=== PATIENT | male | born 1950 | race Caucasian/White ===

== ENCOUNTER 2016-10-11 21:29 | Emergency (ER) | payer MEDICARE, MEDICAID ==
[2016-10-11 22:40] VITALS: BP 140/95
--- NOTE | 2016-10-11 23:52 | EDM.PDOC ---
ED HPI GENERAL MEDICAL PROBLEM - General Chief Complaint: Lower Extremity Injury/Pain Stated Complaint: FEET ARE SORE Time Seen by Provider: 10/11/16 23:38 Source of Information: Reports: Patient History Limitations: Reports: No Limitations - History of Present Illness INITIAL COMMENTS - FREE TEXT/NARRATIVE: History of present illness: [66-year-old male presenting complaining of pain in his feet right greater than left this been going off and on for weeks and perhaps months. He has doctors Dr. Villasenor this problem but has never come to any resolution as to how he could be helped by this. He got new shoes a few weeks ago and that has not helped. He thinks it might be related to some of his medications and so his psychiatrist took him off of a few of his meds but he doesn't know the names of the medications he was taken off of but that has not worked he did. He apparently has some sort of psychiatric history but I'm not seeing him in meds attack as far as what it is but I suspect it could be something like schizophrenia. in name and he is complaining of pain in his feet right greater than left is exacerbated by walking and then when he lays down the pain goes away] Review of systems: As per history of present illness and below otherwise all systems reviewed and negative. Past medical history: As per history of present illness and as reviewed below otherwise noncontributory. Surgical history: As per history of present illness and as reviewed below otherwise noncontributory. Social history: No reported history of drug or alcohol abuse. Family history: As per history of present illness and as reviewed below otherwise noncontributory. Physical exam: HEENT: Atraumatic, normocephalic, pupils reactive, negative for conjunctival pallor or scleral icterus, mucous membranes moist, throat clear, neck supple, nontender, trachea midline. Lungs: Clear to auscultation, breath sounds equal bilaterally, chest nontender. Heart: S1S2, regular, negative for clicks, rubs, or JVD. Abdomen: Soft, nondistended, nontender. Negative for masses or hepatosplenomegaly. Negative for costovertebral tenderness. Pelvis: Stable nontender. Genitourinary: Deferred. Rectal: Deferred. Extremities: Examination of his feet reveals no obvious abnormalities palpation of his midfoot exacerbates his pain is no erythema or warmth he does seem to have more pain in the right and left this does not seem to be a Wilkinson's neuroma is more proximal than that would be. Neuro: Awake, alert, oriented. Cranial nerves II through XII unremarkable. Cerebellum unremarkable. Motor and sensory unremarkable throughout. Exam nonfocal. Diagnostics: [] Therapeutics: [] Impression: [Bilateral feet pain] Plan: [He does have diclofenac cream that he uses on his back. I recommended he try using it on his feet and if it doesn't work to followup in the clinic.] Definitive disposition and diagnosis as appropriate pending reevaluation and review of above. Bilateral Feet Pain Score (Numeric/FACES): 5 - Related Data Allergies Allergy/AdvReac Type Severity Reaction Status Date / Time gabapentin Allergy Shaking Verified 10/11/16 22:29 Wxetave-Vzt-Hjy Reductase Allergy Cannot Verified 10/11/16 22:28 Inhibitor Remember atorvastatin AdvReac Muscle Verified 10/11/16 22:28 Weakness bupropion HCl AdvReac Seizure Verified 10/11/16 22:28 [From Wellbutrin] citalopram hydrobromide AdvReac Hallucinati Verified 10/11/16 22:28 [From Celexa] ons mirtazapine [From Remeron] AdvReac Hallucinati Verified 10/11/16 22:28 ons pravastatin AdvReac Leg Cramps Verified 10/11/16 22:28 Home Meds: Home Meds Aspirin [Darlin Chewable] 81 mg PO QAM 03/25/13 [History] ClonazePAM [KlonoPIN] 0.5 mg PO BID 03/25/13 [History] Multivitamin with Minerals [Multiple Vitamin] 1 tab PO QAM 03/25/13 [History] Omeprazole 20 mg PO QAM 03/25/13 [History] Propranolol [Inderal] 20 mg PO TID 06/30/13 [History] FLUoxetine [PROzac] 40 mg PO QAM 10/06/13 [History] Diclofenac Sodium [Voltaren] 75 mg PO QID PRN 09/14/15 [History] Simvastatin [Zocor] 10 mg PO BEDTIME 12/07/15 [History] Cyclobenzaprine [Flexeril] 10 mg PO TID PRN 10/11/16 [History] Past Medical History HEENT History: Reports: Hard of Hearing, Impaired Vision Cardiovascular History: Reports: Arrhythmia, CAD, Heart Murmur, High Cholesterol , SOB on Exertion Respiratory History: Reports: Sleep Apnea Gastrointestinal History: Reports: GERD, Hiatal Hernia Musculoskeletal History: Reports: Back Pain, Chronic, Fracture, Other (See Below ) Other Musculoskeletal History: possible neuropathy Neurological History: Reports: Migraines, Neuropathy, Peripheral, Other (See Below) Other Neuro History: tremors from meds. tenitis Psychiatric History: Reports: Anxiety, Depression Hematologic History: Reports: Blood Transfusion(s) - Infectious Disease History Infectious Disease History: Reports: Chicken Pox, Measles, Mumps - Past Surgical History GI Surgical History: Reports: Hernia Repair/Other, Other (See Below) Social & Family History - Tobacco Use Smoking Status *Q: Never Smoker Years of Tobacco use: 20 Packs/Tins Daily: 3.5 Used Tobacco, but Quit: Yes Month Tobacco Last Used: may Second Hand Smoke Exposure: No - Caffeine Use Caffeine Use: Reports: Coffee - Alcohol Use Days Per Week of Alcohol Use: 0 - Recreational Drug Use Recreational Drug Use: No Drug Use in Last 12 Months: No Review of Systems - Review of Systems Review Of Systems: See Below Trauma Exam - Physical Exam Exam: See Below Course - Vital Signs Last Recorded V/S: Last Vital Signs Temp 36.0 C 10/11/16 22:34 Pulse 72 10/11/16 22:34 Resp 18 10/11/16 22:34 BP 140/95 H 10/11/16 22:34 Pulse Ox 94 L 10/11/16 22:34 Departure - Departure Time of Disposition: 23:52 Disposition: Home, Self-Care 01 Condition: good Clinical Impression: Bilateral foot pain - Discharge Information Forms: ED Department Discharge Additional Instructions: As we discussed try using that pain medication cream on her feet and if it doesn 't work follow up in the clinic
== END 2016-10-12 00:09 | disposition home or self-care (01) ==
LOC: JP.ED 21:29
DX: M79.671 Pain in right foot (principal); M79.672 Pain in left foot; H54.7 Unspecified visual loss; I25.10 Atherosclerotic heart disease of native coronary artery without angina pectoris; E78.00 Pure hypercholesterolemia, unspecified; K21.9 Gastro-esophageal reflux disease without esophagitis; G43.909 Migraine, unspecified, not intractable, without status migrainosus; F41.9 Anxiety disorder, unspecified; F32.9 Major depressive disorder, single episode, unspecified; Z88.8 Allergy status to other drugs, medicaments and biological substances; Z79.82 Long term (current) use of aspirin; Z79.899 Other long term (current) drug therapy
CPT/HCPCS: 99282; 99283

== ENCOUNTER 2016-10-15 10:41 | Emergency (ER) | payer MEDICARE, MEDICAID ==
[2016-10-15 10:50] VITALS: BP 169/107
[2016-10-15] MEDS ORDERED: Doxycycline 100 MG Cap PO ONE (11:21)
--- NOTE | 2016-10-15 11:24 | EDM.PDOC ---
ED HPI GENERAL MEDICAL PROBLEM - General Chief Complaint: Bite:Animal, Insect Stated Complaint: TICK LT SIDE ABD Time Seen by Provider: 10/15/16 11:00 Source of Information: Reports: Patient History Limitations: Reports: No Limitations - History of Present Illness INITIAL COMMENTS - FREE TEXT/NARRATIVE: Nolan is a 66 year old male who presents to the ED today with c/o tick bite to left lower abdomen. Patient reports it was not there yesterday. Tick is embedded but not encouraged. Patient denies any fever/body aches/chills/ rash. Onset: Today Duration: Day(s): (1) Left Abdomen Pain Score (Numeric/FACES): 1 - Related Data Allergies Allergy/AdvReac Type Severity Reaction Status Date / Time gabapentin Allergy Shaking Verified 10/15/16 10:58 Ycpuevr-Icg-Xnt Reductase Allergy Cannot Verified 10/15/16 10:58 Inhibitor Remember atorvastatin AdvReac Muscle Verified 10/15/16 10:58 Weakness bupropion HCl AdvReac Seizure Verified 10/15/16 10:58 [From Wellbutrin] citalopram hydrobromide AdvReac Hallucinati Verified 10/15/16 10:58 [From Celexa] ons mirtazapine [From Remeron] AdvReac Hallucinati Verified 10/15/16 10:58 ons pravastatin AdvReac Leg Cramps Verified 10/15/16 10:58 Home Meds: Home Meds Aspirin [Darlin Chewable] 81 mg PO QAM 03/25/13 [History] ClonazePAM [KlonoPIN] 0.5 mg PO BID 03/25/13 [History] Multivitamin with Minerals [Multiple Vitamin] 1 tab PO QAM 03/25/13 [History] Omeprazole 20 mg PO QAM 03/25/13 [History] Propranolol [Inderal] 20 mg PO TID 06/30/13 [History] FLUoxetine [PROzac] 40 mg PO QAM 10/06/13 [History] Diclofenac Sodium [Voltaren] 75 mg PO QID PRN 09/14/15 [History] Simvastatin [Zocor] 10 mg PO BEDTIME 12/07/15 [History] Cyclobenzaprine [Flexeril] 10 mg PO TID PRN 10/11/16 [History] Past Medical History HEENT History: Reports: Hard of Hearing, Impaired Vision Cardiovascular History: Reports: Arrhythmia, CAD, Heart Murmur, High Cholesterol , SOB on Exertion Respiratory History: Reports: Sleep Apnea Gastrointestinal History: Reports: GERD, Hiatal Hernia Musculoskeletal History: Reports: Back Pain, Chronic, Fracture, Other (See Below ) Other Musculoskeletal History: possible neuropathy Neurological History: Reports: Migraines, Neuropathy, Peripheral, Other (See Below) Other Neuro History: tremors from meds. tenitis Psychiatric History: Reports: Anxiety, Depression Hematologic History: Reports: Blood Transfusion(s) - Infectious Disease History Infectious Disease History: Reports: None - Past Surgical History HEENT Surgical History: Reports: Other (See Below) Other HEENT Surgeries/Procedures: removed metal from eye Cardiovascular Surgical History: Reports: None Respiratory Surgical History: Reports: None GI Surgical History: Reports: Hernia Repair/Other, Other (See Below) Other GI Surgeries/Procedures: spleenectomy Neurological Surgical History: Reports: None Musculoskeletal Surgical History: Reports: None Social & Family History - Tobacco Use Smoking Status *Q: Former Smoker Years of Tobacco use: 20 Packs/Tins Daily: 3 Used Tobacco, but Quit: Yes Month Tobacco Last Used: november Second Hand Smoke Exposure: Yes - Caffeine Use Caffeine Use: Reports: Coffee, Soda, Tea - Alcohol Use Days Per Week of Alcohol Use: 0 - Recreational Drug Use Recreational Drug Use: No Drug Use in Last 12 Months: No ED ROS GENERAL - Review of Systems Review Of Systems: ROS reveals no pertinent complaints other than HPI. ED EXAM, ANIMAL BITE - Physical Exam Exam: See Below Exam Limited By: No Limitations General Appearance: Alert, WD/WN, No Apparent Distress Head: Atraumatic Neck: Full Range of Motion Respiratory/Chest: No Respiratory Distress Cardiovascular: Normal Peripheral Pulses GI/Abdominal: Other (Embedded tick to left lower abdomen) Back Exam: Normal Inspection Extremities: Normal Inspection Neurological: Alert, Oriented, CN II-XII Intact Psychiatric: Normal Affect, Normal Mood. No: Other Skin Exam: Normal Color, Warm/Dry, Other (small areas, approx 1 cm of erythema surrounding tick bite, no evidence of cellulitis) Lymphatic: No Adenopathy Course - Vital Signs Text/Narrative:: Nolan is a 66 year old male who presents to the ED today with embedded tick to left lower abdomen. Tick removed with tweezers, head removed. Mild area of erythema, consistent with local irritation. Patient's exam otherwise unremarkable. Prophylactic dose of Doxycycline given in the ED as tick appears to be a deer tick. Tick related illnesses/symptoms discussed. Patient to follow up with PCP in these occur. Patient agreeable and discharged in stable condition. Last Recorded V/S: Last Vital Signs Temp 36.2 C 10/15/16 10:55 Pulse 101 H 10/15/16 10:55 Resp 18 10/15/16 10:55 BP 169/107 H 10/15/16 10:55 Pulse Ox 98 10/15/16 10:55 - Orders/Labs/Meds Meds: Medications Discontinued Medications Generic Name Dose Route Start Last Admin Trade Name Freq PRN Reason Stop Dose Admin Doxycycline Hyclate 200 mg 10/15/16 11:21 Vibramycin PO 10/15/16 11:22 ONETIME ONE Departure - Departure Time of Disposition: 12:00 Disposition: Home, Self-Care 01 Condition: good Clinical Impression: Tick bite Qualifiers: Encounter type: initial encounter Qualified Code(s): W57.XXXA - Bitten or stung by nonvenomous insect and other nonvenomous arthropods, initial encounter - Discharge Information Instructions: Ehrlichiosis and Anaplasmosis Referrals: Cierra Oconnor NP [Primary Care Provider] - Forms: ED Department Discharge Additional Instructions: Nolan I have given you a prophylactic does of Doxycycline today. If you develop any body aches, fever or bullseye rash, please follow up with your PCP
== END 2016-10-15 11:45 | disposition home or self-care (01) ==
LOC: JP.ED 10:41
DX: S30.861A Insect bite (nonvenomous) of abdominal wall, initial encounter (principal); I25.10 Atherosclerotic heart disease of native coronary artery without angina pectoris; E78.00 Pure hypercholesterolemia, unspecified; K21.9 Gastro-esophageal reflux disease without esophagitis; F41.9 Anxiety disorder, unspecified; F32.9 Major depressive disorder, single episode, unspecified; Z90.81 Acquired absence of spleen; Z98.890 Other specified postprocedural states; Z87.891 Personal history of nicotine dependence; Z79.82 Long term (current) use of aspirin; Z79.899 Other long term (current) drug therapy; Z88.8 Allergy status to other drugs, medicaments and biological substances; W57.XXXA Bitten or stung by nonvenomous insect and other nonvenomous arthropods, initial encounter
CPT/HCPCS: 99283; A9270; 99282

== ENCOUNTER 2017-01-04 06:26 | Day surgery (SDC) | payer MEDICARE, MEDICAID ==
[2017-01-04] MEDS ORDERED: fentaNYL 100 MCG/2 ML SDV ONE (07:00)
[2017-01-04] MEDS ORDERED: Propofol 200 MG/20 ML SDV ONE (07:00)
[2017-01-04] MEDS ORDERED: Dextrose 5%-Lactated Ringers 1,000 ML IV SCH (07:00)
[2017-01-04] MEDS ORDERED: Midazolam 1 MG/ML 2 ML SDV ONE (07:00)
[2017-01-04] MEDS ORDERED: Glycopyrrolate 0.2 MG/ML 2 ML SDV IVPUSH ONE (07:30)
[2017-01-04 09:35] VITALS: BP 124/74
--- NOTE | 2017-01-07 12:15 | OR ---
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 POSTOPERATIVE DIAGNOSES: 1. Large hiatal hernia with ulcerated gastroesophageal reflux disease consistent with Llamas esophagus. 2. Mild antral gastritis. OPERATIVE PROCEDURE: Esophagogastroduodenoscopy with biopsies of, 1. Antrum for CLOtest. 2. Esophagogastric junction for histologic evaluation. ANESTHESIA: IV sedation. INDICATIONS FOR PROCEDURE: This is a 66-year-old male presenting for a followup of Llamas esophagus. He does note some intermittent gastroesophageal reflux disease on omeprazole 40 mg a day. Plan is to proceed with upper GI endoscopy with biopsies as indicated. Potential risks including bleeding and perforation were discussed, and the patient wishes to proceed. DETAILS OF PROCEDURE: The patient was taken to the operative room and after placement in the left lateral decubitus position, was given IV sedation. The upper GI endoscope was passed orally through the length of the esophagus and into the stomach with retroflexion view of the fundus, thereafter through the pyloric channel and into the proximal duodenum. Findings included a normal hypopharynx, larynx, upper esophageal sphincter, and esophageal body. The patient did have a quite large hiatal hernia measuring around 5-6 cm, and with this had two linear ulcers present. There was upward extension of the gastroesophageal junction mucosal line consistent with his history of Llamas esophagus. There was no stricturing or gross evidence of neoplasia. Within the stomach, there was some mild antral gastritis. Pyloric channel and the duodenal exams were unremarkable. At this point, biopsies were obtained from the antrum and sent for CLOtest for H. pylori. Multiple biopsies were then obtained from the esophagogastric junction and sent for histologic evaluation. Minimal bleeding from the biopsy sites was seen and the procedure was then concluded. The patient was taken to the recovery room in satisfactory condition. Plan will be to continue present medications. We will have the patient followup on 01/16/2017. We discussed treatment options given the active reflux disease and an anti- reflux procedure may be indicated. Ace aGrdner MD /[id number]
== END 2017-01-04 09:57 | disposition home health service (06) ==
LOC: JP.SDS 06:26
PROVIDERS: ATTEND Surgery
DX: K29.50 Unspecified chronic gastritis without bleeding (principal); K44.9 Diaphragmatic hernia without obstruction or gangrene; K21.9 Gastro-esophageal reflux disease without esophagitis; Z88.8 Allergy status to other drugs, medicaments and biological substances
CPT/HCPCS: 43239; 87081; J2250; J2704; J3010; J7042; 88305; J3490

== ENCOUNTER 2017-01-24 06:56 | Inpatient (IN) | payer MEDICARE, MEDICAID ==
[2017-01-24] MEDS ORDERED: Acetaminophen 500 MG Tab PO ONE (07:00)
[2017-01-24] MEDS ORDERED: Dextrose 5%-Lactated Ringers 1,000 ML IV SCH (07:30)
[2017-01-24] MEDS ORDERED: Propranolol 10 MG Tab PO ONE (07:33)
[2017-01-24] MEDS ORDERED: ceFAZolin 2 GM in Premix Bag 1 BAG IV ONE (08:00)
[2017-01-24] MEDS ORDERED: HYDROmorphone/Normal Saline 15 MG/30 ML PCA IV PRN (08:20)
[2017-01-24] MEDS ORDERED: Naloxone 0.4 MG/ML SDV IVPUSH PRN (08:20)
[2017-01-24] MEDS ORDERED: Neostigmine Methylsulfate 1 MG/ML 5 ML Syringe ONE (10:29)
[2017-01-24] MEDS ORDERED: Glycopyrrolate 0.2 MG/ML 5 ML MDV ONE (10:29)
[2017-01-24] MEDS ORDERED: Propofol 200 MG/20 ML SDV ONE (10:29)
[2017-01-24] MEDS ORDERED: Ondansetron 4 MG/2 ML SDV ONE (10:29)
[2017-01-24] MEDS ORDERED: Rocuronium 50 MG/5 ML Vial ONE (10:29)
[2017-01-24] MEDS ORDERED: Succinylcholine 200 MG/10 ML MDV ONE (10:29)
[2017-01-24] MEDS ORDERED: Dexamethasone 4 MG/ML SDV ONE (10:29)
[2017-01-24] MEDS ORDERED: Naloxone 0.4 MG/ML SDV IV PRN (13:28)
[2017-01-24] MEDS ORDERED: Cyclobenzaprine 10 MG Tab PO PRN (13:31)
[2017-01-24] MEDS ORDERED: Ondansetron 4 MG/2 ML SDV IVPUSH PRN (13:33)
[2017-01-24] MEDS: Dextrose 5%-Lactated Ringers 1,000 ML IV SCH ×2 (13:39→22:11)
[2017-01-24] MEDS: Propranolol 10 MG Tab PO SCH ×2 (14:35→21:05)
[2017-01-24] MEDS: Pantoprazole 40 MG Vial IV SCH (14:36)
[2017-01-24] MEDS: Metoclopramide 10 MG/2 ML SDV IVPUSH SCH ×2 (14:38→19:41)
[2017-01-24] MEDS ORDERED: Lactated Ringers 500 ML IV ONE (16:00)
[2017-01-24] MEDS: ceFAZolin 2 GM in Sodium Chloride 0.9% 50 ML IV SCH (16:12)
[2017-01-24] MEDS: Diclofenac Sodium 75 MG Tab.EC PO SCH (21:04)
[2017-01-24] MEDS: ClonazePAM 0.5 MG Tab PO SCH (21:04)
[2017-01-25] MEDS: ceFAZolin 2 GM in Sodium Chloride 0.9% 50 ML IV SCH ×2 (00:18→07:49)
[2017-01-25] MEDS: Metoclopramide 10 MG/2 ML SDV IVPUSH SCH ×2 (03:23→07:49)
[2017-01-25] MEDS: Dextrose 5%-Lactated Ringers 1,000 ML IV SCH ×3 (04:32→20:13)
[2017-01-25] MEDS ORDERED: Acetaminophen/HYDROcodone 325-5 MG Tab PO PRN (07:53)
[2017-01-25] MEDS ORDERED: Cyclobenzaprine 10 MG Tab PO PRN (07:54)
[2017-01-25] MEDS ORDERED: Metoclopramide 10 MG/2 ML SDV IVPUSH PRN (07:56)
[2017-01-25] MEDS ORDERED: ClonazePAM 0.5 MG Tab PO SCH (09:00)
[2017-01-25] MEDS ORDERED: PROPRANOLOL 20 MG PO SCH (09:00)
[2017-01-25] MEDS: Propranolol 10 MG Tab PO SCH ×3 (09:48→20:09)
[2017-01-25] MEDS: FLUoxetine 20 MG Cap PO SCH (09:49)
[2017-01-25] MEDS: Aspirin 81 MG Tab.Chew PO SCH (09:49)
[2017-01-25] MEDS: Diclofenac Sodium 75 MG Tab.EC PO SCH ×2 (09:50→20:11)
[2017-01-25] MEDS: ClonazePAM 0.5 MG Tab PO SCH ×2 (09:54→20:10)
--- NOTE | 2017-01-25 11:43 | PN ---
DATE OF SERVICE: 01/25/2017 SUBJECTIVE: Nolan is a pleasant 66-year-old male. He is postoperative day #1. He states his pain is controlled. He has been up and ambulating. Vital signs have been stable. He has no questions or concerns. OBJECTIVE: GENERAL: Nolan is a 66-year-old male. VITAL SIGNS: TPR is 97.1, 67, 17, blood pressure 109/64. HEENT: Negative. NECK: Supple. HEART: Regular rate and rhythm. LUNGS: Clear. ABDOMEN: Dressing is dry and intact. Abdominal binder is on. EXTREMITIES: Without peripheral edema and SCDs are on. ASSESSMENT: Laparoscopic Shanthi fundoplication. The surgery is 01/24/2017. PLAN: 1. Full liquid diet. 2. 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 3. Discontinue continuous pulse ox. 4. [place] 5/325 mg every 4 hours p.r.n. pain. 5. Tylenol 650 mg q.4 hours p.r.n. lesser pain. 6. Aspirin 81 mg q.a.m. 7. Clonazepam 0.5 mg p.o. b.i.d. 8. Flexeril 10 mg p.o. t.i.d. p.r.n. 9. Inderal 20 mg p.o. t.i.d. 10.Zocor 10 mg p.o. at bedtime. 11.Decrease IV to 100 mL/h. 12.Good pulmonary toilet. 13.We will evaluate p.r.n. or in a.m. Antonia Emanuel PA-C /[id number]
[2017-01-25] MEDS: Pantoprazole 40 MG Vial IV SCH (14:55)
[2017-01-25] MEDS ORDERED: Non-Formulary Medication 1 Each (Simvastatin [Zocor] 10 MG) PO SCH (21:00)
[2017-01-25] MEDS ORDERED: Simvastatin 20 MG Tab PO SCH (21:00)
[2017-01-26 07:25] VITALS: BP 131/86
[2017-01-26] MEDS: Propranolol 10 MG Tab PO SCH (08:44)
[2017-01-26] MEDS: Diclofenac Sodium 75 MG Tab.EC PO SCH (08:45)
[2017-01-26] MEDS: FLUoxetine 20 MG Cap PO SCH (08:46)
[2017-01-26] MEDS: Aspirin 81 MG Tab.Chew PO SCH (08:46)
[2017-01-26] MEDS: ClonazePAM 0.5 MG Tab PO SCH (09:02)
--- NOTE | 2017-01-28 08:07 | DISCH ---
FINAL DIAGNOSES: 1. Large paraesophageal hernia associated with gastroesophageal reflux disease refractory to medical management. 2. Deserosalized portion of stomach from takedown of extensive intraabdominal adhesions. 3. Mediastinal lipoma. 4. Anxiety disorder. 5. Glucose intolerance. OPERATIVE PROCEDURE: This was done on 01/24/2017: 1. Diagnostic laparoscopy with lysis of adhesions and: a. Shanthi fundoplication along with repair of paraesophageal diaphragmatic hernia with mesh. b. Partial gastrectomy. c. Excision of mediastinal lipoma. SUMMARY: This is a 66-year-old presenting with gastroesophageal reflux disease that has been refractory to medical management. After preoperative evaluation and discussion, he wished to proceed with a Shanthi fundoplication. 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 These were dissected eventually to the point where we were able to proceed with the Shanthi fundoplication and hiatal hernia repair. He did have a portion of the stomach which was deserosalized, as a result of the takedown of adhesions, and that was excised, this being a quite small area, and otherwise, the fundoplication was straightforward and otherwise reinforced with some absorbable mesh. Postoperatively, he has had no significant problems. He is requiring only Tylenol for pain at this point and tolerating full-liquid diet. He will be instructed to stay on full-liquid diet for the next 2 weeks and then follow up with Dr. Gardner at [facility] on 02/06/2017.
--- NOTE | 2017-01-28 10:28 | OR ---
DATE OF PROCEDURE: 01/24/2017 PREOPERATIVE DIAGNOSIS: Gastroesophageal reflux disease, refractory to medical management. POSTOPERATIVE DIAGNOSES: 1. Large paraesophageal diaphragmatic hernia with gastroesophageal reflux disease, refractory to medical management. 2. Extensive intraabdominal adhesions. 3. Deserosalized portion of the gastric body, status post takedown of adhesions. 4. Mediastinal lipoma. OPERATIVE PROCEDURE: 1. Diagnostic laparoscopy with lysis of adhesions: a. Shanthi fundoplication with concurrent repair of paraesophageal diaphragmatic hernia with mesh (30864). b. Partial gastrectomy (27876). c. Excision of mediastinal lipoma (42687). ANESTHESIA: General. UPHOLSTERER APPRENTICE: Antonia Emanuel PA-C. INDICATION FOR PROCEDURE: This is a 66-year-old presenting with gastroesophageal reflux disease, which has been refractory to medical management. Plan is to proceed with a Shanthi fundoplication. This most likely can be done laparoscopically, however, the patient does have a long left subcostal incision related to a previous splenectomy. He is aware that there was some chance of needing to proceed with open procedure due to adhesions in that area. Otherwise, potential risks per se including bleeding, infection, injury to the underlying viscera, problems with the fundoplication such as dysphagia, gas bloat syndrome, disorders in gastric emptying rate, as well as incomplete relief of reflux symptoms were all reviewed, and the patient wishes to proceed. DETAILS OF PROCEDURE: The patient was taken to the operating room and placed in a supine position. After general endotracheal anesthesia was induced, a Cortez catheter was inserted and he was converted to a lithotomy position. The abdomen was then prepped and draped. At 15 cm inferior and 5 cm left of the xiphoid process, a transverse incision was made and peritoneal cavity entered under direct vision with an Optiview trocar. The peritoneal cavity was infiltrated to 15 mmHg pressure with CO2. Laparoscope was reinserted. No underlying trocar insertion site injuries were seen. The patient was noted to have a broad area of adhesions between the left subcostal incision and a combination of omentum and transverse colon and small bowel. The small bowel adhesions were all fairly lateral, and these were felt to be able to be left in place. Initially, 3 trocars were placed in the upper and right side of the abdomen, and adhesiolysis was undertaken. This was developed to the point where the visualization of the area of the stomach and gastroesophageal junction was able to be satisfactorily viewed. During course of the dissection, some dense adhesions to a portion of the greater curvature of the midbody of the stomach resulted in deserosalization of that area, and this was felt best to be excised to avoid any problems with subsequent perforation and that was accomplished with 2 firings of the AIDA purple loads and that specimen delivered from the field. At this point, 2 trocars were placed on the left abdomen along the costal margin under direct vision, as those areas had been cleared of the adhesions, and the dissection of the greater curvature of stomach then began further upward, dividing this away from the adhesions up to the level of the gastroesophageal junction. The peritoneal attachments of the esophagogastric junction were then freed up, such that the left fawad was completely freed up. The peritoneum along the anterior aspect of the right fawad was then encircled and divided and this allowed dissection into the esophagogastric junction, which, at that point, had been reduced by traction on the stomach downward. A Berry drain was placed around the distal esophagus and then additional freeing up the area of the attachments to the esophagus was undertaken. During the course of the dissection, a mediastinal lipoma was encountered, and this was excised and sent as a separate specimen. Care was taken to avoid injury to the vagus nerves, both of which were visualized during the course of the dissection. At that point, there appeared to be adequate intraabdominal esophageal length, measuring around 5 cm. A posterior crural repair was then accomplished with a series of 0 Ethibond sutures reinforced with PTFE pledgets. The defect was fairly broad, and this was felt best reinforced with an absorbable mesh. Phasix mesh was then cut such that it would lie across the crural repair posteriorly and roughly intermediate along the esophagus on each side. This was fixed in position with some titanium tacking screws. The fundus at that point had been well freed up and was retrieved through the retroesophageal window. The flame channeler then passed a wire more orally and from there into the stomach. Over this, a 54-Guyanese Savary dilator was placed. A 3-stitch 2 cm fundoplication was then made with 0 Ethibond sutures reinforced with PTFE pledgets. Each of the fundoplication sutures included bites of the underlying esophagus to help fix it in position. Both sides of the fundoplication were then fixed to the overlying diaphragm as well with the same stitch-pledget combination to prevent slippage of the fundoplication over time. At that point, the dilator and wire were removed, and no additional problems were noted. At this point, the gastrectomy staple line was once again inspected and found to be intact, and at that point, the trocars removed and the peritoneal cavity deflated. There were two 12 mm trocars placed through the course of this dissection, these were closed at fascial level with 0 Vicryl stitch and the skin at each incision with a 4-0 Vicryl skin stitch. Dressing was applied. The patient was taken to the recovery room in satisfactory condition. Physician child care center assistant director, Antonia Emanuel played an essential role in assisting in this case, helping to position the patient, retract structures as needed, as well as suturing and cutting sutures when indicated. Her presence improved patient safety and decreased operative time. Ace Gardner MD /[id number]
== END 2017-01-26 11:20 | disposition home or self-care (01) | DRG 328 ==
LOC: JP.MS 06:56 → JP.SDS 06:56 → EDSTATUS 11:30 → JP.2SS 12:15 → UNDOADMIN 12:15 → JP.MS 12:15 → UNDODISIN 01-26 11:20
PROVIDERS: ADMIT Surgery; ATTEND Surgery
PROC: 0WBC4ZX Excision of Mediastinum, Percutaneous Endoscopic Approach, Diagnostic (ICD-10-PCS; principal; 2017-01-24)
PROC: 0DB64ZZ Excision of Stomach, Percutaneous Endoscopic Approach (ICD-10-PCS; principal; 2017-01-24)
PROC: 0DV44ZZ Restriction of Esophagogastric Junction, Percutaneous Endoscopic Approach (ICD-10-PCS; principal; 2017-01-24)
PROC: 0BUS4JZ (ICD-10-PCS; principal; 2017-01-24)
PROC: 0BUR4JZ (ICD-10-PCS; principal; 2017-01-24)
DX: K21.9 Gastro-esophageal reflux disease without esophagitis (principal); D17.4 Benign lipomatous neoplasm of intrathoracic organs; K66.0 Peritoneal adhesions (postprocedural) (postinfection); K44.9 Diaphragmatic hernia without obstruction or gangrene; M54.9 Dorsalgia, unspecified; G89.29 Other chronic pain; F32.9 Major depressive disorder, single episode, unspecified; F41.1 Generalized anxiety disorder; Z88.8 Allergy status to other drugs, medicaments and biological substances; Z79.82 Long term (current) use of aspirin; E74.39 Other disorders of intestinal carbohydrate absorption
CPT/HCPCS: 88304; 88305; 94762; A9270-GY; C1781; C9113; J0330; J0690; J1100; J1170; J2405; J2704; J2710; J2765; J3010; J7042; J7050

== ENCOUNTER 2017-02-23 16:33 | Emergency (ER) | payer MEDICARE, MEDICAID ==
[2017-02-23 16:54] VITALS: BP 131/82
[2017-02-23] MEDS ORDERED: HYDROmorphone 1 MG/ML Syringe IM ONE (18:41)
[2017-02-23] MEDS ORDERED: HYDROmorphone 1 MG/ML Syringe ONE (18:50)
[2017-02-23] MEDS ORDERED: Aluminum Hydroxide/Magnesium Hydroxide/Simethicone Susp 30 ML Cup PO ONE (22:29)
--- NOTE | 2017-02-23 23:14 | EDM.PDOC ---
ED HPI GENERAL MEDICAL PROBLEM - General Chief Complaint: Back Pain or Injury Stated Complaint: BACK PAIN,NEUROPATHY RT FOOT Time Seen by Provider: 02/23/17 18:05 Source of Information: Reports: Patient History Limitations: Reports: No Limitations - History of Present Illness INITIAL COMMENTS - FREE TEXT/NARRATIVE: This gentleman comes in for exacerbation of chronic low back pain. He denies any kind of leg weakness. He was at a birthday celebration earlier today and thinks he kind of overdid it. Also notes he had a large abdominal surgery within the past couple of months for hiatal hernia. Lower Back Pain Score (Numeric/FACES): 8 - Related Data Allergies Allergy/AdvReac Type Severity Reaction Status Date / Time Cqsluws-Cqe-Zew Reductase Allergy Cannot Verified 01/24/17 07:27 Inhibitor Remember atorvastatin AdvReac Muscle Verified 01/24/17 07:27 Weakness bupropion HCl AdvReac Seizure Verified 01/24/17 07:27 [From Wellbutrin] citalopram hydrobromide AdvReac Hallucinati Verified 01/24/17 07:27 [From Celexa] ons gabapentin AdvReac Shaking Verified 01/24/17 07:27 mirtazapine [From Remeron] AdvReac Hallucinati Verified 01/24/17 07:27 ons pravastatin AdvReac Leg Cramps Verified 01/24/17 07:27 Home Meds: Home Meds Aspirin [Darlin Chewable] 81 mg PO QAM 03/25/13 [History] ClonazePAM [KlonoPIN] 0.5 mg PO BID 03/25/13 [History] Multivitamin with Minerals [Multiple Vitamin] 1 tab PO QAM 03/25/13 [History] Omeprazole 20 mg PO QAM 03/25/13 [History] Propranolol [Inderal] 20 mg PO TID 06/30/13 [History] FLUoxetine [PROzac] 40 mg PO QAM 10/06/13 [History] Diclofenac Sodium [Voltaren] 75 mg PO BID PRN 09/14/15 [History] Simvastatin [Zocor] 10 mg PO BEDTIME 12/07/15 [History] Cyclobenzaprine [Flexeril] 10 mg PO TID PRN 10/11/16 [History] Acetaminophen [Tylenol Extra Strength] 500 mg PO Q6H PRN 01/03/17 [History] Diclofen Sod/Kinesiology Tape [Diclo Gel 1%-Xrylix Sheet Kit] 1 film TOP DAILY 01/03/17 [History] Past Medical History HEENT History: Reports: Hard of Hearing, Impaired Vision Cardiovascular History: Reports: Arrhythmia, CAD, Heart Murmur, SOB on Exertion Respiratory History: Reports: Sleep Apnea Other Respiratory History: no cpap Gastrointestinal History: Reports: Colon Polyp, GERD, Hiatal Hernia Musculoskeletal History: Reports: Back Pain, Chronic, Fracture, Other (See Below ) Other Musculoskeletal History: possible neuropathy Neurological History: Reports: Migraines, Neuropathy, Peripheral, Other (See Below) Other Neuro History: tremors from meds. tenitis Psychiatric History: Reports: Anxiety, Depression Hematologic History: Reports: Blood Transfusion(s) - Infectious Disease History Infectious Disease History: Reports: Chicken Pox, Measles, Mumps - Past Surgical History HEENT Surgical History: Reports: Other (See Below) Other HEENT Surgeries/Procedures: removed metal from eye Cardiovascular Surgical History: Reports: None, Other (See Below) Other Cardiovascular Surgeries/Procedures: angiogram Respiratory Surgical History: Reports: None GI Surgical History: Reports: Colonoscopy, EGD, Hernia Repair/Other, Other (See Below) Other GI Surgeries/Procedures: spleenectomy Neurological Surgical History: Reports: None Musculoskeletal Surgical History: Reports: None Social & Family History - Family History Family Medical History: Noncontributory - Tobacco Use Smoking Status *Q: Never Smoker Years of Tobacco use: 15 Packs/Tins Daily: 0.5 Used Tobacco, but Quit: Yes Month Tobacco Last Used: 01 Second Hand Smoke Exposure: No - Caffeine Use Caffeine Use: Reports: Coffee Caffeine Use Comment: 20 oz a day - Alcohol Use Days Per Week of Alcohol Use: 0 - Recreational Drug Use Recreational Drug Use: No Drug Use in Last 12 Months: No ED ROS GENERAL - Review of Systems Review Of Systems: ROS reveals no pertinent complaints other than HPI. ED EXAM,LOWER BACK PAIN/INJURY - Physical Exam Exam: See Below Exam Limited By: No Limitations General Appearance: Alert, WD/WN, Moderate Distress (This gentleman appears to be in a lot of pain) Eye Exam: Bilateral Eye: Normal Inspection Respiratory/Chest: Lungs Clear Cardiovascular: Regular Rate, Rhythm, No Murmur GI/Abdominal: Non-Tender (A number of recent but well-healed scars) Back Exam: Other (There is palpable spasm to the mid and lower lumbar area to the right paraspinous muscles muscles) Extremities: Normal Inspection Neurological: Alert, Normal Mood/Affect, No Motor/Sensory Deficits Course - Vital Signs Last Recorded V/S: Last Vital Signs Temp 35.5 C 02/23/17 16:53 Pulse 75 02/23/17 16:53 Resp 20 02/23/17 16:53 BP 131/82 02/23/17 16:53 Pulse Ox 95 02/23/17 16:53 - Orders/Labs/Meds Orders: Active Orders 24 hr Category Date Time Status EKG Documentation Completion [RC] ASDIRECTED Care 02/23/17 22:29 Active EKG 12 Lead [EK] Urgent Ther 02/23/17 22:29 Ordered Meds: Medications Discontinued Medications Generic Name Dose Route Start Last Admin Trade Name Chiquita PRN Reason Stop Dose Admin Al Hydroxide/Mg Hydroxide 30 ml 02/23/17 22:29 02/23/17 23:08 Mag-Al Plus PO 02/23/17 22:30 30 ml ONETIME ONE Administration Hydromorphone HCl 2 mg 02/23/17 18:41 02/23/17 18:47 Dilaudid IM 02/23/17 18:42 2 mg ONETIME ONE Administration Hydromorphone HCl Confirm 02/23/17 18:50 02/23/17 18:53 Dilaudid Administered 02/23/17 18:51 Not Given Dose 1 mg .ROUTE .STK-MED ONE - Re-Assessments/Exams Free Text/Narrative Re-Assessment/Exam: 02/24/17 12:20 This patient received 10 injection of Dilaudid 2 mg IM. Sometime after this he began feeling weak and sweaty. He was put into the stretcher put on cardiac mom monitor and an EKG was requested he did have some nausea 02/24/17 12:20 later his pain was relieved but he complained of some epigastric pain. He was given some Maalox and the EKG was done which showed no evidence of any ischemia. He was in normal sinus rhythm at 56 bpm there was some abnormal R wave progression with late transition otherwise ST and T waves were normal QRS is normal. By then he felt much better and was ready to be discharged Departure - Departure Time of Disposition: 23:12 Disposition: Home, Self-Care 01 Condition: Fair Clinical Impression: Low back pain - Discharge Information Instructions: Back Pain, Adult, [id number] Referrals: Cierra Oconnor NP [Primary Care Provider] - Forms: ED Department Discharge Additional Instructions: Use Percocet 5/325, #15 tablets, one or 2 tablets every 4 hours as needed for pain. This medication can cause sedation and impair driving. Continue your other medications. Your own omeprazole should be okay to take for heartburn. - My Orders Last 24 Hours: My Active Orders 02/23/17 22:29 EKG Documentation Completion [RC] ASDIRECTED EKG 12 Lead [EK] Urgent - Assessment/Plan Last 24 Hours: My Active Orders 02/23/17 22:29 EKG Documentation Completion [RC] ASDIRECTED EKG 12 Lead [EK] Urgent
== END 2017-02-23 23:21 | disposition home or self-care (01) ==
LOC: JP.ED 16:33
DX: M54.5 Low back pain (principal); I25.10 Atherosclerotic heart disease of native coronary artery without angina pectoris; G47.30 Sleep apnea, unspecified; F32.9 Major depressive disorder, single episode, unspecified; Z98.890 Other specified postprocedural states; Z87.891 Personal history of nicotine dependence; Z79.82 Long term (current) use of aspirin; Z79.899 Other long term (current) drug therapy; Z88.8 Allergy status to other drugs, medicaments and biological substances
CPT/HCPCS: 93005; 99284; A9270; J1170; 93010; 99283

== ENCOUNTER 2017-04-14 18:38 | Emergency (ER) | payer MEDICARE, MEDICAID ==
[2017-04-14 18:58] VITALS: BP 149/98
[2017-04-14] MEDS ORDERED: Ketorolac 60 MG/2 ML SDV IM ONE (19:20)
[2017-04-14] MEDS ORDERED: Cyclobenzaprine 10 MG Tab PO ONE (19:20)
--- NOTE | 2017-04-14 19:22 | EDM.PDOC ---
ED HPI GENERAL MEDICAL PROBLEM - General Chief Complaint: Back Pain or Injury Stated Complaint: BACK PAIN Time Seen by Provider: 04/14/17 19:17 Source of Information: Reports: Patient, RN Notes Reviewed History Limitations: Reports: No Limitations - History of Present Illness INITIAL COMMENTS - FREE TEXT/NARRATIVE: 67-year-old gentleman presents emergency department day complaint of low back pain he believes he injured himself when he was doing the laundry bend over without bending his knees cause pain probably on the right side no loss of bowel or bladder no fevers Lower Back Pain Score (Numeric/FACES): 8 - Related Data Allergies Allergy/AdvReac Type Severity Reaction Status Date / Time Xffrxuc-Jic-Icl Reductase Allergy Cannot Verified 04/14/17 19:01 Inhibitor Remember atorvastatin AdvReac Muscle Verified 04/14/17 19:01 Weakness bupropion HCl AdvReac Seizure Verified 04/14/17 19:01 [From Wellbutrin] citalopram hydrobromide AdvReac Hallucinati Verified 04/14/17 19:01 [From Celexa] ons gabapentin AdvReac Shaking Verified 04/14/17 19:01 mirtazapine [From Remeron] AdvReac Hallucinati Verified 04/14/17 19:01 ons pravastatin AdvReac Leg Cramps Verified 04/14/17 19:01 Home Meds: Home Meds Aspirin [Darlin Chewable] 81 mg PO QAM 03/25/13 [History] ClonazePAM [KlonoPIN] 0.5 mg PO BID 03/25/13 [History] Multivitamin with Minerals [Multiple Vitamin] 1 tab PO QAM 03/25/13 [History] Propranolol [Inderal] 20 mg PO TID 06/30/13 [History] FLUoxetine [PROzac] 40 mg PO QAM 10/06/13 [History] Diclofenac Sodium [Voltaren] 75 mg PO BID PRN 09/14/15 [History] Simvastatin [Zocor] 10 mg PO BEDTIME 12/07/15 [History] Cyclobenzaprine [Flexeril] 10 mg PO TID PRN 10/11/16 [History] Acetaminophen [Tylenol Extra Strength] 500 mg PO Q6H PRN 01/03/17 [History] Diclofen Sod/Kinesiology Tape [Diclo Gel 1%-Xrylix Sheet Kit] 1 film TOP DAILY 01/03/17 [History] Past Medical History HEENT History: Reports: Hard of Hearing, Impaired Vision Cardiovascular History: Reports: Arrhythmia, CAD, Heart Murmur, SOB on Exertion Respiratory History: Reports: Sleep Apnea Other Respiratory History: no cpap Gastrointestinal History: Reports: Colon Polyp, GERD, Hiatal Hernia Musculoskeletal History: Reports: Back Pain, Chronic, Fracture, Other (See Below ) Other Musculoskeletal History: possible neuropathy Neurological History: Reports: Migraines, Neuropathy, Peripheral, Other (See Below) Other Neuro History: tremors from meds. tenitis Psychiatric History: Reports: Anxiety, Depression Hematologic History: Reports: Blood Transfusion(s) - Infectious Disease History Infectious Disease History: Reports: Chicken Pox, Measles, Mumps - Past Surgical History HEENT Surgical History: Reports: Other (See Below) Other HEENT Surgeries/Procedures: removed metal from eye Cardiovascular Surgical History: Reports: None, Other (See Below) Other Cardiovascular Surgeries/Procedures: angiogram Respiratory Surgical History: Reports: None GI Surgical History: Reports: Colonoscopy, EGD, Hernia Repair/Other, Other (See Below) Other GI Surgeries/Procedures: spleenectomy Neurological Surgical History: Reports: None Musculoskeletal Surgical History: Reports: None Social & Family History - Family History Family Medical History: Noncontributory - Tobacco Use Smoking Status *Q: Former Smoker Years of Tobacco use: 15 Packs/Tins Daily: 0.5 Used Tobacco, but Quit: Yes Month Tobacco Last Used: 01 Second Hand Smoke Exposure: No - Caffeine Use Caffeine Use: Reports: Coffee Caffeine Use Comment: 20 oz a day - Alcohol Use Days Per Week of Alcohol Use: 0 - Recreational Drug Use Recreational Drug Use: No Drug Use in Last 12 Months: No ED ROS GENERAL - Review of Systems Review Of Systems: See Below Constitutional: Reports: No Symptoms Respiratory: Reports: No Symptoms Cardiovascular: Reports: No Symptoms GI/Abdominal: Reports: No Symptoms : Reports: No Symptoms Musculoskeletal: Reports: Back Pain Neurological: Reports: No Symptoms ED EXAM,LOWER BACK PAIN/INJURY - Physical Exam Exam: See Below Exam Limited By: No Limitations General Appearance: Alert, WD/WN, No Apparent Distress Respiratory/Chest: No Respiratory Distress Back Exam: Normal Inspection, Decreased Range of Motion (A), Muscle Spasm, Paraspinal Tenderness. No: CVA Tenderness (R), CVA Tenderness (L), Vertebral Tenderness Extremities: Normal Inspection, Non-Tender, No Pedal Edema DTR - Lower Extremities: 2+: Knee (R), Knee (L) Course - Vital Signs Last Recorded V/S: Last Vital Signs Temp 96.8 F 04/14/17 19:10 Pulse 77 04/14/17 19:10 Resp 18 04/14/17 19:10 BP 149/98 H 04/14/17 19:10 Pulse Ox 95 04/14/17 19:10 - Orders/Labs/Meds Meds: Medications Discontinued Medications Generic Name Dose Route Start Last Admin Trade Name Chiquita PRN Reason Stop Dose Admin Cyclobenzaprine HCl 10 mg 04/14/17 19:20 04/14/17 19:32 Flexeril PO 04/14/17 19:21 10 mg ONETIME ONE Administration Ketorolac Tromethamine 60 mg 04/14/17 19:20 04/14/17 19:32 Toradol IM 04/14/17 19:21 60 mg ONETIME ONE Administration Departure - Departure Time of Disposition: 20:27 Disposition: Home, Self-Care 01 Condition: Good Clinical Impression: Low back pain Qualifiers: Chronicity: acute Back pain laterality: right Sciatica presence: without sciatica Qualified Code(s): M54.5 - Low back pain - Discharge Information Referrals: Cierra Oconnor NP [Primary Care Provider] - Forms: ED Department Discharge Additional Instructions: Use ibuprofen for baseline pain control, use hydrocodone as needed for breakthrough pain, use Flexeril as needed for muscle relaxant, Please followup with your primary care provider in 3-5 days if not better, please call return to the emergency department with worsening of symptoms. - Assessment/Plan Plan: Assessment Acuity = acute Site and laterality = low back pain Etiology = secondary lifting injury Manifestations = none Location of injury = Home Lab values = none Plan He had good improvement with the Toradol injection in combination with Flexeril discharged home with Flexeril 10 mg by mouth 3 times a day when necessary total #15 and hydrocodone 5/325 one tablet by mouth 3 times a day when necessary total #10 follow-up with primary care in 3-5 days if no improvement Patient was in agreement with the plan all questions were answered, they were instructed to return to the emergency department or call for worsening symptoms. This note was dictated using [employer] voice recognition software please call with any questions.
== END 2017-04-14 20:36 | disposition home or self-care (01) ==
LOC: JP.ED 18:38
DX: M54.5 Low back pain (principal); Z79.899 Other long term (current) drug therapy; Z88.8 Allergy status to other drugs, medicaments and biological substances; Z87.891 Personal history of nicotine dependence
CPT/HCPCS: 96372; 99282; A9270; J1885; 99283

== ENCOUNTER 2017-04-20 10:57 | Emergency (ER) | payer MEDICARE, MEDICAID ==
[2017-04-20 11:14] VITALS: BP 131/79
[2017-04-20] MEDS ORDERED: Ketorolac 60 MG/2 ML SDV IM ONE (11:34)
--- NOTE | 2017-04-20 11:36 | EDM.PDOC ---
ED HPI GENERAL MEDICAL PROBLEM - General Chief Complaint: Back Pain or Injury Stated Complaint: SORE BACK Time Seen by Provider: 04/20/17 11:28 Source of Information: Reports: Patient, RN Notes Reviewed History Limitations: Reports: No Limitations - History of Present Illness INITIAL COMMENTS - FREE TEXT/NARRATIVE: 67-year-old gentleman presents emergency department day complaint low back pain I had the opportunity to evaluate him 6 days prior he was treated with Toradol, Flexeril provided 10 hydrocodone he returns today for ongoing back pain states he has had some good days but he's not sure how he really injured himself no loss of bowel or bladder - Related Data Allergies Allergy/AdvReac Type Severity Reaction Status Date / Time Wucnhdi-Wom-Zre Reductase Allergy Cannot Verified 04/20/17 11:19 Inhibitor Remember atorvastatin AdvReac Muscle Verified 04/20/17 11:19 Weakness bupropion HCl AdvReac Seizure Verified 04/20/17 11:19 [From Wellbutrin] citalopram hydrobromide AdvReac Hallucinati Verified 04/20/17 11:19 [From Celexa] ons gabapentin AdvReac Shaking Verified 04/20/17 11:19 mirtazapine [From Remeron] AdvReac Hallucinati Verified 04/20/17 11:19 ons pravastatin AdvReac Leg Cramps Verified 04/20/17 11:19 Home Meds: Home Meds Aspirin [Darlin Chewable] 81 mg PO QAM 03/25/13 [History] ClonazePAM [KlonoPIN] 0.5 mg PO BID 03/25/13 [History] Multivitamin with Minerals [Multiple Vitamin] 1 tab PO QAM 03/25/13 [History] Propranolol [Inderal] 20 mg PO TID 06/30/13 [History] FLUoxetine [PROzac] 40 mg PO QAM 10/06/13 [History] Diclofenac Sodium [Voltaren] 75 mg PO BID PRN 09/14/15 [History] Simvastatin [Zocor] 10 mg PO BEDTIME 12/07/15 [History] Cyclobenzaprine [Flexeril] 10 mg PO TID PRN 10/11/16 [History] Acetaminophen [Tylenol Extra Strength] 500 mg PO Q6H PRN 01/03/17 [History] Diclofen Sod/Kinesiology Tape [Diclo Gel 1%-Xrylix Sheet Kit] 1 film TOP DAILY 01/03/17 [History] Past Medical History HEENT History: Reports: Hard of Hearing, Impaired Vision Cardiovascular History: Reports: Arrhythmia, CAD, Heart Murmur, SOB on Exertion Respiratory History: Reports: Sleep Apnea Other Respiratory History: no cpap Gastrointestinal History: Reports: Colon Polyp, GERD, Hiatal Hernia Musculoskeletal History: Reports: Back Pain, Chronic, Fracture, Other (See Below ) Other Musculoskeletal History: possible neuropathy Neurological History: Reports: Migraines, Neuropathy, Peripheral, Other (See Below) Other Neuro History: tremors from meds. tenitis Psychiatric History: Reports: Anxiety, Depression Hematologic History: Reports: Blood Transfusion(s) - Infectious Disease History Infectious Disease History: Reports: Chicken Pox, Measles, Mumps - Past Surgical History HEENT Surgical History: Reports: Other (See Below) Other HEENT Surgeries/Procedures: removed metal from eye Cardiovascular Surgical History: Reports: None, Other (See Below) Other Cardiovascular Surgeries/Procedures: angiogram Respiratory Surgical History: Reports: None GI Surgical History: Reports: Colonoscopy, EGD, Hernia Repair/Other, Other (See Below) Other GI Surgeries/Procedures: spleenectomy Neurological Surgical History: Reports: None Musculoskeletal Surgical History: Reports: None Social & Family History - Family History Family Medical History: Noncontributory - Tobacco Use Smoking Status *Q: Never Smoker Years of Tobacco use: 15 Packs/Tins Daily: 0.5 Used Tobacco, but Quit: Yes Month Tobacco Last Used: 01 Second Hand Smoke Exposure: No - Caffeine Use Caffeine Use: Reports: Coffee Caffeine Use Comment: 20 oz a day - Alcohol Use Days Per Week of Alcohol Use: 0 - Recreational Drug Use Recreational Drug Use: No Drug Use in Last 12 Months: No ED ROS GENERAL - Review of Systems Review Of Systems: See Below Constitutional: Reports: No Symptoms Respiratory: Reports: No Symptoms Cardiovascular: Reports: No Symptoms GI/Abdominal: Reports: No Symptoms Musculoskeletal: Reports: Back Pain ED EXAM,LOWER BACK PAIN/INJURY - Physical Exam Exam: See Below Exam Limited By: No Limitations General Appearance: Alert, WD/WN, No Apparent Distress Respiratory/Chest: No Respiratory Distress Back Exam: Normal Inspection, Decreased Range of Motion, Paraspinal Tenderness, Other. No: CVA Tenderness (R), CVA Tenderness (L), Vertebral Tenderness DTR - Lower Extremities: 2+: Knee (R), Knee (L) Course - Vital Signs Last Recorded V/S: Last Vital Signs Temp 95.8 F 04/20/17 11:24 Pulse 86 04/20/17 11:24 Resp 14 04/20/17 11:24 BP 131/79 04/20/17 11:24 Pulse Ox 96 04/20/17 11:24 - Orders/Labs/Meds Meds: Medications Discontinued Medications Generic Name Dose Route Start Last Admin Trade Name Chiquita PRN Reason Stop Dose Admin Ketorolac Tromethamine 60 mg 04/20/17 11:34 04/20/17 11:55 Toradol IM 04/20/17 11:35 60 mg ONETIME ONE Administration Departure - Departure Time of Disposition: 12:20 Disposition: Home, Self-Care 01 Condition: Good Clinical Impression: Low back pain Qualifiers: Chronicity: acute Back pain laterality: right Sciatica presence: without sciatica Qualified Code(s): M54.5 - Low back pain - Discharge Information Referrals: Cierra Oconnor NP [Primary Care Provider] - Forms: ED Department Discharge Additional Instructions: Continue to use ibuprofen for baseline pain control, use hydrocodone for breakthrough pain, Please followup with your primary care provider in 3-5 days if not better, please call return to the emergency department with worsening of symptoms. - Assessment/Plan Plan: Assessment Acuity = acute Site and laterality = low back pain Etiology = secondary lifting injury Manifestations = none Location of injury = Home Lab values = none Plan [Good improvement with Toradol injection, discharge home with hydrocodone 5/325 one tab by mouth 3 times a day when necessary total #10 tablets he is going try and follow-up with primary care on Saturday, order written for physical therapy Patient was in agreement with the plan all questions were answered, they were instructed to return to the emergency department or call for worsening symptoms. This note was dictated using [employer] voice recognition software please call with any questions.
== END 2017-04-20 13:32 | disposition home or self-care (01) ==
LOC: JP.ED 10:57
DX: M54.5 Low back pain (principal); Z88.8 Allergy status to other drugs, medicaments and biological substances; Z79.899 Other long term (current) drug therapy; Z87.891 Personal history of nicotine dependence
CPT/HCPCS: 96372; 99283; J1885

== ENCOUNTER 2017-05-01 17:23 | Emergency (ER) | payer MEDICARE, MEDICAID ==
[2017-05-01 17:54] VITALS: BP 145/87
--- NOTE | 2017-05-01 18:12 | EDM.PDOC ---
ED HPI GENERAL MEDICAL PROBLEM - General Chief Complaint: Back Pain or Injury Stated Complaint: BACK PAIN Time Seen by Provider: 05/01/17 18:00 Source of Information: Reports: Patient History Limitations: Reports: No Limitations - History of Present Illness INITIAL COMMENTS - FREE TEXT/NARRATIVE: 67-year-old male with chronic recurring thoracic back pain just started physical therapy this week and was feeling better but 2 hours ago stepped out of his vehicle and slipped on the ice twisting and falling awkwardly onto his side. He felt the pain increases after the fall. He does have Flexeril but is fairly uncomfortable, seems to be having some spasm. No new symptoms such as lower extremity weakness or paresthesias. He does have some stable chronic peripheral neuropathy. Onset: Today Duration: Hour(s): (Within the last 2 hours) Location: Reports: Back Severity: Moderate Worsens with: Reports: Movement Associated Symptoms: Reports: No Other Symptoms Treatments DRILLER HAND: Reports: Other (see below) (Flexeril) - Related Data Allergies Allergy/AdvReac Type Severity Reaction Status Date / Time Jplxdnc-Cgu-Azx Reductase Allergy Cannot Verified 05/01/17 17:49 Inhibitor Remember atorvastatin AdvReac Muscle Verified 05/01/17 17:49 Weakness bupropion HCl AdvReac Seizure Verified 05/01/17 17:49 [From Wellbutrin] citalopram hydrobromide AdvReac Hallucinati Verified 05/01/17 17:49 [From Celexa] ons gabapentin AdvReac Shaking Verified 05/01/17 17:49 mirtazapine [From Remeron] AdvReac Hallucinati Verified 05/01/17 17:49 ons pravastatin AdvReac Leg Cramps Verified 05/01/17 17:49 Home Meds: Home Meds Aspirin [Darlin Chewable] 81 mg PO QAM 03/25/13 [History] ClonazePAM [KlonoPIN] 0.5 mg PO BID 03/25/13 [History] Multivitamin with Minerals [Multiple Vitamin] 1 tab PO QAM 03/25/13 [History] Propranolol [Inderal] 20 mg PO TID 06/30/13 [History] FLUoxetine [PROzac] 40 mg PO QAM 10/06/13 [History] Cyclobenzaprine [Flexeril] 10 mg PO TID PRN 10/11/16 [History] Acetaminophen [Tylenol Extra Strength] 500 mg PO Q6H PRN 01/03/17 [History] Past Medical History HEENT History: Reports: Hard of Hearing, Impaired Vision Cardiovascular History: Reports: Arrhythmia, CAD, Heart Murmur, SOB on Exertion Respiratory History: Reports: Sleep Apnea Other Respiratory History: no cpap Gastrointestinal History: Reports: Colon Polyp, GERD, Hiatal Hernia Musculoskeletal History: Reports: Back Pain, Chronic, Fracture, Other (See Below ) Other Musculoskeletal History: possible neuropathy Neurological History: Reports: Migraines, Neuropathy, Peripheral, Other (See Below) Other Neuro History: tremors from meds. tenitis Psychiatric History: Reports: Anxiety, Depression Hematologic History: Reports: Blood Transfusion(s) - Infectious Disease History Infectious Disease History: Reports: Chicken Pox, Measles, Mumps - Past Surgical History HEENT Surgical History: Reports: Other (See Below) Other HEENT Surgeries/Procedures: removed metal from eye Cardiovascular Surgical History: Reports: None, Other (See Below) Other Cardiovascular Surgeries/Procedures: angiogram Respiratory Surgical History: Reports: None GI Surgical History: Reports: Colonoscopy, EGD, Hernia Repair/Other, Other (See Below) Other GI Surgeries/Procedures: spleenectomy Neurological Surgical History: Reports: None Musculoskeletal Surgical History: Reports: None Social & Family History - Family History Family Medical History: Noncontributory - Tobacco Use Smoking Status *Q: Never Smoker Years of Tobacco use: 15 Packs/Tins Daily: 0.5 Used Tobacco, but Quit: Yes Month Tobacco Last Used: 01 Second Hand Smoke Exposure: No - Caffeine Use Caffeine Use: Reports: Coffee Caffeine Use Comment: 20 oz a day - Alcohol Use Days Per Week of Alcohol Use: 0 - Recreational Drug Use Recreational Drug Use: No Drug Use in Last 12 Months: No ED ROS GENERAL - Review of Systems Review Of Systems: See Below Constitutional: Denies: Fever, Chills Respiratory: Denies: Shortness of Breath Cardiovascular: Denies: Chest Pain GI/Abdominal: Denies: Abdominal Pain, Nausea, Vomiting : Reports: No Symptoms Skin: Reports: No Symptoms ED EXAM, UPPER BACK/NECK PAIN - Physical Exam Exam: See Below Exam Limited By: No Limitations General Appearance: Alert, No Apparent Distress (He looks uncomfortable but he is not distressed. Seems to be most comfortable sitting straight up and slightly hyperextending his back.) Cardiovascular/Respiratory: Regular Rate, Rhythm, No Respiratory Distress Back Exam: Paraspinal Tenderness (Very tender to palpation in the midthoracic spine, no deformity, swelling or abrasion is present. Some increased pain with rotation against resistance) Neurologic: Other (Walking under his own power without significant difficulty, no weakness of the upper or lower extremities) Course - Vital Signs Last Recorded V/S: Last Vital Signs Temp 98.4 F 05/01/17 17:53 Pulse 70 05/01/17 17:53 Resp 18 05/01/17 17:53 BP 145/87 H 05/01/17 17:53 Pulse Ox 96 05/01/17 17:53 - Re-Assessments/Exams Free Text/Narrative Re-Assessment/Exam: 05/01/17 18:09 Patient has physical therapy again on Saturday. 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 We discussed possibly an x-ray that he didn't feel that was necessary at this time, if he doesn't have significant improvement within the next 48 hours after his next physical therapy appointment and discuss imaging with his primary provider or return to the emergency room. Departure - Departure Time of Disposition: 18:25 Disposition: Home, Self-Care 01 Condition: Good Clinical Impression: Thoracic back pain Qualifiers: Chronicity: acute Back pain laterality: left Qualified Code(s): M54.6 - Pain in thoracic spine - Discharge Information Instructions: Back Pain, Adult, [id number] Referrals: Cierra Oconnor NP [Primary Care Provider] - Forms: ED Department Discharge Care Plan Goals: Continue your current medications, take ibuprofen or naproxen if able and add stronger pain medications as needed to control pain. Increase activity as tolerated and keep physical therapy appointment on Saturday as scheduled. Recheck with your primary provider if not improving satisfactorily or return to the emergency room if worsening or concerns.
== END 2017-05-01 18:25 | disposition home or self-care (01) ==
LOC: JP.ED 17:23
DX: M54.6 Pain in thoracic spine (principal); I25.10 Atherosclerotic heart disease of native coronary artery without angina pectoris; F32.9 Major depressive disorder, single episode, unspecified; Z87.891 Personal history of nicotine dependence; Z79.82 Long term (current) use of aspirin; Z88.8 Allergy status to other drugs, medicaments and biological substances
CPT/HCPCS: 99283

== ENCOUNTER 2017-05-12 13:07 | Emergency (ER) | payer MEDICARE, MEDICAID ==
[2017-05-12 17:01] VITALS: BP 119/85
--- NOTE | 2017-05-12 17:56 | EDM.PDOC ---
ED HPI GENERAL MEDICAL PROBLEM - General Chief Complaint: Genitourinary Problem Stated Complaint: MALE PROBLEMS (WOULD LIKE A MALE DR) Time Seen by Provider: 05/12/17 14:23 Source of Information: Reports: Patient History Limitations: Reports: Other (This patient is very embarrassed talking about his problem and the history that might of lid up to it and it can of limits history) - History of Present Illness INITIAL COMMENTS - FREE TEXT/NARRATIVE: This patient said that around 5 years ago his scrotum was grabbed and the scrotal wall was pierced so that the testicle came out. Patient didn't elaborate on this but said that he's had some occasional pain down there. He said that he has had some swelling in the left side of the testicle for a long time but last night it began to hurt a lot area he's planning to see his primary care provider Cierra Oconnor on Saturday. He denies any fever or dysuria. testicular Pain Score (Numeric/FACES): 7 - Related Data Allergies Allergy/AdvReac Type Severity Reaction Status Date / Time Myirzwv-Hvv-Ptj Reductase Allergy Cannot Verified 05/12/17 13:59 Inhibitor Remember atorvastatin AdvReac Muscle Verified 05/12/17 13:59 Weakness bupropion HCl AdvReac Seizure Verified 05/12/17 13:59 [From Wellbutrin] citalopram hydrobromide AdvReac Hallucinati Verified 05/12/17 13:59 [From Celexa] ons gabapentin AdvReac Shaking Verified 05/12/17 13:59 mirtazapine [From Remeron] AdvReac Hallucinati Verified 05/12/17 13:59 ons pravastatin AdvReac Leg Cramps Verified 05/12/17 13:59 Home Meds: Home Meds Aspirin [Darlin Chewable] 81 mg PO QAM 03/25/13 [History] ClonazePAM [KlonoPIN] 0.5 mg PO BID 03/25/13 [History] Multivitamin with Minerals [Multiple Vitamin] 1 tab PO QAM 03/25/13 [History] Propranolol [Inderal] 20 mg PO TID 06/30/13 [History] FLUoxetine [PROzac] 60 mg PO QAM 10/06/13 [History] Acetaminophen [Tylenol Extra Strength] 500 mg PO Q6H PRN 01/03/17 [History] Past Medical History HEENT History: Reports: Hard of Hearing, Impaired Vision Cardiovascular History: Reports: Arrhythmia, CAD, Heart Murmur, SOB on Exertion Respiratory History: Reports: Sleep Apnea Other Respiratory History: no cpap Gastrointestinal History: Reports: Colon Polyp, GERD, Hiatal Hernia Musculoskeletal History: Reports: Back Pain, Chronic, Fracture, Other (See Below ) Other Musculoskeletal History: possible neuropathy Neurological History: Reports: Migraines, Neuropathy, Peripheral, Other (See Below) Other Neuro History: tremors from meds. tinnitis Psychiatric History: Reports: Anxiety, Depression Hematologic History: Reports: Blood Transfusion(s) - Infectious Disease History Infectious Disease History: Reports: Chicken Pox, Measles, Mumps - Past Surgical History HEENT Surgical History: Reports: Other (See Below) Other HEENT Surgeries/Procedures: removed metal from eye Cardiovascular Surgical History: Reports: None, Other (See Below) Other Cardiovascular Surgeries/Procedures: angiogram Respiratory Surgical History: Reports: None GI Surgical History: Reports: Colonoscopy, EGD, Hernia Repair/Other, Polypectomy , Other (See Below) Other GI Surgeries/Procedures: spleenectomy Neurological Surgical History: Reports: None Musculoskeletal Surgical History: Reports: None Social & Family History - Family History Family Medical History: Noncontributory - Tobacco Use Smoking Status *Q: Never Smoker Years of Tobacco use: 15 Packs/Tins Daily: 0.5 Used Tobacco, but Quit: Yes Month Tobacco Last Used: 01 Second Hand Smoke Exposure: No - Caffeine Use Caffeine Use: Reports: Coffee Caffeine Use Comment: 20 oz a day - Alcohol Use Days Per Week of Alcohol Use: 0 - Recreational Drug Use Recreational Drug Use: No Drug Use in Last 12 Months: No ED ROS GENERAL - Review of Systems Review Of Systems: ROS reveals no pertinent complaints other than HPI. ED EXAM, GI/ABD - Physical Exam Exam: See Below Exam Limited By: No Limitations General Appearance: Alert, WD/WN, Mild Distress (Male) Exam: Other (The right testicle is normal. There is a large hydrocele on the left side. This does not appear to be a incarcerated hernia. The left testicle is palpable and fairly small but it is nontender.) Course - Vital Signs Last Recorded V/S: Last Vital Signs Temp 36.0 C 05/12/17 14:03 Pulse 67 05/12/17 17:00 Resp 16 05/12/17 17:00 BP 119/85 05/12/17 17:00 Pulse Ox 98 05/12/17 17:00 - Orders/Labs/Meds Orders: Active Orders 24 hr Category Date Time Status Scrotal Duplex Ltd [US] Stat Exams 05/12/17 14:31 Taken Scrotum and Contents [US] Stat Exams 05/12/17 Taken Labs: Laboratory Tests 05/12/17 Range/Units 15:27 Urine Color Yellow Urine Appearance Clear Urine pH 6.5 (4.5-8.0) Ur Specific [place] 1.010 (1.008-1.030) Urine Protein Negative (NEGATIVE) mg/dL Urine Glucose (UA) Normal (NEGATIVE) mg/dL Urine Ketones Negative (NEGATIVE) mg/dL Urine Occult Blood Negative (NEGATIVE) Urine Nitrite Negative (NEGAITVE) Urine Bilirubin Negative (NEGATIVE) Urine Urobilinogen Normal (NORMAL) mg/dL Ur Leukocyte Esterase Negative (NEGATIVE) Urine RBC Not seen (0-5) Urine WBC Not seen (0-5) Ur Epithelial Cells Rare Amorphous Sediment Not seen Urine Bacteria Not seen Urine Mucus Not seen - Re-Assessments/Exams Free Text/Narrative Re-Assessment/Exam: 05/12/17 18:20 Ultrasound showed a large hydrocele on the left containing debris and septations suggesting a complex hydrocele. I spoke with Dr. Grewal in [place] and he would like to see him on Saturday. The patient will be placed on Cipro and Percocet until then. Departure - Departure Time of Disposition: 17:51 Disposition: Home, Self-Care 01 Condition: Fair Clinical Impression: Hydrocele, infected - Discharge Information Instructions: Scrotal Swelling Referrals: Cierra Oconnor NP [Primary Care Provider] - Forms: ED Department Discharge Additional Instructions: Take Cipro 500 mg twice daily for 10 days or as otherwise directed. For pain take Percocet 5/325 one or 2 tablets every 4 hours. This medication can cause sedation and impair driving or operating machinery. Follow-up with Dr. Grewal in [place]. Call his nurse Nell first thing on Saturday at [phone]. You should tell her that you were seen in the emergency department here in [place] and that I talked it over with Dr. Grewal. The ultrasound images have been sent to the [place] radiology service. If you have any problems before then especially a fever then you should be seen right away in the emergency department either here or in [place]. - My Orders Last 24 Hours: My Active Orders 05/12/17 Scrotum and Contents [US] Stat 05/12/17 14:31 Scrotal Duplex Ltd [US] Stat - Assessment/Plan Last 24 Hours: My Active Orders 05/12/17 Scrotum and Contents [US] Stat 05/12/17 14:31 Scrotal Duplex Ltd [US] Stat
== END 2017-05-12 18:21 | disposition home or self-care (01) ==
LOC: JP.ED 13:07
DX: N43.1 Infected hydrocele (principal); Z88.8 Allergy status to other drugs, medicaments and biological substances; Z79.899 Other long term (current) drug therapy
CPT/HCPCS: 76870; 81001; 93976; 99283; 99284-25

== ENCOUNTER 2017-05-31 15:28 | Emergency (ER) | payer MEDICARE, MEDICAID ==
[2017-05-31 15:37] VITALS: BP 132/77
[2017-05-31] MEDS ORDERED: Lidocaine 2% Jelly 10 ML Urojet MUCMEM ONE (17:08)
--- NOTE | 2017-05-31 17:10 | EDM.PDOC ---
<Coco Cobos - Last Filed: 05/31/17 17:48> ED HPI GENERAL MEDICAL PROBLEM - General Chief Complaint: Genitourinary Problem Stated Complaint: UNABLE TO URINATE Time Seen by Provider: 05/31/17 15:35 Source of Information: Reports: Patient History Limitations: Reports: No Limitations - History of Present Illness INITIAL COMMENTS - FREE TEXT/NARRATIVE: pt had surgery on the with Dr Grewal in [place]. He had a hydrocoel repair. He has a markedly discolored scrotum and has swelling. He is now not able to void. Onset: Today, Other (pt has not voided sice 2 pm. ) Duration: Hour(s):, Other (pt is feeling uncomfortble. ) Location: Reports: Abdomen Associated Symptoms: Reports: Other (pain ovr the bladder. ) SCROTAL Pain Score (Numeric/FACES): 6 - Related Data Allergies Allergy/AdvReac Type Severity Reaction Status Date / Time Ptsllnv-Fns-Bat Reductase Allergy Cannot Verified 05/31/17 15:34 Inhibitor Remember atorvastatin AdvReac Muscle Verified 05/31/17 15:34 Weakness bupropion HCl AdvReac Seizure Verified 05/31/17 15:34 [From Wellbutrin] citalopram hydrobromide AdvReac Hallucinati Verified 05/31/17 15:34 [From Celexa] ons gabapentin AdvReac Shaking Verified 05/31/17 15:34 mirtazapine [From Remeron] AdvReac Hallucinati Verified 05/31/17 15:34 ons pravastatin AdvReac Leg Cramps Verified 05/31/17 15:34 Home Meds: Home Meds Aspirin [Darlin Chewable] 81 mg PO QAM 03/25/13 [History] ClonazePAM [KlonoPIN] 0.5 mg PO BID 03/25/13 [History] Multivitamin with Minerals [Multiple Vitamin] 1 tab PO QAM 03/25/13 [History] Propranolol [Inderal] 20 mg PO TID 06/30/13 [History] FLUoxetine [PROzac] 60 mg PO QAM 10/06/13 [History] Acetaminophen [Tylenol Extra Strength] 500 mg PO Q6H PRN 01/03/17 [History] Ciprofloxacin HCl [Cipro] 300 mg PO BID 05/31/17 [History] Hydrocodone/Acetaminophen [Hydrocodon-Acetaminophen 5-325] 2 tab PO Q4HR PRN 05/06 [History] Past Medical History HEENT History: Reports: Hard of Hearing, Impaired Vision Cardiovascular History: Reports: Arrhythmia, CAD, Heart Murmur, SOB on Exertion Respiratory History: Reports: Sleep Apnea Other Respiratory History: no cpap Gastrointestinal History: Reports: Colon Polyp, GERD, Hiatal Hernia Musculoskeletal History: Reports: Back Pain, Chronic, Fracture, Other (See Below ) Other Musculoskeletal History: possible neuropathy Neurological History: Reports: Migraines, Neuropathy, Peripheral, Other (See Below) Other Neuro History: tremors from meds. tinnitis Psychiatric History: Reports: Anxiety, Depression Hematologic History: Reports: Blood Transfusion(s) - Infectious Disease History Infectious Disease History: Reports: Chicken Pox, Measles, Mumps - Past Surgical History HEENT Surgical History: Reports: Other (See Below) Other HEENT Surgeries/Procedures: removed metal from eye Cardiovascular Surgical History: Reports: Other (See Below) Other Cardiovascular Surgeries/Procedures: angiogram GI Surgical History: Reports: Colonoscopy, EGD, Hernia Repair/Other, Polypectomy , Other (See Below) Other GI Surgeries/Procedures: splenectomy Social & Family History - Family History Family Medical History: Noncontributory - Tobacco Use Smoking Status *Q: Never Smoker Years of Tobacco use: 15 Packs/Tins Daily: 0.5 Used Tobacco, but Quit: Yes Month Tobacco Last Used: 01 Second Hand Smoke Exposure: No - Caffeine Use Caffeine Use: Reports: Coffee Caffeine Use Comment: 20 oz a day - Alcohol Use Days Per Week of Alcohol Use: 0 - Recreational Drug Use Recreational Drug Use: No Drug Use in Last 12 Months: No ED ROS GENERAL - Review of Systems Review Of Systems: See Below Constitutional: Reports: No Symptoms HEENT: Reports: No Symptoms Respiratory: Reports: No Symptoms Cardiovascular: Reports: No Symptoms Endocrine: Reports: No Symptoms GI/Abdominal: Reports: Abdominal Pain, Other ( bladder feels distended and he has not been able to void this afternoon. ) : Reports: Urinary Retention Musculoskeletal: Reports: No Symptoms ED EXAM, RENAL/ - Physical Exam Exam: See Below Text/Narrative:: pt arrived with discomfort from not being able to void Exam Limited By: No Limitations General Appearance: Alert, Anxious Ears: Normal TMs Nose: Normal Inspection Throat/Mouth: Normal Inspection Head: Atraumatic Neck: Normal Inspection Respiratory/Chest: No Respiratory Distress Cardiovascular: Regular Rate, Rhythm GI/Abdominal: Tender, Other ( bladder scan was done which showed about 350 cc of fluid in the bladder. ) (Male) Exam: Other ( scrotum is very dark and there is swelling. A sage was inserted without difficulty. The urine looked very concentrated. ) Rectal (Males) Exam: Deferred Back Exam: Normal Inspection Course - Vital Signs Last Recorded V/S: Last Vital Signs Temp 96.2 F 05/31/17 15:36 Pulse 78 05/31/17 15:36 Resp 12 05/31/17 15:36 BP 132/77 05/31/17 15:36 Pulse Ox 98 05/31/17 15:36 - Orders/Labs/Meds Orders: Active Orders 24 hr Category Date Time Status Sage Catheter Insertion [Insert Urinary Catheter] [OM. Care 05/31/17 17:15 Ordered PC] Q24H Urinary Catheter Assessment [RC] ASDIRECTED Care 05/31/17 17:09 Active Labs: Laboratory Tests 05/31/17 Range/Units 17:56 Urine Color Yellow Urine Appearance Cloudy Urine pH 5.0 (4.5-8.0) Ur Specific [place] 1.020 (1.008-1.030) Urine Protein Negative (NEGATIVE) mg/dL Urine Glucose (UA) Normal (NEGATIVE) mg/dL Urine Ketones Negative (NEGATIVE) mg/dL Urine Occult Blood Negative (NEGATIVE) Urine Nitrite Negative (NEGAITVE) Urine Bilirubin Negative (NEGATIVE) Urine Urobilinogen Normal (NORMAL) mg/dL Ur Leukocyte Esterase Negative (NEGATIVE) Urine RBC 0-5 (0-5) Urine WBC 0-5 (0-5) Ur Epithelial Cells Few Amorphous Sediment Few Urine Bacteria Rare Urine Mucus Few Meds: Medications Discontinued Medications Generic Name Dose Route Start Last Admin Trade Name Freq PRN Reason Stop Dose Admin Sodium Chloride 1,000 mls @ 999 mls/hr 05/31/17 17:15 05/31/17 17:37 Normal Saline IV 999 mls/hr ASDIRECTED KERRI Administration Lidocaine HCl 10 ml 05/31/17 17:08 05/31/17 17:25 Xylocaine 2% Jelly MUCMEM 05/31/17 17:09 10 ml ONETIME ONE Administration - Re-Assessments/Exams Free Text/Narrative Re-Assessment/Exam: 05/31/17 17:50 Pt had very concentrated urine will give a liter of fluid. Departure - Departure Disposition: Home, Self-Care 01 Clinical Impression: Urinary retention, Postoperative edema - Discharge Information Instructions: Acute Urinary Retention, Male, [id number] Referrals: Cierra Oconnor NP [Primary Care Provider] - Forms: ED Department Discharge Care Plan Goals: Recheck on Saturday to have the catheter removed. Continue your medications as prescribed and activity as tolerated. Return if problems or concerns. <Shantanu Amato - Last Filed: 05/31/17 19:29> Course - Re-Assessments/Exams Free Text/Narrative Re-Assessment/Exam: 05/31/17 18:25 Care turned over from Dr. Cobos. Urine was clear, he tolerated the fluid well and will leave the Sage in for the and recheck on Saturday. Departure - Departure Time of Disposition: 19:04 Condition: Good
[2017-05-31] MEDS ORDERED: Sodium Chloride 0.9% 1,000 ML IV SCH (17:15)
== END 2017-05-31 19:04 | disposition home or self-care (01) ==
LOC: JP.ED 15:28
DX: N99.89 Other postprocedural complications and disorders of genitourinary system (principal); R33.9 Retention of urine, unspecified; N50.89 Other specified disorders of the male genital organs; Z98.890 Other specified postprocedural states; Z88.8 Allergy status to other drugs, medicaments and biological substances; Z79.82 Long term (current) use of aspirin; Z79.899 Other long term (current) drug therapy
CPT/HCPCS: 51702; 51798; 81001; 96360; 99284; J7040; 99283; J7030

== ENCOUNTER 2018-10-19 16:39 | Emergency (ER) | payer MEDICARE, MEDICAID ==
[2018-10-19 17:01] VITALS: BP 156/93
--- NOTE | 2018-10-19 17:38 | EDM.PDOCBH ---
ED HPI GENERAL MEDICAL PROBLEM - General Chief Complaint: Behavioral/Psych Stated Complaint: ANXIETY Time Seen by Provider: 10/19/18 17:31 Source of Information: Reports: Patient, Family, RN Notes Reviewed History Limitations: Reports: No Limitations - History of Present Illness INITIAL COMMENTS - FREE TEXT/NARRATIVE: 68-year-old gentleman presents emergency department today complaint of anxiety, he usually uses clonazepam to control his anxiety he follows with one of the local psychiatrists unfortunately there was a miscommunication and his prescription has not been filled. He is asking for help with his anxiety - Related Data Allergies Allergy/AdvReac Type Severity Reaction Status Date / Time Zmeuina-Tpb-Ebt Reductase Allergy Cannot Verified 10/19/18 17:03 Inhibitor Remember atorvastatin AdvReac Muscle Verified 10/19/18 17:03 Weakness bupropion HCl AdvReac Seizure Verified 10/19/18 17:03 [From Wellbutrin] citalopram hydrobromide AdvReac Hallucinati Verified 10/19/18 17:03 [From Celexa] ons gabapentin AdvReac Shaking Verified 10/19/18 17:03 mirtazapine [From Remeron] AdvReac Hallucinati Verified 10/19/18 17:03 ons pravastatin AdvReac Leg Cramps Verified 10/19/18 17:03 Home Meds: Home Meds Aspirin [Darlin Chewable] 81 mg PO QAM 03/25/13 [History] ClonazePAM [KlonoPIN] 0.5 mg PO BID 03/25/13 [History] Multivitamin with Minerals [Multiple Vitamin] 1 tab PO QAM 03/25/13 [History] Propranolol [Inderal] 20 mg PO TID 06/30/13 [History] FLUoxetine [PROzac] 60 mg PO QAM 10/06/13 [History] Acetaminophen [Tylenol Extra Strength] 500 mg PO Q6H PRN 01/03/17 [History] Past Medical History HEENT History: Reports: Hard of Hearing, Impaired Vision Cardiovascular History: Reports: Arrhythmia, CAD, Heart Murmur, SOB on Exertion Respiratory History: Reports: Sleep Apnea Other Respiratory History: no cpap Gastrointestinal History: Reports: Colon Polyp, GERD, Hiatal Hernia Musculoskeletal History: Reports: Back Pain, Chronic, Fracture, Other (See Below ) Other Musculoskeletal History: possible neuropathy Neurological History: Reports: Migraines, Neuropathy, Peripheral, Other (See Below) Other Neuro History: tremors from meds. tinnitis Psychiatric History: Reports: Anxiety, Depression Hematologic History: Reports: Blood Transfusion(s) - Infectious Disease History Infectious Disease History: Reports: Chicken Pox, Measles, Mumps - Past Surgical History Head Surgeries/Procedures: Reports: None HEENT Surgical History: Reports: Other (See Below) Other HEENT Surgeries/Procedures: removed metal from eye Cardiovascular Surgical History: Reports: Other (See Below) Other Cardiovascular Surgeries/Procedures: angiogram Respiratory Surgical History: Reports: None GI Surgical History: Reports: Colonoscopy, EGD, Hernia Repair/Other, Polypectomy , Other (See Below) Other GI Surgeries/Procedures: splenectomy Neurological Surgical History: Reports: None Musculoskeletal Surgical History: Reports: None Dermatological Surgical History: Reports: None Social & Family History - Family History Family Medical History: Noncontributory - Tobacco Use Smoking Status *Q: Former Smoker Used Tobacco, but Quit: Yes Month/Year Tobacco Last Used: 1986 - Caffeine Use Caffeine Use: Reports: Coffee Caffeine Use Comment: 20 oz a day - Recreational Drug Use Recreational Drug Use: No ED ROS GENERAL - Review of Systems Review Of Systems: See Below Psychiatric: Reports: Anxiety ED EXAM, BEHAVIORAL HEALTH - Physical Exam Exam: See Below Exam Limited By: No Limitations General Appearance: Alert, Anxious Psychiatric: Alert, Normal Affect, Normal Cognition, Oriented, Other (Anxious) COURSE, BEHAVIORAL HEALTH COMP - Course Vital Signs: Last Vital Signs Temp 96.1 F 10/19/18 17:05 Pulse 57 L 10/19/18 17:05 Resp 18 10/19/18 17:05 BP 156/93 H 10/19/18 17:05 Pulse Ox 95 10/19/18 17:05 Departure - Departure Time of Disposition: 17:37 Disposition: Home, Self-Care 01 Condition: Fair Clinical Impression: Anxiety - Discharge Information Referrals: Robin Mata EMAIL PRODUCTION CONSULTANT [Primary Care Provider] - Additional Instructions: Use Ativan as needed to control anxiety symptoms please follow-up with your psychiatrist tomorrow - Assessment/Plan Plan: Assessment Acuity = acute Site and laterality = generalized anxiety disorder Etiology = unknown etiology Manifestations = none Location of injury = Home Lab values =none Plan Prescription written for Ativan 1 mg by mouth 3 times a day when necessary total #10 he will follow up with his psychiatrist tomorrow This note was dictated using [employer]edia voice recognition software please call with any questions on syntax or grammar.
== END 2018-10-19 17:45 | disposition home or self-care (01) ==
LOC: JP.ED 16:39
DX: F41.9 Anxiety disorder, unspecified (principal); F32.9 Major depressive disorder, single episode, unspecified; I25.10 Atherosclerotic heart disease of native coronary artery without angina pectoris; Z88.8 Allergy status to other drugs, medicaments and biological substances; Z79.899 Other long term (current) drug therapy; Z87.891 Personal history of nicotine dependence; Z79.82 Long term (current) use of aspirin
CPT/HCPCS: 99283

== ENCOUNTER 2018-10-28 08:45 | Inpatient (IN) | payer MEDICARE, MEDICAID ==
[2018-10-28] MEDS ORDERED: Sodium Chloride 0.9% 10 ML Syringe FLUSH PRN ×2 (09:17→10:04)
--- NOTE | 2018-10-28 09:23 | EDM.PDOC ---
ED HPI GENERAL MEDICAL PROBLEM - General Chief Complaint: Abdominal Pain Stated Complaint: RIB AND BACK PAIN Time Seen by Provider: 10/28/18 09:05 Source of Information: Reports: Patient, Old Records, RN History Limitations: Reports: No Limitations - History of Present Illness INITIAL COMMENTS - FREE TEXT/NARRATIVE: 68 yo male presents with abdominal pain that began last evening after eating Martiniquais food. He has not had a fever, nausea or a change in stools. Standing makes the pain worse. Has had several surgeries including hernia repair, splenectomy, partial gastrectomy, but no cholecystectomy. He has not eaten today , but did wash his pills down with water and this did not make anything worse. 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 Onset: Gradual Onset Date: 10/27/18 Onset Time: 19:30 Duration: Hour(s):, Constant Location: Reports: Abdomen Quality: Reports: Ache Severity: Moderate Improves with: Reports: Rest Worsens with: Reports: Other (standing) Context: Reports: Other (see HPI) Associated Symptoms: Reports: Loss of Appetite. Denies: Fever/Chills, Nausea/ Vomiting, Rash, Shortness of Breath Treatments INVENTORY ASSOCIATE: Reports: Other (see below) (none) Abdominal Pain Score (Numeric/FACES): 10 - Related Data Allergies Allergy/AdvReac Type Severity Reaction Status Date / Time Lyaoesa-Mqs-Qhb Reductase Allergy Cannot Verified 10/28/18 09:01 Inhibitor Remember atorvastatin AdvReac Muscle Verified 10/28/18 09:01 Weakness bupropion HCl AdvReac Seizure Verified 10/28/18 09:01 [From Wellbutrin] citalopram hydrobromide AdvReac Hallucinati Verified 10/28/18 09:01 [From Celexa] ons gabapentin AdvReac Shaking Verified 10/28/18 09:01 mirtazapine [From Remeron] AdvReac Hallucinati Verified 10/28/18 09:01 ons pravastatin AdvReac Leg Cramps Verified 10/28/18 09:01 Home Meds: Home Meds Aspirin [Darlin Chewable] 81 mg PO QAM 03/25/13 [History] ClonazePAM [KlonoPIN] 0.5 mg PO BID 03/25/13 [History] Multivitamin with Minerals [Multiple Vitamin] 1 tab PO QAM 03/25/13 [History] Propranolol [Inderal] 20 mg PO TID 06/30/13 [History] FLUoxetine [PROzac] 60 mg PO QAM 10/06/13 [History] Acetaminophen [Tylenol Extra Strength] 500 mg PO Q6H PRN 01/03/17 [History] Past Medical History HEENT History: Reports: Hard of Hearing, Impaired Vision Cardiovascular History: Reports: Arrhythmia, CAD, Heart Murmur, SOB on Exertion Respiratory History: Reports: Sleep Apnea Other Respiratory History: no cpap Gastrointestinal History: Reports: Colon Polyp, GERD, Hiatal Hernia Musculoskeletal History: Reports: Back Pain, Chronic, Fracture, Other (See Below ) Other Musculoskeletal History: possible neuropathy Neurological History: Reports: Migraines, Neuropathy, Peripheral, Other (See Below) Other Neuro History: tremors from meds. tinnitis Psychiatric History: Reports: Anxiety, Depression Hematologic History: Reports: Blood Transfusion(s) - Infectious Disease History Infectious Disease History: Reports: Chicken Pox, Measles, Mumps - Past Surgical History Head Surgeries/Procedures: Reports: None HEENT Surgical History: Reports: Other (See Below) Other HEENT Surgeries/Procedures: removed metal from eye Cardiovascular Surgical History: Reports: Other (See Below) Other Cardiovascular Surgeries/Procedures: angiogram Respiratory Surgical History: Reports: None GI Surgical History: Reports: Colonoscopy, EGD, Hernia Repair/Other, Polypectomy , Other (See Below) Other GI Surgeries/Procedures: splenectomy 2005 Neurological Surgical History: Reports: None Musculoskeletal Surgical History: Reports: None Dermatological Surgical History: Reports: None Social & Family History - Family History Family Medical History: Noncontributory - Tobacco Use Smoking Status *Q: Former Smoker Used Tobacco, but Quit: Yes Month/Year Tobacco Last Used: 1986 - Caffeine Use Caffeine Use: Reports: Coffee Caffeine Use Comment: 20 oz a day - Recreational Drug Use Recreational Drug Use: No ED ROS GENERAL - Review of Systems Review Of Systems: See Below Constitutional: Reports: Decreased Appetite HEENT: Reports: No Symptoms Respiratory: Reports: No Symptoms Cardiovascular: Reports: No Symptoms Endocrine: Reports: No Symptoms GI/Abdominal: Reports: Abdominal Pain, Decreased Appetite. Denies: Black Stool , Bloody Stool, Constipation, Diarrhea, Distension, Flatus, Hematemesis, Hematochezia, Melena, Nausea, Vomiting : Reports: No Symptoms Musculoskeletal: Reports: No Symptoms Skin: Reports: No Symptoms Neurological: Reports: No Symptoms ED EXAM, GI/ABD - Physical Exam Exam: See Below Exam Limited By: No Limitations General Appearance: Alert, WD/WN, No Apparent Distress Eyes: Bilateral: Normal Appearance Ears: Normal External Exam, Normal Canal, Hearing Grossly Normal, Normal TMs Nose: Normal Inspection, No Blood Throat/Mouth: Normal Inspection, Normal Lips, Normal Oropharynx, Normal Voice, No Airway Compromise Head: Atraumatic, Normocephalic Neck: Normal Inspection, Non-Tender Respiratory/Chest: No Respiratory Distress, Lungs Clear, Normal Breath Sounds, No Accessory Muscle Use Cardiovascular: Regular Rate, Rhythm, No Edema GI/Abdominal Exam: Distended (slightly), Rigid (somewhat firm throughout.), Tender (mostly across the upper abdomen ), Abnormal Bowel Sounds (increased), Other (multiple old healed surgical scars). No: Normal Bowel Sounds, Soft, Non- Tender, No Distention, Guarding, Rebound Back Exam: Normal Inspection. No: CVA Tenderness (R), CVA Tenderness (L) Extremities: Normal Inspection, Normal Range of Motion, Non-Tender, No Pedal Edema Neurological: Alert, Oriented, CN II-XII Intact, Normal Cognition, No Motor/ Sensory Deficits Psychiatric: Normal Affect, Normal Mood Skin Exam: Warm, Dry, Intact, Normal Color, No Rash Course - Vital Signs Text/Narrative:: Dr. Gardner called @ 11:30a Last Recorded V/S: Last Vital Signs Temp 35.8 C 10/28/18 08:55 Pulse 58 L 10/28/18 11:26 Resp 16 10/28/18 11:26 BP 122/74 10/28/18 11:26 Pulse Ox 98 10/28/18 11:26 - Orders/Labs/Meds Orders: Active Orders 24 hr Category Date Time Status Lactated Ringers [Ringers, Lactated] 1,000 ml Med 10/28/18 10:00 Active IV ASDIRECTED Sodium Chloride 0.9% [Normal Saline] 100 ml Med 10/28/18 10:15 Active IV ASDIRECTED Sodium Chloride 0.9% [Saline Flush] Med 10/28/18 09:17 Active 10 ml FLUSH ASDIRECTED PRN Sodium Chloride 0.9% [Saline Flush] Med 10/28/18 10:04 Active 10 ml FLUSH ASDIRECTED PRN Saline Lock Insert [OM.PC] Routine Oth 10/28/18 09:17 Ordered Medication Orders Lactated Ringer's (Ringers, Lactated) 1,000 mls @ 500 mls/hr IV ASDIRECTED KERRI Last Admin: 10/28/18 10:06 Dose: 500 mls/hr Sodium Chloride (Normal Saline) 100 mls @ 3 mls/sec IV ASDIRECTED KERRI Last Admin: 10/28/18 10:24 Dose: 3 mls/sec Sodium Chloride (Saline Flush) 10 ml FLUSH ASDIRECTED PRN PRN Reason: Keep Vein Open Last Admin: 10/28/18 10:43 Dose: 10 ml Sodium Chloride (Saline Flush) 10 ml FLUSH ASDIRECTED PRN PRN Reason: Keep Vein Open Last Admin: 10/28/18 10:25 Dose: 10 ml Labs: Laboratory Tests 10/28/18 10/28/18 Range/Units 09:26 09:26 WBC 16.0 H (4.5-11.0) K/uL RBC 5.33 (4.30-5.90) M/uL Hgb 15.7 H (12.0-15.0) g/dL Hct 48.6 (40.0-54.0) % MCV 91 (80-98) fL MCH 30 (27-31) pg MCHC 32 (32-36) % Plt Count 278 (150-400) K/uL Sodium 139 L (140-148) mmol/L Potassium 4.2 (3.6-5.2) mmol/L Chloride 103 (100-108) mmol/L Carbon Dioxide 28 (21-32) mmol/L Anion Gap 12.2 (5.0-14.0) mmol/L BUN 16 (7-18) mg/dL Creatinine 1.1 (0.8-1.3) mg/dL Est Cr Clr Drug Dosing 71.53 mL/min Estimated GFR (MDRD) > 60 (>60) Glucose 137 H (74-106) mg/dL Calcium 9.2 (8.5-10.1) mg/dL Total Bilirubin 1.7 H D (0.2-1.0) mg/dL AST 22 (15-37) U/L ALT 33 (12-78) U/L Alkaline Phosphatase 88 (46-116) U/L C-Reactive Protein 4.42 H (0.0-0.3) mg/dL Total Protein 7.1 (6.4-8.2) g/dL Albumin 3.6 (3.4-5.0) g/dL Globulin 3.5 (2.3-3.5) g/dL Albumin/Globulin Ratio 1.0 L (1.2-2.2) Meds: Medications Generic Name Dose Route Start Last Admin Trade Name Freq PRN Reason Stop Dose Admin Lactated Ringer's 1,000 mls @ 500 mls/hr 10/28/18 10:00 10/28/18 10:06 Ringers, Lactated IV 500 mls/hr ASDIRECTED KERRI Administration Sodium Chloride 100 mls @ 3 mls/sec 10/28/18 10:15 10/28/18 10:24 Normal Saline IV 3 mls/sec ASDIRECTED KERRI Administration Sodium Chloride 10 ml 10/28/18 09:17 10/28/18 10:43 Saline Flush FLUSH 10 ml ASDIRECTED PRN Administration Keep Vein Open Sodium Chloride 10 ml 10/28/18 10:04 10/28/18 10:25 Saline Flush FLUSH 10 ml ASDIRECTED PRN Administration Keep Vein Open Discontinued Medications Generic Name Dose Route Start Last Admin Trade Name Freq PRN Reason Stop Dose Admin Iopamidol 150 ml 10/28/18 10:15 10/28/18 10:25 Isovue-300 (61%) IV 135 ml . DIRECTED KERRI Administration - Radiology Interpretation Free Text/Narrative:: CT abd/pelvis with IV contrast-moderate free air in the upper and mid abdomen. Departure - Departure Time of Disposition: 11:40 Disposition: Admitted As Inpatient 67 Condition: Fair Clinical Impression: Intra-abdominal free air of unknown etiology Abdominal pain Qualifiers: Abdominal location: upper abdomen, unspecified Qualified Code(s): R10.10 - Upper abdominal pain, unspecified - Discharge Information *PRESCRIPTION DRUG MONITORING PROGRAM REVIEWED*: No *COPY OF PRESCRIPTION DRUG MONITORING REPORT IN PATIENT MARISELA: No Referrals: Robin Mata NP [Primary Care Provider] - Forms: ED Department Discharge - My Orders Last 24 Hours: My Active Orders 10/28/18 09:17 Sodium Chloride 0.9% [Saline Flush] 10 ml FLUSH ASDIRECTED PRN Saline Lock Insert [OM.PC] Routine 10/28/18 10:00 Lactated Ringers [Ringers, Lactated] 1,000 ml IV ASDIRECTED 10/28/18 10:04 Sodium Chloride 0.9% [Saline Flush] 10 ml FLUSH ASDIRECTED PRN 10/28/18 10:15 Sodium Chloride 0.9% [Normal Saline] 100 ml IV ASDIRECTED - Assessment/Plan Last 24 Hours: My Active Orders 10/28/18 09:17 Sodium Chloride 0.9% [Saline Flush] 10 ml FLUSH ASDIRECTED PRN Saline Lock Insert [OM.PC] Routine 10/28/18 10:00 Lactated Ringers [Ringers, Lactated] 1,000 ml IV ASDIRECTED 10/28/18 10:04 Sodium Chloride 0.9% [Saline Flush] 10 ml FLUSH ASDIRECTED PRN 10/28/18 10:15 Sodium Chloride 0.9% [Normal Saline] 100 ml IV ASDIRECTED
[2018-10-28] MEDS ORDERED: Lactated Ringers 1,000 ML IV SCH (10:00)
[2018-10-28] MEDS ORDERED: Sodium Chloride 0.9% 100 ML IV SCH (10:15)
[2018-10-28] MEDS ORDERED: Iopamidol 612 MG/ML 150 ML Bottle IV SCH (10:15)
--- NOTE | 2018-10-28 11:23 | CRLCT ---
INDICATION: 68 year-old male. Abdominal pain. Previous splenectomy for an unknown reason. The patient reportedly has not had any recent interventional procedures, trauma, and does not have a history of malignancy. TECHNIQUE: Contrast-enhanced CT of the abdomen and pelvis. 135 cc nonionic Isovue-300 administered. Findings : The included lung bases are clear. There is scattered free air within the nondependent anterior abdomen and pelvis with numerous additional tiny dots of free air scattered throughout the abdomen and pelvis including within the mesentery. There is no evidence for appendicitis or diverticulitis. However there is the suggestion of a possible duodenal perforation, image 43-44 series 2 and the possibility of a perforated duodenal ulcer is suspected. There are some calcifications within the dependent portion of the duodenum on image 45 series 2 and is uncertain if these are small stones or pills. The liver is negative for masses or biliary ductal dilatation. The spleen is surgically absent. The pancreas, gallbladder, and both adrenal glands are within normal limits. Both kidneys are negative for masses or obstruction. Vascular calcification within a normal caliber abdominal aorta and iliac arteries. The inferior vena cava is unremarkable. Normal appendix. The urinary bladder, seminal vesicles, and prostate gland are unremarkable. Bilateral moderate size fat containing inguinal hernias. Lumbar scoliotic curvature convex towards the left. No acute fractures are identified. These findings were discussed with Dr. Worley at 11:10 a.m. IMPRESSION: 1. Scattered moderate to moderately large amount of free air particularly in the upper and mid abdomen with several dots of free air identified in the mesentery. The source could be related to the duodenum such as a duodenal ulcer with perforation which is suggested on image 43-44 series 2. 2. No evidence for appendicitis or diverticulitis. No drainable fluid collection. No evidence for occult malignancy. Absent spleen. 3. These findings were discussed with Dr. Worley at 11:10 a.m. Please note that all CT scans at this facility use dose modulation, iterative reconstruction, and/or weight-based dosing when appropriate to reduce radiation dose to as low as reasonably achievable. Dictated by Reji Dumont MD @ Oct 28 2018 10:59AM Signed by Dr. Reji Dumont @ Oct 28 2018 11:21AM
[2018-10-28] MEDS ORDERED: Dexamethasone 4 MG/ML SDV ONE (12:14)
[2018-10-28] MEDS ORDERED: Propofol 200 MG/20 ML SDV ONE (12:14)
[2018-10-28] MEDS ORDERED: fentaNYL 250 MCG/5 ML SDV ONE ×2 (12:14→14:31)
[2018-10-28] MEDS ORDERED: Succinylcholine 200 MG/10 ML MDV ONE (12:14)
[2018-10-28] MEDS ORDERED: Glycopyrrolate 0.2 MG/ML 5 ML MDV ONE (12:14)
[2018-10-28] MEDS ORDERED: Ondansetron 4 MG/2 ML SDV ONE (12:14)
[2018-10-28] MEDS ORDERED: Rocuronium 50 MG/5 ML Vial ONE ×2 (12:14→14:48)
[2018-10-28] MEDS ORDERED: Neostigmine Methylsulfate 1 MG/ML 5 ML Syringe ONE (12:14)
[2018-10-28] MEDS ORDERED: Ampicillin/Sulbactam Na 3 GM in Sodium Chloride 0.9% 100 ML IV ONE (12:30)
[2018-10-28] MEDS ORDERED: Dextrose 5%-Lactated Ringers 1,000 ML IV SCH (12:30)
[2018-10-28] MEDS ORDERED: HYDROmorphone 1 MG/ML Syringe IVPUSH ONE (12:43)
[2018-10-28] MEDS ORDERED: Naloxone 0.4 MG/ML SDV IV PRN (13:02)
[2018-10-28] MEDS ORDERED: Ropivacaine 44 ML, dexAMETHasone 8 MG, EPINEPHrine 0.4 MG, Sodium Chloride 0.9% 33.6 ML NERVRT SCH ×4 (13:30)
[2018-10-28] MEDS ORDERED: Meropenem 500 MG SDV ONE ×2 (14:05→14:53)
[2018-10-28] MEDS ORDERED: Lactated Ringers 1,000 ML ONE (14:24)
[2018-10-28] MEDS ORDERED: diphenhydrAMINE 50 MG/ML SDV IVPUSH PRN (17:11)
[2018-10-28] MEDS ORDERED: Labetalol 20 MG/4 ML Syringe IVPUSH PRN (17:12)
[2018-10-28] MEDS: HYDROmorphone/Normal Saline 15 MG/30 ML PCA IV PRN (17:18)
[2018-10-28] MEDS: Dextrose 5%-Lactated Ringers 1,000 ML IV SCH (18:35)
[2018-10-28] MEDS: Ampicillin/Sulbactam Na 3 GM in Sodium Chloride 0.9% 100 ML IV SCH ×2 (19:00→23:34)
[2018-10-28] MEDS: Pantoprazole 40 MG Vial IV SCH (19:06)
[2018-10-28] MEDS: Metoclopramide 10 MG/2 ML SDV IVPUSH SCH ×2 (19:08→23:34)
[2018-10-28] MEDS: MVI, Adult with Vitamin K 10 ML, Chromium/Copper/Mang/Selen/Zn 1 ML, Thiamine 200 MG in... IV SCH ×4 (19:48)
[2018-10-28] MEDS: hydrOXYzine HCl 100 MG/2 ML SDV IM PRN (19:49)
[2018-10-29] MEDS: Dextrose 5%-Lactated Ringers 1,000 ML IV SCH ×2 (02:06→10:14)
[2018-10-29] MEDS: Metoclopramide 10 MG/2 ML SDV IVPUSH SCH ×3 (05:47→17:40)
[2018-10-29] MEDS: Ampicillin/Sulbactam Na 3 GM in Sodium Chloride 0.9% 100 ML IV SCH ×3 (05:49→20:12)
[2018-10-29] MEDS: Potassium Phosphates 20 MMOLE in Sodium Chloride 0.9% 250 ML IV SCH ×3 (10:11→16:52)
--- NOTE | 2018-10-29 16:00 | PN ---
DATE OF SERVICE: 10/29/2018 SUBJECTIVE: Nolan is postoperative day #1. He states his pain is controlled. He has been up ambulating. Vital signs have been stable. He remains on ice chips. SANTINO drains put out 5 and 35 respectively of a light pink drainage. REVIEW OF SYSTEMS: Remainder of review of systems negative for any pertinent positives and negatives. OBJECTIVE: GENERAL: Nolan Renee is a 68-year-old male. He is alert and orientated. VITAL SIGNS: TPR is 97.5, 83, 20, blood pressure is 132/78. HEENT: Negative. NECK: Supple. HEART: Regular rate and rhythm. LUNGS: Clear. ABDOMEN: Dressings dry and intact. Abdominal binder is on. EXTREMITIES: Without peripheral edema. ASSESSMENT: 1. Exploratory laparotomy with: a. Distal gastrectomy with Benja-en-Y gastrojejunostomy. b. Intraoperative esophagogastroduodenoscopy. c. Decompression of distal small bowel with tube enterostomy for probable perforated distal stomach and markedly distended small bowel with intraoperative esophagogastroduodenoscopy. Date of surgery: 10/28/2018. Surgeon: Ace Gardner MD. PLAN: 1. Decrease IV to 100 mL per hour. 2. K-Phos 60 mmol IV today. 3. Check CBC, CMP, mag, phos. 4. Ice chips only. 5. Incentive spirometer; use 10 times every hour while awake. This has not been started yet. Order rewritten. 6. Schedule and have consent signed for delayed primary closure with IV/local/TAP block on , 10/30/2018 at 7:15. 7. We will evaluate p.r.n. or in a.m. Antonia Emanuel PA-C /[id number]
[2018-10-29] MEDS: Pantoprazole 40 MG Vial IV SCH (16:55)
[2018-10-29] MEDS ORDERED: ClonazePAM 1 MG Tab PO PRN (19:02)
[2018-10-29] MEDS: ClonazePAM 1 MG Tab PO SCH (19:22)
[2018-10-29] MEDS: Propranolol 40 MG Tab PO SCH (21:33)
[2018-10-29] MEDS: MVI, Adult with Vitamin K 10 ML, Chromium/Copper/Mang/Selen/Zn 1 ML, Thiamine 200 MG in... IV SCH ×4 (21:34)
[2018-10-30] MEDS: Metoclopramide 10 MG/2 ML SDV IVPUSH SCH ×5 (00:21→23:33)
[2018-10-30] MEDS: Ampicillin/Sulbactam Na 3 GM in Sodium Chloride 0.9% 100 ML IV SCH ×3 (00:21→11:35)
[2018-10-30] MEDS: Dextrose 5%-Lactated Ringers 1,000 ML IV SCH ×2 (03:31→13:33)
[2018-10-30] MEDS ORDERED: Ketamine 500 MG/5 ML MDV ONE (06:43)
[2018-10-30] MEDS ORDERED: Propofol 200 MG/20 ML SDV ONE (06:43)
[2018-10-30] MEDS ORDERED: Meropenem 500 MG SDV ONE (06:45)
[2018-10-30] MEDS ORDERED: Midazolam 1 MG/ML 2 ML SDV ONE (06:45)
[2018-10-30] MEDS ORDERED: fentaNYL 100 MCG/2 ML SDV ONE (06:46)
[2018-10-30] MEDS ORDERED: Ondansetron 4 MG/2 ML SDV ONE (06:49)
[2018-10-30] MEDS ORDERED: Bupivacaine 0.5% 50 ML MDV ONE (06:58)
[2018-10-30] MEDS ORDERED: Lidocaine 1% with EPINEPHrine 1:100,000 50 ML MDV ONE (06:58)
[2018-10-30] MEDS ORDERED: Ropivacaine 44 ML, dexAMETHasone 8 MG, EPINEPHrine 0.4 MG, Sodium Chloride 0.9% 33.6 ML NERVRT SCH ×4 (07:00)
[2018-10-30] MEDS: HYDROmorphone/Normal Saline 15 MG/30 ML PCA IV PRN (07:27)
[2018-10-30] MEDS ORDERED: Labetalol 20 MG/4 ML Syringe ONE (07:47)
[2018-10-30] MEDS ORDERED: Furosemide 20 MG/2 ML VIAL IVPUSH ONE (08:02)
[2018-10-30] MEDS ORDERED: Cyanocobalamin (Vitamin B12) 1,000 MCG/ML SDV IM ONE (09:00)
[2018-10-30] MEDS ORDERED: Diltiazem 125 MG in Sodium Chloride 0.9% 100 ML IV SCH (09:30)
[2018-10-30] MEDS ORDERED: Diltiazem 25 MG/5 ML SDV IVPUSH ONE (09:30)
--- NOTE | 2018-10-30 09:35 | PCM.CONS ---
H&P History of Present Illness - General Date of Service: 10/30/18 Admit Problem/Dx: Admission Diagnosis/Problem Admission Diagnosis/Problem Perforation of intestine Source of Information: Patient, Provider, RN Notes Reviewed History Limitations: Reports: No Limitations - History of Present Illness Initial Comments - Free Text/Narative: Mr. Renee is a 68-year-old gentleman who I have been asked to see by Dr. Gardner for further suggestions concerning evaluation and management of atrial fibrillation with rapid ventricular response. He was admitted to this facility 2 days ago after presenting to the emergency department with severe abdominal pain. CT scan showed free air within the abdomen and he was taken to the operating room by Dr. Gardner. He was found to have a perforated gastric ulcer and underwent distal gastric resection and Benja-en-Y formation. This transiently noted to have elevated heart rate during the night but this resolved. He went to the operating room today for delayed primary closure and was noted to be in atrial fibrillation with rapid ventricular response. He reports that he is diaphoretic but denies any symptoms of chest pain or pressure or significant shortness of breath. He is not aware that he has had previous episodes of atrial fibrillation. He does have known coronary artery disease, but denies history of congestive heart failure. Abdominal Pain Score (Numeric/FACES): 2 - Related Data Allergies/Adverse Reactions: Allergies Allergy/AdvReac Type Severity Reaction Status Date / Time Kjrrjkq-Cyy-Nds Reductase Allergy Cannot Verified 10/28/18 09:01 Inhibitor Remember atorvastatin AdvReac Muscle Verified 10/28/18 09:01 Weakness bupropion HCl AdvReac Seizure Verified 10/28/18 09:01 [From Wellbutrin] citalopram hydrobromide AdvReac Hallucinati Verified 10/28/18 09:01 [From Celexa] ons gabapentin AdvReac Shaking Verified 10/28/18 09:01 mirtazapine [From Remeron] AdvReac Hallucinati Verified 10/28/18 09:01 ons pravastatin AdvReac Leg Cramps Verified 10/28/18 09:01 Home Medications: Home Meds Aspirin [Darlin Chewable] 81 mg PO QAM 03/25/13 [History] Multivitamin with Minerals [Multiple Vitamin] 1 tab PO QAM 03/25/13 [History] Propranolol [Inderal] 20 mg PO TID 06/30/13 [History] FLUoxetine [PROzac] 40 mg PO QAM 10/06/13 [History] Acetaminophen [Tylenol Extra Strength] 500 mg PO Q6H PRN 01/03/17 [History] ClonazePAM [KlonoPIN] 1 mg PO BID 10/29/18 [History] ClonazePAM [KlonoPIN] 1 mg PO DAILY PRN 10/29/18 [History] Simvastatin 10 mg PO BEDTIME 10/29/18 [History] raNITIdine HCl [Ranitidine HCl] 1 tab PO BEDTIME 10/29/18 [History] Past Medical History HEENT History: Reports: Hard of Hearing, Impaired Vision Cardiovascular History: Reports: Arrhythmia, CAD, Heart Murmur, SOB on Exertion Respiratory History: Reports: Sleep Apnea Other Respiratory History: no cpap Gastrointestinal History: Reports: Colon Polyp, GERD, Hiatal Hernia Musculoskeletal History: Reports: Back Pain, Chronic, Fracture, Other (See Below ) Other Musculoskeletal History: possible neuropathy Neurological History: Reports: Migraines, Neuropathy, Peripheral, Other (See Below) Other Neuro History: tremors from meds. tinnitis Psychiatric History: Reports: Anxiety, Depression Hematologic History: Reports: Blood Transfusion(s) - Infectious Disease History Infectious Disease History: Reports: Chicken Pox, Measles, Mumps - Past Surgical History Head Surgeries/Procedures: Reports: None HEENT Surgical History: Reports: Other (See Below) Other HEENT Surgeries/Procedures: removed metal from eye Cardiovascular Surgical History: Reports: Other (See Below) Other Cardiovascular Surgeries/Procedures: angiogram Respiratory Surgical History: Reports: None GI Surgical History: Reports: Colonoscopy, EGD, Hernia Repair/Other, Polypectomy , Other (See Below) Other GI Surgeries/Procedures: splenectomy 2005 Neurological Surgical History: Reports: None Musculoskeletal Surgical History: Reports: None Dermatological Surgical History: Reports: None Social & Family History - Family History Family Medical History: Noncontributory - Tobacco Use Smoking Status *Q: Former Smoker Used Tobacco, but Quit: Yes Month/Year Tobacco Last Used: 1986 - Caffeine Use Caffeine Use: Reports: Coffee Caffeine Use Comment: 20 oz a day - Recreational Drug Use Recreational Drug Use: No H&P Review of Systems - Review of Systems: Review Of Systems: See Below General: Reports: Diaphoresis. Denies: Fever, Chills Pulmonary: Reports: No Symptoms Cardiovascular: Reports: No Symptoms Gastrointestinal: Reports: Abdominal Pain, Distension. Denies: Black Stool, Bloody Stool, Difficulty Swallowing, Nausea, Vomiting Genitourinary: Reports: No Symptoms Musculoskeletal: Reports: No Symptoms Exam - Exam Exam: See Below - Vital Signs Vital Signs: Last Vital Signs Temp 99.2 F 10/30/18 08:41 Pulse 142 H 10/30/18 08:41 Resp 18 10/30/18 08:41 BP 104/71 10/30/18 08:41 Pulse Ox 92 L 10/30/18 08:41 Weight: 195 lb 5.273 oz - Exam Quality Assessment: DVT Prophylaxis General: Alert, Oriented, Cooperative, Moderate Distress Neck: Supple, Trachea Midline, +2 Carotid Pulse wo Bruit Lungs: Clear to Auscultation, Normal Respiratory Effort Cardiovascular: Irregular Rhythm, Tachycardia. No: Systolic Murmur, Diastolic Murmur GI/Abdominal Exam: No Organomegaly, Tender. No: Distended, Guarding, Rigid, Rebound Extremities: Non-Tender, No Pedal Edema - Patient Data Lab Results Last 24 hrs: Laboratory Results - last 24 hr 10/30/18 10/30/18 10/30/18 Range/Units 04:23 04:23 08:40 WBC 17.2 H 18.5 H (4.5-11.0) K/uL RBC 4.33 4.41 (4.30-5.90) M/uL Hgb 13.2 13.4 (12.0-15.0) g/dL Hct 41.0 42.1 (40.0-54.0) % MCV 95 96 (80-98) fL MCH 31 30 (27-31) pg MCHC 32 32 (32-36) % Plt Count 243 245 (150-400) K/uL Sodium 141 (140-148) mmol/L Potassium 4.1 (3.6-5.2) mmol/L Chloride 107 (100-108) mmol/L Carbon Dioxide 26 (21-32) mmol/L Anion Gap 7.8 (5.0-14.0) mmol/L BUN 21 H (7-18) mg/dL Creatinine 1.1 (0.8-1.3) mg/dL Est Cr Clr Drug Dosing 71.53 mL/min Estimated GFR (MDRD) > 60 (>60) Glucose 134 H (74-106) mg/dL Calcium 8.1 L (8.5-10.1) mg/dL Phosphorus 2.4 L (2.5-4.9) mg/dL Magnesium 1.8 (1.8-2.4) mg/dL Total Bilirubin 1.5 H (0.2-1.0) mg/dL AST 44 H (15-37) U/L ALT 31 (12-78) U/L Alkaline Phosphatase 64 (46-116) U/L Total Protein 6.2 L (6.4-8.2) g/dL Albumin 2.7 L (3.4-5.0) g/dL Globulin 3.5 (2.3-3.5) g/dL Albumin/Globulin Ratio 0.8 L (1.2-2.2) 10/30/18 10/30/18 10/30/18 Range/Units 08:40 08:40 08:40 WBC (4.5-11.0) K/uL RBC (4.30-5.90) M/uL Hgb (12.0-15.0) g/dL Hct (40.0-54.0) % MCV (80-98) fL MCH (27-31) pg MCHC (32-36) % Plt Count (150-400) K/uL Sodium 141 (140-148) mmol/L Potassium 4.1 (3.6-5.2) mmol/L Chloride 106 (100-108) mmol/L Carbon Dioxide 28 (21-32) mmol/L Anion Gap 6.6 (5.0-14.0) mmol/L BUN 23 H (7-18) mg/dL Creatinine 1.3 (0.8-1.3) mg/dL Est Cr Clr Drug Dosing 60.52 mL/min Estimated GFR (MDRD) 55 L (>60) Glucose 168 H (74-106) mg/dL Calcium 8.5 (8.5-10.1) mg/dL Phosphorus 2.4 L (2.5-4.9) mg/dL Magnesium 1.8 (1.8-2.4) mg/dL Total Bilirubin 1.5 H (0.2-1.0) mg/dL AST 45 H (15-37) U/L ALT 32 (12-78) U/L Alkaline Phosphatase 66 (46-116) U/L Total Protein 6.4 (6.4-8.2) g/dL Albumin 2.8 L (3.4-5.0) g/dL Globulin 3.6 H (2.3-3.5) g/dL Albumin/Globulin Ratio 0.8 L (1.2-2.2) Result Diagrams: 10/30/18 08:40 10/30/18 08:40 Consult PN Assessment/Plan Procedures: Procedures ASSAY OF ETHANOL (06/30/13) ASSAY OF TROPONIN QUANT (10/15/18) CO/MEMBANE DIFFUSE CAPACITY (12/02/13) COLONOSCOPY AND BIOPSY (10/08/13) COMPLETE CBC AUTOMATED (03/25/13) COMPLETE CBC W/AUTO DIFF WBC (02/11/16) COMPREHEN METABOLIC PANEL (02/11/16) CT HEAD/BRAIN W/O DYE (05/04/15) CULTURE SCREEN ONLY (01/04/17) EGD BIOPSY SINGLE/MULTIPLE (01/04/17) ELECTROCARDIOGRAM REPORT (03/25/13) ELECTROCARDIOGRAM TRACING (02/23/17) EMERGENCY DEPT VISIT (10/19/18) EMERGENCY DEPT VISIT (05/31/17) EMERGENCY DEPT VISIT (05/01/17) EMERGENCY DEPT VISIT (04/14/17) EMERGENCY DEPT VISIT (02/23/17) EMERGENCY DEPT VISIT (10/15/16) EMERGENCY DEPT VISIT (04/07/16) EMERGENCY DEPT VISIT (01/28/16) EMERGENCY DEPT VISIT (12/31/15) EMERGENCY DEPT VISIT (11/04/15) EMERGENCY DEPT VISIT (06/30/13) EMERGENCY DEPT VISIT (03/25/13) EMERGENCY DEPT VISIT (03/25/13) EVALUATION OF WHEEZING (12/02/13) HYDRATION IV INFUSION INIT (05/31/17) INSERT TEMP BLADDER CATH (05/31/17) MANUAL THERAPY 1/> REGIONS (05/17/17) MEASURE BLOOD OXYGEN LEVEL (01/24/17) METABOLIC PANEL TOTAL CA (03/25/13) MRI BRAIN STEM W/O DYE (01/05/15) MRI LUMBAR SPINE W/O DYE (06/25/14) ORTHOTIC MGMT&TRAINJ 1ST ENC (09/13/14) POLYSOM 6/>YRS CPAP 4/> PARM (08/08/15) PT EVAL LOW COMPLEX 20 MIN (05/17/17) PT EVALUATION (11/01/15) ROUTINE VENIPUNCTURE (10/15/18) RPR UMBIL ALIN REDUC > 5 YR (12/09/15) STREP A AG IA (04/14/15) THER/PROPH/DIAG INJ SC/IM (04/20/17) THERAPEUTIC EXERCISES (05/17/17) TISSUE EXAM BY PATHOLOGIST (10/08/13) URINALYSIS AUTO W/SCOPE (05/31/17) US EXAM SCROTUM (05/12/17) US URINE CAPACITY MEASURE (05/31/17) VASCULAR STUDY (05/12/17) X-RAY EXAM L-2 SPINE 4/>VWS (11/18/14) X-RAY EXAM L-S SPINE 2/3 VWS (07/15/15) X-RAY EXAM THORAC SPINE 3VWS (04/07/16) X-RAY EYE FOR FOREIGN BODY (06/25/14) Problem List Initiated/Reviewed/Updated: Yes My Orders Last 24 Hours: My Active Orders 10/30/18 09:20 Patient Status [ADT] Routine 10/30/18 09:22 Diltiazem 20 mg IVPUSH ONETIME ONE 10/30/18 09:24 Echo Comp wo Cont [US] Urgent TSH ULTRASENSITIVE [CHEM] Urgent 10/30/18 09:30 Diltiazem 125MG in NS @ 5 MG/HR(125ml) Diltiazem 125 mg Sodium Chloride 0.9% [ Normal Saline] 100 ml IV TITRATE Magnesium Sulfate/Water [Magnesium Sulfate in Water Premix] 2 gm Premix Bag 1 bag IV Q6H Plan: ASSESSMENT AND RECOMMENDATIONS ATRIAL FIBRILLATION WITH RAPID VENTRICULAR RESPONSE-suspect that he had a transient episode last night, now this morning in persistent atrial fibrillation with rapid ventricular response. Denies previous history of congestive heart failure but does have a known history of urinary artery disease. Other than diaphoresis denies other symptoms related to the atrial fibrillation. Other than low magnesium level labs are unremarkable with no other significant electrolyte abnormalities or significant anemia. -Transferred to the intensive care unit for further evaluation and management -Diltiazem 20 mg IV now -Diltiazem continuous infusion 5 mg per hour per protocol -Echocardiogram to assess chamber sizes and left ventricular function -Assess thyroid function with TSH -Correct hypomagnesemia HYPOMAGNESEMIA -IV magnesium replacement -Recheck magnesium level in a.m. STATUS POST SURGICAL REPAIR OF PERFORATED GASTRIC ULCER -Postoperative care and management per Dr. Gardner Requesting Provider: NIKKI Date Consult Requested: 10/30/18 Reason for Consult: Atrial fibrillation with rapid ventricular response Patient History Reviewed: Yes
[2018-10-30] MEDS: Magnesium Sulfate/Water 2 GM in Premix Bag 1 BAG IV SCH ×3 (09:53→21:28)
[2018-10-30] MEDS: ClonazePAM 1 MG Tab PO SCH ×2 (10:09→21:26)
[2018-10-30] MEDS: Propranolol 40 MG Tab PO SCH (10:26)
--- NOTE | 2018-10-30 10:55 | PN ---
DATE OF SERVICE: 10/30/2018 SUBJECTIVE: Nolan is n.p.o. He will be going down for delayed primary closure today. Vital signs have been stable. Oral intake, ice chips. Urine output via Cortez catheter was 1090. SANTINO drain 1 and 2 put out 25 and 15 mL of light pink drainage. REVIEW OF SYSTEMS: Remainder of review of systems negative for any pertinent positives and negatives. OBJECTIVE: GENERAL: Nolan Renee is a pleasant 68-year-old male. He is alert and orientated. VITAL SIGNS: TPR 98.2, 122, 14. Blood pressure 100/72. HEENT: Negative. NECK: Supple. HEART: Regular rate and rhythm. LUNGS: Clear. ABDOMEN: Dressings dry and intact. Abdominal binder is on. EXTREMITIES: Without peripheral edema. ASSESSMENT: 1. Exploratory laparotomy with: a. Distal gastrectomy with Benja-en-Y gastrojejunostomy. b. Intraoperative esophagogastroduodenoscopy. c. Decompression of distal small bowel with tube enterostomy for probable perforated distal stomach and markedly distended small bowel with intraoperative esophagogastroduodenoscopy. Date of surgery 10/28/2018. Surgeon, Ace Gardner MD. 2. Delayed primary closure, 10/30/2018. PLAN: I am doing delayed primary closure to discontinue the Cortez catheter and discontinue SANTINO drains, upper GI in a.m., and restart fluoxetine home medication. Good pulmonary toilet. We will evaluate p.r.n. or in a.m. Antonia Emanuel PA-C /[id number]
[2018-10-30] MEDS ORDERED: Tamsulosin 0.4 MG Cap.ER PO ONE (11:30)
[2018-10-30] MEDS: Potassium Phosphates 20 MMOLE in Sodium Chloride 0.9% 250 ML IV SCH ×3 (11:35→17:36)
[2018-10-30] MEDS: Pantoprazole 40 MG Vial IV SCH (17:20)
[2018-10-30] MEDS: MVI, Adult with Vitamin K 10 ML, Chromium/Copper/Mang/Selen/Zn 1 ML, Thiamine 200 MG in... IV SCH ×4 (17:38)
[2018-10-30] MEDS: Diltiazem IR 30 MG Tab PO SCH (19:54)
[2018-10-30] MEDS: Tamsulosin 0.4 MG Cap.ER PO SCH (21:26)
[2018-10-31] MEDS ORDERED: Iopamidol 612 MG/ML 50 ML SDV STA (03:20)
[2018-10-31] MEDS: Diltiazem IR 30 MG Tab PO SCH (03:23)
[2018-10-31] MEDS: Dextrose 5%-Lactated Ringers 1,000 ML IV SCH ×2 (03:37→15:04)
--- NOTE | 2018-10-31 05:26 | CRLCR ---
Indication: History of gastric resection Technique: Four views of the abdomen obtained following the administration of oral contrast. Comparison: None available Findings/Impression : Postsurgical changes with apparent gastrojejunostomy. Oral contrast opacifies the distal esophagus, residual gastric body and several dilated jejunal segments. Multiple dilated small bowel segments with air-fluid levels which could represent postsurgical ileus or high-grade mechanical bowel obstruction. Dictated by Magdaleno Gonzales MD @ 10/31/2018 5:25:07 AM Dictated by: Magdaleno Gonzales MD @ 10/31/2018 05:25:12 (Electronically Signed)
[2018-10-31] MEDS: Metoclopramide 10 MG/2 ML SDV IVPUSH SCH ×4 (05:38→23:33)
--- NOTE | 2018-10-31 07:48 | OR ---
DATE OF PROCEDURE: 10/28/2018 PREOPERATIVE DIAGNOSIS: Open abdominal incision. POSTOPERATIVE DIAGNOSIS: Open abdominal incision. OPERATIVE PROCEDURE: Delayed primary closure of open abdominal incision. ANESTHESIA: Local plus IV sedation. AUTO TECHNICIAN MECHANIC: Deondre Shirley MS-1. INDICATIONS FOR PROCEDURE: The patient is 48 hours status post treatment of a perforated viscus, most likely from a duodenal source. At the time of the original procedure, the skin and subcutaneous tissue were felt to be high risk for a wound infection and were therefore packed open for a planned delayed primary closure at this time. Potential risks including bleeding and perforation were discussed, and the patient wishes to proceed. DETAILS OF PROCEDURE: The patient was taken to the operating room and placed in a supine position, sitting somewhat upright to limit aspiration risk. The operative dressing was taken down and the abdomen was prepped and draped. Bilateral transversus abdominis plane blocks were then placed and then the incision anesthetized with 1% lidocaine mixed with Marcaine meropenem-containing saline solution, after which the incision was closed with some 3-0 Vicryl stitch deep and anuradha for the skin. Dressing was applied. The patient was taken to the recovery room in satisfactory condition. There were no evident complications. Ace Gardner MD /[id number]
--- NOTE | 2018-10-31 08:25 | PN ---
DATE OF SERVICE: 10/31/2018 The patient has been afebrile with stable vital signs. He is converted to a sinus rhythm with Cardizem drip, now he is on oral Cardizem and we will likely go back today. Otherwise, his upper GI x-ray looked good and we will begin a full liquid diet. We will also begin some bowel stimulation today. Potassium phosphate remains marginally low, we will give him some additional K-Phos today. Otherwise, maximize activity and work with pulmonary toilet. Ace Gardner MD /[id number]
[2018-10-31] MEDS: Docusate Sodium 100 MG Cap PO SCH ×2 (08:29→21:42)
[2018-10-31] MEDS: Bisacodyl 5 MG Tab PO SCH ×2 (08:29→21:42)
[2018-10-31] MEDS: ClonazePAM 1 MG Tab PO SCH ×2 (08:31→21:40)
--- NOTE | 2018-10-31 08:36 | PN ---
DATE OF SERVICE: 10/30/2018 SUBJECTIVE: Mr. Renee overnight has had no significant nausea. No flatus or bowel movement as of yet has been noted. Did undergo delayed primary closure of abdominal incision this morning without complications. Intraoperatively, he was noted to have probable atrial fibrillation, which was confirmed with an EKG, and we will consult Dr. Wong of Internal Medicine Department regarding management of that issue. Otherwise, we will keep him more or less n.p.o., except for medications today. His phosphate is somewhat low, and that will be supplemented with some IV potassium phosphate. Also, will give him some IV Lasix, and Cortez catheter will be removed, along with the SANTINO drains. We will obtain an upper GI x-ray tomorrow morning to detect whether or not he has had adequate gastric emptying, and if that is the case, we will start him on some liquid diet at that point. Ace Gardner MD /[id number]
[2018-10-31] MEDS: Diltiazem 180 MG Cap.CD PO SCH (09:10)
[2018-10-31] MEDS: Potassium Phosphates 20 MMOLE in Sodium Chloride 0.9% 250 ML IV SCH ×3 (09:10→15:50)
--- NOTE | 2018-10-31 09:28 | PCM.CONSN ---
- General Info Date of Service: 10/31/18 Subjective Update: Mr. Renee initially did well yesterday, after transfer to the ICU and being started on IV diltiazem and he converted to sinus rhythm and remained in sinus rhythm until earlier this morning. Now is back in atrial fibrillation with rapid ventricular response. He again feels somewhat diaphoretic and weaker. Denies any chest pain or pressure or significant shortness of breath. Functional Status: Reports: Tolerating Diet, Ambulating - Review of Systems General: Reports: Weakness. Denies: Fever, Chills Pulmonary: Reports: No Symptoms Cardiovascular: Reports: Palpitations. Denies: Dyspnea on Exertion, Orthopnea, PND, Edema, Lightheadedness Gastrointestinal: Reports: Abdominal Pain. Denies: Diarrhea, Difficulty Swallowing, Flatus, Hematochezia, Melena, Nausea, Vomiting - Patient Data Vitals - Most Recent: Last Vital Signs Temp 99.1 F 10/31/18 04:00 Pulse 77 10/30/18 17:50 Resp 15 10/31/18 04:00 BP 154/97 H 10/31/18 04:00 Pulse Ox 92 L 10/31/18 04:00 Weight - Most Recent: 195 lb 5.273 oz I&O - Last 24 Hours: Intake & Output 10/30/18 10/31/18 10/31/18 22:59 06:59 14:59 Intake Total 1053 1257 Output Total 655 450 Balance 398 807 Lab Results Last 24 Hours: Laboratory Results - last 24 hr 10/30/18 10/31/18 10/31/18 Range/Units 09:24 04:10 04:10 WBC 18.0 H (4.5-11.0) K/uL RBC 4.39 (4.30-5.90) M/uL Hgb 13.1 (12.0-15.0) g/dL Hct 41.2 (40.0-54.0) % MCV 94 (80-98) fL MCH 30 (27-31) pg MCHC 32 (32-36) % Plt Count 268 (150-400) K/uL Sodium 141 (140-148) mmol/L Potassium 4.3 (3.6-5.2) mmol/L Chloride 107 (100-108) mmol/L Carbon Dioxide 25 (21-32) mmol/L Anion Gap 9.3 (5.0-14.0) mmol/L BUN 20 H (7-18) mg/dL Creatinine 1.1 (0.8-1.3) mg/dL Est Cr Clr Drug Dosing 71.62 mL/min Estimated GFR (MDRD) > 60 (>60) Glucose 156 H (74-106) mg/dL Calcium 8.4 L (8.5-10.1) mg/dL Phosphorus 2.9 (2.5-4.9) mg/dL Magnesium 2.7 H (1.8-2.4) mg/dL Total Bilirubin 1.2 H (0.2-1.0) mg/dL AST 54 H (15-37) U/L ALT 35 (12-78) U/L Alkaline Phosphatase 67 (46-116) U/L Total Protein 6.6 (6.4-8.2) g/dL Albumin 2.8 L (3.4-5.0) g/dL Globulin 3.8 H (2.3-3.5) g/dL Albumin/Globulin Ratio 0.7 L (1.2-2.2) TSH, Ultra Sensitive 3.342 (0.358-3.740) uIU/mL Med Orders - Current: Current Medications Albuterol/Ipratropium (Duoneb 3.0-0.5 Mg/3 Ml) 3 ml INH ASDIRECTED PRN PRN Reason: BREATHING Bisacodyl (Dulcolax) 10 mg PO BID [facility] Last Admin: 10/31/18 08:29 Dose: 10 mg Clonazepam (Klonopin) 1 mg PO BID [facility] Last Admin: 10/31/18 08:31 Dose: 1 mg Clonazepam (Klonopin) 1 mg PO DAILY PRN PRN Reason: Anxiety Diltiazem HCl (Cardizem Cd) 180 mg PO DAILY [facility] Last Admin: 10/31/18 09:10 Dose: 180 mg Diphenhydramine HCl (Benadryl) 50 mg IVPUSH Q4H PRN PRN Reason: ITCHING Docusate Sodium (Colace) 100 mg PO BID [facility] Last Admin: 10/31/18 08:29 Dose: 100 mg Hydromorphone HCl (Dilaudid [employer] 15 Mg In Ns 30 Ml) 0 mg IV ASDIRECTED PRN; Protocol PRN Reason: [facility] Last Admin: 10/30/18 07:27 Dose: 15 mg Hydroxyzine HCl (Vistaril) 100 mg IM Q4H PRN PRN Reason: BREAKTHROUGH PAIN Last Admin: 10/28/18 19:49 Dose: 100 mg Multivitamins/Minerals 10 ml/Chromium/Copper/Manganese/Seleni/Zn 1 ml/ Thiamine HCl 200 mg/ Dextrose/Lactated Ringer's 1,013 mls @ 100 mls/hr IV DAILY@1800 [facility] Dextrose/Lactated Ringer's (Dextrose 5%-Lactated Ringers) 1,000 mls @ 75 mls/ hr IV ASDIRECTED [facility] Potassium Phosphate 20 mmole/ (Sodium Chloride) 256.6667 mls @ 85.556 mls/hr IV Q3H [facility] Stop: 10/31/18 18:29 Last Admin: 10/31/18 09:10 Dose: 85.556 mls/hr Labetalol HCl (Normodyne) 5 mg IVPUSH Q5M PRN PRN Reason: SBP over 160 OR DBP over 95 Metoclopramide HCl (Reglan) 10 mg IVPUSH Q6H [facility] Last Admin: 10/31/18 05:38 Dose: 10 mg Naloxone HCl (Narcan) 0.1 mg IV ASDIRECTED PRN PRN Reason: decreased respiratory rate Ondansetron HCl (Zofran) 4 mg IVPUSH Q4H PRN PRN Reason: Nausea Pantoprazole Sodium (Protonix Iv) 40 mg IV Q24H [facility] Last Admin: 10/30/18 17:20 Dose: 40 mg Sodium Chloride (Saline Flush) 10 ml FLUSH ASDIRECTED PRN PRN Reason: Keep Vein Open Last Admin: 10/28/18 10:25 Dose: 10 ml Sotalol HCl (Betapace) 40 mg PO BID [facility] Tamsulosin HCl (Flomax) 0.4 mg PO BEDTIME [facility] Last Admin: 10/30/18 21:26 Dose: 0.4 mg Discontinued Medications Bupivacaine HCl (Marcaine 0.5%) Confirm Administered Dose 50 ml .ROUTE .STK-MED ONE Stop: 10/30/18 06:59 Last Admin: 10/30/18 07:37 Dose: 7.5 ml Ropivacaine 44 ml/Dexamethasone 8 mg/Epinephrine HCl 0.4 mg/ Sodium Chloride 33.6 ml 0 ml NERVRT ASDIRECTED [facility] Last Admin: 10/28/18 14:06 Dose: 80 syringe Ropivacaine 44 ml/Dexamethasone 8 mg/Epinephrine HCl 0.4 mg/ Sodium Chloride 33.6 ml 0 ml NERVRT ASDIRECTED [facility] Last Admin: 10/30/18 07:30 Dose: 80 syringe Cyanocobalamin (Vitamin B12) 1,000 mcg IM ONETIME ONE Stop: 10/30/18 09:01 Last Admin: 10/30/18 10:09 Dose: 1,000 mcg Dexamethasone (Dexamethasone) Confirm Administered Dose 4 mg .ROUTE .STK-MED ONE Stop: 10/28/18 12:15 Diltiazem HCl (Diltiazem) 20 mg IVPUSH ONETIME ONE Stop: 10/30/18 09:31 Last Admin: 10/30/18 09:40 Dose: 20 mg Diltiazem HCl (Cardizem) 30 mg PO Q6HR [facility] Last Admin: 10/31/18 03:23 Dose: 30 mg Fentanyl (Sublimaze) Confirm Administered Dose 250 mcg .ROUTE .STK-MED ONE Stop: 10/28/18 12:15 Fentanyl (Sublimaze) Confirm Administered Dose 250 mcg .ROUTE .STK-MED ONE Stop: 10/28/18 14:32 Fentanyl (Sublimaze) Confirm Administered Dose 100 mcg .ROUTE .STK-MED ONE Stop: 10/30/18 06:47 Furosemide (Lasix) 20 mg IVPUSH ONETIME ONE Stop: 10/30/18 08:03 Last Admin: 10/30/18 08:07 Dose: 20 mg Glycopyrrolate (Robinul) Confirm Administered Dose 1 mg .ROUTE .STK-MED ONE Stop: 10/28/18 12:15 Hydromorphone HCl (Dilaudid) 1 mg IVPUSH ONETIME ONE Stop: 10/28/18 12:44 Last Admin: 10/28/18 12:57 Dose: 1 mg Lactated Ringer's (Ringers, Lactated) 1,000 mls @ 500 [facility] Admin: 10/28/18 10:06 Dose: 500 mls/hr Sodium Chloride (Normal Saline) 100 mls @ 3 mls[facility]sec [facility] Last Admin: 10/28/18 10:24 Dose: 3 mls/sec Dextrose/Lactated Ringer's (Dextrose 5%-Lactated Ringers) 1,000 mls @ 150 mls/ hr IV ASDIRECTED [facility] Last Admin: 10/28/18 12:35 Dose: 150 mls/hr Ampicillin Sodium/Sulbactam (Sodium 3 gm/ Sodium Chloride) 100 mls @ 200 mls/ hr IV NOW ONE Stop: 10/28/18 12:59 Last Admin: 10/28/18 12:31 Dose: 200 mls/hr Lactated Ringer's (Ringers, Lactated) Confirm Administered Dose 1,000 mls @ as directed .ROUTE .[facility] ONE Stop: 10/28/18 14:25 Dextrose/Lactated Ringer's (Dextrose 5%-Lactated Ringers) 1,000 mls @ 175 mls/ hr IV ASDIRECTED [facility] Last Infusion: 10/29/18 07:30 Dose: 100 mls/hr Multivitamins/Minerals 10 ml/Chromium/Copper/Manganese/Seleni/Zn 1 ml/ Thiamine HCl 200 mg/ Dextrose/Lactated Ringer's 1,013 mls @ 175 mls/hr IV DAILY@1800 [facility] Stop: 10/31/18 04:00 Last Admin: 10/30/18 17:38 Dose: 175 mls/hr Ampicillin Sodium/Sulbactam (Sodium 3 gm/ Sodium Chloride) 100 mls @ 200 mls/ hr IV Q6H [facility] Stop: 10/30/18 12:29 Last Admin: 10/30/18 11:35 Dose: 200 mls/hr Dextrose/Lactated Ringer's (Dextrose 5%-Lactated Ringers) 1,000 mls @ 100 mls/ hr IV ASDIRECTED [facility] Last Admin: 10/31/18 03:37 Dose: 100 mls/hr Potassium Phosphate 20 mmole/ (Sodium Chloride) 256.6667 mls @ 86 mls/hr IV Q3H [facility] Stop: 10/29/18 18:59 Last Admin: 10/29/18 16:52 Dose: 86 mls/hr Linezolid (Zyvox) Confirm Administered Dose 300 mls @ as directed .ROUTE .[facility] ONE Stop: 10/30/18 06:47 Diltiazem HCl 125 mg/ Sodium (Chloride) 125 mls @ 5 mls/hr IV TITRATE [facility]; Protocol Last Admin: 10/30/18 09:54 Dose: 5 mg/hr, 5 mls/hr Magnesium Sulfate 2 gm/ Premix 50 mls @ 25 mls/hr IV Q6H [facility] Stop: 10/30/18 23:59 Last Admin: 10/30/18 21:28 Dose: 25 mls/hr Potassium Phosphate 20 mmole/ (Sodium Chloride) 256.6667 mls @ 85.556 mls/hr IV Q3H [facility] Stop: 10/30/18 19:59 Last Admin: 10/30/18 17:36 Dose: 85.556 mls/hr Iopamidol (Isovue-300 (61%)) 150 ml IV . DIRECTED [facility] Last Admin: 10/28/18 10:25 Dose: 135 ml Iopamidol (Isovue-300 (61%)) 50 ml .XX . DIRECTED [facility] Stop: 10/31/18 03:21 Ketamine HCl (Ketalar) Confirm Administered Dose 500 mg .ROUTE .STK-MED ONE Stop: 10/30/18 06:44 Labetalol HCl (Normodyne) Confirm Administered Dose 20 mg .ROUTE .STK-MED ONE Stop: 10/30/18 07:48 Lidocaine/Epinephrine (Xylocaine 1% With Epinephrine 1:100,000) Confirm Administered Dose 50 ml .ROUTE .STK-MED ONE Stop: 10/30/18 06:59 Last Admin: 10/30/18 07:37 Dose: 7.5 ml Meropenem (Merrem) Confirm Administered Dose 500 mg .ROUTE .STK-MED ONE Stop: 10/28/18 14:06 Last Admin: 10/28/18 14:29 Dose: 500 mg Meropenem (Merrem) Confirm Administered Dose 500 mg .ROUTE .STK-MED ONE Stop: 10/28/18 14:54 Last Admin: 10/28/18 15:22 Dose: 500 mg Meropenem (Merrem) Confirm Administered Dose 500 mg .ROUTE .STK-MED ONE Stop: 10/30/18 06:46 Last Admin: 10/30/18 07:38 Dose: 500 mg Midazolam HCl (Versed 1 Mg/Ml) Confirm Administered Dose 2 mg .ROUTE .STK-MED ONE Stop: 10/30/18 06:46 Neostigmine Methylsulfate (Neostigmine) Confirm Administered Dose 5 mg .ROUTE .STK-MED ONE Stop: 10/28/18 12:15 Ondansetron HCl (Zofran) Confirm Administered Dose 4 mg .ROUTE .STK-MED ONE Stop: 10/28/18 12:15 Ondansetron HCl (Zofran) Confirm Administered Dose 8 mg .ROUTE .STK-MED ONE Stop: 10/30/18 06:50 Propofol (Diprivan 20 Ml) Confirm Administered Dose 200 mg .ROUTE .STK-MED ONE Stop: 10/28/18 12:15 Propofol (Diprivan 20 Ml) Confirm Administered Dose 200 mg .ROUTE .STK-MED ONE Stop: 10/30/18 06:44 Propranolol HCl (Inderal) 20 mg PO TID [facility] Last Admin: 10/30/18 10:26 Dose: Not Given Rocuronium [place] (Zemuron) Confirm Administered Dose 50 mg .ROUTE .STK-MED ONE Stop: 10/28/18 12:15 Rocuronium [place] (Zemuron) Confirm Administered Dose 50 mg .ROUTE .STK-MED ONE Stop: 10/28/18 14:49 Sodium Chloride (Saline Flush) 10 ml FLUSH ASDIRECTED PRN PRN Reason: Keep Vein Open Last Admin: 10/28/18 10:43 Dose: 10 ml Succinylcholine Chloride (Quelicin) Confirm Administered Dose 200 mg .ROUTE .STK -MED ONE Stop: 10/28/18 12:15 Tamsulosin HCl (Flomax) 0.4 mg PO ONETIME ONE Stop: 10/30/18 11:31 Last Admin: 10/30/18 11:26 Dose: 0.4 mg - Exam Quality Assessment: DVT Prophylaxis General: Alert, Oriented, Cooperative, Mild Distress Lungs: Clear to Auscultation, Normal Respiratory Effort Cardiovascular: Irregular Rhythm, Tachycardia. No: Murmurs GI/Abdominal Exam: Soft, No Organomegaly, Distended, Tender. No: Guarding, Rigid, Rebound Extremities: Non-Tender, No Pedal Edema Consult PN Assessment/Plan Procedures: Procedures ASSAY OF ETHANOL (06/30/13) ASSAY OF TROPONIN QUANT (10/15/18) CO/[place]BANE DIFFUSE CAPACITY (12/02/13) COLONOSCOPY AND BIOPSY (10/08/13) COMPLETE CBC AUTOMATED (03/25/13) COMPLETE CBC W/AUTO DIFF WBC (02/11/16) COMPREHEN METABOLIC PANEL (02/11/16) CT HEAD/BRAIN W/O DYE (05/04/15) CULTURE SCREEN ONLY (01/04/17) EGD BIOPSY SINGLE/MULTIPLE (01/04/17) ELECTROCARDIOGRAM REPORT (03/25/13) ELECTROCARDIOGRAM TRACING (02/23/17) EMERGENCY DEPT VISIT (10/19/18) EMERGENCY DEPT VISIT (05/31/17) EMERGENCY DEPT VISIT (05/01/17) EMERGENCY DEPT VISIT (04/14/17) EMERGENCY DEPT VISIT (02/23/17) EMERGENCY DEPT VISIT (10/15/16) EMERGENCY DEPT VISIT (04/07/16) EMERGENCY DEPT VISIT (01/28/16) EMERGENCY DEPT VISIT (12/31/15) EMERGENCY DEPT VISIT (11/04/15) EMERGENCY DEPT VISIT (06/30/13) EMERGENCY DEPT VISIT (03/25/13) EMERGENCY DEPT VISIT (03/25/13) EVALUATION OF WHEEZING (12/02/13) HYDRATION IV INFUSION INIT (05/31/17) INSERT TEMP BLADDER CATH (05/31/17) MANUAL THERAPY 1/> REGIONS (05/17/17) MEASURE BLOOD OXYGEN LEVEL (01/24/17) METABOLIC PANEL TOTAL CA (03/25/13) MRI BRAIN STEM W/O DYE (01/05/15) MRI LUMBAR SPINE W/O DYE (06/25/14) ORTHOTIC MGMT&TRAINJ 1ST ENC (09/13/14) POLYSOM 6/>YRS CPAP 4/> PARM (08/08/15) PT EVAL LOW COMPLEX 20 MIN (05/17/17) PT EVALUATION (11/01/15) ROUTINE VENIPUNCTURE (10/15/18) RPR UMBIL ALIN REDUC > 5 YR (12/09/15) STREP A AG IA (04/14/15) THER/PROPH/DIAG INJ SC/IM (04/20/17) THERAPEUTIC EXERCISES (05/17/17) TISSUE EXAM BY PATHOLOGIST (10/08/13) URINALYSIS AUTO W/SCOPE (05/31/17) US EXAM SCROTUM (05/12/17) US URINE CAPACITY MEASURE (05/31/17) VASCULAR STUDY (05/12/17) X-RAY EXAM L-2 SPINE 4/>VWS (11/18/14) X-RAY EXAM L-S SPINE 2/3 VWS (07/15/15) X-RAY EXAM THORAC SPINE 3VWS (04/07/16) X-RAY EYE FOR FOREIGN BODY (06/25/14) Problem List Initiated/Reviewed/Updated: Yes My Orders Last 24 Hours: My Active Orders 10/30/18 09:20 Patient Status [ADT] Routine 10/30/18 09:24 Echo Comp wo Cont [US] Urgent 10/31/18 09:00 Diltiazem [Cardizem CD] 180 mg PO DAILY 10/31/18 09:30 Sotalol [Betapace] 40 mg PO BID Plan: ASSESSMENT AND RECOMMENDATIONS ATRIAL FIBRILLATION WITH RAPID VENTRICULAR RESPONSE-inverted to sinus rhythm yesterday after transfer to ICU but is now back in atrial fibrillation with rapid ventricular response. TSH was within normal range, magnesium now corrected and potassium remains normal -Sotalol 40 mg by mouth twice a day -Diltiazem CD 180 mg by mouth daily -Echocardiogram results pending HYPOMAGNESEMIA -IV magnesium replacement -Recheck magnesium level in a.m. STATUS POST SURGICAL REPAIR OF PERFORATED GASTRIC ULCER -Postoperative care and management per Dr. Gardner
[2018-10-31] MEDS: Albuterol/Ipratropium 3.0-0.5 MG/3 ML Neb Soln INH PRN ×2 (09:30→09:34)
[2018-10-31] MEDS: Sotalol 80 MG Tab PO SCH ×2 (09:56→21:40)
[2018-10-31] MEDS: Ondansetron 4 MG/2 ML SDV IVPUSH PRN ×2 (11:20→14:49)
[2018-10-31] MEDS: hydrOXYzine HCl 100 MG/2 ML SDV IM PRN (11:22)
[2018-10-31] MEDS ORDERED: Diltiazem 25 MG/5 ML SDV IVPUSH ONE (15:20)
[2018-10-31] MEDS: Diltiazem 125 MG in Sodium Chloride 0.9% 100 ML IV SCH (15:42)
[2018-10-31] MEDS: Pantoprazole 40 MG Vial IV SCH (16:46)
[2018-10-31] MEDS: MVI, Adult with Vitamin K 10 ML, Chromium/Copper/Mang/Selen/Zn 1 ML, Thiamine 200 MG in... IV SCH ×4 (19:48)
[2018-10-31] MEDS: Propranolol 40 MG Tab PO SCH (21:41)
[2018-10-31] MEDS: Tamsulosin 0.4 MG Cap.ER PO SCH (21:42)
[2018-11-01] MEDS: Diltiazem 125 MG in Sodium Chloride 0.9% 100 ML IV SCH ×2 (00:44→09:01)
[2018-11-01] MEDS: HYDROmorphone/Normal Saline 15 MG/30 ML PCA IV PRN (02:33)
[2018-11-01] MEDS: Propranolol 40 MG Tab PO SCH ×3 (04:28→21:26)
[2018-11-01] MEDS: Metoclopramide 10 MG/2 ML SDV IVPUSH SCH ×3 (05:48→18:24)
[2018-11-01] MEDS: Albuterol/Ipratropium 3.0-0.5 MG/3 ML Neb Soln INH PRN ×2 (08:12→14:50)
[2018-11-01] MEDS ORDERED: Diltiazem 120 MG Cap.CD PO SCH (09:00)
[2018-11-01] MEDS: Sotalol 80 MG Tab PO SCH ×2 (09:31→20:33)
[2018-11-01] MEDS: Diltiazem 180 MG Cap.CD PO SCH (09:32)
[2018-11-01] MEDS: Bisacodyl 5 MG Tab PO SCH ×2 (09:33→20:33)
[2018-11-01] MEDS: Docusate Sodium 100 MG Cap PO SCH ×2 (09:33→20:33)
[2018-11-01] MEDS: Dextrose 5%-Lactated Ringers 1,000 ML IV SCH (09:34)
--- NOTE | 2018-11-01 09:44 | PCM.CONSN ---
- General Info Date of Service: 11/01/18 Subjective Update: Mr. Renee is been stable since yesterday, rate control improved with combination of IV diltiazem and propranolol by mouth. He feels better with more energy, slowly improving appetite. Oxygenation has been borderline with sats in the low 90s and upper 80s. Functional Status: Reports: Pain Controlled - Review of Systems General: Reports: Weakness. Denies: Fever, Chills Pulmonary: Reports: No Symptoms, Shortness of Breath. Denies: Pleuritic Chest Pain, Cough, Sputum, Hemoptysis, Wheezing Cardiovascular: Reports: Palpitations, Dyspnea on Exertion, Edema. Denies: Chest Pain, Orthopnea, PND Gastrointestinal: Reports: Abdominal Pain. Denies: Difficulty Swallowing, Nausea, Vomiting - Patient Data Vitals - Most Recent: Last Vital Signs Temp 97.1 F 11/01/18 07:57 Pulse 86 11/01/18 09:31 Resp 20 11/01/18 07:57 BP 126/69 11/01/18 09:31 Pulse Ox 90 L 11/01/18 07:57 Weight - Most Recent: 195 lb 5.273 oz I&O - Last 24 Hours: Intake & Output 10/31/18 11/01/18 11/01/18 22:59 06:59 14:59 Intake Total 1900 1128 Output Total 350 650 Balance 1550 478 Lab Results Last 24 Hours: Laboratory Results - last 24 hr 11/01/18 11/01/18 Range/Units 04:30 04:30 WBC 16.1 H (4.5-11.0) K/uL RBC 4.17 L (4.30-5.90) M/uL Hgb 12.5 (12.0-15.0) g/dL Hct 39.4 L (40.0-54.0) % MCV 95 (80-98) fL MCH 30 (27-31) pg MCHC 32 (32-36) % Plt Count 276 (150-400) K/uL Sodium 142 (140-148) mmol/L Potassium 4.4 (3.6-5.2) mmol/L Chloride 106 (100-108) mmol/L Carbon Dioxide 27 (21-32) mmol/L Anion Gap 9.2 (5.0-14.0) mmol/L BUN 21 H (7-18) mg/dL Creatinine 1.0 (0.8-1.3) mg/dL Est Cr Clr Drug Dosing 78.79 mL/min Estimated GFR (MDRD) > 60 (>60) Glucose 148 H (74-106) mg/dL Calcium 8.7 (8.5-10.1) mg/dL Phosphorus 3.1 (2.5-4.9) mg/dL Magnesium 2.1 (1.8-2.4) mg/dL NT-Pro-B Natriuret Pep 265 H (5-125) pg/mL Med Orders - Current: Current Medications Albuterol/Ipratropium (Duoneb 3.0-0.5 Mg/3 Ml) 3 ml INH ASDIRECTED PRN PRN Reason: BREATHING Last Admin: 11/01/18 08:12 Dose: 3 ml Bisacodyl (Dulcolax) 10 mg PO BID [facility] Last Admin: 11/01/18 09:33 Dose: 10 mg Clonazepam (Klonopin) 1 mg PO BID [facility] Last Admin: 10/31/18 21:40 Dose: 1 mg Clonazepam (Klonopin) 1 mg PO DAILY PRN PRN Reason: Anxiety Diltiazem HCl (Cardizem Cd) 240 mg PO DAILY [facility] Diphenhydramine HCl (Benadryl) 50 mg IVPUSH Q4H PRN PRN Reason: ITCHING Docusate Sodium (Colace) 100 mg PO BID [facility] Last Admin: 11/01/18 09:33 Dose: 100 mg Furosemide (Lasix) 20 mg IVPUSH NOW ONE Stop: 11/01/18 09:40 Hydromorphone HCl (Dilaudid Assessment Counselor 15 Mg In Ns 30 Ml) 0 mg IV ASDIRECTED PRN; Protocol PRN Reason: MEDICAL SURGICAL TECH PAIN CONTROL Last Admin: 11/01/18 02:33 Dose: 15 mg Hydroxyzine HCl (Vistaril) 100 mg IM Q4H PRN PRN Reason: BREAKTHROUGH PAIN Last Admin: 10/31/18 11:22 Dose: 100 mg Multivitamins/Minerals 10 ml/Chromium/Copper/Manganese/Seleni/Zn 1 ml/ Thiamine HCl 200 mg/ Dextrose/Lactated Ringer's 1,013 mls @ 100 mls/hr IV DAILY@1800 [facility] Last Admin: 10/31/18 19:48 Dose: 100 mls/hr Labetalol HCl (Normodyne) 5 mg IVPUSH Q5M PRN PRN Reason: SBP over 160 OR DBP over 95 Metoclopramide HCl (Reglan) 10 mg IVPUSH Q6H [facility] Last Admin: 11/01/18 05:48 Dose: 10 mg Naloxone HCl (Narcan) 0.1 mg IV ASDIRECTED PRN PRN Reason: decreased respiratory rate Ondansetron HCl (Zofran) 4 mg IVPUSH Q4H PRN PRN Reason: Nausea Last Admin: 10/31/18 14:49 Dose: 4 mg Pantoprazole Sodium (Protonix Iv) 40 mg IV Q24H [facility] Last Admin: 10/31/18 16:46 Dose: 40 mg Propranolol HCl (Inderal) 20 mg PO Q8H [facility] Last Admin: 11/01/18 04:28 Dose: 20 mg Sodium Chloride (Saline Flush) 10 ml FLUSH ASDIRECTED PRN PRN Reason: Keep Vein Open Last Admin: 10/28/18 10:25 Dose: 10 ml Sotalol HCl (Betapace) 40 mg PO BID [facility] Last Admin: 11/01/18 09:31 Dose: 40 mg Tamsulosin HCl (Flomax) 0.4 mg PO BEDTIME [facility] Last Admin: 10/31/18 21:42 Dose: 0.4 mg Discontinued Medications Bupivacaine HCl (Marcaine 0.5%) Confirm Administered Dose 50 ml .ROUTE .STK-MED ONE Stop: 10/30/18 06:59 Last Admin: 10/30/18 07:37 Dose: 7.5 ml Ropivacaine 44 ml/Dexamethasone 8 mg/Epinephrine HCl 0.4 mg/ Sodium Chloride 33.6 ml 0 ml NERVRT ASDIRECTED [facility] Last Admin: 10/28/18 14:06 Dose: 80 syringe Ropivacaine 44 ml/Dexamethasone 8 mg/Epinephrine HCl 0.4 mg/ Sodium Chloride 33.6 ml 0 ml NERVRT ASDIRECTED [facility] Last Admin: 10/30/18 07:30 Dose: 80 syringe Cyanocobalamin (Vitamin B12) 1,000 mcg IM ONETIME ONE Stop: 10/30/18 09:01 Last Admin: 10/30/18 10:09 Dose: 1,000 mcg Dexamethasone (Dexamethasone) Confirm Administered Dose 4 mg .ROUTE .STK-MED ONE Stop: 10/28/18 12:15 Diltiazem HCl (Diltiazem) 20 mg IVPUSH ONETIME ONE Stop: 10/30/18 09:31 Last Admin: 10/30/18 09:40 Dose: 20 mg Diltiazem HCl (Cardizem) 30 mg PO Q6HR [facility] Last Admin: 10/31/18 03:23 Dose: 30 mg Diltiazem HCl (Cardizem Cd) 180 mg PO DAILY [facility] Last Admin: 11/01/18 09:32 Dose: 180 mg Diltiazem HCl (Diltiazem) 20 mg IVPUSH ONETIME ONE Stop: 10/31/18 15:21 Last Admin: 10/31/18 15:30 Dose: 20 mg Fentanyl (Sublimaze) Confirm Administered Dose 250 mcg .ROUTE .STK-MED ONE Stop: 10/28/18 12:15 Fentanyl (Sublimaze) Confirm Administered Dose 250 mcg .ROUTE .STK-MED ONE Stop: 10/28/18 14:32 Fentanyl (Sublimaze) Confirm Administered Dose 100 mcg .ROUTE .STK-MED ONE Stop: 10/30/18 06:47 Furosemide (Lasix) 20 mg IVPUSH ONETIME ONE Stop: 10/30/18 08:03 Last Admin: 10/30/18 08:07 Dose: 20 mg Glycopyrrolate (Robinul) Confirm Administered Dose 1 mg .ROUTE .STK-MED ONE Stop: 10/28/18 12:15 Hydromorphone HCl (Dilaudid) 1 mg IVPUSH ONETIME ONE Stop: 10/28/18 12:44 Last Admin: 10/28/18 12:57 Dose: 1 mg Lactated Ringer's (Ringers, Lactated) 1,000 mls @ 500 mls/hr IV ASDIRECTED [facility] Last Admin: 10/28/18 10:06 Dose: 500 mls/hr Sodium Chloride (Normal Saline) 100 mls @ 3 mls/sec IV ASDIRECTED [facility] Last Admin: 10/28/18 10:24 Dose: 3 mls/sec Dextrose/Lactated Ringer's (Dextrose 5%-Lactated Ringers) 1,000 mls @ 150 mls/ hr IV ASDIRECTED [facility] Last Admin: 10/28/18 12:35 Dose: 150 mls/hr Ampicillin Sodium/Sulbactam (Sodium 3 gm/ Sodium Chloride) 100 mls @ 200 mls/ hr IV NOW ONE Stop: 10/28/18 12:59 Last Admin: 10/28/18 12:31 Dose: 200 mls/hr Lactated Ringer's (Ringers, Lactated) Confirm Administered Dose 1,000 mls @ as directed .ROUTE .STK-MED ONE Stop: 10/28/18 14:25 Dextrose/Lactated Ringer's (Dextrose 5%-Lactated Ringers) 1,000 mls @ 175 mls/ hr IV ASDIRECTED [facility] Last Infusion: 10/29/18 07:30 Dose: 100 mls/hr Multivitamins/Minerals 10 ml/Chromium/Copper/Manganese/Seleni/Zn 1 ml/ Thiamine HCl 200 mg/ Dextrose/Lactated Ringer's 1,013 mls @ 175 mls/hr IV DAILY@1800 [facility] Stop: 10/31/18 04:00 Last Admin: 10/30/18 17:38 Dose: 175 mls/hr Ampicillin Sodium/Sulbactam (Sodium 3 gm/ Sodium Chloride) 100 mls @ 200 mls/ hr IV Q6H [facility] Stop: 10/30/18 12:29 Last Admin: 10/30/18 11:35 Dose: 200 mls/hr Dextrose/Lactated Ringer's (Dextrose 5%-Lactated Ringers) 1,000 mls @ 100 mls/ hr IV ASDIRECTED [facility] Last Admin: 10/31/18 03:37 Dose: 100 mls/hr Potassium Phosphate 20 mmole/ (Sodium Chloride) 256.6667 mls @ 86 mls/hr IV Q3H [facility] Stop: 10/29/18 18:59 Last Admin: 10/29/18 16:52 Dose: 86 mls/hr Linezolid (Zyvox) Confirm Administered Dose 300 mls @ as directed .ROUTE .STK- MED ONE Stop: 10/30/18 06:47 Diltiazem HCl 125 mg/ Sodium (Chloride) 125 mls @ 5 mls/hr IV TITRATE [facility]; Protocol Last Admin: 10/30/18 09:54 Dose: 5 mg/hr, 5 mls/hr Magnesium Sulfate 2 gm/ Premix 50 mls @ 25 mls/hr IV Q6H [facility] Stop: 10/30/18 23:59 Last Admin: 10/30/18 21:28 Dose: 25 mls/hr Potassium Phosphate 20 mmole/ (Sodium Chloride) 256.6667 mls @ 85.556 mls/hr IV Q3H [facility] Stop: 10/30/18 19:59 Last Admin: 10/30/18 17:36 Dose: 85.556 mls/hr Dextrose/Lactated Ringer's (Dextrose 5%-Lactated Ringers) 1,000 mls @ 75 mls/ hr IV ASDIRECTED [facility] Last Admin: 11/01/18 09:34 Dose: 75 mls/hr Potassium Phosphate 20 mmole/ (Sodium Chloride) 256.6667 mls @ 85.556 mls/hr IV Q3H [facility] Stop: 10/31/18 18:29 Last Admin: 10/31/18 15:50 Dose: 85.556 mls/hr Diltiazem HCl 125 mg/ Sodium (Chloride) 125 mls @ 5 mls/hr IV TITRATE [facility]; Protocol Last Admin: 11/01/18 09:01 Dose: 15 mg/hr, 15 mls/hr Iopamidol (Isovue-300 (61%)) 150 ml IV . DIRECTED [facility] Last Admin: 10/28/18 10:25 Dose: 135 ml Iopamidol (Isovue-300 (61%)) 50 ml .XX . DIRECTED [facility] Stop: 10/31/18 03:21 Last Admin: 10/31/18 20:04 Dose: Not Given Ketamine HCl (Ketalar) Confirm Administered Dose 500 mg .ROUTE .STK-MED ONE Stop: 10/30/18 06:44 Labetalol HCl (Normodyne) Confirm Administered Dose 20 mg .ROUTE .STK-MED ONE Stop: 10/30/18 07:48 Lidocaine/Epinephrine (Xylocaine 1% With Epinephrine 1:100,000) Confirm Administered Dose 50 ml .ROUTE .STK-MED ONE Stop: 10/30/18 06:59 Last Admin: 10/30/18 07:37 Dose: 7.5 ml Meropenem (Merrem) Confirm Administered Dose 500 mg .ROUTE .STK-MED ONE Stop: 10/28/18 14:06 Last Admin: 10/28/18 14:29 Dose: 500 mg Meropenem (Merrem) Confirm Administered Dose 500 mg .ROUTE .STK-MED ONE Stop: 10/28/18 14:54 Last Admin: 10/28/18 15:22 Dose: 500 mg Meropenem (Merrem) Confirm Administered Dose 500 mg .ROUTE .[facility]-MED ONE Stop: 10/30/18 06:46 Last Admin: 10/30/18 07:38 Dose: 500 mg Midazolam HCl (Versed 1 Mg/Ml) Confirm Administered Dose 2 mg .ROUTE .K-MED ONE Stop: 10/30/18 06:46 Neostigmine Methylsulfate (Neostigmine) Confirm Administered Dose 5 mg .ROUTE .ST-MED ONE Stop: 10/28/18 12:15 Ondansetron HCl (Zofran) Confirm Administered Dose 4 mg .ROUTE .[facility]-MED ONE Stop: 10/28/18 12:15 Ondansetron HCl (Zofran) Confirm Administered Dose 8 mg .ROUTE .STK-MED ONE Stop: 10/30/18 06:50 Propofol (Diprivan 20 Ml) Confirm Administered Dose 200 mg .ROUTE .[facility]-MED ONE Stop: 10/28/18 12:15 Propofol (Diprivan 20 Ml) Confirm Administered Dose 200 mg .ROUTE .[facility]-MED ONE Stop: 10/30/18 06:44 Propranolol HCl (Inderal) 20 mg PO TID [facility] Last Admin: 10/30/18 10:26 Dose: Not Given Rocuronium [place] (Zemuron) Confirm Administered Dose 50 mg .ROUTE .STK-MED ONE Stop: 10/28/18 12:15 Rocuronium [place] (Zemuron) Confirm Administered Dose 50 mg .ROUTE .[facility]-MED ONE Stop: 10/28/18 14:49 Sodium Chloride (Saline Flush) 10 ml FLUSH ASDIRECTED PRN PRN Reason: Keep Vein Open Last Admin: 10/28/18 10:43 Dose: 10 ml Succinylcholine Chloride (Quelicin) Confirm Administered Dose 200 mg .ROUTE .STK -MED ONE Stop: 10/28/18 12:15 Tamsulosin HCl (Flomax) 0.4 mg PO ONETIME ONE Stop: 10/30/18 11:31 Last Admin: 10/30/18 11:26 Dose: 0.4 mg - Exam Quality Assessment: Supplemental Oxygen, Urine Catheter, DVT Prophylaxis General: Alert, Oriented, Cooperative, Mild Distress Lungs: Clear to Auscultation, Normal Respiratory Effort Cardiovascular: Regular Rate, No Murmurs, Irregular Rhythm GI/Abdominal Exam: Soft, No Organomegaly, Distended, Tender. No: Guarding, Rigid, Rebound Extremities: Non-Tender, Pedal Edema Consult PN Assessment/Plan Procedures: Procedures ASSAY OF ETHANOL (06/30/13) ASSAY OF TROPONIN QUANT (10/15/18) CO/[place]BANE DIFFUSE CAPACITY (12/02/13) COLONOSCOPY AND BIOPSY (10/08/13) COMPLETE CBC AUTOMATED (03/25/13) COMPLETE CBC W/AUTO DIFF WBC (02/11/16) COMPREHEN METABOLIC PANEL (02/11/16) CT HEAD/BRAIN W/O DYE (05/04/15) CULTURE SCREEN ONLY (01/04/17) EGD BIOPSY SINGLE/MULTIPLE (01/04/17) ELECTROCARDIOGRAM REPORT (03/25/13) ELECTROCARDIOGRAM TRACING (02/23/17) EMERGENCY DEPT VISIT (10/19/18) EMERGENCY DEPT VISIT (05/31/17) EMERGENCY DEPT VISIT (05/01/17) EMERGENCY DEPT VISIT (04/14/17) EMERGENCY DEPT VISIT (02/23/17) EMERGENCY DEPT VISIT (10/15/16) EMERGENCY DEPT VISIT (04/07/16) EMERGENCY DEPT VISIT (01/28/16) EMERGENCY DEPT VISIT (12/31/15) EMERGENCY DEPT VISIT (11/04/15) EMERGENCY DEPT VISIT (06/30/13) EMERGENCY DEPT VISIT (03/25/13) EMERGENCY DEPT VISIT (03/25/13) EVALUATION OF WHEEZING (12/02/13) HYDRATION IV INFUSION INIT (05/31/17) INSERT TEMP BLADDER CATH (05/31/17) MANUAL THERAPY 1/> REGIONS (05/17/17) MEASURE BLOOD OXYGEN LEVEL (01/24/17) METABOLIC PANEL TOTAL CA (03/25/13) MRI BRAIN STEM W/O DYE (01/05/15) MRI LUMBAR SPINE W/O DYE (06/25/14) ORTHOTIC MGMT&TRAINJ 1ST ENC (09/13/14) POLYSOM 6/>YRS CPAP 4/> PARM (08/08/15) PT EVAL LOW COMPLEX 20 MIN (05/17/17) PT EVALUATION (11/01/15) ROUTINE VENIPUNCTURE (10/15/18) RPR UMBIL ALIN REDUC > 5 YR (12/09/15) STREP A AG IA (04/14/15) THER/PROPH/DIAG INJ SC/IM (04/20/17) THERAPEUTIC EXERCISES (05/17/17) TISSUE EXAM BY PATHOLOGIST (10/08/13) URINALYSIS AUTO W/SCOPE (05/31/17) US EXAM SCROTUM (05/12/17) US URINE CAPACITY MEASURE (05/31/17) VASCULAR STUDY (05/12/17) X-RAY EXAM L-2 SPINE 4/>VWS (11/18/14) X-RAY EXAM L-S SPINE 2/3 VWS (07/15/15) X-RAY EXAM THORAC SPINE 3VWS (04/07/16) X-RAY EYE FOR FOREIGN BODY (06/25/14) Problem List Initiated/Reviewed/Updated: Yes My Orders Last 24 Hours: My Active Orders 10/31/18 09:30 Sotalol [Betapace] 40 mg PO BID 10/31/18 21:00 Propranolol [Inderal] 20 mg PO Q8H 11/01/18 09:37 Convert IV to Saline Lock [OM.PC] Routine 11/01/18 09:39 Furosemide [Lasix] 20 mg IVPUSH NOW ONE 11/02/18 09:00 Diltiazem [Cardizem CD] 240 mg PO DAILY Plan: ASSESSMENT AND RECOMMENDATIONS ATRIAL FIBRILLATION WITH RAPID VENTRICULAR RESPONSE-remains in atrial fibrillation, rate controlled on IV diltiazem and oral propranolol -Sotalol 40 mg by mouth twice a day -Diltiazem CD 240 mg by mouth daily -Propranolol 20 mg by mouth every 8 hours -Discontinue IV diltiazem -Echocardiogram results pending HYPOXIA-likely secondary to fluid overload and pulmonary edema -Saline lock IV fluids -Furosemide 20 mg IV now -Reassess later today and in a.m. HYPOMAGNESEMIA-resolved STATUS POST SURGICAL REPAIR OF PERFORATED GASTRIC ULCER -Postoperative care and management per Dr. Gardner
[2018-11-01] MEDS: ClonazePAM 1 MG Tab PO SCH ×2 (09:48→20:34)
[2018-11-01] MEDS ORDERED: Furosemide 20 MG/2 ML VIAL IVPUSH ONE (10:00)
[2018-11-01] MEDS: Pantoprazole 40 MG Vial IV SCH (18:15)
[2018-11-01] MEDS: MVI, Adult with Vitamin K 10 ML, Chromium/Copper/Mang/Selen/Zn 1 ML, Thiamine 200 MG in... IV SCH ×4 (18:20)
[2018-11-01] MEDS: Melatonin 3 MG Tab PO PRN (20:33)
[2018-11-01] MEDS: Tamsulosin 0.4 MG Cap.ER PO SCH (20:34)
[2018-11-01] MEDS: LORazepam 2 MG/ML SDV IVPUSH PRN (22:49)
[2018-11-02] MEDS: Metoclopramide 10 MG/2 ML SDV IVPUSH SCH ×4 (00:09→17:25)
[2018-11-02] MEDS: Albuterol/Ipratropium 3.0-0.5 MG/3 ML Neb Soln INH PRN ×2 (01:34→20:33)
[2018-11-02] MEDS: LORazepam 2 MG/ML SDV IVPUSH PRN (02:32)
[2018-11-02] MEDS: Dextrose 5%-Lactated Ringers 1,000 ML IV SCH (04:25)
[2018-11-02] MEDS: Propranolol 40 MG Tab PO SCH ×5 (04:55→21:44)
--- NOTE | 2018-11-02 05:30 | CRLCR ---
INDICATION: Abdominal pain TECHNIQUE: Abdomen upright and supine COMPARISON: Upper GI 10/31/[address] abdomen and pelvis 10/28/2018 FINDINGS: Oral contrast from recent upper GI is seen within the colon. There are multiple dilated loops of small bowel with air-fluid levels. The loops of small bowel measure up to 5 cm. The stomach is moderately distended. No free air is seen. IMPRESSION: Multiple dilated loops of small bowel with air-fluid levels, similar to prior upper GI exam. Oral contrast is now within the ascending and transverse colon. This favors a postoperative ileus, rather than obstruction. If there is persistent clinical concern consider follow-up CT. Dictated by Bela Castaneda MD @ 11/02/2018 5:29:40 AM Dictated by: Bela Castaneda MD @ 11/02/2018 05:29:58 (Electronically Signed)
[2018-11-02] MEDS: Sotalol 80 MG Tab PO SCH ×3 (08:00→20:45)
[2018-11-02] MEDS: Diltiazem 120 MG Cap.CD PO SCH (08:01)
[2018-11-02] MEDS: Bisacodyl 5 MG Tab PO SCH ×2 (08:02→20:09)
[2018-11-02] MEDS: Docusate Sodium 100 MG Cap PO SCH ×2 (08:03→20:09)
[2018-11-02] MEDS: ClonazePAM 1 MG Tab PO SCH ×2 (08:04→20:17)
[2018-11-02] MEDS ORDERED: Bisacodyl 10 MG Supp RECTAL ONE (09:00)
--- NOTE | 2018-11-02 09:44 | PCM.CONSN ---
- General Info Date of Service: 11/02/18 Subjective Update: Mr. Renee has remained stable as far as his atrial fibrillation since yesterday. Rate control was good during the early portion of the day with transition to oral medications. He converted to sinus rhythm late yesterday afternoon and has remained in sinus rhythm since that time. He reports feeling more rested this morning and did have a bowel movement. Functional Status: Reports: Ambulating - Review of Systems General: Reports: Weakness. Denies: Fever, Chills Pulmonary: Reports: No Symptoms Cardiovascular: Reports: No Symptoms Gastrointestinal: Reports: Abdominal Pain. Denies: Constipation, Diarrhea, Difficulty Swallowing, Nausea, Vomiting - Patient Data Vitals - Most Recent: Last Vital Signs Temp 98.6 F 11/02/18 08:00 Pulse 70 11/02/18 08:01 Resp 18 11/02/18 08:00 BP 106/68 11/02/18 08:01 Pulse Ox 91 L 11/02/18 08:00 Weight - Most Recent: 195 lb 5.273 oz I&O - Last 24 Hours: Intake & Output 11/01/18 11/02/18 11/02/18 22:59 06:59 14:59 Intake Total 711 1131 Output Total 130 500 Balance 581 631 Med Orders - Current: Current Medications Albuterol/Ipratropium (Duoneb 3.0-0.5 Mg/3 Ml) 3 ml INH ASDIRECTED PRN PRN Reason: BREATHING Last Admin: 11/02/18 01:34 Dose: 3 ml Bisacodyl (Dulcolax) 10 mg PO BID [facility] Last Admin: 11/02/18 08:02 Dose: 10 mg Bisacodyl (Dulcolax) 10 mg RECTAL ONETIME PRN PRN Reason: BM Stop: 11/02/18 15:01 Clonazepam (Klonopin) 1 mg PO BID [facility] Last Admin: 11/02/18 08:04 Dose: 1 mg Clonazepam (Klonopin) 1 mg PO DAILY PRN PRN Reason: Anxiety Diltiazem HCl (Cardizem Cd) 240 mg PO DAILY [facility] Last Admin: 11/02/18 08:01 Dose: 240 mg Diphenhydramine HCl (Benadryl) 50 mg IVPUSH Q4H PRN PRN Reason: ITCHING Docusate Sodium (Colace) 100 mg PO BID [facility] Last Admin: 11/02/18 08:03 Dose: 100 mg Furosemide (Lasix) 20 mg IVPUSH NOW ONE Stop: 11/02/18 09:40 Hydromorphone HCl (Dilaudid Health Insurance Agent 15 Mg In Ns 30 Ml) 0 mg IV ASDIRECTED PRN; Protocol PRN Reason: [employer] Last Admin: 11/01/18 02:33 Dose: 15 mg Hydroxyzine HCl (Vistaril) 100 mg IM Q4H PRN PRN Reason: BREAKTHROUGH PAIN Last Admin: 10/31/18 11:22 Dose: 100 mg Multivitamins/Minerals 10 ml/Chromium/Copper/Manganese/Seleni/Zn 1 ml/ Thiamine HCl 200 mg/ Dextrose/Lactated Ringer's 1,013 mls @ 100 mls/hr IV DAILY@1800 [facility] Last Admin: 11/01/18 18:20 Dose: 100 mls/hr Labetalol HCl (Normodyne) 5 mg IVPUSH Q5M PRN PRN Reason: SBP over 160 OR DBP over 95 Lorazepam (Ativan) 0.5 mg IVPUSH Q4H PRN PRN Reason: Anxiety Last Admin: 11/02/18 02:32 Dose: 0.5 mg Melatonin (Melatonin) 9 mg PO BEDTIME PRN PRN Reason: Insomnia Last Admin: 11/01/18 20:33 Dose: 9 mg Metoclopramide HCl (Reglan) 10 mg IVPUSH Q6H [facility] Last Admin: 11/02/18 05:41 Dose: 10 mg Naloxone HCl (Narcan) 0.1 mg IV ASDIRECTED PRN PRN Reason: decreased respiratory rate Ondansetron HCl (Zofran) 4 mg IVPUSH Q4H PRN PRN Reason: Nausea Last Admin: 10/31/18 14:49 Dose: 4 mg Pantoprazole Sodium (Protonix Iv) 40 mg IV Q24H [facility] Last Admin: 11/01/18 18:15 Dose: 40 mg Propranolol HCl (Inderal) 20 mg PO Q8H [facility] Last Admin: 11/02/18 04:55 Dose: 20 mg Sodium Chloride (Saline Flush) 10 ml FLUSH ASDIRECTED PRN PRN Reason: Keep Vein Open Last Admin: 10/28/18 10:25 Dose: 10 ml Sotalol HCl (Betapace) 40 mg PO BID [facility] Last Admin: 11/02/18 08:00 Dose: 40 mg Tamsulosin HCl (Flomax) 0.4 mg PO BEDTIME [facility] Last Admin: 11/01/18 20:34 Dose: 0.4 mg Discontinued Medications Bisacodyl (Dulcolax) 10 mg RECTAL ONETIME ONE Stop: 11/02/18 09:01 Last Admin: 11/02/18 08:02 Dose: 10 mg Bupivacaine HCl (Marcaine 0.5%) Confirm Administered Dose 50 ml .ROUTE .STK-MED ONE Stop: 10/30/18 06:59 Last Admin: 10/30/18 07:37 Dose: 7.5 ml Ropivacaine 44 ml/Dexamethasone 8 mg/Epinephrine HCl 0.4 mg/ Sodium Chloride 33.6 ml 0 ml NERVRT ASDIRECTED [facility] Last Admin: 10/28/18 14:06 Dose: 80 syringe Ropivacaine 44 ml/Dexamethasone 8 mg/Epinephrine HCl 0.4 mg/ Sodium Chloride 33.6 ml 0 ml NERVRT ASDIRECTED [facility] Last Admin: 10/30/18 07:30 Dose: 80 syringe Cyanocobalamin (Vitamin B12) 1,000 mcg IM ONETIME ONE Stop: 10/30/18 09:01 Last Admin: 10/30/18 10:09 Dose: 1,000 mcg Dexamethasone (Dexamethasone) Confirm Administered Dose 4 mg .ROUTE .STK-MED ONE Stop: 10/28/18 12:15 Diltiazem HCl (Diltiazem) 20 mg IVPUSH ONETIME ONE Stop: 10/30/18 09:31 Last Admin: 10/30/18 09:40 Dose: 20 mg Diltiazem HCl (Cardizem) 30 mg PO Q6HR [facility] Last Admin: 10/31/18 03:23 Dose: 30 mg Diltiazem HCl (Cardizem Cd) 180 mg PO DAILY [facility] Last Admin: 11/01/18 09:32 Dose: 180 mg Diltiazem HCl (Diltiazem) 20 mg IVPUSH ONETIME ONE Stop: 10/31/18 15:21 Last Admin: 10/31/18 15:30 Dose: 20 mg Fentanyl (Sublimaze) Confirm Administered Dose 250 mcg .ROUTE .STK-MED ONE Stop: 10/28/18 12:15 Fentanyl (Sublimaze) Confirm Administered Dose 250 mcg .ROUTE .K-MED ONE Stop: 10/28/18 14:32 Fentanyl (Sublimaze) Confirm Administered Dose 100 mcg .ROUTE .[facility] ONE Stop: 10/30/18 06:47 Furosemide (Lasix) 20 mg IVPUSH ONETIME ONE Stop: 10/30/18 08:03 Last Admin: 10/30/18 08:07 Dose: 20 mg Furosemide (Lasix) 20 mg IVPUSH NOW ONE Stop: 11/01/18 10:01 Last Admin: 11/01/18 09:48 Dose: 20 mg Glycopyrrolate (Robinul) Confirm Administered Dose 1 mg .ROUTE .[facility] ONE Stop: 10/28/18 12:15 Hydromorphone HCl (Dilaudid) 1 mg IVPUSH ONETIME ONE Stop: 10/28/18 12:44 Last Admin: 10/28/18 12:57 Dose: 1 mg Lactated Ringer's (Ringers, Lactated) 1,000 mls @ 500 mls/hr IV ASDIRECTED [facility] Last Admin: 10/28/18 10:06 Dose: 500 mls/hr Sodium Chloride (Normal Saline) 100 mls @ 3 mls/sec IV ASDIRECTED [facility] Last Admin: 10/28/18 10:24 Dose: 3 mls/sec Dextrose/Lactated Ringer's (Dextrose 5%-Lactated Ringers) 1,000 mls @ 150 mls/ hr IV ASDIRECTED [facility] Last Admin: 10/28/18 12:35 Dose: 150 mls/hr Ampicillin Sodium/Sulbactam (Sodium 3 gm/ Sodium Chloride) 100 mls @ 200 mls/ hr IV NOW ONE Stop: 10/28/18 12:59 Last Admin: 10/28/18 12:31 Dose: 200 mls/hr Lactated Ringer's (Ringers, Lactated) Confirm Administered Dose 1,000 mls @ as directed .ROUTE .[facility] ONE Stop: 10/28/18 14:25 Dextrose/Lactated Ringer's (Dextrose 5%-Lactated Ringers) 1,000 mls @ 175 mls/ hr IV ASDIRECTED [facility] Last Infusion: 10/29/18 07:30 Dose: 100 mls/hr Multivitamins/Minerals 10 ml/Chromium/Copper/Manganese/Seleni/Zn 1 ml/ Thiamine HCl 200 mg/ Dextrose/Lactated Ringer's 1,013 mls @ 175 mls/hr IV DAILY@1800 [facility] Stop: 10/31/18 04:00 Last Admin: 10/30/18 17:38 Dose: 175 mls/hr Ampicillin Sodium/Sulbactam (Sodium 3 gm/ Sodium Chloride) 100 mls @ 200 mls/ hr IV Q6H [facility] Stop: 10/30/18 12:29 Last Admin: 10/30/18 11:35 Dose: 200 mls/hr Dextrose/Lactated Ringer's (Dextrose 5%-Lactated Ringers) 1,000 mls @ 100 mls/ hr IV ASDIRECTED [facility] Last Admin: 10/31/18 03:37 Dose: 100 mls/hr Potassium Phosphate 20 mmole/ (Sodium Chloride) 256.6667 mls @ 86 mls/hr IV Q3H [facility] Stop: 10/29/18 18:59 Last Admin: 10/29/18 16:52 Dose: 86 mls/hr Linezolid (Zyvox) Confirm Administered Dose 300 mls @ as directed .ROUTE .STK- MED ONE Stop: 10/30/18 06:47 Diltiazem HCl 125 mg/ Sodium (Chloride) 125 mls @ 5 mls/hr IV TITRATE [facility]; Protocol Last Admin: 10/30/18 09:54 Dose: 5 mg/hr, 5 mls/hr Magnesium Sulfate 2 gm/ Premix 50 mls @ 25 mls/hr IV Q6H [facility] Stop: 10/30/18 23:59 Last Admin: 10/30/18 21:28 Dose: 25 mls/hr Potassium Phosphate 20 mmole/ (Sodium Chloride) 256.6667 mls @ 85.556 mls/hr IV Q3H [facility] Stop: 10/30/18 19:59 Last Admin: 10/30/18 17:36 Dose: 85.556 mls/hr Dextrose/Lactated Ringer's (Dextrose 5%-Lactated Ringers) 1,000 mls @ 75 mls/ hr IV ASDIRECTED [facility] Last Admin: 11/02/18 04:25 Dose: 25 mls/hr Potassium Phosphate 20 mmole/ (Sodium Chloride) 256.6667 mls @ 85.556 mls/hr IV Q3H [facility] Stop: 10/31/18 18:29 Last Admin: 10/31/18 15:50 Dose: 85.556 mls/hr Diltiazem HCl 125 mg/ Sodium (Chloride) 125 mls @ 5 mls/hr IV TITRATE [facility]; Protocol Last Admin: 11/01/18 09:01 Dose: 15 mg/hr, 15 mls/hr Iopamidol (Isovue-300 (61%)) 150 ml IV . DIRECTED [facility] Last Admin: 10/28/18 10:25 Dose: 135 ml Iopamidol (Isovue-300 (61%)) 50 ml .XX . DIRECTED STA Stop: 10/31/18 03:21 Last Admin: 10/31/18 20:04 Dose: Not Given Ketamine HCl (Ketalar) Confirm Administered Dose 500 mg .ROUTE .STK-MED ONE Stop: 10/30/18 06:44 Labetalol HCl (Normodyne) Confirm Administered Dose 20 mg .ROUTE .STK-MED ONE Stop: 10/30/18 07:48 Lidocaine/Epinephrine (Xylocaine 1% With Epinephrine 1:100,000) Confirm Administered Dose 50 ml .ROUTE .STK-MED ONE Stop: 10/30/18 06:59 Last Admin: 10/30/18 07:37 Dose: 7.5 ml Meropenem (Merrem) Confirm Administered Dose 500 mg .ROUTE .STK-MED ONE Stop: 10/28/18 14:06 Last Admin: 10/28/18 14:29 Dose: 500 mg Meropenem (Merrem) Confirm Administered Dose 500 mg .ROUTE .STK-MED ONE Stop: 10/28/18 14:54 Last Admin: 10/28/18 15:22 Dose: 500 mg Meropenem (Merrem) Confirm Administered Dose 500 mg .ROUTE .STK-MED ONE Stop: 10/30/18 06:46 Last Admin: 10/30/18 07:38 Dose: 500 mg Midazolam HCl (Versed 1 Mg/Ml) Confirm Administered Dose 2 mg .ROUTE .STK-MED ONE Stop: 10/30/18 06:46 Neostigmine Methylsulfate (Neostigmine) Confirm Administered Dose 5 mg .ROUTE .STK-MED ONE Stop: 10/28/18 12:15 Ondansetron HCl (Zofran) Confirm Administered Dose 4 mg .ROUTE .STK-MED ONE Stop: 10/28/18 12:15 Ondansetron HCl (Zofran) Confirm Administered Dose 8 mg .ROUTE .STK-MED ONE Stop: 10/30/18 06:50 Propofol (Diprivan 20 Ml) Confirm Administered Dose 200 mg .ROUTE .STK-MED ONE Stop: 10/28/18 12:15 Propofol (Diprivan 20 Ml) Confirm Administered Dose 200 mg .ROUTE .STK-MED ONE Stop: 10/30/18 06:44 Propranolol HCl (Inderal) 20 mg PO TID [facility] Last Admin: 10/30/18 10:26 Dose: Not Given Rocuronium Brea (Zemuron) Confirm Administered Dose 50 mg .ROUTE .STK-MED ONE Stop: 10/28/18 12:15 Rocuronium Brea (Zemuron) Confirm Administered Dose 50 mg .ROUTE .STK-MED ONE Stop: 10/28/18 14:49 Sodium Chloride (Saline Flush) 10 ml FLUSH ASDIRECTED PRN PRN Reason: Keep Vein Open Last Admin: 10/28/18 10:43 Dose: 10 ml Succinylcholine Chloride (Quelicin) Confirm Administered Dose 200 mg .ROUTE .STK -MED ONE Stop: 10/28/18 12:15 Tamsulosin HCl (Flomax) 0.4 mg PO ONETIME ONE Stop: 10/30/18 11:31 Last Admin: 10/30/18 11:26 Dose: 0.4 mg - Exam Quality Assessment: Urine Catheter, DVT Prophylaxis General: Alert, Oriented, Cooperative, Mild Distress Lungs: Clear to Auscultation, Normal Respiratory Effort Cardiovascular: Regular Rate, Regular Rhythm, No Murmurs GI/Abdominal Exam: Soft, No Organomegaly, Distended, Tender. No: Guarding, Rigid, Rebound Extremities: Non-Tender, No Pedal Edema Consult PN Assessment/Plan Procedures: Procedures ASSAY OF ETHANOL (06/30/13) ASSAY OF TROPONIN QUANT (10/15/18) CO/MEMBANE DIFFUSE CAPACITY (12/02/13) COLONOSCOPY AND BIOPSY (10/08/13) COMPLETE CBC AUTOMATED (03/25/13) COMPLETE CBC W/AUTO DIFF WBC (02/11/16) COMPREHEN METABOLIC PANEL (02/11/16) CT HEAD/BRAIN W/O DYE (05/04/15) CULTURE SCREEN ONLY (01/04/17) EGD BIOPSY SINGLE/MULTIPLE (01/04/17) ELECTROCARDIOGRAM REPORT (03/25/13) ELECTROCARDIOGRAM TRACING (02/23/17) EMERGENCY DEPT VISIT (10/19/18) EMERGENCY DEPT VISIT (05/31/17) EMERGENCY DEPT VISIT (05/01/17) EMERGENCY DEPT VISIT (04/14/17) EMERGENCY DEPT VISIT (02/23/17) EMERGENCY DEPT VISIT (10/15/16) EMERGENCY DEPT VISIT (04/07/16) EMERGENCY DEPT VISIT (01/28/16) EMERGENCY DEPT VISIT (12/31/15) EMERGENCY DEPT VISIT (11/04/15) EMERGENCY DEPT VISIT (06/30/13) EMERGENCY DEPT VISIT (03/25/13) EMERGENCY DEPT VISIT (03/25/13) EVALUATION OF WHEEZING (12/02/13) HYDRATION IV INFUSION INIT (05/31/17) INSERT TEMP BLADDER CATH (05/31/17) MANUAL THERAPY 1/> REGIONS (05/17/17) MEASURE BLOOD OXYGEN LEVEL (01/24/17) METABOLIC PANEL TOTAL CA (03/25/13) MRI BRAIN STEM W/O DYE (01/05/15) MRI LUMBAR SPINE W/O DYE (06/25/14) ORTHOTIC MGMT&TRAINJ 1ST ENC (09/13/14) POLYSOM 6/>YRS CPAP 4/> PARM (08/08/15) PT EVAL LOW COMPLEX 20 MIN (05/17/17) PT EVALUATION (11/01/15) ROUTINE VENIPUNCTURE (10/15/18) RPR UMBIL ALIN REDUC > 5 YR (12/09/15) STREP A AG IA (04/14/15) THER/PROPH/DIAG INJ SC/IM (04/20/17) THERAPEUTIC EXERCISES (05/17/17) TISSUE EXAM BY PATHOLOGIST (10/08/13) URINALYSIS AUTO W/SCOPE (05/31/17) US EXAM SCROTUM (05/12/17) US URINE CAPACITY MEASURE (05/31/17) VASCULAR STUDY (05/12/17) X-RAY EXAM L-2 SPINE 4/>VWS (11/18/14) X-RAY EXAM L-S SPINE 2/3 VWS (07/15/15) X-RAY EXAM THORAC SPINE 3VWS (04/07/16) X-RAY EYE FOR FOREIGN BODY (06/25/14) Problem List Initiated/Reviewed/Updated: Yes My Orders Last 24 Hours: My Active Orders 11/01/18 09:37 Convert IV to Saline Lock [OM.PC] Routine 11/01/18 19:50 LORazepam [Ativan] 0.5 mg IVPUSH Q4H PRN Melatonin 9 mg PO BEDTIME PRN 11/02/18 09:00 Diltiazem [Cardizem CD] 240 mg PO DAILY 11/02/18 09:39 Furosemide [Lasix] 20 mg IVPUSH NOW ONE Plan: ASSESSMENT AND RECOMMENDATIONS ATRIAL FIBRILLATION WITH RAPID VENTRICULAR RESPONSE-inverted to sinus rhythm weight yesterday afternoon, tolerating current medical therapy with sotalol, diltiazem, and propranolol -Sotalol 40 mg by mouth twice a day -Diltiazem CD 240 mg by mouth daily -Propranolol 20 mg by mouth every 8 hours -Echocardiogram results pending -Plan to continue sotalol and diltiazem until 1 month after surgery, then discontinue if heart rhythm remained stable HYPOXIA-likely secondary to fluid overload and pulmonary edema. Improved with diuresis and decrease in IV fluids -Saline lock IV fluids -Furosemide 20 mg IV now HYPOMAGNESEMIA-resolved STATUS POST SURGICAL REPAIR OF PERFORATED GASTRIC ULCER -Postoperative care and management per Dr. Gardner Hospitalist service will sign off and the patient is is stable concerning his atrial fibrillation. If we can be of further assistance in medical management during his hospital stay please feel free to reconsult.
[2018-11-02] MEDS ORDERED: Furosemide 20 MG/2 ML VIAL IVPUSH ONE (10:00)
[2018-11-02] MEDS ORDERED: Bisacodyl 10 MG Supp RECTAL PRN (15:00)
[2018-11-02] MEDS: Pantoprazole 40 MG Vial IV SCH (17:20)
[2018-11-02] MEDS: MVI, Adult with Vitamin K 10 ML, Chromium/Copper/Mang/Selen/Zn 1 ML, Thiamine 200 MG in... IV SCH ×4 (17:36)
[2018-11-02] MEDS: Tamsulosin 0.4 MG Cap.ER PO SCH (20:10)
[2018-11-02] MEDS: Melatonin 3 MG Tab PO PRN (20:17)
[2018-11-03] MEDS: Metoclopramide 10 MG/2 ML SDV IVPUSH SCH ×4 (01:00→20:25)
[2018-11-03] MEDS: LORazepam 2 MG/ML SDV IVPUSH PRN (04:19)
[2018-11-03] MEDS: Propranolol 40 MG Tab PO SCH ×3 (04:23→20:31)
--- NOTE | 2018-11-03 08:40 | OR ---
DATE OF PROCEDURE: 10/28/2018 SURGEON: Ace Gardner MD PREOPERATIVE DIAGNOSIS: Acute abdomen with intraperitoneal free air. POSTOPERATIVE DIAGNOSES: 1. Acute abdomen with intraperitoneal free air with perforation in the distal stomach. 2. Markedly distended small bowel, status post intraoperative esophagogastroduodenoscopy. 3. Extensive intraabdominal adhesions. OPERATIVE PROCEDURE: Exploratory laparotomy with: 1. Distal gastrectomy with Benja-en-Y gastrojejunostomy (70224). 2. Intraoperative upper GI endoscopy (09070). 3. Decompression of distended small bowel with tube enterostomy (70666). 4. Placement of Interceed mesh to limit recurrent adhesion formation between pelvic and abdominal alves and the underlying viscera. ANESTHESIA: General. SALES REPRESENTATIVE [employer]CH FURNITURE: 1. Antonia Emanuel PA-C. 2. TOO Zepeda1. INDICATION FOR PROCEDURE: This is a 68-year-old presenting with acute abdominal pain to the emergency room. This was felt last evening after eating with abrupt onset that he quite specifically recalls. As part of the workup, the patient had a CT scan which showed free intraperitoneal air, the majority of this appeared to be more in the upper abdomen. The only other pathologic features were that of thickening of the distal stomach and duodenum, suggestive of fat being in the site of perforation. The patient did have some uncomplicated sigmoid colon diverticulosis, but without evidence of any inflammation acutely involved in that area. The plan is to proceed with exploratory laparotomy with procedures as indicated. These could include repairs such as pyloroplasty, simple patch repair of the duodenal ulcer, possible resection procedure of the distal stomach, if that appears to be the area of likely pathology, as well as remote possibility of something more like a colon resection being required. Potential risks of the procedure were all reviewed including bleeding, infection, leaks from various GI tract closures, as well as possibility of cardiopulmonary, septic, or hemorrhagic complications leading to , and he wishes to proceed. DETAILS OF PROCEDURE: The patient was taken to the operating room after general endotracheal anesthesia was induced. A Cortez catheter was inserted, and the abdomen was prepped and draped. An upper midline incision from the xiphoid to the umbilicus was made and carried down through the full-thickness abdominal wall. Upon entering the peritoneal cavity, there was quite a bit in the way of adhesions between the omentum and the anterior abdominal wall and, to a lesser extent, the transverse colon and small bowel. Once these were eventually taken down, general exploration was undertaken. It was noted the patient did have quite a bit in the way of free air intraperitoneally upon entering the abdomen. There was only some slight thin purulent material in and around the duodenum. An overt perforation could not be seen, but there was quite marked inflammation in the antrum and pyloric channel area. Very careful examination of the entire abdomen was then undertaken with the only additional pathology being identified of that being a segment of fairly extensive diverticulosis in the sigmoid colon. This was not associated with any palpable inflammation or any visible perforation. Given this, at that point, a clamp was placed across the junction of first and second portion of the duodenum, and an upper GI endoscope was passed through the esophagus into the stomach with retroflexion view of the area of the previous fundoplication, which was otherwise intact, and then through the more distal stomach and pyloric channel. There was quite a bit of inflammation and some distortion of the mucosal surface in the antrum at several locations, with the abdomen being flooded with antibiotic-containing saline solution. No air bubbles could be seen or points of perforation, but based on the CT findings and the lack of any evident sources of pathology leading to free air, the scope was then withdrawn and the plan made to proceed with a distal gastrectomy with Benja-en-Y reconstruction. This was felt to be the best course in terms of this appearing to be the only likely source of the patient's free perforation, and leaving the situation in place would likely lead to a repeat episode and another operation. The gastroscope was then withdrawn. Despite being clamped across the duodenum, a large amount of air passed into the now quite distended small bowel at about the junction of the midportion of the ileum. A clamp was placed there and enterotomy then placed in the junction of the jejunum and ileum, and a Holmes sump tube passed both proximally and distally, removing the large amount of air, thus decompressing the bowel. That area of the enterotomy was then closed transversely with AIDA baeza load. At this point, dissection came down around the duodenum to roughly 2 cm distal to the pylorus. The duodenum was then divided there with a AIDA black load. The stomach was then divided, after takedown of the greater omentum from the area of the junction of the right and left gastroepiploic vessels and incisura angularis, this staple line being accomplished with purple loads. The mesentery to the involved stomach was then divided with mesenteric loads, and the specimen consisting of the distal antrum, pyloric channel, and more proximal duodenum was delivered from the field. The Benja limb was then assembled. The small bowel was traced out roughly 20 cm distal to the ligament of Treitz, where it was divided with a AIDA stapler. Small bowel was then traced out additional 80 cm, where the [id number] enteroenterostomy accomplished with internal firing of the Endo-AIDA 60 mm stapler. Common opening was closed transversely with the same stapler. An easy route up to the divided stomach between a rent that was in the omentum and the colon was used to bring the small bowel up to the divided stomach, thus this was an antecolic limb with some omentum overlying it. The divided end of the stomach was opened on its most dependent portion, and an anvil of a 28 mm EEA stapler was passed into lumen of the stomach, this was then closed off with a AIDA purple load, and the anvil then brought up once again through the remaining most dependent portion of the stomach. The divided end of the Benja limb was then opened and main body of the EEA stapler passed a few cm into the lumen, brought up the anvil and united with it, thus creating the gastrojejunostomy. Upon removal of the stapler, double donuts of mucosa were noted within it. Small bowel was closed off with a vascular staple line. The gastrojejunostomy was then reinforced with some 3-0 Vicryl seromuscular stitch and fibrin sealant. At this point, no further problems were noted intra-abdominally. The duodenal stump was then also reinforced with fibrin sealant, as was the jejunojejunostomy. Two Braden-Ordoñez drains were then placed through the right mid abdomen, one taken across the duodenal stump and the other adjacent to the gastrojejunostomy. The point where the small bowel passed through the rent in the omentum was fixed to the omentum at that level with some 3-0 Vicryl seromuscular stitch, to limit chances of internal hernia formation. The patient's omentum only covered the upper half of the incision. Thus, to limit recurrent adhesion formation, Vicryl mesh was placed from that point doward into the pelvis to displace the pelvic and abdominal alves from the underlying viscera. The midline fascia was then approximated with a #2 Vicryl stitch. The skin and subcutaneous tissue were felt to be at high risk for wound infection, should a primary closure be undertaken, and the wound was packed open for a planned delayed primary closure. The patient did receive bilateral subcostal transversus abdominis plane blocks, and the incision was also anesthestized with some 1% lidocaine mixed with Marcaine. The drains were sutured to the skin with some 3-0 Vicryl stitch, and the patient was taken to the recovery room in satisfactory condition. Physician safety admin assistant, Antonia Emanuel, played an essential role in assisting in this case, helping to position the patient, retract structures as needed, as well as suturing and cutting sutures as indicated. Her presence improved patient safety and decreased the operative time. Ace Gardner MD /[id number]
[2018-11-03] MEDS: Sotalol 80 MG Tab PO SCH ×2 (08:52→20:31)
[2018-11-03] MEDS: Bisacodyl 5 MG Tab PO SCH ×2 (08:52→20:26)
[2018-11-03] MEDS: Docusate Sodium 100 MG Cap PO SCH ×2 (08:52→20:26)
[2018-11-03] MEDS: Diltiazem 120 MG Cap.CD PO SCH (08:52)
[2018-11-03] MEDS: ClonazePAM 1 MG Tab PO SCH ×2 (08:56→20:27)
--- NOTE | 2018-11-03 11:34 | PN ---
DATE OF SERVICE: 11/03/2018 SUBJECTIVE: Nolan has had 2 small BMs. He is less distended than yesterday. He is on 3 new medications for atrial fibrillation. His Cortez catheter remains in. Vital signs have been stable. Pain has been controlled. Nolan is reporting increased amount of pain in his left forearm where IV has been. REVIEW OF SYSTEMS: Remainder of review of systems negative for any pertinent positives and negatives. OBJECTIVE: GENERAL: Nolan Renee is a pleasant 68-year-old male. VITAL SIGNS: TPR is 97.5, 44, 18, blood pressure 100/76. HEENT: Negative. NECK: Supple. HEART: Regular rate and rhythm. LUNGS: Clear. ABDOMEN: Dressings dry and intact. Abdominal binder is on. Cortez catheter is in place. EXTREMITIES: Without peripheral edema. Left forearm shows superficial cellulitis secondary to IV infiltration. ASSESSMENT: 1. Exploratory laparotomy with: a. Distal gastrectomy with Benja-en-Y gastrojejunostomy. b. Intraoperative esophagogastroduodenoscopy. c. Decompression of distal small bowel with tube enterostomy for probable perforated distal stomach and markedly distended small bowel with intraoperative esophagogastroduodenoscopy. Date of surgery 10/28/2018. Surgeon, Ace Gardner MD. 2. Delayed primary closure on 10/30/2018. 3. Atrial fibrillation. PLAN: 1. Protein supplement, Ensure Clear q.i.d. 2. Discontinue Cortez. 3. Abdominal flat and upright x-ray in a.m. on 11/04/2018. 4. Continue to use heat to left forearm status post IV infiltration. 5. If it becomes red, warm, make sure to notify Dr. Gardner or myself and we will prescribe an antibiotic if warranted. 6. New medications he will be going home on will be diltiazem 240 mg p.o. daily, sotalol 80 mg 1/2 tab p.o. b.i.d., and propranolol 20 mg p.o. every 8 hours. 7. Good pulmonary toilet. 8. We will evaluate p.r.n. or in a.m. Antonia Emanuel PA-C /[id number]
[2018-11-03] MEDS ORDERED: Furosemide 20 MG/2 ML VIAL IVPUSH ONE (12:35)
--- NOTE | 2018-11-03 12:37 | PCM.CONSN ---
- General Info Date of Service: 11/03/18 Subjective Update: Patient did go back and atrial fibrillation last night with a fairly rapid ventricular response. No completes of chest pain, shortness of breath or palpitations. No bowel movement today. Abdomen feels a little distended but pain is minimal. Blood pressure has been on the low side of normal. He was not able to pass urine earlier in the day. Functional Status: Reports: Pain Controlled, Tolerating Diet - Review of Systems Cardiovascular: Denies: Palpitations Gastrointestinal: Denies: Abdominal Pain - Patient Data Vitals - Most Recent: Last Vital Signs Temp 36.5 C 11/03/18 12:00 Pulse 137 H 11/03/18 12:00 Resp 18 11/03/18 12:00 BP 100/76 11/03/18 08:52 Pulse Ox 94 L 11/03/18 12:00 Weight - Most Recent: 88.6 kg I&O - Last 24 Hours: Intake & Output 11/02/18 11/03/18 11/03/18 22:59 06:59 14:59 Intake Total 400 1300 180 Output Total 400 520 Balance 0 780 180 Lab Results Last 24 Hours: Laboratory Results - last 24 hr 11/03/18 11/03/18 Range/Units 04:41 04:41 WBC 9.6 (4.5-11.0) K/uL RBC 3.94 L (4.30-5.90) M/uL Hgb 12.0 (12.0-15.0) g/dL Hct 37.2 L (40.0-54.0) % MCV 94 (80-98) fL MCH 31 (27-31) pg MCHC 32 (32-36) % Plt Count 291 (150-400) K/uL Sodium 141 (140-148) mmol/L Potassium 3.6 (3.6-5.2) mmol/L Chloride 106 (100-108) mmol/L Carbon Dioxide 27 (21-32) mmol/L Anion Gap 7.8 (5.0-14.0) mmol/L BUN 21 H (7-18) mg/dL Creatinine 0.9 (0.8-1.3) mg/dL Est Cr Clr Drug Dosing 87.54 mL/min Estimated GFR (MDRD) > 60 (>60) Glucose 127 H (74-106) mg/dL Calcium 8.3 L (8.5-10.1) mg/dL Phosphorus 2.8 (2.5-4.9) mg/dL Magnesium 1.9 (1.8-2.4) mg/dL Total Bilirubin 1.4 H (0.2-1.0) mg/dL AST 32 (15-37) U/L ALT 35 (12-78) U/L Alkaline Phosphatase 62 (46-116) U/L NT-Pro-B Natriuret Pep 364 H (5-125) pg/mL Total Protein 5.6 L (6.4-8.2) g/dL Albumin 2.2 L (3.4-5.0) g/dL Globulin 3.4 (2.3-3.5) g/dL Albumin/Globulin Ratio 0.7 L (1.2-2.2) Med Orders - Current: Current Medications Albuterol/Ipratropium (Duoneb 3.0-0.5 Mg/3 Ml) 3 ml INH ASDIRECTED PRN PRN Reason: BREATHING Last Admin: 11/02/18 20:33 Dose: 3 ml Bisacodyl (Dulcolax) 10 mg PO BID [facility] [place] Last Admin: 11/03/18 08:52 Dose: 10 mg Clonazepam (Klonopin) 1 mg PO BID [facility] [place] Last Admin: 11/03/18 08:56 Dose: 1 mg Clonazepam (Klonopin) 1 mg PO DAILY PRN PRN Reason: Anxiety Diltiazem HCl (Cardizem Cd) 240 mg PO DAILY [facility] [place] Last Admin: 11/03/18 08:52 Dose: 240 mg Diphenhydramine HCl (Benadryl) 50 mg IVPUSH Q4H PRN PRN Reason: ITCHING Docusate Sodium (Colace) 100 mg PO BID [facility] [place] Last Admin: 11/03/18 08:52 Dose: 100 mg Furosemide (Lasix) 20 mg IVPUSH ONETIME ONE Stop: 11/03/18 12:36 Hydromorphone HCl (Dilaudid [employer] L[employer] 15 Mg In Ns 30 Ml) 0 mg IV ASDIRECTED PRN; Protocol PRN Reason: ACCOUNT [employer]ICER PAIN CONTROL Last Admin: 11/01/18 02:33 Dose: 15 mg Hydroxyzine HCl (Vistaril) 100 mg IM Q4H PRN PRN Reason: BREAKTHROUGH PAIN Last Admin: 10/31/18 11:22 Dose: 100 mg Multivitamins/Minerals 10 ml/Chromium/Copper/Manganese/Seleni/Zn 1 ml/ Thiamine HCl 200 mg/ Dextrose/Lactated Ringer's 1,013 mls @ 100 mls/hr IV DAILY@1800 [facility] [place] Last Admin: 11/02/18 17:36 Dose: 100 mls/hr Labetalol HCl (Normodyne) 5 mg IVPUSH Q5M PRN PRN Reason: SBP over 160 OR DBP over 95 Lorazepam (Ativan) 0.5 mg IVPUSH Q4H PRN PRN Reason: Anxiety Last Admin: 11/03/18 04:19 Dose: 0.5 mg Melatonin (Melatonin) 9 mg PO BEDTIME PRN PRN Reason: Insomnia Last Admin: 11/02/18 20:17 Dose: 9 mg Metoclopramide HCl (Reglan) 10 mg IVPUSH Q6H [facility] [place] Last Admin: 11/03/18 06:09 Dose: 10 mg Naloxone HCl (Narcan) 0.1 mg IV ASDIRECTED PRN PRN Reason: decreased respiratory rate Ondansetron HCl (Zofran) 4 mg IVPUSH Q4H PRN PRN Reason: Nausea Last Admin: 10/31/18 14:49 Dose: 4 mg Pantoprazole Sodium (Protonix Iv) 40 mg IV Q24H [facility] [place] Last Admin: 11/02/18 17:20 Dose: 40 mg Propranolol HCl (Inderal) 20 mg PO Q8H [facility] [place] Last Admin: 11/03/18 04:23 Dose: 20 mg Sodium Chloride (Saline Flush) 10 ml FLUSH ASDIRECTED PRN PRN Reason: Keep Vein Open Last Admin: 10/28/18 10:25 Dose: 10 ml Sotalol HCl (Betapace) 40 mg PO BID [facility] [place] Last Admin: 11/03/18 08:52 Dose: 40 mg Tamsulosin HCl (Flomax) 0.4 mg PO BEDTIME [facility] [place] Last Admin: 11/02/18 20:10 Dose: 0.4 mg Discontinued Medications Bisacodyl (Dulcolax) 10 mg RECTAL ONETIME ONE Stop: 11/02/18 09:01 Last Admin: 11/02/18 08:02 Dose: 10 mg Bisacodyl (Dulcolax) 10 mg RECTAL ONETIME PRN PRN Reason: BM Stop: 11/02/18 15:01 Last Admin: 11/02/18 15:13 Dose: 10 mg Bupivacaine HCl (Marcaine 0.5%) Confirm Administered Dose 50 ml .ROUTE .STK-MED ONE Stop: 10/30/18 06:59 Last Admin: 10/30/18 07:37 Dose: 7.5 ml Ropivacaine 44 ml/Dexamethasone 8 mg/Epinephrine HCl 0.4 mg/ Sodium Chloride 33.6 ml 0 ml NERVRT ASDIRECTED [facility] [place] Last Admin: 10/28/18 14:06 Dose: 80 syringe Ropivacaine 44 ml/Dexamethasone 8 mg/Epinephrine HCl 0.4 mg/ Sodium Chloride 33.6 ml 0 ml NERVRT ASDIRECTED [facility] [place] Last Admin: 10/30/18 07:30 Dose: 80 syringe Cyanocobalamin (Vitamin B12) 1,000 mcg IM ONETIME ONE Stop: 10/30/18 09:01 Last Admin: 10/30/18 10:09 Dose: 1,000 mcg Dexamethasone (Dexamethasone) Confirm Administered Dose 4 mg .ROUTE .STK-MED ONE Stop: 10/28/18 12:15 Diltiazem HCl (Diltiazem) 20 mg IVPUSH ONETIME ONE Stop: 10/30/18 09:31 Last Admin: 10/30/18 09:40 Dose: 20 mg Diltiazem HCl (Cardizem) 30 mg PO Q6HR [facility] [place] Last Admin: 10/31/18 03:23 Dose: 30 mg Diltiazem HCl (Cardizem Cd) 180 mg PO DAILY [facility] [place] Last Admin: 11/01/18 09:32 Dose: 180 mg Diltiazem HCl (Diltiazem) 20 mg IVPUSH ONETIME ONE Stop: 10/31/18 15:21 Last Admin: 10/31/18 15:30 Dose: 20 mg Fentanyl (Sublimaze) Confirm Administered Dose 250 mcg .ROUTE .STK-MED ONE Stop: 10/28/18 12:15 Fentanyl (Sublimaze) Confirm Administered Dose 250 mcg .ROUTE .STK-MED ONE Stop: 10/28/18 14:32 Fentanyl (Sublimaze) Confirm Administered Dose 100 mcg .ROUTE .STK-MED ONE Stop: 10/30/18 06:47 Furosemide (Lasix) 20 mg IVPUSH ONETIME ONE Stop: 10/30/18 08:03 Last Admin: 10/30/18 08:07 Dose: 20 mg Furosemide (Lasix) 20 mg IVPUSH NOW ONE Stop: 11/01/18 10:01 Last Admin: 11/01/18 09:48 Dose: 20 mg Furosemide (Lasix) 20 mg IVPUSH NOW ONE Stop: 11/02/18 10:01 Last Admin: 11/02/18 12:29 Dose: 20 mg Glycopyrrolate (Robinul) Confirm Administered Dose 1 mg .ROUTE .STK-MED ONE Stop: 10/28/18 12:15 Hydromorphone HCl (Dilaudid) 1 mg IVPUSH ONETIME ONE Stop: 10/28/18 12:44 Last Admin: 10/28/18 12:57 Dose: 1 mg Lactated Ringer's (Ringers, Lactated) 1,000 mls @ 500 mls/hr IV ASDIRECTED [facility] [place] Last Admin: 10/28/18 10:06 Dose: 500 mls/hr Sodium Chloride (Normal Saline) 100 mls @ 3 mls/sec IV ASDIRECTED [facility] [place] Last Admin: 10/28/18 10:24 Dose: 3 mls/sec Dextrose/Lactated Ringer's (Dextrose 5%-Lactated Ringers) 1,000 mls @ 150 mls/ hr IV ASDIRECTED [facility] [place] Last Admin: 10/28/18 12:35 Dose: 150 mls/hr Ampicillin Sodium/Sulbactam (Sodium 3 gm/ Sodium Chloride) 100 mls @ 200 mls/ hr IV NOW ONE Stop: 10/28/18 12:59 Last Admin: 10/28/18 12:31 Dose: 200 mls/hr Lactated Ringer's (Ringers, Lactated) Confirm Administered Dose 1,000 mls @ as directed .ROUTE .STK-MED ONE Stop: 10/28/18 14:25 Dextrose/Lactated Ringer's (Dextrose 5%-Lactated Ringers) 1,000 mls @ 175 mls/ hr IV ASDIRECTED [facility] [place] Last Infusion: 10/29/18 07:30 Dose: 100 mls/hr Multivitamins/Minerals 10 ml/Chromium/Copper/Manganese/Seleni/Zn 1 ml/ Thiamine HCl 200 mg/ Dextrose/Lactated Ringer's 1,013 mls @ 175 mls/hr IV DAILY@1800 [facility] Stop: 10/31/18 04:00 Last Admin: 10/30/18 17:38 Dose: 175 mls/hr Ampicillin Sodium/Sulbactam (Sodium 3 gm/ Sodium Chloride) 100 mls @ 200 mls/ hr IV Q6H [facility] Stop: 10/30/18 12:29 Last Admin: 10/30/18 11:35 Dose: 200 mls/hr Dextrose/Lactated Ringer's (Dextrose 5%-Lactated Ringers) 1,000 mls @ 100 mls/ hr IV ASDIRECTED [facility] Last Admin: 10/31/18 03:37 Dose: 100 mls/hr Potassium Phosphate 20 mmole/ (Sodium Chloride) 256.6667 mls @ 86 mls/hr IV Q3H [facility] Stop: 10/29/18 18:59 Last Admin: 10/29/18 16:52 Dose: 86 mls/hr Linezolid (Zyvox) Confirm Administered Dose 300 mls @ as directed .ROUTE .[facility]- MED ONE Stop: 10/30/18 06:47 Diltiazem HCl 125 mg/ Sodium (Chloride) 125 mls @ 5 mls/hr IV TITRATE [facility]; Protocol Last Admin: 10/30/18 09:54 Dose: 5 mg/hr, 5 mls/hr Magnesium Sulfate 2 gm/ Premix 50 mls @ 25 mls/hr IV Q6H [facility] Stop: 10/30/18 23:59 Last Admin: 10/30/18 21:28 Dose: 25 mls/hr Potassium Phosphate 20 mmole/ (Sodium Chloride) 256.6667 mls @ 85.556 mls/hr IV Q3H [facility] Stop: 10/30/18 19:59 Last Admin: 10/30/18 17:36 Dose: 85.556 mls/hr Dextrose/Lactated Ringer's (Dextrose 5%-Lactated Ringers) 1,000 mls @ 75 mls/ hr IV ASDIRECTED [facility] Last Admin: 11/02/18 04:25 Dose: 25 mls/hr Potassium Phosphate 20 mmole/ (Sodium Chloride) 256.6667 mls @ 85.556 mls/hr IV Q3H [facility] Stop: 10/31/18 18:29 Last Admin: 10/31/18 15:50 Dose: 85.556 mls/hr Diltiazem HCl 125 mg/ Sodium (Chloride) 125 mls @ 5 mls/hr IV TITRATE [facility]; Protocol Last Admin: 11/01/18 09:01 Dose: 15 mg/hr, 15 mls/hr Iopamidol (Isovue-300 (61%)) 150 ml IV . DIRECTED [facility] Last Admin: 10/28/18 10:25 Dose: 135 ml Iopamidol (Isovue-300 (61%)) 50 ml .XX . DIRECTED STA Stop: 10/31/18 03:21 Last Admin: 10/31/18 20:04 Dose: Not Given Ketamine HCl (Ketalar) Confirm Administered Dose 500 mg .ROUTE .STK-MED ONE Stop: 10/30/18 06:44 Labetalol HCl (Normodyne) Confirm Administered Dose 20 mg .ROUTE .STK-MED ONE Stop: 10/30/18 07:48 Lidocaine/Epinephrine (Xylocaine 1% With Epinephrine 1:100,000) Confirm Administered Dose 50 ml .ROUTE .STK-MED ONE Stop: 10/30/18 06:59 Last Admin: 10/30/18 07:37 Dose: 7.5 ml Meropenem (Merrem) Confirm Administered Dose 500 mg .ROUTE .STK-MED ONE Stop: 10/28/18 14:06 Last Admin: 10/28/18 14:29 Dose: 500 mg Meropenem (Merrem) Confirm Administered Dose 500 mg .ROUTE .STK-MED ONE Stop: 10/28/18 14:54 Last Admin: 10/28/18 15:22 Dose: 500 mg Meropenem (Merrem) Confirm Administered Dose 500 mg .ROUTE .STK-MED ONE Stop: 10/30/18 06:46 Last Admin: 10/30/18 07:38 Dose: 500 mg Midazolam HCl (Versed 1 Mg/Ml) Confirm Administered Dose 2 mg .ROUTE .STK-MED ONE Stop: 10/30/18 06:46 Neostigmine Methylsulfate (Neostigmine) Confirm Administered Dose 5 mg .ROUTE .STK-MED ONE Stop: 10/28/18 12:15 Ondansetron HCl (Zofran) Confirm Administered Dose 4 mg .ROUTE .STK-MED ONE Stop: 10/28/18 12:15 Ondansetron HCl (Zofran) Confirm Administered Dose 8 mg .ROUTE .STK-MED ONE Stop: 10/30/18 06:50 Propofol (Diprivan 20 Ml) Confirm Administered Dose 200 mg .ROUTE .STK-MED ONE Stop: 10/28/18 12:15 Propofol (Diprivan 20 Ml) Confirm Administered Dose 200 mg .ROUTE .STK-MED ONE Stop: 10/30/18 06:44 Propranolol HCl (Inderal) 20 mg PO TID [facility] Last Admin: 10/30/18 10:26 Dose: Not Given Rocuronium [place] (Zemuron) Confirm Administered Dose 50 mg .ROUTE .STK-MED ONE Stop: 10/28/18 12:15 Rocuronium [place] (Zemuron) Confirm Administered Dose 50 mg .ROUTE .STK-MED ONE Stop: 10/28/18 14:49 Sodium Chloride (Saline Flush) 10 ml FLUSH ASDIRECTED PRN PRN Reason: Keep Vein Open Last Admin: 10/28/18 10:43 Dose: 10 ml Succinylcholine Chloride (Quelicin) Confirm Administered Dose 200 mg .ROUTE .STK -MED ONE Stop: 10/28/18 12:15 Tamsulosin HCl (Flomax) 0.4 mg PO ONETIME ONE Stop: 10/30/18 11:31 Last Admin: 10/30/18 11:26 Dose: 0.4 mg - Exam Quality Assessment: No: Supplemental Oxygen General: Alert, Oriented, Cooperative, No Acute Distress Lungs: Normal Respiratory Effort, Crackles (mild right lung base). No: Wheezing Cardiovascular: Irregular Rhythm, Tachycardia GI/Abdominal Exam: Normal Bowel Sounds, Soft, Distended Extremities: Pedal Edema. No: Increased Warmth Skin: Warm, Dry Psy/Mental Status: Alert, Normal Affect Consult PN Assessment/Plan Procedures: Procedures ASSAY OF ETHANOL (06/30/13) ASSAY OF TROPONIN QUANT (10/15/18) CO/MEMBANE DIFFUSE CAPACITY (12/02/13) COLONOSCOPY AND BIOPSY (10/08/13) COMPLETE CBC AUTOMATED (03/25/13) COMPLETE CBC W/AUTO DIFF WBC (02/11/16) COMPREHEN METABOLIC PANEL (02/11/16) CT HEAD/BRAIN W/O DYE (05/04/15) CULTURE SCREEN ONLY (01/04/17) EGD BIOPSY SINGLE/MULTIPLE (01/04/17) ELECTROCARDIOGRAM REPORT (11/06/13) ELECTROCARDIOGRAM TRACING (02/23/17) EMERGENCY DEPT VISIT (10/19/18) EMERGENCY DEPT VISIT (05/31/17) EMERGENCY DEPT VISIT (05/01/17) EMERGENCY DEPT VISIT (04/14/17) EMERGENCY DEPT VISIT (02/23/17) EMERGENCY DEPT VISIT (10/15/16) EMERGENCY DEPT VISIT (04/07/16) EMERGENCY DEPT VISIT (01/28/16) EMERGENCY DEPT VISIT (12/31/15) EMERGENCY DEPT VISIT (11/04/15) EMERGENCY DEPT VISIT (06/30/13) EMERGENCY DEPT VISIT (03/25/13) EMERGENCY DEPT VISIT (03/25/13) EVALUATION OF WHEEZING (12/02/13) HYDRATION IV INFUSION INIT (05/31/17) INSERT TEMP BLADDER CATH (05/31/17) MANUAL THERAPY 1/> REGIONS (05/17/17) MEASURE BLOOD OXYGEN LEVEL (01/24/17) METABOLIC PANEL TOTAL CA (03/25/13) MRI BRAIN STEM W/O DYE (01/05/15) MRI LUMBAR SPINE W/O DYE (06/25/14) ORTHOTIC MGMT&TRAINJ 1ST ENC (09/13/14) POLYSOM 6/>YRS CPAP 4/> PARM (08/08/15) PT EVAL LOW COMPLEX 20 MIN (05/17/17) PT EVALUATION (11/01/15) ROUTINE VENIPUNCTURE (10/15/18) RPR UMBIL ALIN REDUC > 5 YR (12/09/15) STREP A AG IA (04/14/15) THER/PROPH/DIAG INJ SC/IM (04/20/17) THERAPEUTIC EXERCISES (05/17/17) TISSUE EXAM BY PATHOLOGIST (10/08/13) URINALYSIS AUTO W/SCOPE (05/31/17) US EXAM SCROTUM (05/12/17) US URINE CAPACITY MEASURE (05/31/17) VASCULAR STUDY (05/12/17) X-RAY EXAM L-2 SPINE 4/>VWS (11/18/14) X-RAY EXAM L-S SPINE 2/3 VWS (07/15/15) X-RAY EXAM THORAC SPINE 3VWS (04/07/16) X-RAY EYE FOR FOREIGN BODY (06/25/14) Problem List Initiated/Reviewed/Updated: Yes My Orders Last 24 Hours: My Active Orders 11/03/18 12:35 Furosemide [Lasix] 20 mg IVPUSH ONETIME ONE Plan: ASSESSMENT AND RECOMMENDATIONS ATRIAL FIBRILLATION WITH RAPID VENTRICULAR RESPONSE - he has been in and out of sinus rhythm and atrial fibrillation. He does appear to have some mild excess volume on board but otherwise no obvious cause for his atrial fibrillation. -Furosemide 20 mg 1 this morning -Sotalol 40 mg by mouth twice a day -Diltiazem CD 240 mg by mouth daily -Propranolol 20 mg by mouth every 8 hours -Plan to continue sotalol and diltiazem until 1 month after surgery, then discontinue if heart rhythm remained stable HYPOXIA - likely secondary to fluid overload and pulmonary edema. Improved with diuresis and decrease in IV fluids but still mild evidence for volume overload. -Saline lock IV fluids HYPOMAGNESEMIA-resolved STATUS POST SURGICAL REPAIR OF PERFORATED GASTRIC ULCER -Postoperative care and management per Dr. Gardner
[2018-11-03] MEDS: Pantoprazole 40 MG Vial IV SCH (17:50)
[2018-11-03] MEDS: MVI, Adult with Vitamin K 10 ML, Chromium/Copper/Mang/Selen/Zn 1 ML, Thiamine 200 MG in... IV SCH ×4 (17:54)
[2018-11-03] MEDS: Tamsulosin 0.4 MG Cap.ER PO SCH (20:31)
[2018-11-04] MEDS: Metoclopramide 10 MG/2 ML SDV IVPUSH SCH ×4 (00:26→17:51)
[2018-11-04] MEDS: Melatonin 3 MG Tab PO PRN (00:57)
[2018-11-04] MEDS: LORazepam 2 MG/ML SDV IVPUSH PRN (00:57)
[2018-11-04] MEDS: Propranolol 40 MG Tab PO SCH ×3 (05:06→20:51)
[2018-11-04] MEDS: Dextrose 5%-Lactated Ringers 1,000 ML IV SCH (05:06)
--- NOTE | 2018-11-04 05:08 | CRLCR ---
Indication: Postoperative ileus Technique: Abdomen 2 view. Comparison: November 02, 2018 Findings/Impression: : There are a few loops of dilated small bowel which reaches a maximum diameter of 5.3 cm. The colon is decompressed. Residual oral contrast material is seen within the colon. Midline laparotomy skin anuradha are noted. Findings are concerning for a small bowel obstruction. Recommend follow-up radiograph. Dictated by Aubrie Parker MD @ Nov 04 2018 5:03AM Signed by Dr. Aubrie Parker @ Nov 04 2018 5:06AM
[2018-11-04] MEDS ORDERED: Bisacodyl 10 MG Supp RECTAL PRN (07:58)
[2018-11-04] MEDS: Sotalol 80 MG Tab PO SCH ×2 (09:19→20:52)
[2018-11-04] MEDS: Docusate Sodium 100 MG Cap PO SCH ×2 (09:20→20:49)
[2018-11-04] MEDS: Bisacodyl 5 MG Tab PO SCH ×2 (09:20→20:50)
[2018-11-04] MEDS: Diltiazem 120 MG Cap.CD PO SCH (09:20)
[2018-11-04] MEDS: Magnesium Hydroxide 400 MG/5 ML Susp 30 ML Cup PO SCH ×2 (09:20→20:51)
[2018-11-04] MEDS: ClonazePAM 1 MG Tab PO SCH ×2 (09:26→20:55)
[2018-11-04] MEDS: HYDROmorphone/Normal Saline 15 MG/30 ML PCA IV PRN (10:49)
--- NOTE | 2018-11-04 12:37 | PCM.CONSN ---
- General Info Date of Service: 11/04/18 Subjective Update: No acute events overnight. The patient continues to report minimal abdominal pain. He has passed a small amount of gas but has not had a bowel movement in a couple of days. Abdomen still feels distended. He returned to sinus rhythm yesterday and has remained there since that time. No nausea. X-rays morning was concerning for small bowel obstruction versus ileus. Functional Status: Reports: Pain Controlled - Review of Systems General: Denies: Fever Gastrointestinal: Denies: Abdominal Pain - Patient Data Vitals - Most Recent: Last Vital Signs Temp 36.6 C 11/04/18 11:00 Pulse 67 11/04/18 11:00 Resp 16 11/04/18 11:00 BP 117/77 11/04/18 11:00 Pulse Ox 96 11/04/18 11:00 Weight - Most Recent: 88.6 kg I&O - Last 24 Hours: Intake & Output 11/03/18 11/04/18 11/04/18 22:59 06:59 14:59 Intake Total 1700 400 Output Total 1100 500 Balance 600 -500 400 Med Orders - Current: Current Medications Albuterol/Ipratropium (Duoneb 3.0-0.5 Mg/3 Ml) 3 ml INH ASDIRECTED PRN PRN Reason: BREATHING Last Admin: 11/02/18 20:33 Dose: 3 ml Bisacodyl (Dulcolax) 10 mg PO BID [facility] Last Admin: 11/04/18 09:20 Dose: 10 mg Bisacodyl (Dulcolax) 10 mg RECTAL ASDIRECTED PRN PRN Reason: CONSTIPATION Clonazepam (Klonopin) 1 mg PO BID [facility] Last Admin: 11/04/18 09:26 Dose: 1 mg Clonazepam (Klonopin) 1 mg PO DAILY PRN PRN Reason: Anxiety Diltiazem HCl (Cardizem Cd) 240 mg PO DAILY [facility] Last Admin: 11/04/18 09:20 Dose: 240 mg Diphenhydramine HCl (Benadryl) 50 mg IVPUSH Q4H PRN PRN Reason: ITCHING Docusate Sodium (Colace) 100 mg PO BID [facility] Last Admin: 11/04/18 09:20 Dose: 100 mg Hydromorphone HCl (Dilaudid [employer]il Personnel Services Director 15 Mg In Ns 30 Ml) 0 mg IV ASDIRECTED PRN; Protocol PRN Reason: [employer]PER[employer] PAIN CONTROL Last Admin: 11/04/18 10:49 Dose: 15 mg Hydroxyzine HCl (Vistaril) 100 mg IM Q4H PRN PRN Reason: BREAKTHROUGH PAIN Last Admin: 10/31/18 11:22 Dose: 100 mg Multivitamins/Minerals 10 ml/Chromium/Copper/Manganese/Seleni/Zn 1 ml/ Thiamine HCl 200 mg/ Dextrose/Lactated Ringer's 1,013 mls @ 100 mls/hr IV DAILY@1800 [facility] Last Admin: 11/03/18 17:54 Dose: 100 mls/hr Dextrose/Lactated Ringer's (Dextrose 5%-Lactated Ringers) 1,000 mls @ 0 mls/hr IV ASDIRECTED [facility] Last Admin: 11/04/18 05:06 Dose: 25 mls/hr Labetalol HCl (Normodyne) 5 mg IVPUSH Q5M PRN PRN Reason: SBP over 160 OR DBP over 95 Lorazepam (Ativan) 0.5 mg IVPUSH Q4H PRN PRN Reason: Anxiety Last Admin: 11/04/18 00:57 Dose: 0.5 mg Magnesium Hydroxide (Milk Of Magnesia) 30 ml PO BID [facility] Last Admin: 11/04/18 09:20 Dose: 30 ml Melatonin (Melatonin) 9 mg PO BEDTIME PRN PRN Reason: Insomnia Last Admin: 11/04/18 00:57 Dose: 9 mg Metoclopramide HCl (Reglan) 10 mg IVPUSH Q6H [facility] Last Admin: 11/04/18 05:06 Dose: 10 mg Naloxone HCl (Narcan) 0.1 mg IV ASDIRECTED PRN PRN Reason: decreased respiratory rate Ondansetron HCl (Zofran) 4 mg IVPUSH Q4H PRN PRN Reason: Nausea Last Admin: 10/31/18 14:49 Dose: 4 mg Pantoprazole Sodium (Protonix) 40 mg PO Q24H [facility] Propranolol HCl (Inderal) 20 mg PO Q8H [facility] Last Admin: 11/04/18 05:06 Dose: 20 mg Sodium Chloride (Saline Flush) 10 ml FLUSH ASDIRECTED PRN PRN Reason: Keep Vein Open Last Admin: 10/28/18 10:25 Dose: 10 ml Sotalol HCl (Betapace) 40 mg PO BID [facility] Last Admin: 11/04/18 09:19 Dose: 40 mg Tamsulosin HCl (Flomax) 0.4 mg PO BEDTIME [facility] Last Admin: 11/03/18 20:31 Dose: 0.4 mg Discontinued Medications Bisacodyl (Dulcolax) 10 mg RECTAL ONETIME ONE Stop: 11/02/18 09:01 Last Admin: 11/02/18 08:02 Dose: 10 mg Bisacodyl (Dulcolax) 10 mg RECTAL ONETIME PRN PRN Reason: BM Stop: 11/02/18 15:01 Last Admin: 11/02/18 15:13 Dose: 10 mg Bupivacaine HCl (Marcaine 0.5%) Confirm Administered Dose 50 ml .ROUTE .STK-MED ONE Stop: 10/30/18 06:59 Last Admin: 10/30/18 07:37 Dose: 7.5 ml Ropivacaine 44 ml/Dexamethasone 8 mg/Epinephrine HCl 0.4 mg/ Sodium Chloride 33.6 ml 0 ml NERVRT ASDIRECTED [facility] Last Admin: 10/28/18 14:06 Dose: 80 syringe Ropivacaine 44 ml/Dexamethasone 8 mg/Epinephrine HCl 0.4 mg/ Sodium Chloride 33.6 ml 0 ml NERVRT ASDIRECTED [facility] Last Admin: 10/30/18 07:30 Dose: 80 syringe Cyanocobalamin (Vitamin B12) 1,000 mcg IM ONETIME ONE Stop: 10/30/18 09:01 Last Admin: 10/30/18 10:09 Dose: 1,000 mcg Dexamethasone (Dexamethasone) Confirm Administered Dose 4 mg .ROUTE .STK-MED ONE Stop: 10/28/18 12:15 Diltiazem HCl (Diltiazem) 20 mg IVPUSH ONETIME ONE Stop: 10/30/18 09:31 Last Admin: 10/30/18 09:40 Dose: 20 mg Diltiazem HCl (Cardizem) 30 mg PO Q6HR [facility] Last Admin: 10/31/18 03:23 Dose: 30 mg Diltiazem HCl (Cardizem Cd) 180 mg PO DAILY [facility] Last Admin: 11/01/18 09:32 Dose: 180 mg Diltiazem HCl (Diltiazem) 20 mg IVPUSH ONETIME ONE Stop: 10/31/18 15:21 Last Admin: 10/31/18 15:30 Dose: 20 mg Fentanyl (Sublimaze) Confirm Administered Dose 250 mcg .ROUTE .STK-MED ONE Stop: 10/28/18 12:15 Fentanyl (Sublimaze) Confirm Administered Dose 250 mcg .ROUTE .STK-MED ONE Stop: 10/28/18 14:32 Fentanyl (Sublimaze) Confirm Administered Dose 100 mcg .ROUTE .STK-MED ONE Stop: 10/30/18 06:47 Furosemide (Lasix) 20 mg IVPUSH ONETIME ONE Stop: 10/30/18 08:03 Last Admin: 10/30/18 08:07 Dose: 20 mg Furosemide (Lasix) 20 mg IVPUSH NOW ONE Stop: 11/01/18 10:01 Last Admin: 11/01/18 09:48 Dose: 20 mg Furosemide (Lasix) 20 mg IVPUSH NOW ONE Stop: 11/02/18 10:01 Last Admin: 11/02/18 12:29 Dose: 20 mg Furosemide (Lasix) 20 mg IVPUSH ONETIME ONE Stop: 11/03/18 12:36 Last Admin: 11/03/18 12:46 Dose: 20 mg Glycopyrrolate (Robinul) Confirm Administered Dose 1 mg .ROUTE .STK-MED ONE Stop: 10/28/18 12:15 Hydromorphone HCl (Dilaudid) 1 mg IVPUSH ONETIME ONE Stop: 10/28/18 12:44 Last Admin: 10/28/18 12:57 Dose: 1 mg Lactated Ringer's (Ringers, Lactated) 1,000 mls @ 500 mls/hr IV ASDIRECTED [facility] Last Admin: 10/28/18 10:06 Dose: 500 mls/hr Sodium Chloride (Normal Saline) 100 mls @ 3 mls/sec IV ASDIRECTED [facility] Last Admin: 10/28/18 10:24 Dose: 3 mls/sec Dextrose/Lactated Ringer's (Dextrose 5%-Lactated Ringers) 1,000 mls @ 150 mls/ hr IV ASDIRECTED [facility] Last Admin: 10/28/18 12:35 Dose: 150 mls/hr Ampicillin Sodium/Sulbactam (Sodium 3 gm/ Sodium Chloride) 100 mls @ 200 mls/ hr IV NOW ONE Stop: 10/28/18 12:59 Last Admin: 10/28/18 12:31 Dose: 200 mls/hr Lactated Ringer's (Ringers, Lactated) Confirm Administered Dose 1,000 mls @ as directed .ROUTE .[facility] ONE Stop: 10/28/18 14:25 Dextrose/Lactated Ringer's (Dextrose 5%-Lactated Ringers) 1,000 mls @ 175 mls/ hr IV ASDIRECTED [facility] Last Infusion: 10/29/18 07:30 Dose: 100 mls/hr Multivitamins/Minerals 10 ml/Chromium/Copper/Manganese/Seleni/Zn 1 ml/ Thiamine HCl 200 mg/ Dextrose/Lactated Ringer's 1,013 mls @ 175 mls/hr IV DAILY@1800 [facility] Stop: 10/31/18 04:00 Last Admin: 10/30/18 17:38 Dose: 175 mls/hr Ampicillin Sodium/Sulbactam (Sodium 3 gm/ Sodium Chloride) 100 mls @ 200 mls/ hr IV Q6H [facility] Stop: 10/30/18 12:29 Last Admin: 10/30/18 11:35 Dose: 200 mls/hr Dextrose/Lactated Ringer's (Dextrose 5%-Lactated Ringers) 1,000 mls @ 100 mls/ hr IV ASDIRECTED [facility] Last Admin: 10/31/18 03:37 Dose: 100 mls/hr Potassium Phosphate 20 mmole/ (Sodium Chloride) 256.6667 mls @ 86 mls/hr IV Q3H [facility] Stop: 10/29/18 18:59 Last Admin: 10/29/18 16:52 Dose: 86 mls/hr Linezolid (Zyvox) Confirm Administered Dose 300 mls @ as directed .ROUTE .[facility] ONE Stop: 10/30/18 06:47 Diltiazem HCl 125 mg/ Sodium (Chloride) 125 mls @ 5 mls/hr IV TITRATE [facility]; Protocol Last Admin: 10/30/18 09:54 Dose: 5 mg/hr, 5 mls/hr Magnesium Sulfate 2 gm/ Premix 50 mls @ 25 mls/hr IV Q6H [facility] Stop: 10/30/18 23:59 Last Admin: 10/30/18 21:28 Dose: 25 mls/hr Potassium Phosphate 20 mmole/ (Sodium Chloride) 256.6667 mls @ 85.556 mls/hr IV Q3H [facility] Stop: 10/30/18 19:59 Last Admin: 10/30/18 17:36 Dose: 85.556 mls/hr Dextrose/Lactated Ringer's (Dextrose 5%-Lactated Ringers) 1,000 mls @ 75 mls/ hr IV ASDIRECTED [facility] Last Admin: 11/02/18 04:25 Dose: 25 mls/hr Potassium Phosphate 20 mmole/ (Sodium Chloride) 256.6667 mls @ 85.556 mls/hr IV Q3H [facility] Stop: 10/31/18 18:29 Last Admin: 10/31/18 15:50 Dose: 85.556 mls/hr Diltiazem HCl 125 mg/ Sodium (Chloride) 125 mls @ 5 mls/hr IV TITRATE [facility]; Protocol Last Admin: 11/01/18 09:01 Dose: 15 mg/hr, 15 mls/hr Iopamidol (Isovue-300 (61%)) 150 ml IV . DIRECTED [facility] Last Admin: 10/28/18 10:25 Dose: 135 ml Iopamidol (Isovue-300 (61%)) 50 ml .XX . DIRECTED STA Stop: 10/31/18 03:21 Last Admin: 10/31/18 20:04 Dose: Not Given Ketamine HCl (Ketalar) Confirm Administered Dose 500 mg .ROUTE .STK-MED ONE Stop: 10/30/18 06:44 Labetalol HCl (Normodyne) Confirm Administered Dose 20 mg .ROUTE .STK-MED ONE Stop: 10/30/18 07:48 Lidocaine/Epinephrine (Xylocaine 1% With Epinephrine 1:100,000) Confirm Administered Dose 50 ml .ROUTE .STK-MED ONE Stop: 10/30/18 06:59 Last Admin: 10/30/18 07:37 Dose: 7.5 ml Meropenem (Merrem) Confirm Administered Dose 500 mg .ROUTE .STK-MED ONE Stop: 10/28/18 14:06 Last Admin: 10/28/18 14:29 Dose: 500 mg Meropenem (Merrem) Confirm Administered Dose 500 mg .ROUTE .STK-MED ONE Stop: 10/28/18 14:54 Last Admin: 10/28/18 15:22 Dose: 500 mg Meropenem (Merrem) Confirm Administered Dose 500 mg .ROUTE .STK-MED ONE Stop: 10/30/18 06:46 Last Admin: 10/30/18 07:38 Dose: 500 mg Midazolam HCl (Versed 1 Mg/Ml) Confirm Administered Dose 2 mg .ROUTE .STK-MED ONE Stop: 10/30/18 06:46 Neostigmine Methylsulfate (Neostigmine) Confirm Administered Dose 5 mg .ROUTE .STK-MED ONE Stop: 10/28/18 12:15 Ondansetron HCl (Zofran) Confirm Administered Dose 4 mg .ROUTE .STK-MED ONE Stop: 10/28/18 12:15 Ondansetron HCl (Zofran) Confirm Administered Dose 8 mg .ROUTE .STK-MED ONE Stop: 10/30/18 06:50 Pantoprazole Sodium (Protonix Iv) 40 mg IV Q24H [facility] Last Admin: 11/03/18 17:50 Dose: 40 mg Propofol (Diprivan 20 Ml) Confirm Administered Dose 200 mg .ROUTE .STK-MED ONE Stop: 10/28/18 12:15 Propofol (Diprivan 20 Ml) Confirm Administered Dose 200 mg .ROUTE .STK-MED ONE Stop: 10/30/18 06:44 Propranolol HCl (Inderal) 20 mg PO TID [facility] Last Admin: 10/30/18 10:26 Dose: Not Given Rocuronium [place] (Zemuron) Confirm Administered Dose 50 mg .ROUTE .STK-MED ONE Stop: 10/28/18 12:15 Rocuronium [place] (Zemuron) Confirm Administered Dose 50 mg .ROUTE .ST-MED ONE Stop: 10/28/18 14:49 Sodium Chloride (Saline Flush) 10 ml FLUSH ASDIRECTED PRN PRN Reason: Keep Vein Open Last Admin: 10/28/18 10:43 Dose: 10 ml Succinylcholine Chloride (Quelicin) Confirm Administered Dose 200 mg .ROUTE .STK -MED ONE Stop: 10/28/18 12:15 Tamsulosin HCl (Flomax) 0.4 mg PO ONETIME ONE Stop: 10/30/18 11:31 Last Admin: 10/30/18 11:26 Dose: 0.4 mg - Exam Quality Assessment: No: Supplemental Oxygen General: Alert, Oriented, Cooperative, No Acute Distress Lungs: Clear to Auscultation, Normal Respiratory Effort Cardiovascular: Regular Rate, Regular Rhythm GI/Abdominal Exam: Soft, Distended Extremities: No Pedal Edema Psy/Mental Status: Alert, Normal Affect Consult PN Assessment/Plan Procedures: Procedures ASSAY OF ETHANOL (06/30/13) ASSAY OF TROPONIN QUANT (10/15/18) CO/MEMBANE DIFFUSE CAPACITY (12/02/13) COLONOSCOPY AND BIOPSY (10/08/13) COMPLETE CBC AUTOMATED (03/25/13) COMPLETE CBC W/AUTO DIFF WBC (02/11/16) COMPREHEN METABOLIC PANEL (02/11/16) CT HEAD/BRAIN W/O DYE (05/04/15) CULTURE SCREEN ONLY (01/04/17) EGD BIOPSY SINGLE/MULTIPLE (01/04/17) ELECTROCARDIOGRAM REPORT (03/25/13) ELECTROCARDIOGRAM TRACING (02/23/17) EMERGENCY DEPT VISIT (10/19/18) EMERGENCY DEPT VISIT (05/31/17) EMERGENCY DEPT VISIT (05/01/17) EMERGENCY DEPT VISIT (04/14/17) EMERGENCY DEPT VISIT (02/23/17) EMERGENCY DEPT VISIT (10/15/16) EMERGENCY DEPT VISIT (04/07/16) EMERGENCY DEPT VISIT (01/28/16) EMERGENCY DEPT VISIT (12/31/15) EMERGENCY DEPT VISIT (11/04/15) EMERGENCY DEPT VISIT (06/30/13) EMERGENCY DEPT VISIT (03/25/13) EMERGENCY DEPT VISIT (03/25/13) EVALUATION OF WHEEZING (12/02/13) HYDRATION IV INFUSION INIT (05/31/17) INSERT TEMP BLADDER CATH (05/31/17) MANUAL THERAPY 1/> REGIONS (05/17/17) MEASURE BLOOD OXYGEN LEVEL (01/24/17) METABOLIC PANEL TOTAL CA (03/25/13) MRI BRAIN STEM W/O DYE (01/05/15) MRI LUMBAR SPINE W/O DYE (06/25/14) ORTHOTIC MGMT&TRAINJ 1ST ENC (09/13/14) POLYSOM 6/>YRS CPAP 4/> PARM (08/08/15) PT EVAL LOW COMPLEX 20 MIN (05/17/17) PT EVALUATION (11/01/15) ROUTINE VENIPUNCTURE (10/15/18) RPR UMBIL ALIN REDUC > 5 YR (12/09/15) STREP A AG IA (04/14/15) THER/PROPH/DIAG INJ SC/IM (04/20/17) THERAPEUTIC EXERCISES (05/17/17) TISSUE EXAM BY PATHOLOGIST (10/08/13) URINALYSIS AUTO W/SCOPE (05/31/17) US EXAM SCROTUM (05/12/17) US URINE CAPACITY MEASURE (05/31/17) VASCULAR STUDY (05/12/17) X-RAY EXAM L-2 SPINE 4/>VWS (11/18/14) X-RAY EXAM L-S SPINE 2/3 VWS (07/15/15) X-RAY EXAM THORAC SPINE 3VWS (04/07/16) X-RAY EYE FOR FOREIGN BODY (06/25/14) Problem List Initiated/Reviewed/Updated: Yes Plan: ASSESSMENT AND RECOMMENDATIONS ATRIAL FIBRILLATION WITH RAPID VENTRICULAR RESPONSE - he has remained in sinus rhythm for about 24 hours. No complaints of chest pain or shortness of breath. Point status seems more appropriate today. -Sotalol 40 mg by mouth twice a day -Diltiazem CD 240 mg by mouth daily -Propranolol 20 mg by mouth every 8 hours -Plan to continue sotalol and diltiazem until 1 month after surgery, then discontinue if heart rhythm remained stable HYPOXIA - likely secondary to fluid overload and pulmonary edema and this has resolved. -Saline lock IV fluids HYPOMAGNESEMIA-resolved STATUS POST SURGICAL REPAIR OF PERFORATED GASTRIC ULCER - concern for ileus versus bowel obstruction postoperatively. -Postoperative care and management per Dr. Jj Pisano M.D.
--- NOTE | 2018-11-04 13:10 | PN ---
DATE OF SERVICE: 11/02/2018 The patient once again converted into sinus rhythm. He is on some medications to try to control that per Dr. Wong. Otherwise, he continues to have quite a bit of an ileus and there is quite a bit of air in the colon and we will continue the oral bowel stimulation, also has some Dulcolax suppositories today. We will hold off on advancing his diet until the bowels get moving. Ace Gardner MD /[id number]
--- NOTE | 2018-11-04 13:36 | PN ---
DATE OF SERVICE: 11/01/2018 The patient has been afebrile with stable vital signs, other than he has redeveloped atrial fibrillation with some tachycardia with any motion. He is back on a Cardizem drip, and we will continue management of that issue with Dr. Wong. His abdomen is a little bit more distended. He has continued to pass some gas, but has not moved his bowels as of yet. Given this, we will hold off on advancing his diet and try to limit the oral intake today and continue with his bowel stimulation. Otherwise, maximize activity and work with pulmonary toilet. Ace Gardner MD /[id number]
--- NOTE | 2018-11-04 15:21 | PN ---
DATE OF SERVICE: 11/04/2018 The patient has been afebrile with stable vital signs. He did move his bowels some yesterday, but has not overnight. Remains fairly distended, but probably less so than a day or so ago and definitely less so than 2 days ago. We will continue to work on getting bowels going. We will check some labs in the morning, including TSH, and we will recheck abdominal x-ray. Will leave him on a full-liquid diet for now. His rhythm over the last 24 hours has generally stayed fairly good, out of atrial fibrillation. Ace Gardner MD /[id number]
[2018-11-04] MEDS: Pantoprazole 40 MG Tab.CR PO SCH (15:51)
[2018-11-04] MEDS: MVI, Adult with Vitamin K 10 ML, Chromium/Copper/Mang/Selen/Zn 1 ML, Thiamine 200 MG in... IV SCH ×4 (17:51)
[2018-11-04] MEDS: Tamsulosin 0.4 MG Cap.ER PO SCH (20:51)
[2018-11-05] MEDS: Metoclopramide 10 MG/2 ML SDV IVPUSH SCH ×4 (00:10→13:37)
[2018-11-05] MEDS: Melatonin 3 MG Tab PO PRN (00:17)
[2018-11-05] MEDS: Dextrose 5%-Lactated Ringers 1,000 ML IV SCH (03:53)
--- NOTE | 2018-11-05 04:44 | CRLCR ---
Indication: Ileus Technique: Supine and upright views of the abdomen Comparison: November 04, 2018 Findings/Impression: : Midline laparotomy skin anuradha. Residual oral contrast in the colon down to the level of the rectum. The colon is decompressed. Dilated small-bowel loops 3 to maximum diameter 4.6 cm. Findings favor small-bowel obstruction rather than ileus. No free air or pneumatosis. Recommend follow-up KUB. Dictated by Aubrie Parker MD @ Nov 05 2018 4:43AM Signed by Dr. Aubrie Parker @ Nov 05 2018 4:43AM
[2018-11-05] MEDS: Propranolol 40 MG Tab PO SCH ×3 (05:12→20:08)
[2018-11-05] MEDS ORDERED: HYDROmorphone 2 MG Tab PO PRN (08:04)
[2018-11-05] MEDS: ClonazePAM 1 MG Tab PO SCH ×2 (08:29→20:13)
[2018-11-05] MEDS: Diltiazem 120 MG Cap.CD PO SCH (08:29)
[2018-11-05] MEDS: Docusate Sodium 100 MG Cap PO SCH ×2 (08:30→20:10)
[2018-11-05] MEDS: Magnesium Hydroxide 400 MG/5 ML Susp 30 ML Cup PO SCH ×2 (08:30→20:10)
[2018-11-05] MEDS: Bisacodyl 5 MG Tab PO SCH ×2 (08:30→20:10)
[2018-11-05] MEDS: Sotalol 80 MG Tab PO SCH ×2 (08:44→20:07)
--- NOTE | 2018-11-05 10:02 | PCM.CONSN ---
- General Info Date of Service: 11/05/18 Subjective Update: There were no acute events overnight. Patient is having bowel movements today. Abdominal pain was minimal this morning and improved after a bowel movement. No fevers or nausea. He has been up and walking around. Heart has remained in normal sinus rhythm. Functional Status: Reports: Pain Controlled, Tolerating Diet - Review of Systems General: Denies: Fever Gastrointestinal: Reports: Abdominal Pain - Patient Data Vitals - Most Recent: Last Vital Signs Temp 35.5 C 11/05/18 07:26 Pulse 67 11/05/18 08:44 Resp 16 11/05/18 07:26 BP 108/54 L 11/05/18 08:44 Pulse Ox 97 11/05/18 08:32 Weight - Most Recent: 88.6 kg I&O - Last 24 Hours: Intake & Output 11/04/18 11/05/18 11/05/18 22:59 06:59 14:59 Intake Total 984 1533 Output Total 500 900 200 Balance 484 633 -200 Lab Results Last 24 Hours: Laboratory Results - last 24 hr 11/05/18 11/05/18 Range/Units 04:00 04:00 WBC 9.1 (4.5-11.0) K/uL RBC 4.26 L (4.30-5.90) M/uL Hgb 12.9 (12.0-15.0) g/dL Hct 39.1 L (40.0-54.0) % MCV 92 (80-98) fL MCH 30 (27-31) pg MCHC 33 (32-36) % Plt Count 347 (150-400) K/uL Sodium 139 L (140-148) mmol/L Potassium 3.6 (3.6-5.2) mmol/L Chloride 102 (100-108) mmol/L Carbon Dioxide 28 (21-32) mmol/L Anion Gap 12.6 (5.0-14.0) mmol/L BUN 12 (7-18) mg/dL Creatinine 0.9 (0.8-1.3) mg/dL Est Cr Clr Drug Dosing 87.54 mL/min Estimated GFR (MDRD) > 60 (>60) Glucose 99 (74-106) mg/dL Calcium 8.4 L (8.5-10.1) mg/dL Phosphorus 3.1 (2.5-4.9) mg/dL Magnesium 2.1 (1.8-2.4) mg/dL Total Bilirubin 0.6 D (0.2-1.0) mg/dL AST 39 H (15-37) U/L ALT 45 (12-78) U/L Alkaline Phosphatase 74 (46-116) U/L NT-Pro-B Natriuret Pep 181 H (5-125) pg/mL Total Protein 6.2 L (6.4-8.2) g/dL Albumin 2.5 L (3.4-5.0) g/dL Globulin 3.7 H (2.3-3.5) g/dL Albumin/Globulin Ratio 0.7 L (1.2-2.2) TSH, Ultra Sensitive 2.244 (0.358-3.740) uIU/mL Med Orders - Current: Current Medications Albuterol/Ipratropium (Duoneb 3.0-0.5 Mg/3 Ml) 3 ml INH ASDIRECTED PRN PRN Reason: BREATHING Last Admin: 11/02/18 20:33 Dose: 3 ml Bisacodyl (Dulcolax) 10 mg PO BID [facility] Last Admin: 11/05/18 08:30 Dose: Not Given Bisacodyl (Dulcolax) 10 mg RECTAL ASDIRECTED PRN PRN Reason: CONSTIPATION Clonazepam (Klonopin) 1 mg PO BID [facility] Last Admin: 11/05/18 08:29 Dose: 1 mg Clonazepam (Klonopin) 1 mg PO DAILY PRN PRN Reason: Anxiety Diltiazem HCl (Cardizem Cd) 240 mg PO DAILY [facility] Last Admin: 11/05/18 08:29 Dose: 240 mg Diphenhydramine HCl (Benadryl) 50 mg IVPUSH Q4H PRN PRN Reason: ITCHING Docusate Sodium (Colace) 100 mg PO BID [facility] Last Admin: 11/05/18 08:30 Dose: Not Given Hydromorphone HCl (Dilaudid) 2 - 4 mg PO Q4H PRN PRN Reason: Pain Hydroxyzine HCl (Vistaril) 100 mg IM Q4H PRN PRN Reason: BREAKTHROUGH PAIN Last Admin: 10/31/18 11:22 Dose: 100 mg Multivitamins/Minerals 10 ml/Chromium/Copper/Manganese/Seleni/Zn 1 ml/ Thiamine HCl 200 mg/ Dextrose/Lactated Ringer's 1,013 mls @ 100 mls/hr IV DAILY@1800 [facility] Last Admin: 11/04/18 17:51 Dose: 100 mls/hr Dextrose/Lactated Ringer's (Dextrose 5%-Lactated Ringers) 1,000 mls @ 0 mls/hr IV ASDIRECTED [facility] Last Admin: 11/05/18 03:53 Dose: 25 mls/hr Labetalol HCl (Normodyne) 5 mg IVPUSH Q5M PRN PRN Reason: SBP over 160 OR DBP over 95 Lorazepam (Ativan) 0.5 mg IVPUSH Q4H PRN PRN Reason: Anxiety Last Admin: 11/04/18 00:57 Dose: 0.5 mg Magnesium Hydroxide (Milk Of Magnesia) 30 ml PO BID [facility] Last Admin: 11/05/18 08:30 Dose: 30 ml Melatonin (Melatonin) 9 mg PO BEDTIME PRN PRN Reason: Insomnia Last Admin: 11/05/18 00:17 Dose: 9 mg Metoclopramide HCl (Reglan) 10 mg IVPUSH Q6H [facility] Last Admin: 11/05/18 05:12 Dose: 10 mg Naloxone HCl (Narcan) 0.1 mg IV ASDIRECTED PRN PRN Reason: decreased respiratory rate Ondansetron HCl (Zofran) 4 mg IVPUSH Q4H PRN PRN Reason: Nausea Last Admin: 10/31/18 14:49 Dose: 4 mg Pantoprazole Sodium (Protonix) 40 mg PO Q24H [facility] Last Admin: 11/04/18 15:51 Dose: 40 mg Propranolol HCl (Inderal) 20 mg PO Q8H [facility] Last Admin: 11/05/18 05:12 Dose: 20 mg Sodium Chloride (Saline Flush) 10 ml FLUSH ASDIRECTED PRN PRN Reason: Keep Vein Open Last Admin: 10/28/18 10:25 Dose: 10 ml Sotalol HCl (Betapace) 40 mg PO BID [facility] Last Admin: 11/05/18 08:44 Dose: Not Given Tamsulosin HCl (Flomax) 0.4 mg PO BEDTIME [facility] Last Admin: 11/04/18 20:51 Dose: 0.4 mg Discontinued Medications Bisacodyl (Dulcolax) 10 mg RECTAL ONETIME ONE Stop: 11/02/18 09:01 Last Admin: 11/02/18 08:02 Dose: 10 mg Bisacodyl (Dulcolax) 10 mg RECTAL ONETIME PRN PRN Reason: BM Stop: 11/02/18 15:01 Last Admin: 11/02/18 15:13 Dose: 10 mg Bupivacaine HCl (Marcaine 0.5%) Confirm Administered Dose 50 ml .ROUTE .STK-MED ONE Stop: 10/30/18 06:59 Last Admin: 10/30/18 07:37 Dose: 7.5 ml Ropivacaine 44 ml/Dexamethasone 8 mg/Epinephrine HCl 0.4 mg/ Sodium Chloride 33.6 ml 0 ml NERVRT ASDIRECTED [facility] Last Admin: 10/28/18 14:06 Dose: 80 syringe Ropivacaine 44 ml/Dexamethasone 8 mg/Epinephrine HCl 0.4 mg/ Sodium Chloride 33.6 ml 0 ml NERVRT ASDIRECTED [facility] Last Admin: 10/30/18 07:30 Dose: 80 syringe Cyanocobalamin (Vitamin B12) 1,000 mcg IM ONETIME ONE Stop: 10/30/18 09:01 Last Admin: 10/30/18 10:09 Dose: 1,000 mcg Dexamethasone (Dexamethasone) Confirm Administered Dose 4 mg .ROUTE .STK-MED ONE Stop: 10/28/18 12:15 Diltiazem HCl (Diltiazem) 20 mg IVPUSH ONETIME ONE Stop: 10/30/18 09:31 Last Admin: 10/30/18 09:40 Dose: 20 mg Diltiazem HCl (Cardizem) 30 mg PO Q6HR [facility] Last Admin: 10/31/18 03:23 Dose: 30 mg Diltiazem HCl (Cardizem Cd) 180 mg PO DAILY [facility] Last Admin: 11/01/18 09:32 Dose: 180 mg Diltiazem HCl (Diltiazem) 20 mg IVPUSH ONETIME ONE Stop: 10/31/18 15:21 Last Admin: 10/31/18 15:30 Dose: 20 mg Fentanyl (Sublimaze) Confirm Administered Dose 250 mcg .ROUTE .STK-MED ONE Stop: 10/28/18 12:15 Fentanyl (Sublimaze) Confirm Administered Dose 250 mcg .ROUTE .STK-MED ONE Stop: 10/28/18 14:32 Fentanyl (Sublimaze) Confirm Administered Dose 100 mcg .ROUTE .STK-MED ONE Stop: 10/30/18 06:47 Furosemide (Lasix) 20 mg IVPUSH ONETIME ONE Stop: 10/30/18 08:03 Last Admin: 10/30/18 08:07 Dose: 20 mg Furosemide (Lasix) 20 mg IVPUSH NOW ONE Stop: 11/01/18 10:01 Last Admin: 11/01/18 09:48 Dose: 20 mg Furosemide (Lasix) 20 mg IVPUSH NOW ONE Stop: 11/02/18 10:01 Last Admin: 11/02/18 12:29 Dose: 20 mg Furosemide (Lasix) 20 mg IVPUSH ONETIME ONE Stop: 11/03/18 12:36 Last Admin: 11/03/18 12:46 Dose: 20 mg Glycopyrrolate (Robinul) Confirm Administered Dose 1 mg .ROUTE .STK-MED ONE Stop: 10/28/18 12:15 Hydromorphone HCl (Dilaudid) 1 mg IVPUSH ONETIME ONE Stop: 10/28/18 12:44 Last Admin: 10/28/18 12:57 Dose: 1 mg Hydromorphone HCl (Dilaudid Geoscience Technician 15 Mg In Ns 30 Ml) 0 mg IV ASDIRECTED PRN; Protocol PRN 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 Last Admin: 11/04/18 10:49 Dose: 15 mg Lactated Ringer's (Ringers, Lactated) 1,000 mls @ 500 mls/hr IV ASDIRECTED [facility] Last Admin: 10/28/18 10:06 Dose: 500 mls/hr Sodium Chloride (Normal Saline) 100 mls @ 3 mls/sec IV ASDIRECTED [facility] Last Admin: 10/28/18 10:24 Dose: 3 mls/sec Dextrose/Lactated Ringer's (Dextrose 5%-Lactated Ringers) 1,000 mls @ 150 mls/ hr IV ASDIRECTED [facility] Last Admin: 10/28/18 12:35 Dose: 150 mls/hr Ampicillin Sodium/Sulbactam (Sodium 3 gm/ Sodium Chloride) 100 mls @ 200 mls/ hr IV NOW ONE Stop: 10/28/18 12:59 Last Admin: 10/28/18 12:31 Dose: 200 mls/hr Lactated Ringer's (Ringers, Lactated) Confirm Administered Dose 1,000 mls @ as directed .ROUTE .STK-MED ONE Stop: 10/28/18 14:25 Dextrose/Lactated Ringer's (Dextrose 5%-Lactated Ringers) 1,000 mls @ 175 mls/ hr IV ASDIRECTED [facility] Last Infusion: 10/29/18 07:30 Dose: 100 mls/hr Multivitamins/Minerals 10 ml/Chromium/Copper/Manganese/Seleni/Zn 1 ml/ Thiamine HCl 200 mg/ Dextrose/Lactated Ringer's 1,013 mls @ 175 mls/hr IV DAILY@1800 [facility] Stop: 10/31/18 04:00 Last Admin: 10/30/18 17:38 Dose: 175 mls/hr Ampicillin Sodium/Sulbactam (Sodium 3 gm/ Sodium Chloride) 100 mls @ 200 mls/ hr IV Q6H [facility] Stop: 10/30/18 12:29 Last Admin: 10/30/18 11:35 Dose: 200 mls/hr Dextrose/Lactated Ringer's (Dextrose 5%-Lactated Ringers) 1,000 mls @ 100 mls/ hr IV ASDIRECTED [facility] Last Admin: 10/31/18 03:37 Dose: 100 mls/hr Potassium Phosphate 20 mmole/ (Sodium Chloride) 256.6667 mls @ 86 mls/hr IV Q3H [facility] Stop: 10/29/18 18:59 Last Admin: 10/29/18 16:52 Dose: 86 mls/hr Linezolid (Zyvox) Confirm Administered Dose 300 mls @ as directed .ROUTE .STK- MED ONE Stop: 10/30/18 06:47 Diltiazem HCl 125 mg/ Sodium (Chloride) 125 mls @ 5 mls/hr IV TITRATE [facility]; Protocol Last Admin: 10/30/18 09:54 Dose: 5 mg/hr, 5 mls/hr Magnesium Sulfate 2 gm/ Premix 50 mls @ 25 mls/hr IV Q6H [facility] Stop: 10/30/18 23:59 Last Admin: 10/30/18 21:28 Dose: 25 mls/hr Potassium Phosphate 20 mmole/ (Sodium Chloride) 256.6667 mls @ 85.556 mls/hr IV Q3H [facility] Stop: 10/30/18 19:59 Last Admin: 10/30/18 17:36 Dose: 85.556 mls/hr Dextrose/Lactated Ringer's (Dextrose 5%-Lactated Ringers) 1,000 mls @ 75 mls/ hr IV ASDIRECTED [facility] Last Admin: 11/02/18 04:25 Dose: 25 mls/hr Potassium Phosphate 20 mmole/ (Sodium Chloride) 256.6667 mls @ 85.556 mls/hr IV Q3H [facility] Stop: 10/31/18 18:29 Last Admin: 10/31/18 15:50 Dose: 85.556 mls/hr Diltiazem HCl 125 mg/ Sodium (Chloride) 125 mls @ 5 mls/hr IV TITRATE [facility]; Protocol Last Admin: 11/01/18 09:01 Dose: 15 mg/hr, 15 mls/hr Iopamidol (Isovue-300 (61%)) 150 ml IV . DIRECTED [facility] Last Admin: 10/28/18 10:25 Dose: 135 ml Iopamidol (Isovue-300 (61%)) 50 ml .XX . DIRECTED STA Stop: 10/31/18 03:21 Last Admin: 10/31/18 20:04 Dose: Not Given Ketamine HCl (Ketalar) Confirm Administered Dose 500 mg .ROUTE .STK-MED ONE Stop: 10/30/18 06:44 Labetalol HCl (Normodyne) Confirm Administered Dose 20 mg .ROUTE .STK-MED ONE Stop: 10/30/18 07:48 Lidocaine/Epinephrine (Xylocaine 1% With Epinephrine 1:100,000) Confirm Administered Dose 50 ml .ROUTE .STK-MED ONE Stop: 10/30/18 06:59 Last Admin: 10/30/18 07:37 Dose: 7.5 ml Meropenem (Merrem) Confirm Administered Dose 500 mg .ROUTE .STK-MED ONE Stop: 10/28/18 14:06 Last Admin: 10/28/18 14:29 Dose: 500 mg Meropenem (Merrem) Confirm Administered Dose 500 mg .ROUTE .STK-MED ONE Stop: 10/28/18 14:54 Last Admin: 10/28/18 15:22 Dose: 500 mg Meropenem (Merrem) Confirm Administered Dose 500 mg .ROUTE .STK-MED ONE Stop: 10/30/18 06:46 Last Admin: 10/30/18 07:38 Dose: 500 mg Midazolam HCl (Versed 1 Mg/Ml) Confirm Administered Dose 2 mg .ROUTE .STK-MED ONE Stop: 10/30/18 06:46 Neostigmine Methylsulfate (Neostigmine) Confirm Administered Dose 5 mg .ROUTE .STK-MED ONE Stop: 10/28/18 12:15 Ondansetron HCl (Zofran) Confirm Administered Dose 4 mg .ROUTE .STK-MED ONE Stop: 10/28/18 12:15 Ondansetron HCl (Zofran) Confirm Administered Dose 8 mg .ROUTE .STK-MED ONE Stop: 10/30/18 06:50 Pantoprazole Sodium (Protonix Iv) 40 mg IV Q24H [facility] Last Admin: 11/03/18 17:50 Dose: 40 mg Propofol (Diprivan 20 Ml) Confirm Administered Dose 200 mg .ROUTE .STK-MED ONE Stop: 10/28/18 12:15 Propofol (Diprivan 20 Ml) Confirm Administered Dose 200 mg .ROUTE .STK-MED ONE Stop: 10/30/18 06:44 Propranolol HCl (Inderal) 20 mg PO TID [facility] Last Admin: 10/30/18 10:26 Dose: Not Given Rocuronium Dunn (Zemuron) Confirm Administered Dose 50 mg .ROUTE .STK-MED ONE Stop: 10/28/18 12:15 Rocuronium Dunn (Zemuron) Confirm Administered Dose 50 mg .ROUTE .STK-MED ONE Stop: 10/28/18 14:49 Sodium Chloride (Saline Flush) 10 ml FLUSH ASDIRECTED PRN PRN Reason: Keep Vein Open Last Admin: 10/28/18 10:43 Dose: 10 ml Succinylcholine Chloride (Quelicin) Confirm Administered Dose 200 mg .ROUTE .STK -MED ONE Stop: 10/28/18 12:15 Tamsulosin HCl (Flomax) 0.4 mg PO ONETIME ONE Stop: 10/30/18 11:31 Last Admin: 10/30/18 11:26 Dose: 0.4 mg - Exam Quality Assessment: No: Supplemental Oxygen General: Alert, Oriented, Cooperative, No Acute Distress GI/Abdominal Exam: Normal Bowel Sounds, Soft, Distended Extremities: No Pedal Edema Psy/Mental Status: Alert, Normal Affect Consult PN Assessment/Plan Procedures: Procedures ASSAY OF ETHANOL (06/30/13) ASSAY OF TROPONIN QUANT (10/15/18) CO/MEMBANE DIFFUSE CAPACITY (12/02/13) COLONOSCOPY AND BIOPSY (10/08/13) COMPLETE CBC AUTOMATED (03/25/13) COMPLETE CBC W/AUTO DIFF WBC (02/11/16) COMPREHEN METABOLIC PANEL (02/11/16) CT HEAD/BRAIN W/O DYE (05/04/15) CULTURE SCREEN ONLY (01/04/17) EGD BIOPSY SINGLE/MULTIPLE (01/04/17) ELECTROCARDIOGRAM REPORT (03/25/13) ELECTROCARDIOGRAM TRACING (02/23/17) EMERGENCY DEPT VISIT (10/19/18) EMERGENCY DEPT VISIT (05/31/17) EMERGENCY DEPT VISIT (05/01/17) EMERGENCY DEPT VISIT (04/14/17) EMERGENCY DEPT VISIT (02/23/17) EMERGENCY DEPT VISIT (10/15/16) EMERGENCY DEPT VISIT (04/07/16) EMERGENCY DEPT VISIT (01/28/16) EMERGENCY DEPT VISIT (12/31/15) EMERGENCY DEPT VISIT (11/04/15) EMERGENCY DEPT VISIT (06/30/13) EMERGENCY DEPT VISIT (03/25/13) EMERGENCY DEPT VISIT (03/25/13) EVALUATION OF WHEEZING (12/02/13) HYDRATION IV INFUSION INIT (05/31/17) INSERT TEMP BLADDER CATH (05/31/17) MANUAL THERAPY 1/> REGIONS (05/17/17) MEASURE BLOOD OXYGEN LEVEL (01/24/17) METABOLIC PANEL TOTAL CA (03/25/13) MRI BRAIN STEM W/O DYE (01/05/15) MRI LUMBAR SPINE W/O DYE (06/25/14) ORTHOTIC MGMT&TRAINJ 1ST ENC (09/13/14) POLYSOM 6/>YRS CPAP 4/> PARM (08/08/15) PT EVAL LOW COMPLEX 20 MIN (05/17/17) PT EVALUATION (11/01/15) ROUTINE VENIPUNCTURE (10/15/18) RPR UMBIL ALIN REDUC > 5 YR (12/09/15) STREP A AG IA (04/14/15) THER/PROPH/DIAG INJ SC/IM (04/20/17) THERAPEUTIC EXERCISES (05/17/17) TISSUE EXAM BY PATHOLOGIST (10/08/13) URINALYSIS AUTO W/SCOPE (05/31/17) US EXAM SCROTUM (05/12/17) US URINE CAPACITY MEASURE (05/31/17) VASCULAR STUDY (05/12/17) X-RAY EXAM L-2 SPINE 4/>VWS (11/18/14) X-RAY EXAM L-S SPINE 2/3 VWS (07/15/15) X-RAY EXAM THORAC SPINE 3VWS (04/07/16) X-RAY EYE FOR FOREIGN BODY (06/25/14) Problem List Initiated/Reviewed/Updated: Yes Plan: ASSESSMENT AND RECOMMENDATIONS ATRIAL FIBRILLATION WITH RAPID VENTRICULAR RESPONSE - he has remained in sinus rhythm for about 48 hours. No issues and doing well. -Sotalol 40 mg by mouth twice a day -Diltiazem CD 240 mg by mouth daily -Propranolol 20 mg by mouth every 8 hours -Plan to continue sotalol and diltiazem until 1 month after surgery, then discontinue if heart rhythm remained stable HYPOXIA - likely secondary to fluid overload and pulmonary edema and this has resolved. -Saline lock IV fluids HYPOMAGNESEMIA-resolved STATUS POST SURGICAL REPAIR OF PERFORATED GASTRIC ULCER - x-ray still suggestive of obstruction but patient is having bowel movements and is tolerating full liquids. -Postoperative care and management per Dr. Jj Pisano M.D.
[2018-11-05] MEDS ORDERED: Lidocaine 2% 30 ML, Alum Hydrox/Mag Hydrox/Simeth 30 ML, diphenhydrAMINE 75 MG PO PRN ×3 (10:08)
[2018-11-05] MEDS: Lidocaine 2% 30 ML, Alum Hydrox/Mag Hydrox/Simeth 30 ML, diphenhydrAMINE 75 MG PO PRN ×6 (14:11→20:10)
[2018-11-05] MEDS: Pantoprazole 40 MG Tab.CR PO SCH (16:15)
[2018-11-05] MEDS: Metoclopramide 10 MG Tab PO SCH ×2 (17:43→23:32)
[2018-11-05] MEDS: Acetaminophen 500 MG Tab PO SCH ×2 (17:43→23:33)
--- NOTE | 2018-11-05 18:50 | PN ---
DATE OF SERVICE: 11/05/2018 SUBJECTIVE: Nolan has started having bowel movements. Upper GI remains to show an increased amount of stool, but ileus is resolving. REVIEW OF SYSTEMS: Remainder of review of systems negative for any pertinent positives and negatives. OBJECTIVE: GENERAL: Nolan Renee is a pleasant 68-year-old male. He is up ambulating. VITAL SIGNS: TPR is 95.9, 62, 16, and blood pressure 80/54. HEENT: Negative. NECK: Supple. HEART: Regular rate and rhythm. LUNGS: Clear. ABDOMEN: Dressings dry and intact. Abdominal binder is on. EXTREMITIES: Without peripheral edema. ASSESSMENT: 1. Postop ileus. 2. Exploratory laparotomy with: a. Distal gastrectomy with Benja-en-Y gastrojejunostomy. b. Intraoperative esophageal gastroduodenoscopy. c. Decompression of distal small bowel tube enterostomy for probable perforated distal stomach and markedly distended small bowel and intraoperative esophagogastrojejunostomy. Date of surgery 10/28/2018. Surgeon, Ace Gardner MD. d. Delayed primary closure 10/30/2018. e. Atrial fibrillation. PLAN: 1. Full liquid diet. 2. Discontinue MANAGER MARKETING COMMUNICATION and continuous pulse ox. 3. Dilaudid 2-4 mg every 4 hours p.r.n. pain. Consult discharge planning in regard to home health care. Good pulmonary toilet. We will evaluate p.r.n. or in a.m. Antonia Emanuel PA-C /[id number]
[2018-11-05] MEDS: Tamsulosin 0.4 MG Cap.ER PO SCH (20:09)
[2018-11-06] MEDS: Propranolol 40 MG Tab PO SCH (05:21)
[2018-11-06] MEDS: Metoclopramide 10 MG Tab PO SCH (05:21)
[2018-11-06] MEDS: Acetaminophen 500 MG Tab PO SCH (05:21)
--- NOTE | 2018-11-06 09:16 | DISCH ---
ADMISSION DIAGNOSES: 1. Abdominal pain. 2. Atrial fibrillation. 3. Hard of hearing. 4. Coronary artery disease. 5. Sleep apnea. 6. Gastroesophageal reflux disease refractory to medical management. 7. Chronic back pain. 8. Migraine headaches. 9. Anxiety and depression. DISCHARGE DIAGNOSES: 1. Exploratory laparotomy with: a. Distal gastrectomy with Benja-en-Y gastrojejunostomy. b. Intraoperative upper GI endoscopy. c. Decompression of distended small bowel with tube enterostomy. d. Placement of Interceed mesh to limit recurrent adhesion formation between pelvic and abdominal wall and underlying viscera for acute abdomen with intraperitoneal free fluid with perforation of the distal stomach, markedly distended small bowel status post intraoperative esophagogastroduodenoscopy and extensive intraabdominal adhesions. Date of surgery: 10/28/2018. Surgeon: Ace Gardner MD. 2. Delayed primary closure on 10/30/2018. 3. Atrial fibrillation with rapid ventricular response. HISTORY: Nolan is a 68-year-old male, presenting with acute abdominal pain to the emergency room. He had an abrupt onset of abdominal pain. After preoperative evaluation and discussion of possible risks and possible complications, he wished to proceed with surgical procedure. HOSPITAL COURSE: Nolan had his surgery on 10/28/2018. He had no operative complications. On 10/30/2018, he had a delayed primary closure, which he developed atrial fibrillation with rapid ventricular response. He was symptomatic, diaphoretic, but had no chest pain or shortness of breath. He had previous episodes of atrial fibrillation. He did go to ICU to be watched closely, was started on two new medications, diltiazem CD 240 mg daily and sotalol 80 mg 1/2 tablet b.i.d. His atrial fib improved. He was able to be moved back up to the surgical floor and he did develop a postop ileus. This was treated with being n.p.o., ice chips only. He did continue with his oral medications. On 11/04/2018, he started to move his bowels, but remained fairly distended, continued to have bowel stimulation. On 11/05/2018, bowels were working, he started having frequent bowel movements. X-ray continued to show increased amount of stool. Bowel stimulation was continued, he was started on a full liquid diet, and on 11/06, he was able to be discharged to home. His activity was good, vital signs stable, heart rate normal and well controlled. Pain was controlled. He had dietary instruction. Had no other concerns. PHYSICAL EXAMINATION: GENERAL: Nolan Renee is a 68-year-old male. VITAL SIGNS: Height is 6 feet, weight is 195 pounds. TPR is 98.3, 71, 16, blood pressure 143/86. HEENT: Negative. NECK: Supple. HEART: Regular rate and rhythm. LUNGS: Clear. ABDOMEN: Incision looks good. Abdominal binder is on. EXTREMITIES: Without peripheral edema. DISPOSITION: Discharged to home. CONDITION: Stable and improving. FOLLOWUP: Followup appointment with Antonia Emanuel PA-C, on 11/11/2018 at 10 a.m. HOME MEDICATIONS: 1. Tylenol Extra Strength 1000 mg q.6 hours p.r.n. pain. 2. New prescription: Cardizem CD 240 mg oral daily #30. 3. Sotalol/Betapace 80 mg, take 1/2 tablet twice a day, one month given. He is to resume his home medication of: 1. Aspirin 81 mg daily. 2. Klonopin 1 oral twice daily. 3. Clonazepam 1 mg oral daily p.r.n. anxiety. 4. Fluoxetine 40 mg every a.m. 5. Multivitamin one tablet every morning. 6. Inderal 20 mg oral 3 times a day. 7. Simvastatin 10 mg at bedtime. 8. Ranitidine one tablet oral at bedtime. DIET: Full liquid diet for 5 days and mechanical soft for 1 month. Mechanical soft diet to start on 11/11/2018. Drink 8 to 10 glasses of water a day. ACTIVITY: No lifting over 10 pounds for 4 weeks. Other activity: Walk 6 times daily inside your home. Driving: Do not drive for 1 week and while on pain medication. Shower/bathing: May shower. DISCHARGE INSTRUCTIONS: Notify provider if any fever, increased pain, nausea, vomiting. Keep site clean and dry. Wear abdominal binder for 4 weeks and then as tolerated. SPECIAL INSTRUCTIONS: Use incentive spirometer 10 times every hour while awake for 1 week.
[2018-11-06] MEDS: Diltiazem 120 MG Cap.CD PO SCH (09:34)
[2018-11-06] MEDS: Sotalol 80 MG Tab PO SCH (09:36)
[2018-11-06] MEDS: Magnesium Hydroxide 400 MG/5 ML Susp 30 ML Cup PO SCH (09:38)
[2018-11-06] MEDS: Docusate Sodium 100 MG Cap PO SCH (09:38)
[2018-11-06] MEDS: Bisacodyl 5 MG Tab PO SCH (09:38)
[2018-11-06 09:39] VITALS: BP 141/74
[2018-11-06] MEDS: ClonazePAM 1 MG Tab PO SCH (09:50)
== END 2018-11-06 10:00 | disposition home health service (06) | DRG 327 ==
LOC: JP.ED 08:45 → JP.2SS 08:45 → JP.SDS 12:58 → JP.MS 12:59 → JP.ICU 10-30 09:36 → JP.2SS 11-02 13:50
PROVIDERS: ADMIT Surgery; ATTEND Surgery
PROC: 0D160ZA Bypass Stomach to Jejunum, Open Approach (ICD-10-PCS; principal; 2018-10-28)
PROC: 0DNU0ZZ Release Omentum, Open Approach (ICD-10-PCS; 2018-10-28)
PROC: 0DN80ZZ Release Small Intestine, Open Approach (ICD-10-PCS; 2018-10-28)
PROC: 0DNL0ZZ Release Transverse Colon, Open Approach (ICD-10-PCS; 2018-10-28)
PROC: 0DNW0ZZ Release Peritoneum, Open Approach (ICD-10-PCS; 2018-10-28)
PROC: 0D980ZZ Drainage of Small Intestine, Open Approach (ICD-10-PCS; 2018-10-28)
PROC: 0DB60ZZ Excision of Stomach, Open Approach (ICD-10-PCS; 2018-10-28)
PROC: 0DJ08ZZ Inspection of Upper Intestinal Tract, Via Natural or Artificial Opening Endoscopic (ICD-10-PCS; 2018-10-28)
PROC: 3E0M05Z Introduction of Adhesion Barrier into Peritoneal Cavity, Open Approach (ICD-10-PCS; 2018-10-28)
PROC: 0WQF0ZZ Repair Abdominal Wall, Open Approach (ICD-10-PCS; 2018-10-30)
DX: K63.1 Perforation of intestine (nontraumatic) (principal); R10.10 Upper abdominal pain, unspecified; K56.7 Ileus, unspecified; K63.89 Other specified diseases of intestine; K66.0 Peritoneal adhesions (postprocedural) (postinfection); K66.8 Other specified disorders of peritoneum; K57.30 Diverticulosis of large intestine without perforation or abscess without bleeding; Z48.1 Encounter for planned postprocedural wound closure; I48.91 Unspecified atrial fibrillation; E83.42 Hypomagnesemia; R09.02 Hypoxemia; E87.70 Fluid overload, unspecified; I25.10 Atherosclerotic heart disease of native coronary artery without angina pectoris; G47.30 Sleep apnea, unspecified; K21.9 Gastro-esophageal reflux disease without esophagitis; M54.9 Dorsalgia, unspecified; G89.29 Other chronic pain; F32.9 Major depressive disorder, single episode, unspecified; F41.9 Anxiety disorder, unspecified; G43.909 Migraine, unspecified, not intractable, without status migrainosus; G62.9 Polyneuropathy, unspecified; E83.39 Other disorders of phosphorus metabolism; Z79.82 Long term (current) use of aspirin; Z88.8 Allergy status to other drugs, medicaments and biological substances; Z90.81 Acquired absence of spleen; Z90.3 Acquired absence of stomach [part of]; Z87.891 Personal history of nicotine dependence
CPT/HCPCS: 36415; 74177; 80053; 85027; 86140; 96361; 96374; 96375; 99284; 99285; J0295; J0330; J1100; J1170; J2405; J2704; J2710; J3010; J3490; J7030 ×2; J7042; J7120; 51702; 74019; 74240; 80048; 83735; 83880; 84100; 84443; 85025; 88307; 93005; 93306; 94640; 94762; A9270-GY; C9113; J0171; J1940; J2020; J2060; J2185; J2250; J2765; J2795; J3410; J3411; J3420; J3475; J7050; J7620-GY

== ENCOUNTER 2018-12-06 16:17 | Emergency (ER) | payer MEDICARE, MEDICAID ==
[2018-12-06 17:23] VITALS: BP 135/70; PULSE 52
--- NOTE | 2018-12-06 17:24 | EDM.PDOC ---
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 He has pain around the incision site; feels like a squeezing. Rates the pain as a 6. Is passing gas, has bowel movements, denies nausea, vomiting. No chest pain or sob, no racing heart rate. Is talking without difficulty. Onset: Today Location: Reports: Abdomen Quality: Reports: Other (squeezing) Severity: Moderate Improves with: Reports: None Worsens with: Reports: None Middle Abdomen Pain Score (Numeric/FACES): 5 - Related Data Allergies Allergy/AdvReac Type Severity Reaction Status Date / Time Ulrwpta-Gyo-Ylv Reductase Allergy Cannot Verified 12/06/18 17:23 Inhibitor Remember atorvastatin AdvReac Muscle Verified 12/06/18 17:23 Weakness bupropion HCl AdvReac Seizure Verified 12/06/18 17:23 [From Wellbutrin] citalopram hydrobromide AdvReac Hallucinati Verified 12/06/18 17:23 [From Celexa] ons gabapentin AdvReac Shaking Verified 12/06/18 17:23 mirtazapine [From Remeron] AdvReac Hallucinati Verified 12/06/18 17:23 ons pravastatin AdvReac Leg Cramps Verified 12/06/18 17:23 Home Meds: Home Meds Aspirin [Darlin Chewable Aspirin] 81 mg PO QAM 03/25/13 [History] Multivitamin with Minerals [Multiple Vitamin] 1 tab PO QAM 03/25/13 [History] Propranolol [Inderal] 20 mg PO TID 06/30/13 [History] FLUoxetine [PROzac] 40 mg PO QAM 10/06/13 [History] Acetaminophen [Tylenol Extra Strength] 500 mg PO Q6H PRN 01/03/17 [History] ClonazePAM [KlonoPIN] 1 mg PO BID 10/29/18 [History] ClonazePAM [KlonoPIN] 1 mg PO DAILY PRN 10/29/18 [History] Simvastatin 10 mg PO BEDTIME 10/29/18 [History] raNITIdine HCl [Ranitidine HCl] 1 tab PO BEDTIME 10/29/18 [History] Diltiazem [Cardizem CD] 240 mg PO DAILY #30 cap.cd 11/02/18 [Rx] Past Medical History HEENT History: Reports: Hard of Hearing, Impaired Vision Cardiovascular History: Reports: Arrhythmia, CAD, Heart Murmur, SOB on Exertion Respiratory History: Reports: Sleep Apnea Other Respiratory History: no cpap Gastrointestinal History: Reports: Colon Polyp, GERD, Hiatal Hernia Musculoskeletal History: Reports: Back Pain, Chronic, Fracture, Other (See Below ) Other Musculoskeletal History: possible neuropathy Neurological History: Reports: Migraines, Neuropathy, Peripheral, Other (See Below) Other Neuro History: tremors from meds. tinnitis Psychiatric History: Reports: Anxiety, Depression Hematologic History: Reports: Blood Transfusion(s) - Infectious Disease History Infectious Disease History: Reports: Chicken Pox, Measles, Mumps - Past Surgical History Head Surgeries/Procedures: Reports: None HEENT Surgical History: Reports: Other (See Below) Other HEENT Surgeries/Procedures: removed metal from eye Cardiovascular Surgical History: Reports: Other (See Below) Other Cardiovascular Surgeries/Procedures: angiogram Respiratory Surgical History: Reports: None GI Surgical History: Reports: Colonoscopy, EGD, Hernia Repair/Other, Polypectomy , Other (See Below) Other GI Surgeries/Procedures: splenectomy 2006 Neurological Surgical History: Reports: None Musculoskeletal Surgical History: Reports: None Dermatological Surgical History: Reports: None Social & Family History - Family History Family Medical History: Noncontributory - Caffeine Use Caffeine Use: Reports: Coffee Caffeine Use Comment: 20 oz a day ED ROS GENERAL - Review of Systems Review Of Systems: See Below Constitutional: Reports: No Symptoms Respiratory: Reports: No Symptoms Cardiovascular: Reports: No Symptoms Endocrine: Reports: No Symptoms GI/Abdominal: Reports: Abdominal Pain : Reports: No Symptoms Musculoskeletal: Reports: No Symptoms Skin: Reports: No Symptoms Neurological: Reports: No Symptoms ED EXAM, GENERAL - Physical Exam Exam: See Below Exam Limited By: No Limitations General Appearance: Alert, WD/WN, No Apparent Distress Head: Atraumatic, Normocephalic Neck: Normal Inspection, Full Range of Motion Respiratory/Chest: No Respiratory Distress, Lungs Clear, Normal Breath Sounds Cardiovascular: Normal Peripheral Pulses, Regular Rate, Rhythm GI/Abdominal: Normal Bowel Sounds, Soft, No Distention, No Mass, Other ( discomfort around his scar) Back Exam: Normal Inspection Extremities: Normal Inspection, Normal Range of Motion Neurological: Alert, Oriented, CN II-XII Intact, Normal Cognition, Normal Gait Psychiatric: Normal Affect, Normal Mood Skin Exam: Warm, Dry Course - Vital Signs Last Recorded V/S: Last Vital Signs Temp 97.1 F 12/06/18 17:21 Pulse 52 L 12/06/18 17:21 Resp 17 12/06/18 17:21 BP 135/70 12/06/18 17:21 Pulse Ox 97 12/06/18 17:21 - Orders/Labs/Meds Orders: Active Orders 24 hr Category Date Time Status Peripheral IV Care [RC] . DIRECTED Care 12/06/18 18:53 Active Iopamidol [Isovue-300 (61%)] Med 12/06/18 19:15 Active 100 ml IV . DIRECTED Sodium Chloride 0.9% [Normal Saline] 100 ml Med 12/06/18 19:15 Active IV ASDIRECTED Sodium Chloride 0.9% [Saline Flush] Med 12/06/18 18:53 Active 10 ml FLUSH ASDIRECTED PRN Peripheral IV Insertion Adult [OM.PC] Stat Oth 12/06/18 18:53 Ordered Medication Orders Sodium Chloride (Normal Saline) 100 mls @ 3 mls/sec IV ASDIRECTED KERRI Last Admin: 12/06/18 19:26 Dose: 3 mls/sec Iopamidol (Isovue-300 (61%)) 100 ml IV . DIRECTED KERRI Last Admin: 12/06/18 19:26 Dose: 100 ml Sodium Chloride (Saline Flush) 10 ml FLUSH ASDIRECTED PRN PRN Reason: Keep Vein Open Last Admin: 12/06/18 19:07 Dose: 10 ml Labs: Laboratory Tests 12/06/18 12/06/18 Range/Units 17:37 17:37 WBC 14.0 H (4.5-11.0) K/uL RBC 4.63 (4.30-5.90) M/uL Hgb 13.6 (12.0-15.0) g/dL Hct 43.5 (40.0-54.0) % MCV 94 (80-98) fL MCH 29 (27-31) pg MCHC 31 L (32-36) % Plt Count 320 (150-400) K/uL Neut % (Auto) 75 H (36-66) % Lymph % (Auto) 16 L (24-44) % Bledsoe % (Auto) 8 H (2-6) % Eos % (Auto) 1 L (2-4) % Baso % (Auto) 0 (0-1) % Sodium 142 (140-148) mmol/L Potassium 4.3 (3.6-5.2) mmol/L Chloride 105 (100-108) mmol/L Carbon Dioxide 30 (21-32) mmol/L Anion Gap 7.5 (5.0-14.0) mmol/L BUN 12 (7-18) mg/dL Creatinine 1.0 (0.8-1.3) mg/dL Est Cr Clr Drug Dosing 78.68 mL/min Estimated GFR (MDRD) > 60 (>60) Glucose 105 (74-106) mg/dL Calcium 8.7 (8.5-10.1) mg/dL Total Bilirubin 0.6 (0.2-1.0) mg/dL AST 14 L (15-37) U/L ALT 29 (12-78) U/L Alkaline Phosphatase 120 H (46-116) U/L Total Protein 6.7 (6.4-8.2) g/dL Albumin 2.9 L (3.4-5.0) g/dL Globulin 3.8 H (2.3-3.5) g/dL Albumin/Globulin Ratio 0.8 L (1.2-2.2) Meds: Medications Generic Name Dose Route Start Last Admin Trade Name Freq PRN Reason Stop Dose Admin Sodium Chloride 100 mls @ 3 mls/sec 12/06/18 19:15 12/06/18 19:26 Normal Saline IV 3 mls/sec ASDIRECTED KERRI Administration Iopamidol 100 ml 12/06/18 19:15 12/06/18 19:26 Isovue-300 (61%) IV 100 ml . DIRECTED KERRI Administration Sodium Chloride 10 ml 12/06/18 18:53 12/06/18 19:07 Saline Flush FLUSH 10 ml ASDIRECTED PRN Administration Keep Vein Open Discontinued Medications Generic Name Dose Route Start Last Admin Trade Name Freq PRN Reason Stop Dose Admin Sodium Chloride 10 ml 12/06/18 19:09 12/06/18 20:15 Saline Flush FLUSH 12/06/18 19:10 10 ml ONETIME ONE Administration - Radiology Interpretation CT Results Date: 12/06/18 - Re-Assessments/Exams Free Text/Narrative Re-Assessment/Exam: 12/06/18 20:[address] scan results with patient He is feeling much better. Feels that he can be discharged to home. Departure - Departure Time of Disposition: 20:49 Disposition: Home, Self-Care 01 Condition: Fair Clinical Impression: Abdominal pain Qualifiers: Abdominal location: upper abdomen, unspecified Qualified Code(s): R10.10 - Upper abdominal pain, unspecified - Discharge Information *PRESCRIPTION DRUG MONITORING PROGRAM REVIEWED*: Not Applicable *COPY OF PRESCRIPTION DRUG MONITORING REPORT IN PATIENT MARISELA: Not Applicable Instructions: Abdominal Pain, Adult, Tuls-qn-Pyze Referrals: Robin Mata SPACE TECHNOLOGIST [Primary Care Provider] - Forms: ED Department Discharge Additional Instructions: Easily digestible foods Stay hydrated Recommend follow up with your doctor next week Call with questions. Return with worsening of symptoms. ED Communication - Discussed Case With (1) Discussed Case With (1): Other (Spoke with hospitalist, Dr. Pisano regarding abdominal xray/findings concerning for obstruction or ilius. He recommends CT of abdomen.) - Problem List & Annotations (1) Abdominal pain SNOMED Code(s): 38573304 Code(s): R10.9 - UNSPECIFIED ABDOMINAL PAIN Status: Acute Priority: Medium Current Visit: Yes Qualifiers: Abdominal location: generalized Qualified Code(s): R10.84 - Generalized abdominal pain - Problem List Review Problem List Initiated/Reviewed/Updated: Yes - My Orders Last 24 Hours: My Active Orders 12/06/18 18:53 Peripheral IV Care [RC] . DIRECTED Sodium Chloride 0.9% [Saline Flush] 10 ml FLUSH ASDIRECTED PRN Peripheral IV Insertion Adult [OM.PC] Stat 12/06/18 19:15 Iopamidol [Isovue-300 (61%)] 100 ml IV . DIRECTED Sodium Chloride 0.9% [Normal Saline] 100 ml IV ASDIRECTED - Assessment/Plan Last 24 Hours: My Active Orders 12/06/18 18:53 Peripheral IV Care [RC] . DIRECTED Sodium Chloride 0.9% [Saline Flush] 10 ml FLUSH ASDIRECTED PRN Peripheral IV Insertion Adult [OM.PC] Stat 12/06/18 19:15 Iopamidol [Isovue-300 (61%)] 100 ml IV . DIRECTED Sodium Chloride 0.9% [Normal Saline] 100 ml IV ASDIRECTED
--- NOTE | 2018-12-06 18:34 | CRLCR ---
INDICATION: Abdominal. Pain TECHNIQUE: Abdominal radiograph 4 views COMPARISON: 11/05/2018 FINDINGS: Bowel: Gas-filled dilated small bowel loops are present measuring up to 5.5 cm. A small amount of gas is also present in the colon. Bowel staple lines are present in the midline epigastrium and left quadrant. Soft tissue: No evidence of pneumoperitoneum present. No suspicious calcifications noted. Bone: Unremarkable for age. IMPRESSION: 1. Gas-filled dilated small bowel loops are present measuring up to 5.5 cm. A small amount of gas is also present in the colon. Findings may be due to small bowel obstruction or adynamic ileus. The amount of small bowel gases distension is increased compared to prior exam. Dictated by Db Dacosta MD @ 12/06/2018 6:33:04 PM Dictated by: Db Dacosta MD @ 12/06/2018 18:33:10 (Electronically Signed)
[2018-12-06] MEDS ORDERED: Sodium Chloride 0.9% 10 ML Syringe FLUSH PRN (18:53)
[2018-12-06] MEDS ORDERED: Sodium Chloride 0.9% 10 ML Syringe FLUSH ONE (19:09)
[2018-12-06] MEDS ORDERED: Sodium Chloride 0.9% 100 ML IV SCH (19:15)
[2018-12-06] MEDS ORDERED: Iopamidol 612 MG/ML 100 ML Bottle IV SCH (19:15)
--- NOTE | 2018-12-06 20:41 | CRLCT ---
INDICATION: Abdominal pain. Previous free intra-abdominal air. Previous history of splenectomy. COMPARISON: 10/28/2018 TECHNIQUE: CT examination of the abdomen and pelvis was performed with the uneventful intravenous administration of 100 cc of Isovue-300 while 3 mm thick axial sections were obtained from the lung bases through the pubic symphysis. Oral contrast was not administered. Please note that all CT scans at this facility use dose modulation, iterative reconstruction, and/or weight-based dosing when appropriate to reduce radiation dose to as low as reasonably achievable. FINDINGS: The previously seen large amount of free air in the anterior abdomen and the multiple small bubbles of free intra-abdominal air are no longer present. There is no sign of any extraluminal gas or free fluid in the abdomen or pelvis on today`s study. In the abdomen, the liver, pancreas, and adrenals are normal in appearance. The spleen is again seen to be absent, consistent with a history of previous splenectomy. The kidneys are normal in appearance. The gallbladder is normal in appearance. The abdominal aorta is normal in caliber with no sign of dilatation. There is no sign of retroperitoneal mass or adenopathy. There are new changes of resection of the distal stomach and anastomosis with the duodenum, consistent with a Benja-en-Y procedure. There is moderate thickening of the alves of the jejunum located immediately adjacent to the anastomosis, raising the possibility of inflammation related to gastric secretions. I do not see any sign of bowel perforation in this region. A small bowel anastomosis is located in the left paramedian abdomen just below the stomach, with no sign of any stricture or perforation. The rest of the loops of small bowel and colon in the abdomen are normal in appearance. In the pelvis, the appendix is normal in appearance with no sign of inflammatory process. The loops of small bowel and colon in the pelvis are normal in appearance. The prostate is normal in appearance. The urinary bladder is normal in appearance. There is no sign of pelvic or inguinal mass or adenopathy. Again seen are small bilateral fat containing inguinal hernias. The lung bases are clear. Again seen is mild scoliosis of the lumbar spine convex towards the left. IMPRESSION: Resolution of previously seen free intra-abdominal air. No sign of any extraluminal gas or free fluid in the abdomen or pelvis on today`s study. There are new changes of what appears to be a Benja-en-Y procedure with inflammatory thickening of the jejunum seen adjacent to the gastrojejunostomy, probably inflammation related to gastric secretions. No sign of any perforation or abscess in this region. Widely patent anastomosis of the small bowel more distally in the left paramedian upper abdomen. Again seen is surgical absence of the spleen. CT of the pelvis shows no change and small fat containing bilateral inguinal hernias. Normal appearance of the appendix. Please note that all CT scans at this facility use dose modulation, iterative reconstruction, and/or weight-based dosing when appropriate to reduce radiation dose to as low as reasonably achievable. Dictated by Davis Ramirez MD @ Dec 06 2018 8:27PM Signed by Dr. Davis Ramirez @ Dec 06 2018 8:39PM
== END 2018-12-06 20:56 | disposition home or self-care (01) ==
LOC: JP.ED 16:17
DX: G89.18 Other acute postprocedural pain (principal); R10.10 Upper abdominal pain, unspecified; I25.10 Atherosclerotic heart disease of native coronary artery without angina pectoris; K21.9 Gastro-esophageal reflux disease without esophagitis; F41.9 Anxiety disorder, unspecified; F32.9 Major depressive disorder, single episode, unspecified; Z79.82 Long term (current) use of aspirin; Z79.899 Other long term (current) drug therapy; Z88.8 Allergy status to other drugs, medicaments and biological substances
CPT/HCPCS: 36415; 74019; 74177; 80053; 85025; 99284; J7030; Q9967; 99283

== ENCOUNTER 2019-01-18 22:26 | Emergency (ER) | payer MEDICARE, MEDICAID ==
[2019-01-18 22:54] VITALS: BP 168/89
--- NOTE | 2019-01-18 23:34 | EDM.PDOC ---
ED HPI GENERAL MEDICAL PROBLEM - General Chief Complaint: General Stated Complaint: A FIB Time Seen by Provider: 01/18/19 23:15 Source of Information: Reports: Patient, Family, Old Records, RN History Limitations: Reports: No Limitations - History of Present Illness INITIAL COMMENTS - FREE TEXT/NARRATIVE: 68 yo male here with a complaint of lethargy, weakness, anorexia, and SOB tonight. Has not had a fever or cough. No black or bloody stools. No chest pains. No calf pain or LE edema. Has a hx of anxiety. Was tx's in recent past by Dr. Gardner for a perforated ? gastric ulcer. Onset: Today Onset Date: 01/18/19 Duration: Hour(s):, Constant Location: Reports: Generalized Quality: Reports: Other (no pain) Severity: Moderate Improves with: Reports: Rest Worsens with: Reports: Movement (exertion) Context: Reports: Other (see HPI) Associated Symptoms: Reports: Loss of Appetite, Malaise, Shortness of Breath, Weakness (generalized). Denies: Chest Pain, Cough, Fever/Chills, Headaches, Nausea/Vomiting, Rash, Syncope Treatments WELT CUTTER: Reports: Other (see below) (none) Neck Pain Score (Numeric/FACES): 2 - Related Data Allergies Allergy/AdvReac Type Severity Reaction Status Date / Time Dutpqyx-Ywk-Kji Reductase Allergy Cannot Verified 01/18/19 22:56 Inhibitor Remember atorvastatin AdvReac Muscle Verified 01/18/19 22:56 Weakness bupropion HCl AdvReac Seizure Verified 01/18/19 22:56 [From Wellbutrin] citalopram hydrobromide AdvReac Hallucinati Verified 01/18/19 22:56 [From Celexa] ons gabapentin AdvReac Shaking Verified 01/18/19 22:56 mirtazapine [From Remeron] AdvReac Hallucinati Verified 01/18/19 22:56 ons pravastatin AdvReac Leg Cramps Verified 01/18/19 22:56 Home Meds: Home Meds Aspirin [Darlin Chewable Aspirin] 81 mg PO QAM 03/25/13 [History] Multivitamin with Minerals [Multiple Vitamin] 1 tab PO QAM 03/25/13 [History] Propranolol [Inderal] 20 mg PO TID 06/30/13 [History] FLUoxetine [PROzac] 40 mg PO QAM 10/06/13 [History] Acetaminophen [Tylenol Extra Strength] 500 mg PO Q6H PRN 01/03/17 [History] ClonazePAM [KlonoPIN] 1 mg PO BID 10/29/18 [History] ClonazePAM [KlonoPIN] 1 mg PO DAILY PRN 10/29/18 [History] Simvastatin 10 mg PO BEDTIME 10/29/18 [History] raNITIdine HCl [Ranitidine HCl] 1 tab PO BEDTIME 10/29/18 [History] Diltiazem [Cardizem CD] 120 mg PO DAILY 01/18/19 [History] Past Medical History HEENT History: Reports: Hard of Hearing, Impaired Vision Cardiovascular History: Reports: Arrhythmia, CAD, Heart Murmur, SOB on Exertion Respiratory History: Reports: Sleep Apnea Other Respiratory History: no cpap Gastrointestinal History: Reports: Colon Polyp, GERD, Hiatal Hernia Musculoskeletal History: Reports: Back Pain, Chronic, Fracture, Other (See Below ) Other Musculoskeletal History: possible neuropathy Neurological History: Reports: Migraines, Neuropathy, Peripheral, Other (See Below) Other Neuro History: tremors from meds. tinnitis Psychiatric History: Reports: Anxiety, Depression Hematologic History: Reports: Blood Transfusion(s) - Infectious Disease History Infectious Disease History: Reports: Chicken Pox - Past Surgical History HEENT Surgical History: Reports: Other (See Below) Other HEENT Surgeries/Procedures: removed metal from eye Cardiovascular Surgical History: Reports: Other (See Below) Other Cardiovascular Surgeries/Procedures: angiogram Respiratory Surgical History: Reports: None GI Surgical History: Reports: Colonoscopy, EGD, Hernia Repair/Other, Polypectomy , Other (See Below) Other GI Surgeries/Procedures: splenectomy 2006 abdomenal surgery in October like bariatric procedure Neurological Surgical History: Reports: None Musculoskeletal Surgical History: Reports: None Dermatological Surgical History: Reports: None Social & Family History - Family History Family Medical History: Noncontributory - Tobacco Use Smoking Status *Q: Never Smoker Second Hand Smoke Exposure: No - Caffeine Use Caffeine Use: Reports: None Caffeine Use Comment: 20 oz a day - Recreational Drug Use Recreational Drug Use: No ED ROS GENERAL - Review of Systems Review Of Systems: See Below Constitutional: Reports: Malaise, Weakness (generalized), Fatigue, Decreased Appetite. Denies: Fever, Diaphoresis HEENT: Reports: No Symptoms Respiratory: Reports: Shortness of Breath. Denies: Wheezing, Pleuritic Chest Pain, Cough, Sputum, Hemoptysis Cardiovascular: Reports: Blood Pressure Problem (more labile than usual), Dyspnea on Exertion. Denies: Edema, Orthopnea, Palpitations, PND, Syncope Endocrine: Reports: No Symptoms GI/Abdominal: Reports: Anorexia, Decreased Appetite, Nausea (mild, intermittent) . Denies: Abdominal Pain, Black Stool, Bloody Stool, Constipation, Diarrhea, Distension, Flatus, Hematemesis, Hematochezia, Melena, Vomiting : Reports: No Symptoms Musculoskeletal: Reports: No Symptoms Skin: Reports: No Symptoms Neurological: Reports: No Symptoms Psychiatric: Reports: Anxiety ED EXAM, GENERAL - Physical Exam Exam: See Below Exam Limited By: No Limitations General Appearance: Alert, WD/WN, No Apparent Distress Eye Exam: Bilateral Eye: Normal Inspection Ears: Normal External Exam, Normal Canal, Hearing Grossly Normal Ear Exam: Bilateral Ear: Auricle Normal, Canal Normal Nose: Normal Inspection, No Blood Throat/Mouth: Normal Inspection, Normal Lips, Normal Oropharynx, Normal Voice, No Airway Compromise Head: Atraumatic, Normocephalic Neck: Normal Inspection Respiratory/Chest: No Respiratory Distress, Lungs Clear, Normal Breath Sounds, No Accessory Muscle Use Cardiovascular: Regular Rate, Rhythm, No Edema GI/Abdominal: Normal Bowel Sounds, Soft, Non-Tender, No Distention Back Exam: Normal Inspection. No: CVA Tenderness (R), CVA Tenderness (L) Extremities: Normal Inspection, Normal Range of Motion, Non-Tender, No Pedal Edema Neurological: Alert, Oriented, CN II-XII Intact, Normal Cognition, No Motor/ Sensory Deficits Psychiatric: Normal Affect, Normal Mood Skin Exam: Warm, Dry, Intact, Normal Color, No Rash Course - Vital Signs Last Recorded V/S: Last Vital Signs Temp 36.1 C 01/18/19 22:53 Pulse 60 01/18/19 22:53 Resp 12 01/18/19 22:53 BP 168/89 H 01/18/19 22:53 Pulse Ox 98 01/18/19 22:53 Orthostatic Blood Pressure [ 125/80 Standing] Orthostatic Blood Pressure [ 133/81 Sitting] Orthostatic Blood Pressure [ 133/75 Supine] - Orders/Labs/Meds Orders: Active Orders 24 hr Category Date Time Status Orthostatic Vital Signs [RC] ASDIRECTED Care 01/18/19 23:27 Active Overnight Pulse Oximetry [RC] Click to Edit Care 01/18/19 23:28 Active Pulse Oximetry Continuous Monitoring [OM.PC] Routine Oth 01/18/19 23:27 Ordered Departure - Departure Time of Disposition: 00:22 Disposition: Home, Self-Care 01 Condition: Good Clinical Impression: Anxiety about health - Discharge Information *PRESCRIPTION DRUG MONITORING PROGRAM REVIEWED*: No *COPY OF PRESCRIPTION DRUG MONITORING REPORT IN PATIENT MARISELA: No Referrals: Robin Mata NP [Primary Care Provider] - Forms: ED Department Discharge Additional Instructions: Continue your current meds. F/U with your provider if your symptoms persist. Return if worse. - My Orders Last 24 Hours: My Active Orders 01/18/19 23:27 Orthostatic Vital Signs [RC] ASDIRECTED Pulse Oximetry Continuous Monitoring [OM.PC] Routine 01/18/19 23:28 Overnight Pulse Oximetry [RC] Click to Edit - Assessment/Plan Last 24 Hours: My Active Orders 01/18/19 23:27 Orthostatic Vital Signs [RC] ASDIRECTED Pulse Oximetry Continuous Monitoring [OM.PC] Routine 01/18/19 23:28 Overnight Pulse Oximetry [RC] Click to Edit
== END 2019-01-19 00:28 | disposition home or self-care (01) ==
LOC: JP.ED 22:26
DX: F41.9 Anxiety disorder, unspecified (principal); Z88.8 Allergy status to other drugs, medicaments and biological substances; Z79.82 Long term (current) use of aspirin; Z79.899 Other long term (current) drug therapy; Z91.048 Other nonmedicinal substance allergy status
CPT/HCPCS: 99283

== ENCOUNTER 2019-02-17 07:16 | Day surgery (SDC) | payer MEDICARE, MEDICAID ==
[~2019-02-17 07:16] MED LIST: Bupivacaine 0.5%/EPINEPHrine 1:200,000 50 ML MDV ONE
[2019-02-17] MEDS ORDERED: Acetaminophen 500 MG Tab PO ONE (07:33)
[2019-02-17] MEDS ORDERED: Diltiazem 120 MG Cap.CD PO SCH (07:45)
[2019-02-17] MEDS ORDERED: Diltiazem 120 MG Cap.CD PO ONE (07:45)
[2019-02-17] MEDS ORDERED: Propranolol 40 MG Tab PO ONE (07:45)
[2019-02-17] MEDS ORDERED: Ondansetron 4 MG/2 ML SDV ONE (07:47)
[2019-02-17] MEDS ORDERED: Neostigmine Methylsulfate 1 MG/ML 5 ML Syringe ONE (07:47)
[2019-02-17] MEDS ORDERED: Succinylcholine 200 MG/10 ML MDV ONE (07:47)
[2019-02-17] MEDS ORDERED: Glycopyrrolate 0.2 MG/ML 5 ML MDV ONE (07:47)
[2019-02-17] MEDS ORDERED: fentaNYL 250 MCG/5 ML SDV ONE (07:47)
[2019-02-17] MEDS ORDERED: Dexamethasone 4 MG/ML SDV ONE (07:47)
[2019-02-17] MEDS ORDERED: Rocuronium 50 MG/5 ML Vial ONE (07:47)
[2019-02-17] MEDS ORDERED: Propofol 200 MG/20 ML SDV ONE (07:47)
[2019-02-17] MEDS: Dextrose 5%-Lactated Ringers 1,000 ML IV SCH ×3 (07:55→21:59)
[2019-02-17] MEDS ORDERED: cefOXitin 2 GM in Sodium Chloride 0.9% 50 ML IV ONE (08:00)
[2019-02-17] MEDS ORDERED: Ketamine 500 MG/5 ML MDV IV SCH (09:00)
[2019-02-17] MEDS ORDERED: hydrOXYzine HCl 100 MG/2 ML SDV IM ONE (10:14)
[2019-02-17] MEDS ORDERED: Ondansetron 4 MG/2 ML SDV IVPUSH PRN (11:47)
[2019-02-17] MEDS ORDERED: HYDROmorphone 1 MG/ML Syringe IV PRN (11:47)
[2019-02-17] MEDS ORDERED: HYDROmorphone 0.5 MG/0.5 ML Syringe IVPUSH PRN (11:47)
[2019-02-17] MEDS ORDERED: Ipratropium 0.03% Nasal Spray 30 ML Bot NAS PRN (11:59)
[2019-02-17] MEDS ORDERED: Pantoprazole 40 MG Vial IVPUSH SCH (14:00)
[2019-02-17] MEDS: Propranolol 40 MG Tab PO SCH ×2 (14:14→20:35)
[2019-02-17] MEDS: Diltiazem 120 MG Cap.CD PO SCH (14:14)
[2019-02-17] MEDS: cefOXitin 2 GM in Sodium Chloride 0.9% 50 ML IV SCH ×2 (15:36→21:59)
[2019-02-17] MEDS: ClonazePAM 0.5 MG Tab PO SCH (20:36)
[2019-02-17] MEDS: Acetaminophen/HYDROcodone 325-5 MG Tab PO PRN (20:36)
[2019-02-18] MEDS: Acetaminophen/HYDROcodone 325-5 MG Tab PO PRN ×2 (01:04→09:03)
[2019-02-18] MEDS: cefOXitin 2 GM in Sodium Chloride 0.9% 50 ML IV SCH ×2 (03:00→09:04)
[2019-02-18 08:05] VITALS: BP 140/80
[2019-02-18] MEDS: Propranolol 40 MG Tab PO SCH (08:19)
[2019-02-18] MEDS: ClonazePAM 0.5 MG Tab PO SCH (08:19)
[2019-02-18] MEDS: Diltiazem 120 MG Cap.CD PO SCH (08:20)
[2019-02-18 08:21] VITALS: PULSE 58
--- NOTE | 2019-02-18 13:28 | DISCH ---
ADMISSION DIAGNOSES: 1. Cholecystitis. 2. Avoidant personality. 3. Dyslipidemia. 4. Mild cognitive impairment. 5. Coronary artery disease. 6. Anxiety. 7. Depression. 8. Obstructive sleep apnea. 9. Chronic low back pain. 10.Hypertriglyceridemia. 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 12.Essential tremor. DISCHARGE DIAGNOSES: Diagnostic laparoscopy with cholecystectomy and repair of incarcerated incisional hernia for chronic and subacute cholecystitis and incarcerated incisional hernia. Date of surgery 02/17/2019. Surgeon, Ace Gardner MD. HISTORY: Nolan Renee is a 68-year-old male with acute abdominal pain. After preoperative evaluation and discussion of possible risks and possible complications, he wished to proceed with surgical procedure. HOSPITAL COURSE: Nolan had his surgery on 02/17/2019. He was able to be discharged on postoperative day 1. His pain was well managed. Activity was good. Oral intake adequate and vital signs stable. PHYSICAL EXAMINATION: GENERAL: Nolan Renee is a 68-year-old male. He is alert and orientated. VITAL SIGNS: TPR 96.4, 55, 18; blood pressure 140/80. HEENT: Negative. NECK: Supple. HEART: Regular rate and rhythm. LUNGS: Clear. ABDOMEN: Dressings dry and intact. Abdominal binder is on. EXTREMITIES: Without peripheral edema. DISPOSITION: Discharged to home. CONDITION: Stable and improving. FOLLOWUP: Followup appointment with Antonia Emanuel PA-C, on 02/26/2019 at 10 a.m. HOME MEDICATIONS: [place] 5/325 mg 1 every 6 hours p.r.n. pain #30. He is to resume his home medications. Tylenol Extra Strength 500 mg every 6 hours p.r.n. pain, aspirin 81 mg every morning, clonazepam 1 mg oral twice daily, Klonopin 1 mg oral daily p.r.n. anxiety, vitamin B12 at 1000 mcg sublingual daily, Cardizem CD 120 mg oral daily, fluoxetine 40 mg oral every morning, Atrovent 0.03% nasal spray 2 sprays in each nostril 3 times a day p.r.n. rhinitis, meclizine 25 mg oral 3 times a day p.r.n. dizziness, multivitamin 1 tablet every morning, naproxen 500 mg oral daily, Inderal 10 mg oral 3 times a day, simvastatin 10 mg oral at bedtime, vitamin B complex 1 oral daily, and ranitidine 300 mg at bedtime. DIET: Usual diet as tolerated. Drink 8 to 10 glasses of water a day. DRIVING: Do not drive for 1 week while on pain medication. SHOWER/BATHING: May shower. DISCHARGE INSTRUCTIONS: Notify provider if any fever, increased pain, nausea, or vomiting. Keep site clean and dry. Wear abdominal binder for 2 weeks and then as tolerated. SPECIAL INSTRUCTION: Use incentive spirometer 10 times every hour while awake.
--- NOTE | 2019-02-19 12:39 | OR ---
DATE OF PROCEDURE: 02/17/2019 SURGEON: Ace Gardner MD PREOPERATIVE DIAGNOSIS: Chronic cholecystitis. POSTOPERATIVE DIAGNOSES: 1. Chronic and subacute cholecystitis with extensive gallbladder sludge/small stones. 2. Incarcerated incisional hernia. OPERATIVE PROCEDURE: Diagnostic laparoscopy with: 1. Cholecystectomy (89560). 2. Repair of incarcerated incisional hernia (71938). ANESTHESIA: General. INDICATION FOR PROCEDURE: The patient presents with symptoms suggestive of biliary colic and ongoing discomfort in the right upper quadrant. CT scan was obtained which showed a thickened gallbladder consistent with chronic and to some extent subacute cholecystitis, and the patient wishes to proceed with a cholecystectomy at this time. Potential risks of the procedure including bleeding, infection, injury to underlying viscera, problems with stones migrating in the common bile duct requiring additional procedures for correction as well as possibility of cardiopulmonary, septic, or hemorrhagic complications leading to were discussed, and the patient wishes to proceed. DETAILS OF PROCEDURE: The patient was taken to the operating room and placed in a supine position. After general endotracheal anesthesia was induced, the abdomen was prepped and draped. Because the patient had a long upper midline incision, we elected to enter the abdomen slightly to the right of the umbilicus and a transverse incision was made at that point, and an Optiview trocar placed without difficulty. There were quite extensive adhesions along the midline with the camera port and trocar at this point, there was adequate visualization of the gallbladder. A 5-mm trocar was then placed in the right subcostal area. At the epigastric site, the patient was noted to have a small hernia at the uppermost end of the previously made upper midline incision, and we elected to make an incision over that, and placed an upper 12-mm trocar through that area, thus facilitating repair of the hernia. At this point, some adhesions to the gallbladder were taken down, although it was noted to be quite thick-walled and edematous. Dissection was continued down around the gallbladder neck and cystic duct junction. Once that area was well delineated as was the adjacent cystic artery, we elected to divide the gallbladder and cystic duct junction with a AIDA baeza load as it was quite thick-walled and edematous and at risk for not laying clips at all. The artery was then clipped 3 times proximally and divided distally, and the gallbladder dissected off the gallbladder bed using the Harmonic scalpel. The gallbladder was delivered through the epigastric trocar site. Off the field, it was inspected and contained a large amount of fine sludge and tiny stones within it. The area of dissection was inspected. No bleeding or bile leaks were seen. A drain was not felt to be necessary. At this point, the epigastric trocar was removed and the incisional hernia at that point which was reduced of some preperitoneal fat that was incarcerated within it was closed with a series of 0 Vicryl stitches placed by means of the endoscopic suture passer. Once these were in place, the remaining trocars were removed and peritoneal cavity deflated. The camera port was brought in tangentially through the muscle layer and that did not need to be closed at the fascia level, and the skin at each incision was closed with 4-0 Vicryl stitch. The patient was taken to the recovery room in satisfactory condition. Of note, the patient received bilateral transversus abdominis plane blocks at the initiation of the procedure. Ace Gardner MD /[id number]
== END 2019-02-18 09:15 | disposition home or self-care (01) ==
LOC: JP.SDS 07:16 → JP.MS 10:15 → JP.SDS 02-18 09:15
PROVIDERS: ATTEND Surgery
DX: K81.1 Chronic cholecystitis (principal); K82.8 Other specified diseases of gallbladder; K43.0 Incisional hernia with obstruction, without gangrene; K22.70 Barrett's esophagus without dysplasia; K21.9 Gastro-esophageal reflux disease without esophagitis; E78.5 Hyperlipidemia, unspecified; E78.1 Pure hyperglyceridemia; G31.84 Mild cognitive impairment of uncertain or unknown etiology; I25.10 Atherosclerotic heart disease of native coronary artery without angina pectoris; F41.9 Anxiety disorder, unspecified; F60.6 Avoidant personality disorder; F32.9 Major depressive disorder, single episode, unspecified; G25.0 Essential tremor; G43.909 Migraine, unspecified, not intractable, without status migrainosus; G47.33 Obstructive sleep apnea (adult) (pediatric); G89.29 Other chronic pain; M54.5 Low back pain; Z79.899 Other long term (current) drug therapy; Z79.82 Long term (current) use of aspirin; Z88.8 Allergy status to other drugs, medicaments and biological substances; Z91.048 Other nonmedicinal substance allergy status
CPT/HCPCS: 36415; 82247; 84075; 85027; 88304; 90662; A9270-GY; C9113; G0008; J0171; J0330; J0694; J1100; J2405; J2704; J2710; J2795; J3010; J3410; J3490; J7042; J7050

== ENCOUNTER 2019-02-23 11:47 | Inpatient (IN) | payer MEDICARE, MEDICAID ==
[2019-02-23] MEDS ORDERED: Pantoprazole 40 MG Vial IVPUSH ONE (12:47)
[2019-02-23] MEDS ORDERED: Sodium Chloride 0.9% 10 ML Syringe FLUSH PRN (12:47)
--- NOTE | 2019-02-23 12:52 | EDM.PDOC ---
ED HPI GENERAL MEDICAL PROBLEM - General Chief Complaint: General Stated Complaint: STOMACH PAIN AND BLOOD FROM RECTUM Time Seen by Provider: 02/23/19 12:40 Source of Information: Reports: Patient, RN Notes Reviewed History Limitations: Reports: No Limitations - History of Present Illness INITIAL COMMENTS - FREE TEXT/NARRATIVE: 69-year-old gentleman presents emergency department today complaint of bright red blood per rectum, he recently had a cholecystectomy done laparoscopically 6 days prior, states he is doing well with that surgery and then today had some lower abdominal pain with cramping and bright red blood per rectum enough to soil his underwear and bluejeans. Also has a history of a laparotomy in October for perforation with free air in the abdomen. He states initially he had some abdominal pain that now has resolved. - Related Data Allergies Allergy/AdvReac Type Severity Reaction Status Date / Time Kgmgrzb-Bhe-Sih Reductase Allergy Cannot Verified 02/23/19 12:33 Inhibitor Remember atorvastatin AdvReac Muscle Verified 02/23/19 12:33 Weakness bupropion HCl AdvReac Seizure Verified 02/23/19 12:33 [From Wellbutrin] citalopram hydrobromide AdvReac Hallucinati Verified 02/23/19 12:33 [From Celexa] ons gabapentin AdvReac Shaking Verified 02/23/19 12:33 mirtazapine [From Remeron] AdvReac Hallucinati Verified 02/23/19 12:33 ons pravastatin AdvReac Leg Cramps Verified 02/23/19 12:33 paper tape Allergy Blisters Uncoded 02/23/19 12:33 Home Meds: Home Meds Aspirin [Darlin Chewable Aspirin] 81 mg PO QAM 03/25/13 [History] Multivitamin with Minerals [Multiple Vitamin] 1 tab PO QAM 03/25/13 [History] Propranolol [Inderal] 10 mg PO TID 06/30/13 [History] FLUoxetine [PROzac] 40 mg PO QAM 10/06/13 [History] Acetaminophen [Tylenol Extra Strength] 500 mg PO Q6H PRN 01/03/17 [History] ClonazePAM [KlonoPIN] 1 mg PO BID 10/29/18 [History] ClonazePAM [KlonoPIN] 1 mg PO DAILY PRN 10/29/18 [History] Simvastatin 10 mg PO BEDTIME 10/29/18 [History] raNITIdine HCl [Ranitidine HCl] 300 mg PO BEDTIME 10/29/18 [History] Diltiazem [Cardizem CD] 120 mg PO DAILY 01/18/19 [History] Ipratropium [Atrovent 0.03% Nasal [place]] 2 sprays LAURO TID PRN 02/13/19 [History] Meclizine [Antivert] 25 mg PO TID PRN 02/13/19 [History] Naproxen 500 mg PO BID 02/13/19 [History] Cyanocobalamin (Vitamin B-12) [Vitamin B-12] 1,000 mcg SL DAILY 02/17/19 [ History] Vitamin B Complex [B Complex] 1 each PO DAILY 02/17/19 [History] Acetaminophen/HYDROcodone [Jadwin 325-5 MG] 1 tab PO Q6H PRN #30 tablet 02/18/19 [Rx] Past Medical History HEENT History: Reports: Hard of Hearing, Impaired Vision Cardiovascular History: Reports: Afib, Arrhythmia, CAD, Heart Murmur, High Cholesterol, SOB on Exertion Respiratory History: Reports: Sleep Apnea Other Respiratory History: no cpap Gastrointestinal History: Reports: Cholelithiasis, Colon Polyp, GERD, Hiatal Hernia Musculoskeletal History: Reports: Back Pain, Chronic, Fracture, Other (See Below ) Other Musculoskeletal History: possible neuropathy Neurological History: Reports: Migraines, Neuropathy, Peripheral, Other (See Below) Other Neuro History: tremors from meds. tinnitis Psychiatric History: Reports: Anxiety, Depression Hematologic History: Reports: Anemia, Blood Transfusion(s) - Infectious Disease History Infectious Disease History: Reports: Chicken Pox, Measles, Mumps - Past Surgical History Head Surgeries/Procedures: Reports: None HEENT Surgical History: Reports: Other (See Below) Other HEENT Surgeries/Procedures: removed metal from eye Cardiovascular Surgical History: Reports: Other (See Below) Other Cardiovascular Surgeries/Procedures: angiogram Respiratory Surgical History: Reports: None GI Surgical History: Reports: Colonoscopy, EGD, Hernia Repair/Other, Shanthi Fundoplication, Polypectomy, Other (See Below) Other GI Surgeries/Procedures: splenectomy 2006 abdomenal surgery in October like bariatric procedure Neurological Surgical History: Reports: None Musculoskeletal Surgical History: Reports: None Dermatological Surgical History: Reports: None Social & Family History - Family History Family Medical History: Noncontributory - Tobacco Use Smoking Status *Q: Never Smoker - Caffeine Use Caffeine Use: Reports: Soda Caffeine Use Comment: 20 oz a day - Recreational Drug Use Recreational Drug Use: No ED ROS GENERAL - Review of Systems Review Of Systems: See Below Constitutional: Reports: No Symptoms HEENT: Reports: No Symptoms Respiratory: Reports: No Symptoms Cardiovascular: Reports: No Symptoms GI/Abdominal: Reports: Abdominal Pain, Bloody Stool, Hematochezia, Nausea. Denies: Vomiting ED EXAM, GENERAL - Physical Exam Exam: See Below Exam Limited By: No Limitations General Appearance: Alert, WD/WN, No Apparent Distress Respiratory/Chest: No Respiratory Distress, Lungs Clear, Normal Breath Sounds, No Accessory Muscle Use, Chest Non-Tender Cardiovascular: Regular Rate, Rhythm, No Murmur GI/Abdominal: Soft, Non-Tender (Male) Exam: Other (Bloody underwear and jeans) Course - Vital Signs Last Recorded V/S: Last Vital Signs Temp 96.5 F 02/23/19 12:32 Pulse 48 L 02/23/19 13:32 Resp 12 02/23/19 13:32 BP 115/69 02/23/19 13:32 Pulse Ox 90 L 02/23/19 13:32 - Orders/Labs/Meds Orders: Active Orders 24 hr Category Date Time Status EKG Documentation Completion [RC] ASDIRECTED Care 02/23/19 12:48 Active Peripheral IV Care [RC] . DIRECTED Care 02/23/19 12:47 Active Lactated Ringers [Ringers, Lactated] 1,000 ml Med 02/23/19 13:53 Ordered IV BOLUS Sodium Chloride 0.9% [Saline Flush] Med 02/23/19 12:47 Active 10 ml FLUSH ASDIRECTED PRN Peripheral IV Insertion Adult [OM.PC] Routine Oth 02/23/19 12:48 Ordered Peripheral IV Insertion Adult [OM.PC] Stat Oth 02/23/19 12:48 Ordered Peripheral IV Insertion Adult [OM.PC] Urgent Oth 02/23/19 12:47 Ordered EKG 12 Lead [EK] Stat Ther 02/23/19 12:48 Ordered Medication Orders Lactated Ringer's (Ringers, Lactated) 1,000 mls @ 500 mls/hr IV BOLUS ONE Stop: 02/23/19 15:52 Sodium Chloride (Saline Flush) 10 ml FLUSH ASDIRECTED PRN PRN Reason: Keep Vein Open Last Admin: 02/23/19 13:15 Dose: 10 ml Labs: Laboratory Tests 02/23/19 02/23/19 02/23/19 Range/Units 13:03 13:03 13:03 WBC 8.9 (4.5-11.0) K/uL RBC 5.18 (4.30-5.90) M/uL Hgb 15.3 H (12.0-15.0) g/dL Hct 47.3 (40.0-54.0) % MCV 91 (80-98) fL MCH 30 (27-31) pg MCHC 32 (32-36) % Plt Count 310 (150-400) K/uL Neut % (Auto) 54 (36-66) % Lymph % (Auto) 31 (24-44) % Phillips % (Auto) 9 H (2-6) % Eos % (Auto) 6 H (2-4) % Baso % (Auto) 0 (0-1) % PT 10.2 (9.5-12.0) sec INR 0.94 (0.80-1.20) APTT 25.7 L (27.0-36.0) sec Sodium 135 L (140-148) mmol/L Potassium 4.3 (3.6-5.2) mmol/L Chloride 104 (100-108) mmol/L Carbon Dioxide 27 (21-32) mmol/L Anion Gap 8.3 (5.0-14.0) mmol/L BUN 19 H D (7-18) mg/dL Creatinine 1.1 (0.8-1.3) mg/dL Est Cr Clr Drug Dosing 70.55 mL/min Estimated GFR (MDRD) > 60 (>60) Glucose 100 (74-106) mg/dL Lactic Acid (0.4-2.0) mmol/L Calcium 9.2 (8.5-10.1) mg/dL Total Bilirubin 0.5 (0.2-1.0) mg/dL AST 29 D (15-37) U/L ALT 65 D (12-78) U/L Alkaline Phosphatase 149 H (46-116) U/L Total Protein 7.3 (6.4-8.2) g/dL Albumin 3.7 (3.4-5.0) g/dL Globulin 3.6 H (2.3-3.5) g/dL Albumin/Globulin Ratio 1.0 L (1.2-2.2) 02/23/19 Range/Units 13:03 WBC (4.5-11.0) K/uL RBC (4.30-5.90) M/uL Hgb (12.0-15.0) g/dL Hct (40.0-54.0) % MCV (80-98) fL MCH (27-31) pg MCHC (32-36) % Plt Count (150-400) K/uL Neut % (Auto) (36-66) % Lymph % (Auto) (24-44) % Phillips % (Auto) (2-6) % Eos % (Auto) (2-4) % Baso % (Auto) (0-1) % PT (9.5-12.0) sec INR (0.80-1.20) APTT (27.0-36.0) sec Sodium (140-148) mmol/L Potassium (3.6-5.2) mmol/L Chloride (100-108) mmol/L Carbon Dioxide (21-32) mmol/L Anion Gap (5.0-14.0) mmol/L BUN (7-18) mg/dL Creatinine (0.8-1.3) mg/dL Est Cr Clr Drug Dosing mL/min Estimated GFR (MDRD) (>60) Glucose (74-106) mg/dL Lactic Acid 1.3 (0.4-2.0) mmol/L Calcium (8.5-10.1) mg/dL Total Bilirubin (0.2-1.0) mg/dL AST (15-37) U/L ALT (12-78) U/L Alkaline Phosphatase (46-116) U/L Total Protein (6.4-8.2) g/dL Albumin (3.4-5.0) g/dL Globulin (2.3-3.5) g/dL Albumin/Globulin Ratio (1.2-2.2) Meds: Medications Generic Name Dose Route Start Last Admin Trade Name Freq PRN Reason Stop Dose Admin Lactated Ringer's 1,000 mls @ 500 mls/hr 02/23/19 13:53 Ringers, Lactated IV 02/23/19 15:52 BOLUS ONE Sodium Chloride 10 ml 02/23/19 12:47 02/23/19 13:15 Saline Flush FLUSH 10 ml ASDIRECTED PRN Administration Keep Vein Open Discontinued Medications Generic Name Dose Route Start Last Admin Trade Name Freq PRN Reason Stop Dose Admin Pantoprazole Sodium 40 mg 02/23/19 12:47 02/23/19 13:15 Protonix Iv IVPUSH 02/23/19 12:48 40 mg ONETIME ONE Administration Departure - Departure Time of Disposition: 13:58 Disposition: Admitted As Inpatient 67 Condition: Fair Clinical Impression: Hematochezia - Discharge Information Referrals: Robin Mata NP [Primary Care Provider] - Forms: ED Department Discharge - My Orders Last 24 Hours: My Active Orders 02/23/19 12:47 Peripheral IV Care [RC] . DIRECTED Sodium Chloride 0.9% [Saline Flush] 10 ml FLUSH ASDIRECTED PRN Peripheral IV Insertion Adult [OM.PC] Urgent 02/23/19 12:48 EKG Documentation Completion [RC] ASDIRECTED Peripheral IV Insertion Adult [OM.PC] Routine Peripheral IV Insertion Adult [OM.PC] Stat EKG 12 Lead [EK] Stat 02/23/19 13:53 Lactated Ringers [Ringers, Lactated] 1,000 ml IV BOLUS - Assessment/Plan Last 24 Hours: My Active Orders 02/23/19 12:47 Peripheral IV Care [RC] . DIRECTED Sodium Chloride 0.9% [Saline Flush] 10 ml FLUSH ASDIRECTED PRN Peripheral IV Insertion Adult [OM.PC] Urgent 02/23/19 12:48 EKG Documentation Completion [RC] ASDIRECTED Peripheral IV Insertion Adult [OM.PC] Routine Peripheral IV Insertion Adult [OM.PC] Stat EKG 12 Lead [EK] Stat 02/23/19 13:53 Lactated Ringers [Ringers, Lactated] 1,000 ml IV BOLUS Plan: Assessment Acuity = acute Site and laterality = hematochezia Etiology = unknown etiology Manifestations = none Location of injury = Home Lab values = hemoglobin 15.3 INR normal 0.94 CMP unremarkable Plan Continues to have bright red blood per rectum called discussed case with hospitalist on-call at [phone] he agreed to come and evaluate patient emergency department he does have 2 IVs in as well as 1 L fluids initiated and Protonix initiated as well This note was dictated using [employer] voice recognition software please call with any questions on syntax or grammar.
[2019-02-23] MEDS ORDERED: Lactated Ringers 1,000 ML IV ONE (13:53)
--- NOTE | 2019-02-23 15:25 | PCM.HP.2 ---
H&P History of Present Illness - General Date of Service: 02/23/19 Admit Problem/Dx: Admission Diagnosis/Problem Admission Diagnosis/Problem Gastrointestinal hemorrhage Source of Information: Patient, Provider History Limitations: Reports: No Limitations - History of Present Illness Initial Comments - Free Text/Narative: CC: I am pooping blood HPI: Nolan presented to the emergency room with hematochezia that started around 11 AM this morning. He was recovering from a cholecystectomy about one week ago but thought things were going well until onset of his bright red blood per rectum today. He describes a crampy lower abdominal pain that preceded the initial bout of hematochezia. This was relatively mild in nature and did not radiate from the lower abdomen. Pain got better after an urgent bowel movement that was mostly blood. He did not take anything to help with the pain at home. Pain has resolved. After the initial episode he had several more episodes of hematochezia that were urgent enough that he was not able to make it to the bathroom and soiled his under shorts and his jeans. He has no history of gastrointestinal bleeding. Bowel movements have been normal up until today. He has not had any hematemesis. No reports of fevers. No complaints of shortness of breath. Appetite has been good. Workup in the emergency room was reassuring with a normal hemoglobin. The patient will be admitted to the intensive care unit with a lower gastrointestinal hemorrhage. Vital signs are currently stable but with the quantity of blood I'm concerned that he may develop hypotension. - Related Data Allergies/Adverse Reactions: Allergies Allergy/AdvReac Type Severity Reaction Status Date / Time [id number]-Etz Reductase Allergy Cannot Verified 02/23/19 12:33 Inhibitor Remember atorvastatin AdvReac Muscle Verified 02/23/19 12:33 Weakness bupropion HCl AdvReac Seizure Verified 02/23/19 12:33 [From Wellbutrin] citalopram hydrobromide AdvReac Hallucinati Verified 02/23/19 12:33 [From Celexa] ons gabapentin AdvReac Shaking Verified 02/23/19 12:33 mirtazapine [From Remeron] AdvReac Hallucinati Verified 02/23/19 12:33 ons pravastatin AdvReac Leg Cramps Verified 02/23/19 12:33 paper tape Allergy Blisters Uncoded 02/23/19 12:33 Home Medications: Home Meds Aspirin [Darlin Chewable Aspirin] 81 mg PO QAM 03/25/13 [History] Multivitamin with Minerals [Multiple Vitamin] 1 tab PO QAM 03/25/13 [History] Propranolol [Inderal] 10 mg PO TID 06/30/13 [History] FLUoxetine [PROzac] 40 mg PO QAM 10/06/13 [History] Acetaminophen [Tylenol Extra Strength] 500 mg PO Q6H PRN 01/03/17 [History] ClonazePAM [KlonoPIN] 1 mg PO BID 10/29/18 [History] ClonazePAM [KlonoPIN] 1 mg PO DAILY PRN 10/29/18 [History] Simvastatin 10 mg PO BEDTIME 10/29/18 [History] raNITIdine HCl [Ranitidine HCl] 300 mg PO BEDTIME 10/29/18 [History] Diltiazem [Cardizem CD] 120 mg PO DAILY 01/18/19 [History] Ipratropium [Atrovent 0.03% Nasal [place]] 2 sprays LAURO TID PRN 02/13/19 [History] Meclizine [Antivert] 25 mg PO TID PRN 02/13/19 [History] Naproxen 500 mg PO BID 02/13/19 [History] Cyanocobalamin (Vitamin B-12) [Vitamin B-12] 1,000 mcg SL DAILY 02/17/19 [ History] Vitamin B Complex [B Complex] 1 each PO DAILY 02/17/19 [History] Acetaminophen/HYDROcodone [[place] 325-5 MG] 1 tab PO Q6H PRN #30 tablet 02/18/19 [Rx] Past Medical History HEENT History: Reports: Hard of Hearing, Impaired Vision Cardiovascular History: Reports: Afib, Arrhythmia, CAD, Heart Murmur, High Cholesterol, SOB on Exertion Respiratory History: Reports: Sleep Apnea Other Respiratory History: no cpap Gastrointestinal History: Reports: Cholelithiasis, Colon Polyp, GERD, Hiatal Hernia Musculoskeletal History: Reports: Back Pain, Chronic, Fracture, Other (See Below ) Other Musculoskeletal History: possible neuropathy Neurological History: Reports: Migraines, Neuropathy, Peripheral, Other (See Below) Other Neuro History: tremors from meds. tinnitis Psychiatric History: Reports: Anxiety, Depression Hematologic History: Reports: Anemia, Blood Transfusion(s) - Infectious Disease History Infectious Disease History: Reports: Chicken Pox, Measles, Mumps - Past Surgical History Head Surgeries/Procedures: Reports: None HEENT Surgical History: Reports: Other (See Below) Other HEENT Surgeries/Procedures: removed metal from eye Cardiovascular Surgical History: Reports: Other (See Below) Other Cardiovascular Surgeries/Procedures: angiogram Respiratory Surgical History: Reports: None GI Surgical History: Reports: Colonoscopy, EGD, Hernia Repair/Other, Shanthi Fundoplication, Polypectomy, Other (See Below) Other GI Surgeries/Procedures: splenectomy 2006 abdomenal surgery in October like bariatric procedure Neurological Surgical History: Reports: None Musculoskeletal Surgical History: Reports: None Dermatological Surgical History: Reports: None Social & Family History - Family History Family Medical History: Noncontributory - Tobacco Use Smoking Status *Q: Never Smoker - Caffeine Use Caffeine Use: Reports: Soda Caffeine Use Comment: 20 oz a day - Alcohol Use Alcohol Use History: No - Recreational Drug Use Recreational Drug Use: No H&P Review of Systems - Review of Systems: Review Of Systems: See Below Free Text/Narrative: A complete 12 point review of systems was obtained. Pertinent positives and negatives are noted in the history of present illness. All other systems were reviewed and were negative except as noted. Exam - Exam Exam: See Below - Vital Signs Vital Signs: Last Vital Signs Temp 35.8 C 02/23/19 12:32 Pulse 48 L 02/23/19 13:32 Resp 12 02/23/19 13:32 BP 115/69 02/23/19 13:32 Pulse Ox 90 L 02/23/19 13:32 Weight: 83.8 kg - Exam Quality Assessment: No: Supplemental Oxygen General: Alert, Oriented, Cooperative. No: Mild Distress HEENT: Conjunctiva Clear, Mucosa Moist & [place]. No: Scleral Icterus Neck: Supple, Trachea Midline Lungs: Clear to Auscultation, Normal Respiratory Effort Cardiovascular: Regular Rate, Regular Rhythm. No: Systolic Murmur GI/Abdominal Exam: Normal Bowel Sounds, Soft, No Distention, Tender (mild periumbilical ), Other (healing surgical scars from tequila ) Extremities: No Pedal Edema. No: Increased Warmth Peripheral Pulses: 2+: Dorsalis Pedis (L), Dorsalis Pedis (R) Skin: Warm, Dry Neuro Extensive - Mental Status: Alert, Oriented x3, Nl Response to Commands Neuro Extensive - Motor, Sensory, Reflexes: No: Dysarthria, Abnormal Motor, Tremor Psychiatric: Alert, Normal Affect - Patient Data Lab Results Last 24 hrs: Laboratory Results - last 24 hr 02/23/19 02/23/19 02/23/19 Range/Units 13:03 13:03 13:03 WBC 8.9 (4.5-11.0) K/uL RBC 5.18 (4.30-5.90) M/uL Hgb 15.3 H (12.0-15.0) g/dL Hct 47.3 (40.0-54.0) % MCV 91 (80-98) fL MCH 30 (27-31) pg MCHC 32 (32-36) % Plt Count 310 (150-400) K/uL Neut % (Auto) 54 (36-66) % Lymph % (Auto) 31 (24-44) % [place] % (Auto) 9 H (2-6) % Eos % (Auto) 6 H (2-4) % Baso % (Auto) 0 (0-1) % PT 10.2 (9.5-12.0) sec INR 0.94 (0.80-1.20) APTT 25.7 L (27.0-36.0) sec Sodium 135 L (140-148) mmol/L Potassium 4.3 (3.6-5.2) mmol/L Chloride 104 (100-108) mmol/L Carbon Dioxide 27 (21-32) mmol/L Anion Gap 8.3 (5.0-14.0) mmol/L BUN 19 H D (7-18) mg/dL Creatinine 1.1 (0.8-1.3) mg/dL Est Cr Clr Drug Dosing 70.55 mL/min Estimated GFR (MDRD) > 60 (>60) Glucose 100 (74-106) mg/dL Lactic Acid (0.4-2.0) mmol/L Calcium 9.2 (8.5-10.1) mg/dL Total Bilirubin 0.5 (0.2-1.0) mg/dL AST 29 D (15-37) U/L ALT 65 D (12-78) U/L Alkaline Phosphatase 149 H (46-116) U/L Total Protein 7.3 (6.4-8.2) g/dL Albumin 3.7 (3.4-5.0) g/dL Globulin 3.6 H (2.3-3.5) g/dL Albumin/Globulin Ratio 1.0 L (1.2-2.2) 02/23/19 Range/Units 13:03 WBC (4.5-11.0) K/uL RBC (4.30-5.90) M/uL Hgb (12.0-15.0) g/dL Hct (40.0-54.0) % MCV (80-98) fL MCH (27-31) pg MCHC (32-36) % Plt Count (150-400) K/uL Neut % (Auto) (36-66) % Lymph % (Auto) (24-44) % [place] % (Auto) (2-6) % Eos % (Auto) (2-4) % Baso % (Auto) (0-1) % PT (9.5-12.0) sec INR (0.80-1.20) APTT (27.0-36.0) sec Sodium (140-148) mmol/L Potassium (3.6-5.2) mmol/L Chloride (100-108) mmol/L Carbon Dioxide (21-32) mmol/L Anion Gap (5.0-14.0) mmol/L BUN (7-18) mg/dL Creatinine (0.8-1.3) mg/dL Est Cr Clr Drug Dosing mL/min Estimated GFR (MDRD) (>60) Glucose (74-106) mg/dL Lactic Acid 1.3 (0.4-2.0) mmol/L Calcium (8.5-10.1) mg/dL Total Bilirubin (0.2-1.0) mg/dL AST (15-37) U/L ALT (12-78) U/L Alkaline Phosphatase (46-116) U/L Total Protein (6.4-8.2) g/dL Albumin (3.4-5.0) g/dL Globulin (2.3-3.5) g/dL Albumin/Globulin Ratio (1.2-2.2) Result Diagrams: 02/23/19 13:03 02/23/19 13:03 *Q Meaningful Use (ADM) - VTE *Q VTE Pharmacological Contraindications *Q: Active Hemorrhage - VTE Risk Assess *Q Each Risk Factor Represents 1 Point: None, History of prior major surgery less than 1 month Total Score 1 Point Risk Factors: 1 Each Risk Factor Represents 2 Points: Age 60 - 74 Years Total Score 2 Point Risk Factors: 2 Each Risk Factor Represents 3 Points: None Total Score 3 Point Risk Factors: 0 Each Risk Factor Represents 5 Points: None Total Score 5 Point Risk Factors: 0 Venous Thromboembolism Risk Factor Score *Q: 3 - Problem List (1) Acute lower gastrointestinal hemorrhage SNOMED Code(s): 77873010 ICD Code: K92.2 - GASTROINTESTINAL HEMORRHAGE, UNSPECIFIED Status: Acute Current Visit: Yes Problem List Initiated/Reviewed/Updated: Yes Orders Last 24hrs: Active Orders 24 hr Category Date Time Status Patient Status Manage Transfer [TRANSFER] Routine ADT 02/23/19 15:14 Ordered EKG Documentation Completion [RC] ASDIRECTED Care 02/23/19 12:48 Active Peripheral IV Care [RC] . DIRECTED Care 02/23/19 12:47 Active Lactated Ringers [Ringers, Lactated] 1,000 ml Med 02/23/19 13:53 Active IV BOLUS Sodium Chloride 0.9% [Saline Flush] Med 02/23/19 12:47 Active 10 ml FLUSH ASDIRECTED PRN Peripheral IV Insertion Adult [OM.PC] Routine Oth 02/23/19 12:48 Ordered Peripheral IV Insertion Adult [OM.PC] Stat Oth 02/23/19 12:48 Ordered Peripheral IV Insertion Adult [OM.PC] Urgent Oth 02/23/19 12:47 Ordered Resuscitation Status Routine Resus Stat 02/23/19 15:16 Ordered EKG 12 Lead [EK] Stat Ther 02/23/19 12:48 Ordered Medication Orders Lactated Ringer's (Ringers, Lactated) 1,000 mls @ 500 mls/hr IV BOLUS ONE Stop: 02/23/19 15:52 Last Admin: 02/23/19 13:57 Dose: 500 mls/hr Sodium Chloride (Saline Flush) 10 ml FLUSH ASDIRECTED PRN PRN Reason: Keep Vein Open Last Admin: 02/23/19 13:15 Dose: 10 ml Assessment/Plan Comment:: ASSESSMENT AND PLAN - Lower gastrointestinal hemorrhage - patient developed acute hematochezia with several episodes of bright red blood per rectum. Hemoglobin currently normal but he may not have had enough time to re-equilibrate after the bleeding and I would expect a drop with the next hemoglobin check. Diverticular bleeding is the most likely source. At the time of admission his vital signs were stable. -ICU admission -Type and cross 2 units of blood -Recheck hemoglobin this evening -Bowel prep this afternoon with colonoscopy in the morning -Consider CT scan if there is persistent bleeding or he becomes unstable Recent cholecystectomy - Seems to be doing well in the postoperative period following this surgery. -Pain control if necessary Generalized anxiety disorder - plan to continue usual home medications. Maintenance issues - - DVT prophylaxis - mechanical with active hemorrhage - GI prophylaxis - PPI - Nutrition - clear liquids tonight, nothing by mouth after midnight - Cortez catheter - not indicated CODE STATUS - full code Admission justification - This patient will be admitted for inpatient services and is medically appropriate meeting medical necessity for inpatient admission as outlined in my documentation. I reasonably expect the patient will require inpatient services that span a period time over 2 midnights. I reasonably expect this patient to be discharged or transferred within 96 hours [facility]. Disposition - I would anticipate discharge home after the hospital stay Primary care physician - Dr Osmin Pisano M.D. - Mortality Measure Prognosis:: Good
[2019-02-23] MEDS ORDERED: Albuterol 0.083% 2.5 MG/3 ML Neb Soln NEB PRN (15:55)
[2019-02-23] MEDS ORDERED: Acetaminophen 325 MG Tab PO PRN (15:55)
[2019-02-23] MEDS ORDERED: Melatonin 3 MG Tab PO PRN (15:55)
[2019-02-23] MEDS ORDERED: ClonazePAM 1 MG Tab PO PRN (15:55)
[2019-02-23] MEDS ORDERED: LORazepam 2 MG/ML SDV IVPUSH PRN (15:55)
[2019-02-23] MEDS ORDERED: Magnesium Hydroxide 400 MG/5 ML Susp 30 ML Cup PO PRN (15:55)
[2019-02-23] MEDS ORDERED: Ondansetron 4 MG Tab.DIS PO PRN (15:55)
[2019-02-23] MEDS ORDERED: Ondansetron 4 MG/2 ML SDV IV PRN (15:55)
[2019-02-23] MEDS ORDERED: Acetaminophen/HYDROcodone 325-5 MG Tab PO PRN (15:55)
[2019-02-23] MEDS ORDERED: Bisacodyl 5 MG Tab PO ONE (16:00)
[2019-02-23] MEDS ORDERED: Polyethylene Glycol 3350 Powder 238 GM Bot PO ONE (16:00)
[2019-02-23] MEDS: Sodium Chloride 0.9% 1,000 ML IV SCH ×2 (16:04→23:54)
[2019-02-23] MEDS: Propranolol 40 MG Tab PO SCH (21:26)
[2019-02-23] MEDS: ClonazePAM 1 MG Tab PO SCH (21:40)
[2019-02-24] MEDS: Sodium Chloride 0.9% 1,000 ML IV SCH (07:50)
[2019-02-24] MEDS ORDERED: Propofol 200 MG/20 ML SDV ONE (08:47)
[2019-02-24] MEDS ORDERED: Midazolam 1 MG/ML 2 ML SDV ONE (08:47)
[2019-02-24] MEDS ORDERED: fentaNYL 100 MCG/2 ML SDV ONE (08:47)
[2019-02-24] MEDS ORDERED: FLUoxetine 20 MG Cap PO SCH (09:00)
[2019-02-24] MEDS ORDERED: Pantoprazole 40 MG Vial IV SCH (09:00)
[2019-02-24] MEDS ORDERED: Aspirin 81 MG Tab.Chew PO SCH (09:00)
[2019-02-24] MEDS ORDERED: Diltiazem 120 MG Cap.CD PO SCH (09:00)
[2019-02-24] MEDS: Propranolol 40 MG Tab PO SCH ×2 (10:39→13:32)
[2019-02-24] MEDS: ClonazePAM 1 MG Tab PO SCH (10:49)
[2019-02-24] MEDS ORDERED: Sodium Ferric Gluconate Cmplex 125 MG in Sodium Chloride 0.9% 100 ML IV ONE (13:15)
[2019-02-24 14:12] VITALS: BP 110/62; PULSE 61
--- NOTE | 2019-02-24 14:12 | OR ---
DATE OF PROCEDURE: 02/24/2019 SURGEON: Titus Hancock MD PROCEDURE: Colonoscopy. FINDINGS: Thrombosed hemorrhoid. COMPLICATIONS: None. STORE ASSISTANT: None. ANESTHESIA: MAC. PREOPERATIVE DIAGNOSIS: Rectal bleeding. POSTOPERATIVE DIAGNOSIS: Rectal bleeding. RISKS: Risks, benefits, alternatives, and limitations including, but not limited to, infection, bleeding, and perforation explained to the patient, who wished to proceed. PROCEDURE IN DETAIL: The patient was placed in left lateral decubitus position. Digital rectal exam was performed, and a thrombosed external hemorrhoid was noted. The scope was introduced and advanced atraumatically to the ileocecal valve. There was no blood noted, except for in the area of the thrombosed hemorrhoid. The scope was brought back through the ascending, transverse, descending colon, and retroflexed. No evidence of old or new blood. No masses. No polyps. The patient tolerated the procedure well. Titus Hancock MD /[id number]
--- NOTE | 2019-02-24 14:58 | PCM.DCSUM1 ---
Discharge Summary - Hospital Course Brief History: 69-year-old male with history of generalized anxiety, recent cholecystectomy who presented with bright red blood per rectum. He is admitted for management of presumed lower gastrointestinal hemorrhage Diagnosis: Stroke: No - Discharge Data Discharge Date: 02/24/19 Discharge Disposition: Home, Self-Care 01 Condition: Good - Referral to Home Health Primary Care Physician: Robin Mata NP - Discharge Diagnosis/Problem(s) (1) Acute lower gastrointestinal hemorrhage SNOMED Code(s): 01624177 ICD Code: K92.2 - GASTROINTESTINAL HEMORRHAGE, UNSPECIFIED Status: Acute - Patient Summary/Data Consults: Consultations 02/23/19 15:55 Consult to Physician [CONS] Routine Consulting Provider: Titus Hancock Call Completed to Consulting Physician: Yes Reason for Consult: hematochezia Person Notified: RW Date Notified: 02/23/19 Special Instructions: colonoscopy in the am Hospital Course: Nolan presented to the emergency room after several episodes of bright red blood per rectum. Vital signs were stable in the emergency room and he did have a normal hemoglobin. Given the quantity of blood that he had reported passing and was observed passing in the emergency room there was concern for an acute lower gastrointestinal hemorrhage. We did type and cross blood in case he would need a transfusion and he was admitted to the intensive care unit. The source of bleeding was thought to be lower GI based on the color of the blood that he was passing. He did complete a colonoscopy prep the evening after admission. He remained stable throughout the night and his repeat hemoglobin did not drop significantly. The morning after admission he had a colonoscopy with Dr. Hancock. This showed a thrombosed hemorrhoid that was no longer bleeding but this was thought to be the source of bleeding. No other source of bleeding was identified. He has remained stable in the postoperative period. He has had no additional bleeding following the colonoscopy. Initially there was concern that this may be diverticular or something more severe but fortunately we have only identified a bleeding hemorrhoid. Given the quantity of blood reported at the time of presentation this was thought to be a very unlikely source for the bleeding. The patient has been stable and is safe for discharge at this time. He will be discharged home. He will continue his stool softeners. He improved much more quickly than expected and is ready for discharge after only one night in the hospital. - Patient Instructions Diet: Regular Diet as Tolerated Activity: As Tolerated Showering/Bathing: May Shower Notify Provider of: Fever, Increased Pain, Nausea and/or Vomiting Other/Special Instructions: Keep taking your Miralax. Your goal is to keep your stools soft to help with hemorrhoid heal up - Discharge Plan *PRESCRIPTION DRUG MONITORING PROGRAM REVIEWED*: Not Applicable *COPY OF PRESCRIPTION DRUG MONITORING REPORT IN PATIENT MARISELA: Not Applicable Home Medications: Home Meds Aspirin [Darlin Chewable Aspirin] 81 mg PO QAM 03/25/13 [History] Multivitamin with Minerals [Multiple Vitamin] 1 tab PO QAM 03/25/13 [History] Propranolol [Inderal] 10 mg PO TID 06/30/13 [History] FLUoxetine [PROzac] 40 mg PO QAM 10/06/13 [History] Acetaminophen [Tylenol Extra Strength] 500 mg PO Q6H PRN 01/03/17 [History] ClonazePAM [KlonoPIN] 1 mg PO BID 10/29/18 [History] ClonazePAM [KlonoPIN] 1 mg PO DAILY PRN 10/29/18 [History] Simvastatin 10 mg PO BEDTIME 10/29/18 [History] raNITIdine HCl [Ranitidine HCl] 300 mg PO BEDTIME 10/29/18 [History] Diltiazem [Cardizem CD] 120 mg PO DAILY 01/18/19 [History] Ipratropium [Atrovent 0.03% Nasal [place]] 2 sprays LAURO TID PRN 02/13/19 [History] Meclizine [Antivert] 25 mg PO TID PRN 02/13/19 [History] Naproxen 500 mg PO BID 02/13/19 [History] Cyanocobalamin (Vitamin B-12) [Vitamin B-12] 1,000 mcg SL DAILY 02/17/19 [ History] Vitamin B Complex [B Complex] 1 each PO DAILY 02/17/19 [History] Acetaminophen/HYDROcodone [[place] 325-5 MG] 1 tab PO Q6H PRN #30 tablet 02/18/19 [Rx] Oxygen Therapy Mode: Room Air Patient Handouts: Hemorrhoids, [id number] Referrals: Robin Mata, MEDICAL [employer]LECTIONS SPECIALIST [Primary Care Provider] - (f/u as scheduled with Robin Mata ) - Discharge Summary/Plan Comment DC Time >30 min.: No - Patient Data Vitals - Most Recent: Last Vital Signs Temp 36.8 C 02/24/19 14:00 Pulse 61 02/24/19 14:00 Resp 13 02/24/19 14:00 BP 110/62 02/24/19 14:00 Pulse Ox 95 02/24/19 14:00 Weight - Most Recent: 83.8 kg I&O - Last 24 hours: Intake & Output 02/23/19 02/24/19 02/24/19 22:59 06:59 14:59 Intake Total 700 1986 192 Output Total 400 775 Balance 300 1986 114 Lab Results - Last 24 hrs: Laboratory Results - last 24 hr 02/23/19 02/23/19 02/24/19 Range/Units 15:55 21:00 04:05 WBC 8.6 (4.5-11.0) K/uL RBC 4.89 (4.30-5.90) M/uL Hgb 14.4 14.2 (12.0-15.0) g/dL Hct 45.0 (40.0-54.0) % MCV 92 (80-98) fL MCH 29 (27-31) pg MCHC 32 (32-36) % Plt Count 306 (150-400) K/uL Sodium (140-148) mmol/L Potassium (3.6-5.2) mmol/L Chloride (100-108) mmol/L Carbon Dioxide (21-32) mmol/L Anion Gap (5.0-14.0) mmol/L BUN (7-18) mg/dL Creatinine (0.8-1.3) mg/dL Est Cr Clr Drug Dosing mL/min Estimated GFR (MDRD) (>60) Glucose (74-106) mg/dL Calcium (8.5-10.1) mg/dL Blood Type O POSITIVE Gel Antibody Screen Negative Crossmatch See Detail 02/24/19 Range/Units 04:05 WBC (4.5-11.0) K/uL RBC (4.30-5.90) M/uL Hgb (12.0-15.0) g/dL Hct (40.0-54.0) % MCV (80-98) fL MCH (27-31) pg MCHC (32-36) % Plt Count (150-400) K/uL Sodium 143 (140-148) mmol/L Potassium 4.0 (3.6-5.2) mmol/L Chloride 108 (100-108) mmol/L Carbon Dioxide 28 (21-32) mmol/L Anion Gap 6.9 (5.0-14.0) mmol/L BUN 11 (7-18) mg/dL Creatinine 1.0 (0.8-1.3) mg/dL Est Cr Clr Drug Dosing 77.71 mL/min Estimated GFR (MDRD) > 60 (>60) Glucose 92 (74-106) mg/dL Calcium 8.4 L (8.5-10.1) mg/dL Blood Type Gel Antibody Screen Crossmatch Med Orders - Current: Current Medications Acetaminophen (Tylenol) 650 mg PO Q4H PRN PRN Reason: Pain (Mild 1-3)/fever Hydrocodone Bitart/Acetaminophen ([place] 325-5 Mg) 1 tab PO Q6H PRN PRN Reason: PAIN Albuterol (Proventil Neb Soln) 2.5 mg NEB Q4H PRN PRN Reason: Shortness Of Breath/wheezing Aspirin (Aspirin) 81 mg PO QAM [facility] Last Admin: 02/24/19 10:38 Dose: 81 mg Clonazepam (Klonopin) 1 mg PO BID [facility] Last Admin: 02/24/19 10:49 Dose: 1 mg Clonazepam (Klonopin) 1 mg PO DAILY PRN PRN Reason: Anxiety Diltiazem HCl (Cardizem Cd) 120 mg PO DAILY [facility] Last Admin: 02/24/19 10:38 Dose: 120 mg Fluoxetine HCl (Prozac) 40 mg PO QAM [facility] Last Admin: 02/24/19 10:40 Dose: 40 mg Sodium Chloride (Normal Saline) 1,000 mls @ 125 mls/hr IV ASDIRECTED [facility] Last Admin: 02/24/19 07:50 Dose: 125 mls/hr Lorazepam (Ativan) 0.5 mg IVPUSH Q4H PRN PRN Reason: Nausea/Vomiting Magnesium Hydroxide (Milk Of Magnesia) 30 ml PO Q12H PRN PRN Reason: Constipation Melatonin (Melatonin) 9 mg PO BEDTIME PRN PRN Reason: Sleep Ondansetron HCl (Zofran Odt) 4 mg PO Q6H PRN PRN Reason: Nausea able to take PO Ondansetron HCl (Zofran) 4 mg IV Q6H PRN PRN Reason: Nausea/Vomiting Pantoprazole Sodium (Protonix Iv) 40 mg IV DAILY [facility] Last Admin: 02/24/19 10:41 Dose: 40 mg Propranolol HCl (Inderal) 10 mg PO TID [facility] Last Admin: 02/24/19 13:32 Dose: 10 mg Senna/Docusate Sodium (Senna Plus) 1 tab PO BID PRN PRN Reason: Constipation Sodium Chloride (Saline Flush) 10 ml FLUSH ASDIRECTED PRN PRN Reason: Keep Vein Open Last Admin: 02/23/19 13:15 Dose: 10 ml Discontinued Medications Bisacodyl (Dulcolax) 10 mg PO ONETIME ONE Stop: 02/23/19 16:01 Last Admin: 02/23/19 17:08 Dose: 10 mg Fentanyl (Sublimaze) Confirm Administered Dose 100 mcg .ROUTE .STK-MED ONE Stop: 02/24/19 08:48 Lactated Ringer's (Ringers, Lactated) 1,000 mls @ 500 mls/hr IV BOLUS ONE Stop: 02/23/19 15:52 Last Admin: 02/23/19 13:57 Dose: 500 mls/hr Ferric Sodium Gluconate Complex 125 mg/ Sodium Chloride 110 mls @ 100 mls/hr IV ONETIME ONE Stop: 02/24/19 14:20 Last Admin: 02/24/19 13:22 Dose: 100 mls/hr Midazolam HCl (Versed 1 Mg/Ml) Confirm Administered Dose 2 mg .ROUTE .STK-MED ONE Stop: 02/24/19 08:48 Pantoprazole Sodium (Protonix Iv) 40 mg IVPUSH ONETIME ONE Stop: 02/23/19 12:48 Last Admin: 02/23/19 13:15 Dose: 40 mg Polyethylene Glycol (Miralax) 238 gm PO ONETIME ONE Stop: 02/23/19 16:01 Last Admin: 02/23/19 17:08 Dose: 238 gm Propofol (Diprivan 20 Ml) Confirm Administered Dose 200 mg .ROUTE .STK-MED ONE Stop: 02/24/19 08:48 - Exam Quality Assessment: Denies: Supplemental Oxygen General: Reports: Alert, Oriented, Cooperative, No Acute Distress Lungs: Reports: Normal Respiratory Effort GI/Abdominal Exam: Soft, No Distention Extremities: No Pedal Edema Psy/Mental Status: Reports: Alert, Normal Affect *Q Meaningful Use (DIS) - VTE *Q VTE Pharmacological Contraindications *Q: Active Hemorrhage
== END 2019-02-24 15:35 | disposition home or self-care (01) | DRG 395 ==
LOC: JP.ED 11:47 → JP.ICU 15:14
PROVIDERS: ADMIT Internal Medicine; ATTEND Internal Medicine
PROC: 0DJD8ZZ Inspection of Lower Intestinal Tract, Via Natural or Artificial Opening Endoscopic (ICD-10-PCS; principal; 2019-02-24)
DX: K92.1 Melena (principal); Z98.890 Other specified postprocedural states; K64.5 Perianal venous thrombosis; H91.90 Unspecified hearing loss, unspecified ear; H54.7 Unspecified visual loss; I48.91 Unspecified atrial fibrillation; I25.10 Atherosclerotic heart disease of native coronary artery without angina pectoris; E78.00 Pure hypercholesterolemia, unspecified; K21.9 Gastro-esophageal reflux disease without esophagitis; G89.29 Other chronic pain; Z79.899 Other long term (current) drug therapy; Z90.49 Acquired absence of other specified parts of digestive tract; M54.9 Dorsalgia, unspecified; G62.9 Polyneuropathy, unspecified; G43.909 Migraine, unspecified, not intractable, without status migrainosus; F41.9 Anxiety disorder, unspecified; F32.9 Major depressive disorder, single episode, unspecified; Z79.82 Long term (current) use of aspirin; Z86.010 Personal history of colon polyps; Z88.8 Allergy status to other drugs, medicaments and biological substances
CPT/HCPCS: 36415; 80053; 83605; 85025; 85610; 85730; 93005; C9113; J7120; 80048; 85018; 85027; 86850; 86900; 86901; 86920; 86922; 96361; 96374; 99284; 99284-25; A9270-GY; J2250; J2704; J2916; J3010; J7030

== ENCOUNTER 2019-04-21 15:01 | Observation (INO) | payer MEDICARE, MEDICAID ==
[2019-04-21] MEDS ORDERED: Sodium Chloride 0.9% 10 ML Syringe FLUSH PRN (15:49)
[2019-04-21] MEDS ORDERED: fentaNYL 100 MCG/2 ML SDV IVPUSH ONE (15:51)
--- NOTE | 2019-04-21 15:53 | EDM.PDOC ---
ED HPI GENERAL MEDICAL PROBLEM - General Chief Complaint: Abdominal Pain Stated Complaint: ABD PAIN - PREV NIKKI SURGERY Time Seen by Provider: 04/21/19 15:45 Source of Information: Reports: Patient, RN Notes Reviewed History Limitations: Reports: No Limitations - History of Present Illness INITIAL COMMENTS - FREE TEXT/NARRATIVE: 69-year-old gentleman presents emergency department the complaint of abdominal pain, he has known history of gastric bypass as well as a recent cholecystectomy about 2 months ago. He states the pain is developed over the last 30 hours no nausea vomiting no diarrhea pain is predominantly in the left lower quadrant and will be intermittent. Left Abdomen Pain Score (Numeric/FACES): 5 - Related Data Allergies Allergy/AdvReac Type Severity Reaction Status Date / Time Xeqvyma-Suz-Mhx Reductase Allergy Cannot Verified 04/21/19 15:32 Inhibitor Remember atorvastatin AdvReac Muscle Verified 04/21/19 15:32 Weakness bupropion HCl AdvReac Seizure Verified 04/21/19 15:32 [From Wellbutrin] citalopram hydrobromide AdvReac Hallucinati Verified 04/21/19 15:32 [From Celexa] ons gabapentin AdvReac Shaking Verified 04/21/19 15:32 mirtazapine [From Remeron] AdvReac Hallucinati Verified 04/21/19 15:32 ons pravastatin AdvReac Leg Cramps Verified 04/21/19 15:32 paper tape Allergy Blisters Uncoded 02/23/19 12:33 Home Meds: Home Meds Aspirin [Darlin Chewable Aspirin] 81 mg PO QAM 03/25/13 [History] Multivitamin with Minerals [Multiple Vitamin] 1 tab PO QAM 03/25/13 [History] Propranolol [Inderal] 10 mg PO TID 06/30/13 [History] FLUoxetine [PROzac] 40 mg PO QAM 10/06/13 [History] Acetaminophen [Tylenol Extra Strength] 500 mg PO Q6H PRN 01/03/17 [History] ClonazePAM [KlonoPIN] 1 mg PO BID 10/29/18 [History] ClonazePAM [KlonoPIN] 1 mg PO DAILY PRN 10/29/18 [History] Simvastatin 10 mg PO BEDTIME 10/29/18 [History] raNITIdine HCl [Ranitidine HCl] 300 mg PO BEDTIME 10/29/18 [History] Ipratropium [Atrovent 0.03% Nasal [place]] 2 sprays LAURO TID PRN 02/13/19 [History] Meclizine [Antivert] 25 mg PO TID PRN 02/13/19 [History] Cyanocobalamin (Vitamin B-12) [Vitamin B-12] 1,000 mcg SL DAILY 02/17/19 [ History] Vitamin B Complex [B Complex] 1 each PO DAILY 02/17/19 [History] Past Medical History HEENT History: Reports: Hard of Hearing, Impaired Vision Cardiovascular History: Reports: Afib, Arrhythmia, CAD, Heart Murmur, High Cholesterol, SOB on Exertion Respiratory History: Reports: Sleep Apnea Other Respiratory History: no cpap Gastrointestinal History: Reports: Cholelithiasis, Colon Polyp, GERD, Hiatal Hernia Musculoskeletal History: Reports: Back Pain, Chronic, Fracture, Other (See Below ) Other Musculoskeletal History: possible neuropathy Neurological History: Reports: Migraines, Neuropathy, Peripheral, Other (See Below) Other Neuro History: tremors from meds. tinnitis Psychiatric History: Reports: Anxiety, Depression Hematologic History: Reports: Anemia, Blood Transfusion(s) - Infectious Disease History Infectious Disease History: Reports: Chicken Pox, Measles, Mumps - Past Surgical History Head Surgeries/Procedures: Reports: None HEENT Surgical History: Reports: Other (See Below) Other HEENT Surgeries/Procedures: removed metal from eye Cardiovascular Surgical History: Reports: Other (See Below) Other Cardiovascular Surgeries/Procedures: angiogram Respiratory Surgical History: Reports: None GI Surgical History: Reports: Colonoscopy, EGD, Hernia Repair/Other, Shanthi Fundoplication, Polypectomy, Other (See Below) Other GI Surgeries/Procedures: splenectomy 2006 abdomenal surgery in October like bariatric procedure Neurological Surgical History: Reports: None Musculoskeletal Surgical History: Reports: None Dermatological Surgical History: Reports: None Social & Family History - Family History Family Medical History: Noncontributory - Tobacco Use Smoking Status *Q: Former Smoker Years of Tobacco use: 16 Packs/Tins Daily: 3 Used Tobacco, but Quit: Yes Month/Year Tobacco Last Used: october - Caffeine Use Caffeine Use: Reports: Coffee, Soda Caffeine Use Comment: 20 oz a day - Recreational Drug Use Recreational Drug Use: No ED ROS GENERAL - Review of Systems Review Of Systems: See Below Constitutional: Denies: Fever, Chills HEENT: Reports: No Symptoms Respiratory: Reports: No Symptoms Cardiovascular: Reports: No Symptoms GI/Abdominal: Reports: Abdominal Pain, Flatus. Denies: Constipation, Diarrhea, Nausea, Vomiting : Reports: No Symptoms Musculoskeletal: Reports: No Symptoms ED EXAM, GI/ABD - Physical Exam Exam: See Below Exam Limited By: No Limitations General Appearance: Alert, WD/WN, No Apparent Distress Respiratory/Chest: No Respiratory Distress, Lungs Clear, Normal Breath Sounds, No Accessory Muscle Use, Chest Non-Tender Cardiovascular: Regular Rate, Rhythm, No Murmur GI/Abdominal Exam: Normal Bowel Sounds, Soft, No Distention, Guarding (Mild left lower quadrant), Tender (Tender left lower quadrant) Course - Vital Signs Last Recorded V/S: Last Vital Signs Temp 97.7 F 04/21/19 15:43 Pulse 62 04/21/19 15:43 Resp 16 04/21/19 15:43 BP 139/80 04/21/19 15:43 Pulse Ox 97 04/21/19 15:43 - Orders/Labs/Meds Orders: Active Orders 24 hr Category Date Time Status Peripheral IV Care [RC] . DIRECTED Care 04/21/19 15:50 Active UA W/MICROSCOPIC [URIN] Urgent Lab 04/21/19 15:49 Ordered Iopamidol [Isovue-300 (61%)] Med 04/21/19 16:45 Active 120 ml IV . DIRECTED Lactated Ringers [Ringers, Lactated] 1,000 ml Med 04/21/19 16:00 Active IV ASDIRECTED Sodium Chloride 0.9% [Saline Flush] Med 04/21/19 15:49 Active 10 ml FLUSH ASDIRECTED PRN Peripheral IV Insertion Adult [OM.PC] Urgent Oth 04/21/19 15:49 Ordered Medication Orders Lactated Ringer's (Ringers, Lactated) 1,000 mls @ 999 mls/hr IV ASDIRECTED KERRI Last Admin: 04/21/19 16:30 Dose: 999 mls/hr Iopamidol (Isovue-300 (61%)) 120 ml IV . DIRECTED KERRI Stop: 04/21/19 23:50 Last Admin: 04/21/19 16:47 Dose: 100 ml Sodium Chloride (Saline Flush) 10 ml FLUSH ASDIRECTED PRN PRN Reason: Keep Vein Open Last Admin: 04/21/19 16:28 Dose: 10 ml Labs: Laboratory Tests 04/21/19 04/21/19 04/21/19 Range/Units 15:49 16:02 16:02 WBC 9.6 (4.5-11.0) K/uL RBC 5.22 (4.30-5.90) M/uL Hgb 15.2 H (12.0-15.0) g/dL Hct 47.5 (40.0-54.0) % MCV 91 (80-98) fL MCH 29 (27-31) pg MCHC 32 (32-36) % Plt Count 353 (150-400) K/uL Neut % (Auto) 62 (36-66) % Lymph % (Auto) 28 (24-44) % [place] % (Auto) 9 H (2-6) % Eos % (Auto) 1 L (2-4) % Baso % (Auto) 0 (0-1) % Sodium 140 (140-148) mmol/L Potassium 4.7 (3.6-5.2) mmol/L Chloride 104 (100-108) mmol/L Carbon Dioxide 29 (21-32) mmol/L Anion Gap 6.9 (5.0-14.0) mmol/L BUN 11 (7-18) mg/dL Creatinine 1.0 (0.8-1.3) mg/dL Est Cr Clr Drug Dosing 77.60 mL/min Estimated GFR (MDRD) > 60 (>60) Glucose 98 (74-106) mg/dL Lactic Acid 0.9 (0.4-2.0) mmol/L Calcium 9.1 (8.5-10.1) mg/dL Total Bilirubin 0.7 (0.2-1.0) mg/dL AST 26 (15-37) U/L ALT 41 (12-78) U/L Alkaline Phosphatase 160 H (46-116) U/L Total Protein 7.2 (6.4-8.2) g/dL Albumin 3.5 (3.4-5.0) g/dL Globulin 3.7 H (2.3-3.5) g/dL Albumin/Globulin Ratio 1.0 L (1.2-2.2) Lipase 68 L (73-393) U/L Meds: Medications Generic Name Dose Route Start Last Admin Trade Name Freq PRN Reason Stop Dose Admin Lactated Ringer's 1,000 mls @ 999 mls/hr 04/21/19 16:00 04/21/19 16:30 Ringers, Lactated IV 999 mls/hr ASDIRECTED KERRI Administration Iopamidol 120 ml 04/21/19 16:45 04/21/19 16:47 Isovue-300 (61%) IV 04/21/19 23:50 100 ml . DIRECTED KERRI Administration Sodium Chloride 10 ml 04/21/19 15:49 04/21/19 16:28 Saline Flush FLUSH 10 ml ASDIRECTED PRN Administration Keep Vein Open Discontinued Medications Generic Name Dose Route Start Last Admin Trade Name Freq PRN Reason Stop Dose Admin Fentanyl 50 mcg 04/21/19 15:51 04/21/19 16:27 Sublimaze IVPUSH 04/21/19 15:52 50 mcg ONETIME ONE Administration Sodium Chloride 78 mls @ 3 mls/sec 04/21/19 16:45 04/21/19 16:47 Normal Saline IV 04/21/19 16:46 3 mls/sec ASDIRECTED KERRI Administration Sodium Chloride 10 ml 04/21/19 16:35 04/21/19 16:47 Saline Flush FLUSH 04/21/19 16:36 10 ml ONETIME ONE Administration Departure - Departure Time of Disposition: 17:49 Disposition: Admitted As Inpatient 67 Condition: Fair Clinical Impression: Ulcer - Discharge Information Referrals: PCP,None [Primary Care Provider] - Forms: ED Department Discharge - My Orders Last 24 Hours: My Active Orders 04/21/19 15:49 UA W/MICROSCOPIC [URIN] Urgent Sodium Chloride 0.9% [Saline Flush] 10 ml FLUSH ASDIRECTED PRN Peripheral IV Insertion Adult [OM.PC] Urgent 04/21/19 15:50 Peripheral IV Care [RC] . DIRECTED 04/21/19 16:00 Lactated Ringers [Ringers, Lactated] 1,000 ml IV ASDIRECTED 04/21/19 16:45 Iopamidol [Isovue-300 (61%)] 120 ml IV . DIRECTED - Assessment/Plan Last 24 Hours: My Active Orders 04/21/19 15:49 UA W/MICROSCOPIC [URIN] Urgent Sodium Chloride 0.9% [Saline Flush] 10 ml FLUSH ASDIRECTED PRN Peripheral IV Insertion Adult [OM.PC] Urgent 04/21/19 15:50 Peripheral IV Care [RC] . DIRECTED 04/21/19 16:00 Lactated Ringers [Ringers, Lactated] 1,000 ml IV ASDIRECTED 04/21/19 16:45 Iopamidol [Isovue-300 (61%)] 120 ml IV . DIRECTED Plan: Assessment Acuity = acute Site and laterality = possible regional ulcer proximal jejunostomy Etiology = unknown Manifestations = abdominal pain Location of injury = Home Lab values = CBC, CMP, urinalysis unremarkable CT scan describes the possible ulcer above the Plan Called and discussed case with Dr. Gardner at 1745 recommend hospital admission plan for EGD in the morning This note was dictated using [email or web address] voice recognition software please call with any questions on syntax or grammar.
[2019-04-21] MEDS ORDERED: Lactated Ringers 1,000 ML IV SCH (16:00)
[2019-04-21] MEDS ORDERED: Sodium Chloride 0.9% 10 ML Syringe FLUSH ONE (16:35)
[2019-04-21] MEDS ORDERED: Iopamidol 612 MG/ML 150 ML Bottle IV SCH (16:45)
--- NOTE | 2019-04-21 17:28 | CRLCT ---
INDICATION: Left lower quadrant pain TECHNIQUE: CT abdomen and pelvis acquired with IV contrast. 100 mL of Isovue 300 administered. COMPARISON: 02/12/2019 FINDINGS: Lower chest: Unremarkable. Liver: Unremarkable. Spleen: Post splenectomy changes again seen with a small irregular splenule again noted at the splenic bed. Pancreas: Unremarkable. Gallbladder and bile ducts: Interval cholecystectomy. Mild central intrahepatic biliary dilatation and dilatation of the proximal extrahepatic duct up to 1.2 cm, at least partially related to the postcholecystectomy state. Adrenal glands: Unremarkable. Kidneys: No hydronephrosis. A subcentimeter right renal low-density lesion and a tiny left renal lower pole cortical low-density focus, too small to characterize, statistically small cysts. GI tract: Posts Maximo fundoplication, gastrojejunostomy and distal gastrectomy changes again seen. Wall thickening at the proximal jejunostomy with mild adjacent stranding and edema. A 2.0 x 1.7 x 1.4 cm ovoid fluid filled outpouching off of the proximal jejunum near the gastrojejunostomy on image 35 of series 2 and image 29 of series 3, which could represent a luminal lobulation, although, an ulcer is not excluded. Fluid and gas-filled small bowel segments are nonspecific. A normal appendix. No significant pericolonic changes. Few sigmoid diverticula noted. Vascular structures: Atherosclerotic changes. Lymph nodes: A borderline central mesenteric lymph node on image 54 and few adjacent shotty sub centimeter lymph nodes, nonspecific. Miscellaneous: No significant free fluid or free air. Fat containing inguinal hernias. Pelvic Organs: An enlarged prostate, slightly protruding into the bladder base. Mild bladder wall prominence, decreased. Bones: Unremarkable for age. IMPRESSION: Bowel wall thickening at the proximal jejunostomy with adjacent stranding consistent with an inflammatory process/focal enteritis, with a possible prominent regional ulcer. Correlate with endoscopy. Interval cholecystectomy. Mild biliary dilatation, at least partially related to the postcholecystectomy state. Other findings as above. Dictated by Magdaleno Gonzales MD @ 04/21/2019 5:26:41 PM Please note that all CT scans at this facility use dose modulation, iterative reconstruction, and/or weight-based dosing when appropriate to reduce radiation dose to as low as reasonably achievable. Dictated by: Magdaleno Gonzales MD @ 04/21/2019 17:26:51 (Electronically Signed)
[2019-04-21] MEDS ORDERED: Meclizine 25 MG Tab PO PRN (17:55)
[2019-04-21] MEDS ORDERED: Acetaminophen 500 MG Tab PO PRN (17:55)
[2019-04-21] MEDS ORDERED: Ipratropium 0.03% Nasal Spray 30 ML Bot NAS PRN (17:55)
[2019-04-21] MEDS ORDERED: ClonazePAM 0.5 MG Tab PO PRN (17:55)
[2019-04-21] MEDS ORDERED: Pantoprazole 40 MG Vial IVPUSH SCH (18:00)
[2019-04-21] MEDS ORDERED: fentaNYL 100 MCG/2 ML SDV IVPUSH PRN (18:23)
[2019-04-21] MEDS: ClonazePAM 0.5 MG Tab PO SCH (20:51)
[2019-04-21] MEDS: RANITIDINE 300 MG PO SCH (21:49)
[2019-04-21] MEDS: Simvastatin 20 MG Tab PO SCH (21:50)
[2019-04-21] MEDS: Propranolol 40 MG Tab PO SCH (22:04)
[2019-04-22] MEDS: Lactated Ringers 1,000 ML IV SCH ×3 (01:58→08:40)
[2019-04-22] MEDS ORDERED: Propofol 200 MG/20 ML SDV ONE (07:03)
[2019-04-22] MEDS ORDERED: Midazolam 1 MG/ML 2 ML SDV ONE (07:03)
[2019-04-22] MEDS ORDERED: fentaNYL 100 MCG/2 ML SDV ONE (07:03)
[2019-04-22] MEDS ORDERED: Pantoprazole 40 MG Vial IVPUSH ONE (07:40)
[2019-04-22] MEDS: Propranolol 40 MG Tab PO SCH ×3 (09:00→20:24)
[2019-04-22] MEDS: Multivitamins with Iron/Calcium/Folic Acid/Minerals Tab PO SCH (09:00)
[2019-04-22] MEDS: FLUoxetine 20 MG Cap PO SCH (09:00)
[2019-04-22] MEDS: Aspirin 81 MG Tab.Chew PO SCH (09:00)
[2019-04-22] MEDS: Cyanocobalamin (Vitamin B12) 1,000 MCG Tab SL SCH (09:01)
[2019-04-22] MEDS: ClonazePAM 0.5 MG Tab PO SCH ×2 (09:27→20:23)
[2019-04-22] MEDS: MVI, Adult with Vitamin K 10 ML, Chromium/Copper/Mang/Selen/Zn 1 ML in Lactated Ringers... IV SCH ×6 (10:54→18:38)
[2019-04-22] MEDS: Vitamin B Complex Tab PO SCH (11:06)
--- NOTE | 2019-04-22 17:30 | PCM.HP.2 ---
H&P History of Present Illness - General Date of Service: 04/22/19 Admit Problem/Dx: Admission Diagnosis/Problem Admission Diagnosis/Problem Ulcer at site of surgical anastomosis following bypass of stomach Source of Information: Patient History Limitations: Reports: No Limitations - History of Present Illness Initial Comments - Free Text/Narative: Nolan states he has had abdominal pain after eating for about 3 - 4 days and it has increasingly gotten worse. Onset of Symptoms: Reports: Gradual Duration of Symptoms: Reports: Day(s): (3-4) Location: Reports: Abdomen (mid epigastric area) Quality: Reports: Burning, Dull Improves with: Reports: None Worsens with: Reports: None Associated Symptoms: Reports: No Other Symptoms Left Abdomen Pain Score (Numeric/FACES): 2 - Related Data Allergies/Adverse Reactions: Allergies Allergy/AdvReac Type Severity Reaction Status Date / Time Dzmfviw-Zpg-Lnz Reductase Allergy Cannot Verified 04/21/19 15:32 Inhibitor Remember atorvastatin AdvReac Muscle Verified 04/21/19 15:32 Weakness bupropion HCl AdvReac Seizure Verified 04/21/19 15:32 [From Wellbutrin] citalopram hydrobromide AdvReac Hallucinati Verified 04/21/19 15:32 [From Celexa] ons gabapentin AdvReac Shaking Verified 04/21/19 15:32 mirtazapine [From Remeron] AdvReac Hallucinati Verified 04/21/19 15:32 ons pravastatin AdvReac Leg Cramps Verified 04/21/19 15:32 paper tape Allergy Blisters Uncoded 02/23/19 12:33 Home Medications: Home Meds Aspirin [Darlin Chewable Aspirin] 81 mg PO QAM 03/25/13 [History] Multivitamin with Minerals [Multiple Vitamin] 1 tab PO QAM 03/25/13 [History] Propranolol [Inderal] 10 mg PO TID 06/30/13 [History] FLUoxetine [PROzac] 40 mg PO QAM 10/06/13 [History] Acetaminophen [Tylenol Extra Strength] 500 mg PO Q6H PRN 01/03/17 [History] ClonazePAM [KlonoPIN] 1 mg PO BID 10/29/18 [History] Simvastatin 10 mg PO BEDTIME 10/29/18 [History] raNITIdine HCl [Ranitidine HCl] 300 mg PO BEDTIME 10/29/18 [History] Ipratropium [Atrovent 0.03% Nasal [place]] 2 sprays LAURO TID PRN 02/13/19 [History] Meclizine [Antivert] 25 mg PO TID PRN 02/13/19 [History] Cyanocobalamin (Vitamin B-12) [Vitamin B-12] 1,000 mcg SL DAILY 02/17/19 [ History] Vitamin B Complex [B Complex] 1 each PO DAILY 02/17/19 [History] Past Medical History HEENT History: Reports: Hard of Hearing, Impaired Vision Cardiovascular History: Reports: Afib, Arrhythmia, CAD, Heart Murmur, High Cholesterol, SOB on Exertion Respiratory History: Reports: Sleep Apnea Other Respiratory History: no cpap Gastrointestinal History: Reports: Cholelithiasis, Colon Polyp, GERD, Hiatal Hernia Musculoskeletal History: Reports: Back Pain, Chronic, Fracture, Other (See Below ) Other Musculoskeletal History: possible neuropathy Neurological History: Reports: Migraines, Neuropathy, Peripheral, Other (See Below) Other Neuro History: tremors from meds. tinnitis Psychiatric History: Reports: Anxiety, Depression Hematologic History: Reports: Anemia, Blood Transfusion(s) - Infectious Disease History Infectious Disease History: Reports: Chicken Pox, Measles, Mumps - Past Surgical History Head Surgeries/Procedures: Reports: None HEENT Surgical History: Reports: Other (See Below) Other HEENT Surgeries/Procedures: removed metal from eye Cardiovascular Surgical History: Reports: Other (See Below) Other Cardiovascular Surgeries/Procedures: angiogram Respiratory Surgical History: Reports: None GI Surgical History: Reports: Colonoscopy, EGD, Hernia Repair/Other, Shanthi Fundoplication, Polypectomy, Other (See Below) Other GI Surgeries/Procedures: splenectomy 2006 abdomenal surgery in October like bariatric procedure Neurological Surgical History: Reports: None Musculoskeletal Surgical History: Reports: None Dermatological Surgical History: Reports: None Social & Family History - Family History Family Medical History: Noncontributory - Tobacco Use Smoking Status *Q: Former Smoker Years of Tobacco use: 16 Packs/Tins Daily: 3 Used Tobacco, but Quit: Yes Month/Year Tobacco Last Used: october - Caffeine Use Caffeine Use: Reports: Coffee, Soda Caffeine Use Comment: 20 oz a day - Recreational Drug Use Recreational Drug Use: No H&P Review of Systems - Review of Systems: Review Of Systems: See Below General: Reports: Fatigue HEENT: Reports: No Symptoms Pulmonary: Reports: No Symptoms Cardiovascular: Reports: No Symptoms Gastrointestinal: Reports: Abdominal Pain (See chief complaint) Genitourinary: Reports: No Symptoms Musculoskeletal: Reports: No Symptoms Skin: Reports: No Symptoms Psychiatric: Reports: No Symptoms Neurological: Reports: No Symptoms Hematologic/Lymphatic: Reports: No Symptoms Immunologic: Reports: No Symptoms Exam - Exam Exam: See Below - Vital Signs Vital Signs: Last Vital Signs Temp 98.4 F 04/22/19 17:13 Pulse 54 L 04/22/19 17:13 Resp 20 04/22/19 17:13 BP 140/66 04/22/19 17:13 Pulse Ox 95 04/22/19 17:13 Weight: 181 lb - Exam Quality Assessment: DVT Prophylaxis General: Alert, Oriented, Cooperative HEENT: PERRLA, Conjunctiva Clear Neck: Supple, Trachea Midline Lungs: Clear to Auscultation, Normal Respiratory Effort Cardiovascular: Regular Rate, Regular Rhythm GI/Abdominal Exam: Soft, No Distention, Tender (mid epigastric area and left upper and mid abdominal quadrants) (Male) Exam: Deferred Rectal (Males) Exam: Deferred Back Exam: Normal Inspection, Full Range of Motion Extremities: Normal Inspection, Normal Range of Motion Skin: Warm, Dry, Intact Neurological: Cranial Nerves Intact, Reflexes Equal Bilateral Neuro Extensive - Mental Status: Alert, Oriented x3, Normal Mood/Affect, Normal Cognition Neuro Extensive - Motor, Sensory, Reflexes: CN II-XII Intact, Normal Gait, Normal Reflexes Psychiatric: Alert, Normal Affect, Normal Mood - Patient Data Lab Results Last 24 hrs: Laboratory Results - last 24 hr 04/21/19 Range/Units 19:46 Urine Color Yellow (YELLOW) Urine Appearance Clear (CLEAR) Urine pH 6.5 (5.0-8.0) Ur Specific [place] 1.015 (1.008-1.030) Urine Protein Negative (NEGATIVE) mg/dL Urine Glucose (UA) Negative (NEGATIVE) mg/dL Urine Ketones Negative (NEGATIVE) mg/dL Urine Occult Blood Negative (NEGATIVE) Urine Nitrite Negative (NEGATIVE) Urine Bilirubin Negative (NEGATIVE) Urine Urobilinogen 0.2 (0.2-1.0) EU/dL Ur Leukocyte Esterase Negative (NEGATIVE) Urine RBC Not seen (0-5) Urine WBC 0-5 (0-5) Ur Epithelial Cells Not seen Amorphous Sediment Few Urine Bacteria Not seen Urine Mucus Not seen Result Diagrams: 04/21/19 15:49 04/21/19 16:02 Problem List Initiated/Reviewed/Updated: Yes Orders Last 24hrs: Active Orders 24 hr Category Date Time Status Patient Status [ADT] Routine ADT 04/21/19 17:51 Active Ambulate [RC] QID Care 04/21/19 17:51 Active Height and Weight [RC] DAILY Care 04/21/19 17:51 Active Intake and Output [RC] QSHIFT Care 04/21/19 17:53 Active Oxygen Therapy [RC] PRN Care 04/21/19 17:51 Active VTE/DVT Education [RC] Per Unit Routine Care 04/21/19 17:51 Active Vital Signs [RC] Q4H Care 04/21/19 17:51 Active Full Liquid Diet [DIET] Diet 04/22/19 Lunch Ordered MARITA TEST [RM] Routine Lab 04/22/19 07:30 Received Acetaminophen [Tylenol Extra Strength] Med 04/21/19 17:55 Active 500 mg PO Q6H PRN Aspirin Med 04/22/19 09:00 Active 81 mg PO QAM ClonazePAM [KlonoPIN] Med 04/21/19 21:00 Active 1 mg PO BID ClonazePAM [KlonoPIN] Med 04/21/19 17:55 Active 1 mg PO DAILY PRN Cyanocobalamin (Vitamin B12) [Vitamin B12] Med 04/22/19 09:00 Active 1,000 mcg SL DAILY FLUoxetine [PROzac] Med 04/22/19 09:00 Active 40 mg PO DAILY Ipratropium [Atrovent 0.03% Nasal [place]] Med 04/21/19 17:55 Active 0 ml LAURO TID PRN Lactated Ringers [Ringers, Lactated] 1,000 ml Med 04/21/19 18:00 Active IV ASDIRECTED MVI, Adult with Vitamin K [Infuvite Adult] 10 ml Med 04/22/19 10:00 Active Chromium/Copper/Mono/Selen/Zn [Multitrace-5 Concentrate ] 1 ml Lactated Ringers [Ringers, Lactated] 1,000 ml IV Q8H Meclizine [Antivert] Med 04/21/19 17:55 Active 25 mg PO TID PRN Multivitamins w-Iron/Ca/FA/Min [Thera M Plus] Med 04/22/19 09:00 Active 1 tab PO DAILY Pantoprazole [ProTONIX IV] Med 04/22/19 20:00 Active 40 mg IVPUSH Q12H Propranolol [Inderal] Med 04/21/19 21:30 Active 10 mg PO TID Simvastatin [Zocor] Med 04/21/19 21:00 Active 10 mg PO BEDTIME Vitamin B Complex Med 04/22/19 09:00 Active 1 each PO DAILY fentaNYL [Sublimaze] Med 04/21/19 18:23 Active 50 mcg IVPUSH Q6H PRN raNITIdine HCl [Ranitidine HCl] Med 04/21/19 21:00 Active 300 mg PO BEDTIME Resuscitation Status Routine Resus Stat 04/21/19 17:51 Ordered Medication Orders Acetaminophen (Tylenol Extra Strength) 500 mg PO Q6H PRN PRN Reason: Pain Aspirin (Aspirin) 81 mg PO QAM [facility] Last Admin: 04/22/19 09:00 Dose: 81 mg Clonazepam (Klonopin) 1 mg PO BID [facility] Last Admin: 04/22/19 09:27 Dose: 1 mg Admin: 04/21/19 20:51 Dose: Clonazepam (Klonopin) 1 mg PO DAILY PRN PRN Reason: Anxiety Cyanocobalamin (Vitamin B12) 1,000 mcg SL DAILY [facility] Last Admin: 04/22/19 09:01 Dose: 1,000 mcg Fentanyl (Sublimaze) 50 mcg IVPUSH Q6H PRN PRN Reason: Pain (severe 7-10) Fluoxetine HCl (Prozac) 40 mg PO DAILY [facility] Last Admin: 04/22/19 09:00 Dose: 40 mg Lactated Ringer's (Ringers, Lactated) 1,000 mls @ 125 mls/hr IV ASDIRECTED [facility] Last Admin: 04/22/19 08:40 Dose: 125 mls/hr Infusion: 04/22/19 08:40 Dose: 125 mls/hr Admin: 04/22/19 02:01 Dose: 125 mls/hr Infusion: 04/22/19 02:01 Dose: 125 mls/hr Admin: 04/22/19 01:58 Dose: 125 mls/hr Multivitamins/Minerals 10 ml/Chromium/Copper/Manganese/Seleni/Zn 1 ml/ Lactated Ringer's 1,011 mls @ 125 mls/hr IV Q8H [facility] Stop: 04/23/19 01:59 Last Admin: 04/22/19 10:54 Dose: 125 mls/hr Ipratropium [place] (Atrovent 0.03% Nasal [place]) 0 ml LAURO TID PRN PRN Reason: Rhinitis Meclizine HCl (Antivert) 25 mg PO TID PRN PRN Reason: Dizziness Multivitamins/Minerals (Thera M Plus) 1 tab PO DAILY [facility] Last Admin: 04/22/19 09:00 Dose: 1 tab Ranitidine 300 Mg (Tab Own Med) 300 mg PO BEDTIME [facility] Last Admin: 04/21/19 21:49 Dose: 300 mg Pantoprazole Sodium (Protonix Iv) 40 mg IVPUSH Q12H [facility] Propranolol HCl (Inderal) 10 mg PO TID [facility] Last Admin: 04/22/19 14:43 Dose: 10 mg Admin: 04/22/19 09:00 Dose: 10 mg Admin: 04/21/19 22:04 Dose: 10 mg Simvastatin (Zocor) 10 mg PO BEDTIME [facility] Last Admin: 04/21/19 21:50 Dose: 10 mg Sodium Chloride (Saline Flush) 10 ml FLUSH ASDIRECTED PRN PRN Reason: Keep Vein Open Last Admin: 04/21/19 16:28 Dose: 10 ml Vitamin B Complex (Vitamin B Complex) 1 each PO DAILY [facility] Last Admin: 04/22/19 11:06 Dose: 1 each Assessment/Plan Comment:: Abdominal Pain Plan: EGD with possible biopsies today Orders to be written after EGD. Antonia VELASQUEZ C - Mortality Measure Prognosis:: Good
[2019-04-22] MEDS ORDERED: Pantoprazole 40 MG Vial IVPUSH SCH (20:00)
[2019-04-22] MEDS: RANITIDINE 300 MG PO SCH (20:24)
[2019-04-22] MEDS: Simvastatin 20 MG Tab PO SCH (20:24)
[2019-04-22] MEDS: Pantoprazole 40 MG Vial IVPUSH SCH (20:26)
[2019-04-23] MEDS: Lactated Ringers 1,000 ML IV SCH (02:17)
[2019-04-23 07:34] VITALS: BP 140/77; PULSE 54
[2019-04-23] MEDS: Pantoprazole 40 MG Vial IVPUSH SCH (07:38)
[2019-04-23] MEDS: Aspirin 81 MG Tab.Chew PO SCH (08:22)
[2019-04-23] MEDS: ClonazePAM 0.5 MG Tab PO SCH (08:23)
[2019-04-23] MEDS: FLUoxetine 20 MG Cap PO SCH (08:23)
[2019-04-23] MEDS: Vitamin B Complex Tab PO SCH (08:23)
[2019-04-23] MEDS: Multivitamins with Iron/Calcium/Folic Acid/Minerals Tab PO SCH (08:23)
[2019-04-23] MEDS: Cyanocobalamin (Vitamin B12) 1,000 MCG Tab SL SCH (08:23)
[2019-04-23] MEDS: Propranolol 40 MG Tab PO SCH (08:24)
--- NOTE | 2019-04-23 13:14 | DISCH ---
ADMISSION DIAGNOSES: Abdominal pain, status post partial gastrectomy; unspecified surgical malabsorption; B12 deficiency; anxiety; depression; degenerative disk disease; avoidant personality adult; mild coronary artery disease; mild cognitive impairment; obstructive sleep apnea; and iron deficiency anemia. DISCHARGE DIAGNOSES: 1. EGD, upper GI with biopsy for CLOtest on 04/22/2019; Ace Gardner MD. 2. Marginal ulcer. HISTORY: Nolan Renee is a 69-year-old male who presented to the emergency room on 04/21/2019, with abdominal pain. He was admitted for observation to the hospital. He had an EGD, which revealed a marginal ulcer. HOSPITAL COURSE: Nolan was admitted on 04/21/2019. He had an EGD on 04/22/2019. He had no complications. Marginal ulcer was seen. He was started on Protonix 40 mg. He is to resume taking his ranitidine 300 mg. Pain was improved. Vital signs stable. Oral intake 2540. Urine output 1200. REVIEW OF SYSTEMS: Remainder of review of systems negative for any pertinent positives or negatives. He was able to be discharged to home on 04/23/2019. PHYSICAL EXAMINATION: GENERAL: Nolan Renee is a pleasant 69-year-old male. VITAL SIGNS: Height is 6 feet and weight is 181 pounds. TPR is 97.8, 54, 16, and blood pressure 140/77. HEENT: Negative. NECK: Supple. HEART: Regular rate and rhythm. LUNGS: Clear. ABDOMEN: Soft, nontender. No distention noted. EXTREMITIES: Without peripheral edema. NEUROLOGIC: Cranial nerves II through XII intact. PSYCHIATRIC: Mood and affect appropriate. DISPOSITION: Discharged to home. DISCHARGE CONDITION: Stable and improving. FOLLOWUP: Followup appointment with Antonia Emanuel PA-C, at [facility] on 04/29/2019 at 9 a.m. DISCHARGE MEDICATIONS: Home Medications: 1. Protonix 40 mg daily, #30, with 4 refills. 2. He is to resume his home medication of Tylenol Extra Strength 500 mg every 6 hours; aspirin 81 mg oral q.a.m.; clonazepam 1 mg oral twice daily; vitamin B12 1000 mcg sublingual daily; Prozac 40 mg every a.m.; Atrovent 0.03% nasal spray, 2 sprays 3 times a day; Antivert 25 mg oral 3 times a day p.r.n. dizziness; multivitamin one tablet every morning; Inderal 10 mg 3 times a day; simvastatin 10 mg oral at bedtime; B complex 1 daily; and ranitidine 300 mg at bedtime. DIET: Step-4 gastric bypass diet. Drink 8 to 10 glasses of water a day. ACTIVITY: As tolerated. Driving, may drive today. Shower/bathing, may shower. DISCHARGE INSTRUCTIONS: Notify provider if any increased pain, nausea, or vomiting.
--- NOTE | 2019-04-24 11:33 | OR ---
DATE OF PROCEDURE: 04/22/2019 SURGEON: Ace Gardner MD PREOPERATIVE DIAGNOSIS: Epigastric pain. POSTOPERATIVE DIAGNOSES: Epigastric pain associated with marginal ulcer. OPERATIVE PROCEDURE: Upper GI endoscopy with biopsies of gastric pouch for CLOtest. ANESTHESIA: IV sedation. INDICATION FOR PROCEDURE: This is a 69-year-old status post partial gastrectomy with Benja- en-Y reconstruction, presenting with some ongoing epigastric discomfort. He presently is on Zantac 150 mg b.i.d. The plan is to proceed with an upper GI endoscopy with biopsies and/or dilation as indicated. Potential risks including bleeding and perforation were discussed, and the patient wishes to proceed. DETAILS OF PROCEDURE: The patient was taken to the operating room and placed in a left lateral decubitus position. IV sedation was administered, after which the upper GI endoscope was passed orally through the length of the esophagus, into the gastric pouch, and from there through the gastrojejunostomy roughly 20 cm into the Benja limb. Findings included normal hypopharynx, larynx, upper esophageal sphincter, and esophageal body. EG junction likewise was unremarkable. Gastric pouch was normally sized. Gastrojejunostomy was widely patent, but there was intense inflammation in the jejunum just distal to the gastrojejunostomy with 3 small marginal ulcers present, that were presently covered with fibrinous exudate. These were within a field of intense redness and edema of the jejunal mucosa. Beyond that point, the area immediately adjacent to the gastrojejunostomy, the jejunum then normalized. At this point, biopsies were taken from the gastric pouch and sent for CLOtest for H pylori. Minimal bleeding from the biopsy site was seen, and the procedure then concluded. The patient was taken to the recovery room in satisfactory condition. At this point, we will start the patient on b.i.d. IV Protonix and begin a full liquid diet. In all likelihood, these ulceration should rapidly heal with proton pump inhibitor therapy. Ace Gardner MD Job #: [id number]
== END 2019-04-23 09:04 | disposition home or self-care (01) ==
LOC: JP.ED 15:01 → JP.MS 17:51
PROVIDERS: ADMIT Surgery; ATTEND Surgery
DX: K28.9 Gastrojejunal ulcer, unspecified as acute or chronic, without hemorrhage or perforation (principal); K52.9 Noninfective gastroenteritis and colitis, unspecified; K91.2 Postsurgical malabsorption, not elsewhere classified; K21.9 Gastro-esophageal reflux disease without esophagitis; E53.8 Deficiency of other specified B group vitamins; F41.9 Anxiety disorder, unspecified; F32.9 Major depressive disorder, single episode, unspecified; F40.10 Social phobia, unspecified; I25.10 Atherosclerotic heart disease of native coronary artery without angina pectoris; G31.84 Mild cognitive impairment of uncertain or unknown etiology; G47.33 Obstructive sleep apnea (adult) (pediatric); D50.9 Iron deficiency anemia, unspecified; E78.00 Pure hypercholesterolemia, unspecified; G43.909 Migraine, unspecified, not intractable, without status migrainosus; Z98.84 Bariatric surgery status; Z88.8 Allergy status to other drugs, medicaments and biological substances; Z91.048 Other nonmedicinal substance allergy status; Z79.82 Long term (current) use of aspirin; Z79.899 Other long term (current) drug therapy; Z87.891 Personal history of nicotine dependence
CPT/HCPCS: 36415; 43239; 74177; 80053; 81001; 83605; 83690; 85025; 87081; 96361; 96365; 96366; 96375; 96376; 99284; 99285; A9270; C9113; G0378; J2250; J2704; J3010; J7050; J7120; 96374

== ENCOUNTER 2020-06-25 16:55 | Emergency (ER) | payer MEDICARE, MEDICAID ==
[2020-06-25 17:29] VITALS: BP 114/60; PULSE 51
[2020-06-25] MEDS ORDERED: Sodium Chloride 0.9% 1,000 ML IV STA (17:46)
[2020-06-25] MEDS ORDERED: Sodium Chloride 0.9% 10 ML Syringe FLUSH PRN (17:46)
--- NOTE | 2020-06-25 17:51 | EDM.PDOC ---
<OfficerMervin - Last Filed: 06/25/20 17:49> ED HPI GENERAL MEDICAL PROBLEM - General Chief Complaint: Abdominal Pain Stated Complaint: ADBOMINAL PAIN Time Seen by Provider: 06/25/20 17:40 Source of Information: Reports: Patient, Old Records, RN Notes Reviewed History Limitations: Reports: No Limitations - History of Present Illness INITIAL COMMENTS - FREE TEXT/NARRATIVE: 70-year-old gentleman presents emergency department a complaint of abdominal pain, he states his abdominal pain for the last 3 days does have a history of gastric bypass has had some complications with that surgery most recently 2 months ago developed an ulcer at the anastomosis site of his Benja-en-Y. He states the pain is generalized through his abdomen there is no specific point he states he cannot get comfortable he denies any fevers no nausea vomiting is still passing gas - Related Data Allergies Allergy/AdvReac Type Severity Reaction Status Date / Time [id number]-Als Reductase Allergy Cannot Verified 06/25/20 17:15 Inhibitor Remember atorvastatin AdvReac Muscle Verified 06/25/20 17:15 Weakness bupropion HCl AdvReac Seizure Verified 06/25/20 17:15 [From Wellbutrin] citalopram hydrobromide AdvReac Hallucinati Verified 06/25/20 17:15 [From Celexa] ons gabapentin AdvReac Shaking Verified 06/25/20 17:15 mirtazapine [From Remeron] AdvReac Hallucinati Verified 06/25/20 17:15 ons pravastatin AdvReac Leg Cramps Verified 06/25/20 17:15 paper tape Allergy Blisters Uncoded 06/25/20 17:15 Home Meds: Home Meds Aspirin [Darlin Chewable Aspirin] 81 mg PO QAM 03/25/13 [History] Multivitamin with Minerals [Multiple Vitamin] 1 tab PO QAM 03/25/13 [History] Propranolol [Inderal] 10 mg PO TID 06/30/13 [History] FLUoxetine [PROzac] 40 mg PO QAM 10/06/13 [History] Acetaminophen [Tylenol Extra Strength] 500 mg PO Q6H PRN 01/03/17 [History] ClonazePAM [KlonoPIN] 1 mg PO BID 10/29/18 [History] Simvastatin 10 mg PO BEDTIME 10/29/18 [History] raNITIdine HCL [Ranitidine HCl] 300 mg PO BEDTIME 10/29/18 [History] Ipratropium [Atrovent 0.03% Nasal [place]] 2 sprays LAURO TID PRN 02/13/19 [History] Meclizine [Antivert] 25 mg PO TID PRN 02/13/19 [History] Cyanocobalamin (Vitamin B-12) [Vitamin B-12] 1,000 mcg SL DAILY 02/17/19 [History] Vitamin B Complex [B Complex] 1 each PO DAILY 02/17/19 [History] Pantoprazole Sodium [Protonix] 40 mg PO DAILY #30 tablet. 04/23/19 [Rx] Aspirin 1 tab PO DAILY 06/25/20 [History] FLUoxetine HCl [Prozac] 1 tab PO DAILY 06/25/20 [History] Past Medical History HEENT History: Reports: Hard of Hearing, Impaired Vision Cardiovascular History: Reports: Afib, Arrhythmia, CAD, Heart Murmur, High Cholesterol, SOB on Exertion Respiratory History: Reports: Sleep Apnea Other Respiratory History: no cpap Gastrointestinal History: Reports: Cholelithiasis, Colon Polyp, GERD, Hiatal Hernia Musculoskeletal History: Reports: Back Pain, Chronic, Fracture, Other (See Below) Other Musculoskeletal History: possible neuropathy Neurological History: Reports: Migraines, Neuropathy, Peripheral, Other (See Below) Other Neuro History: tremors from meds. tinnitis Psychiatric History: Reports: Anxiety, Depression Hematologic History: Reports: Anemia, Blood Transfusion(s) - Infectious Disease History Infectious Disease History: Reports: Chicken Pox, Measles, Mumps - Past Surgical History Head Surgeries/Procedures: Reports: None HEENT Surgical History: Reports: Other (See Below) Other HEENT Surgeries/Procedures: removed metal from eye Cardiovascular Surgical History: Reports: Other (See Below) Other Cardiovascular Surgeries/Procedures: angiogram Respiratory Surgical History: Reports: None GI Surgical History: Reports: Colonoscopy, EGD, Hernia Repair/Other, Shanthi Fundoplication, Polypectomy, Other (See Below) Other GI Surgeries/Procedures: splenectomy 2006 abdomenal surgery in October like bariatric procedure Neurological Surgical History: Reports: None Musculoskeletal Surgical History: Reports: None Dermatological Surgical History: Reports: None Social & Family History - Family History Family Medical History: No Pertinent Family History - Tobacco Use Tobacco Use Status *Q: Never Tobacco User - Caffeine Use Caffeine Use: Reports: Coffee, Soda Caffeine Use Comment: 20 oz a day ED ROS GENERAL - Review of Systems Review Of Systems: See Below Constitutional: Reports: No Symptoms HEENT: Reports: No Symptoms Respiratory: Reports: No Symptoms Cardiovascular: Reports: No Symptoms GI/Abdominal: Reports: Abdominal Pain, Flatus. Denies: Nausea, Vomiting : Reports: No Symptoms ED EXAM, GI/ABD - Physical Exam Exam: See Below Exam Limited By: No Limitations General Appearance: Alert, WD/WN, No Apparent Distress Respiratory/Chest: No Respiratory Distress, Lungs Clear, Normal Breath Sounds, No Accessory Muscle Use, Chest Non-Tender Cardiovascular: Regular Rate, Rhythm, No Murmur GI/Abdominal Exam: Normal Bowel Sounds, Soft, Guarding, Tender (Generalized) Departure - Departure Disposition: Home, Self-Care 01 Clinical Impression: Nonspecific abdominal pain - Discharge Information Instructions: Abdominal Pain, Adult, [id number] Referrals: Robin Mata COMPUTER SECURITY MANAGER [Primary Care Provider] - Forms: ED Department Discharge Additional Instructions: Use [place] as needed for pain relief. F/U in the clinic on Saturday/Saturday if not improving. Return if worse. Sepsis Event Note (ED) - Evaluation Sepsis Screening Result: No Definite Risk <Sonny Worley G - Last Filed: 06/25/20 20:06> Course - Vital Signs Last Recorded V/S: Last Vital Signs Temp 36.3 C 06/25/20 17:23 Pulse 51 L 06/25/20 17:23 Resp 14 06/25/20 17:23 BP 114/60 06/25/20 17:23 Pulse Ox 97 06/25/20 17:23 - Orders/Labs/Meds Orders: Active Orders 24 hr Category Date Time Status Peripheral IV Care [RC] . DIRECTED Care 06/25/20 17:47 Active UA W/MICROSCOPIC [URIN] Urgent Lab 06/25/20 17:46 Ordered Sodium Chloride 0.9% [Normal Saline] 80 ml Med 06/25/20 18:00 Active IV ASDIRECTED Sodium Chloride 0.9% [Saline Flush] Med 06/25/20 17:46 Active 10 ml FLUSH ASDIRECTED PRN Peripheral IV Insertion Adult [OM.PC] Urgent Oth 06/25/20 17:46 Ordered Medication Orders Sodium Chloride (Normal Saline) 80 mls @ 3.5 mls/sec IV ASDIRECTED KERRI Last Admin: 06/25/20 18:18 Dose: 3.5 mls/sec Documented by: AYSE Sodium Chloride (Saline Flush) 10 ml FLUSH ASDIRECTED PRN PRN Reason: Keep Vein Open Labs: Laboratory Tests 06/25/20 06/25/20 06/25/20 Range/Units 17:59 17:59 17:59 WBC 5.0 (4.5-11.0) K/uL RBC 5.34 (4.30-5.90) M/uL Hgb 16.2 H (12.0-15.0) g/dL Hct 50.0 (40.0-54.0) % MCV 94 (80-98) fL MCH 30 (27-31) pg MCHC 32 (32-36) % Plt Count 269 (150-400) K/uL Neut % (Auto) 34 L (36-66) % Lymph % (Auto) 46 H (24-44) % [place] % (Auto) 19 H (2-6) % Eos % (Auto) 0 L (2-4) % Baso % (Auto) 1 (0-1) % Sodium 140 (140-148) mmol/L Potassium 4.6 (3.6-5.2) mmol/L Chloride 106 (100-108) mmol/L Carbon Dioxide 26 (21-32) mmol/L Anion Gap 8.5 (5.0-14.0) mmol/L BUN 16 (7-18) mg/dL Creatinine 1.1 (0.7-1.3) mg/dL Est Cr Clr Drug Dosing 69.57 mL/min Estimated GFR (MDRD) > 60 (>60) BUN/Creatinine Ratio Not Reportable Glucose 121 H (74-106) mg/dL Lactic Acid 1.4 (0.4-2.0) mmol/L Calcium 8.5 (8.5-10.1) mg/dL Total Bilirubin 0.4 (0.2-1.0) mg/dL AST 25 (15-37) U/L ALT 31 (12-78) U/L Alkaline Phosphatase 110 (46-116) U/L Troponin I < 0.017 (0.000-0.056) ng/mL Total Protein 6.8 (6.4-8.2) g/dL Albumin 3.4 (3.4-5.0) g/dL Globulin 3.4 (2.3-3.5) g/dL Albumin/Globulin Ratio 1.0 L (1.2-2.2) Lipase 93 (73-393) U/L Meds: Medications Generic Name Dose Route Start Last Admin Trade Name Freq PRN Reason Stop Dose Admin Sodium Chloride 80 mls @ 3.5 mls/sec 06/25/20 18:00 06/25/20 18:18 Normal Saline IV 3.5 mls/sec ASDIRECTED KERRI Administration Sodium Chloride 10 ml 06/25/20 17:46 Saline Flush FLUSH ASDIRECTED PRN Keep Vein Open Discontinued Medications Generic Name Dose Route Start Last Admin Trade Name Freq PRN Reason Stop Dose Admin Hydrocodone Bitart/Acetaminophen 2 tab 06/25/20 19:10 06/25/20 19:15 [place] 325-5 Mg PO 06/25/20 19:11 2 tab ONETIME ONE Administration Fentanyl 50 mcg 06/25/20 18:00 06/25/20 19:16 Sublimaze IVPUSH 06/25/20 18:01 Not Given ONETIME ONE Sodium Chloride 1,000 mls @ 500 mls/hr 06/25/20 17:46 06/25/20 19:02 Normal Saline IV 06/25/20 19:45 500 mls/hr .BOLUS STA Administration Iopamidol 132 ml 06/25/20 17:52 06/25/20 18:18 Isovue-300 (61%) IV 06/25/20 17:53 132 ml ONETIME ONE Administration Sodium Chloride 10 ml 06/25/20 17:52 06/25/20 18:18 Saline Flush FLUSH 06/25/20 17:53 10 ml ONETIME ONE Administration - Radiology Interpretation Free Text/Narrative:: CT abd/pelvis with IV contrast- IMPRESSION 1. No acute abnormality in the abdomen or pelvis. 2. Bronchial wall thickening in the lung bases may be from airway inflammation. Please note that all CT scans at this facility use dose modulation, iterative reconstruction, and/or weight-based dosing when appropriate to reduce radiation dose to as low as reasonably achievable. Dictated by: Almas Wood MD @ 06/25/2020 18:57:40 (Electronic Signature) CT Results Date: 02/06/21 CT Results Time: 19:06 - Re-Assessments/Exams Free Text/Narrative Re-Assessment/Exam: 06/25/20 20:04 Feeling better after [place], willing to try going home with additional doses and f/u in the clinic if not better. Departure - Departure Time of Disposition: 20:10 Condition: Fair - Discharge Information *PRESCRIPTION DRUG MONITORING PROGRAM REVIEWED*: No *COPY OF PRESCRIPTION DRUG MONITORING REPORT IN PATIENT MARISELA: No Sepsis Event Note (ED) - Focused Exam Vital Signs: Vital Signs Temp Pulse Resp BP Pulse Ox 06/25/20 17:23 36.3 C 51 L 14 114/60 97
[2020-06-25] MEDS ORDERED: Iopamidol 612 MG/ML 500 ML Multipack Bottle IV ONE (17:52)
[2020-06-25] MEDS ORDERED: Sodium Chloride 0.9% 10 ML Syringe FLUSH ONE (17:52)
[2020-06-25] MEDS ORDERED: Sodium Chloride 0.9% 80 ML IV SCH (18:00)
[2020-06-25] MEDS ORDERED: fentaNYL 100 MCG/2 ML SDV IVPUSH ONE (18:00)
--- NOTE | 2020-06-25 18:58 | CRLCT ---
HISTORY Generalized abdominal pain. History of gastric bypass, hiatal hernia repair, splenectomy, cholecystectomy. TECHNIQUE CT abdomen pelvis with IV contrast. 132 mL Isovue-[address] abdomen pelvis 01/13/2020. FINDINGS Abdomen: No liver lesions. Cholecystectomy. Unchanged extrahepatic and mild intrahepatic bile duct dilation compatible with postcholecystectomy change. No pancreatic mass or pancreatic duct dilation. Splenectomy. Small splenule in the splenectomy bed. No adrenal nodules. Kidneys enhance symmetrically. No renal mass. No hydronephrosis. Gastric fundoplication. Benja-en-Y gastric bypass. Localized patulous small bowel at the jejunostomy similar to prior. No dilated bowel otherwise. Appendix is normal. No free fluid. No lymphadenopathy. Mild atherosclerosis. Abdominal aorta is normal caliber. Pelvis: Small bilateral fat containing inguinal hernias. No lymphadenopathy. Musculoskeletal: Degenerative changes of the spine. Lower chest: Bronchial wall thickening in the lung bases. IMPRESSION 1. No acute abnormality in the abdomen or pelvis. 2. Bronchial wall thickening in the lung bases may be from airway inflammation. Please note that all CT scans at this facility use dose modulation, iterative reconstruction, and/or weight-based dosing when appropriate to reduce radiation dose to as low as reasonably achievable. Dictated by: Almas Wood MD @ 06/25/2020 18:57:40 (Electronically Signed)
[2020-06-25] MEDS ORDERED: Acetaminophen/HYDROcodone 325-5 MG Tab PO ONE (19:10)
== END 2020-06-25 20:15 | disposition home or self-care (01) ==
LOC: JP.ED 16:55
DX: R10.84 Generalized abdominal pain (principal); I48.91 Unspecified atrial fibrillation; I25.10 Atherosclerotic heart disease of native coronary artery without angina pectoris; E78.00 Pure hypercholesterolemia, unspecified; K21.9 Gastro-esophageal reflux disease without esophagitis; Z88.8 Allergy status to other drugs, medicaments and biological substances; Z88.1 Allergy status to other antibiotic agents; Z91.048 Other nonmedicinal substance allergy status; Z79.82 Long term (current) use of aspirin; Z79.899 Other long term (current) drug therapy
CPT/HCPCS: 36415; 74177; 80053; 83605; 83690; 84484; 85025; 99283; 99284; A9270; J7030; Q9967

== ENCOUNTER 2020-07-27 10:58 | Inpatient (IN) | payer MEDICARE, MEDICAID ==
[2020-07-27] MEDS ORDERED: Acetaminophen 325 MG Tab PO PRN (11:57)
[2020-07-27] MEDS ORDERED: Acetaminophen 650 MG Supp RECTAL PRN (11:58)
[2020-07-27] MEDS: Dextrose 5%-Lactated Ringers 1,000 ML IV SCH ×3 (12:10→22:56)
[2020-07-27] MEDS: Pantoprazole 40 MG Vial IV SCH (12:13)
[2020-07-27] MEDS ORDERED: Bisacodyl 5 MG Tab PO ONE ×2 (13:00→20:00)
[2020-07-27] MEDS ORDERED: Meclizine 25 MG Tab PO PRN (13:23)
[2020-07-27] MEDS ORDERED: Ipratropium 0.03% Nasal Spray 30 ML Bot NAS PRN (13:23)
[2020-07-27] MEDS ORDERED: Non-Formulary Medication 1 Each (Propranolol [Inderal] 10 MG Tablet) PO SCH (14:00)
[2020-07-27] MEDS ORDERED: DICLOFENAC TP SCH (14:00)
[2020-07-27] MEDS ORDERED: NIACIN TP SCH (14:00)
[2020-07-27] MEDS ORDERED: HYALURONATE TP SCH (14:00)
[2020-07-27] MEDS ORDERED: [UNRECOGNIZED DRUG - OTHER] TP SCH (14:00)
[2020-07-27] MEDS ORDERED: ClonazePAM 0.5 MG Tab PO SCH (14:00)
[2020-07-27] MEDS ORDERED: Lactated Ringers 750 ML IV ONE (14:58)
--- NOTE | 2020-07-27 15:08 | PCM.HP.2 ---
H&P History of Present Illness - General Date of Service: 07/27/20 Admit Problem/Dx: Admission Diagnosis/Problem Admission Diagnosis/Problem Gastrointestinal hemorrhage Source of Information: Patient History Limitations: Reports: No Limitations - History of Present Illness Initial Comments - Free Text/Narative: Nolan states he woke up this morning and had a bloody black maroon bowel movement. He reports he feels short of breath, weak, dizzy and had to have his friend bring him into the clinic. Denies abdominal pain. The last time he had blood in his stool was when he was in the hospital 03/07/2019. Hemoglobin was 11.7 today and on 06/28/20 his hemoglobin was 17. - Related Data Allergies/Adverse Reactions: Allergies Allergy/AdvReac Type Severity Reaction Status Date / Time Akxkekr-Imd-Bjc Reductase Allergy Cannot Verified 06/25/20 17:15 Inhibitor Remember atorvastatin AdvReac Muscle Verified 06/25/20 17:15 Weakness bupropion HCl AdvReac Seizure Verified 06/25/20 17:15 [From Wellbutrin] citalopram hydrobromide AdvReac Hallucinati Verified 06/25/20 17:15 [From Celexa] ons gabapentin AdvReac Shaking Verified 06/25/20 17:15 mirtazapine [From Remeron] AdvReac Hallucinati Verified 06/25/20 17:15 ons pravastatin AdvReac Leg Cramps Verified 06/25/20 17:15 paper tape Allergy Blisters Uncoded 06/25/20 17:15 Home Medications: Home Meds Multivitamin with Minerals [Multiple Vitamin] 1 tab PO BID 03/25/13 [History] Propranolol [Inderal] 10 mg PO TID 06/30/13 [History] ClonazePAM [KlonoPIN] 1 mg PO BID 10/29/18 [History] Simvastatin 10 mg PO BEDTIME 10/29/18 [History] Ipratropium [Atrovent 0.03% Nasal [place]] 2 sprays LAURO TID PRN 02/13/19 [History] Meclizine [Antivert] 25 mg PO TID PRN 02/13/19 [History] Cyanocobalamin (Vitamin B-12) [Vitamin B-12] 1,000 mcg SL DAILY 02/17/19 [History] Vitamin B Complex [B Complex] 1 each PO DAILY 02/17/19 [History] Pantoprazole Sodium [Protonix] 40 mg PO DAILY #30 tablet. 04/23/19 [Rx] Aspirin 1 tab PO DAILY 06/25/20 [History] FLUoxetine HCl [Prozac] 40 mg PO DAILY 06/25/20 [History] Calcium Cit/Mgox/Vit D3/B6/Min [Calcium Citrate Plus Tablet] 1 each PO BID 06/28/20 [History] Diclofenac/Hyaluronate/Niacin [Diclofen 3%-Hyaluron 2%-Niac4%] 1 applic TP TID 06/28/20 [History] Propranolol [Inderal] 10 mg PO TID 06/28/20 [History] Sucralfate [Carafate] 1 gm PO QIDACANDBED 06/28/20 [History] clonazePAM [Klonopin] 0.5 mg PO DAILY 06/28/20 [History] Past Medical History HEENT History: Reports: Hard of Hearing, Impaired Vision Cardiovascular History: Reports: Afib, Arrhythmia, CAD, Heart Murmur, High Cholesterol, SOB on Exertion Respiratory History: Reports: Sleep Apnea Other Respiratory History: no cpap Gastrointestinal History: Reports: Cholelithiasis, Colon Polyp, GERD, Hiatal Hernia Genitourinary History: Reports: Other (See Below) Other Genitourinary History: surgery on testicle Musculoskeletal History: Reports: Back Pain, Chronic, Fracture, Other (See Below) Other Musculoskeletal History: possible neuropathy Neurological History: Reports: Migraines, Neuropathy, Peripheral, Other (See Below) Other Neuro History: tremors from meds. tinnitis Psychiatric History: Reports: Anxiety, Depression Hematologic History: Reports: Anemia, Blood Transfusion(s) - Infectious Disease History Infectious Disease History: Reports: Chicken Pox, Measles, Mumps - Past Surgical History Head Surgeries/Procedures: Reports: None HEENT Surgical History: Reports: Other (See Below) Other HEENT Surgeries/Procedures: removed metal from eye Cardiovascular Surgical History: Reports: Other (See Below) Other Cardiovascular Surgeries/Procedures: angiogram Respiratory Surgical History: Reports: None GI Surgical History: Reports: Colonoscopy, EGD, Hernia Repair/Other, Shanthi Fundoplication, Polypectomy, Other (See Below) Other GI Surgeries/Procedures: splenectomy 2006 abdomenal surgery in October like bariatric procedure Neurological Surgical History: Reports: None Musculoskeletal Surgical History: Reports: None Dermatological Surgical History: Reports: None Social & Family History - Family History Family Medical History: No Pertinent Family History - Tobacco Use Tobacco Use Status *Q: Former Tobacco User Used Tobacco, but Quit: Yes Month/Year Tobacco Last Used: quit 1986 - Caffeine Use Caffeine Use: Reports: Coffee Other Caffeine Use: 2-3 c. daily Caffeine Use Comment: 20 oz a day - Recreational Drug Use Recreational Drug Use: No H&P Review of Systems - Review of Systems: Review Of Systems: See Below General: Reports: Weakness, Fatigue, Diaphoresis HEENT: Reports: No Symptoms Pulmonary: Reports: Shortness of Breath Cardiovascular: Reports: No Symptoms Gastrointestinal: Reports: Black Stool, Bloody Stool Genitourinary: Reports: No Symptoms Musculoskeletal: Reports: No Symptoms Skin: Reports: No Symptoms Psychiatric: Reports: No Symptoms Neurological: Reports: Dizziness, Weakness Hematologic/Lymphatic: Reports: No Symptoms Immunologic: Reports: No Symptoms Exam - Exam Exam: See Below - Vital Signs Vital Signs: Last Vital Signs Temp 97.0 F 07/27/20 14:40 Pulse 129 H 07/27/20 14:49 Resp 18 07/27/20 14:47 BP 85/52 L 07/27/20 14:47 Pulse Ox 100 07/27/20 14:49 Weight: 191 lb - Exam Quality Assessment: DVT Prophylaxis General: Moderate Distress HEENT: PERRLA Neck: Supple Lungs: Clear to Auscultation, Normal Respiratory Effort Cardiovascular: Regular Rate, Regular Rhythm GI/Abdominal Exam: Soft, Non-Tender, No Distention, Hernia (midline incisional hernia) (Male) Exam: Deferred Rectal (Males) Exam: Deferred Back Exam: Normal Inspection, Full Range of Motion Extremities: Normal Inspection, Normal Range of Motion, No Pedal Edema Skin: Cool, Moist Neurological: Cranial Nerves Intact Neuro Extensive - Mental Status: Alert, Oriented x3 Neuro Extensive - Motor, Sensory, Reflexes: CN II-XII Intact Psychiatric: Anxious Sepsis Event Note - Evaluation Sepsis Screening Result: No Definite Risk - Focused Exam Vital Signs: Vital Signs Temp Pulse Resp BP Pulse Ox 07/27/20 14:49 129 H 100 07/27/20 14:47 56 L 18 85/52 L 99 07/27/20 14:40 97.0 F 133 H 18 101/79 99 07/27/20 11:21 96.1 F L 61 18 117/64 99 - Problem List (1) GI bleed SNOMED Code(s): 13416598 ICD Code: K92.2 - GASTROINTESTINAL HEMORRHAGE, UNSPECIFIED Status: Acute Current Visit: Yes Qualifiers: GI bleed type/associated pathology: unspecified gastrointestinal hemorrhage type Qualified Code(s): K92.2 - Gastrointestinal hemorrhage, unspecified Problem List Initiated/Reviewed/Updated: Yes Orders Last 24hrs: Active Orders 24 hr Category Date Time Status Admission Status [Patient Status] [ADT] Routine ADT 07/27/20 10:50 Active Intake and Output [RC] QSHIFT Care 07/27/20 12:02 Active Up With Assistance [RC] ASDIRECTED Care 07/27/20 11:59 Active Verify Patient Consent Obtain [RC] ASDIRECTED Care 07/28/20 07:30 Active Vital Signs [RC] Q4H Care 07/27/20 12:59 Active Bariatric Diet [DIET] Diet 07/27/20 Dinner Active NPO After Midnight [Nothing per Oral After Midnight Diet 07/27/20 Dinner Active Diet] [DIET] NPO Now [Nothing per Oral Now Diet] [DIET] Diet 07/27/20 Lunch Active CBC W/O DIFF,HEMOGRAM [HEME] Routine Lab 07/27/20 16:00 Ordered CBC W/O DIFF,HEMOGRAM [HEME] Routine Lab 07/28/20 04:00 Ordered COMPREHENSIVE METABOLIC PN,CMP [CHEM] Routine Lab 07/28/20 04:00 Ordered HEMOGLOBIN [HEME] Stat Lab 07/27/20 14:57 Ordered MAGNESIUM [CHEM] Routine Lab 07/28/20 04:00 Ordered PHOSPHORUS [CHEM] Routine Lab 07/28/20 04:00 Ordered RED BLOOD CELLS LP [BBK] Routine Lab 07/27/20 14:57 Ordered TYPE AND SCREEN [BBK] Routine Lab 07/27/20 14:57 Ordered TYPE AND SCREEN [BBK] Routine Lab 07/28/20 04:00 Ordered Acetaminophen [TylenoL] Med 07/27/20 11:57 Active 650 mg PO Q4H PRN Acetaminophen [Tylenol] Med 07/27/20 11:58 Active 650 mg RECTAL Q4H PRN ClonazePAM [KlonoPIN] Med 07/27/20 14:00 Pending 1 mg PO TID Dextrose 5%-Lactated Ringers 1,000 ml Med 07/27/20 12:00 Active IV ASDIRECTED Diclofenac/Hyaluronate/Niacin [Diclofen 3%-Hyaluron 2%- Med 07/27/20 14:00 Pending Niac4%] 1 applic TP TID FLUoxetine [PROzac] Med 07/27/20 15:00 Active 40 mg PO DAILY Ipratropium [Atrovent 0.03% Nasal [place]] Med 07/27/20 13:23 Active 0 ml LAURO TID PRN Lactated Ringers [Ringers, Lactated] 750 ml Med 07/27/20 14:58 Active IV BOLUS Meclizine [Antivert] Med 07/27/20 13:23 Active 25 mg PO TID PRN Pantoprazole [ProTONIX IV] Med 07/27/20 12:00 Active 40 mg IV Q12H Propranolol [Inderal] Med 07/27/20 21:00 Active 10 mg PO TID Simvastatin [Zocor] Med 07/27/20 21:00 Active 10 mg PO BEDTIME Sucralfate [Carafate] Med 07/27/20 17:00 Active 1 gm PO QIDACANDBED bisacodyL [Dulcolax] Med 07/27/20 20:00 Once 10 mg PO ONETIME ONE polyethylene glycoL 3350 [MiraLAX] Med 07/27/20 17:00 Once 238 gm PO ONETIME ONE Code Status [Resuscitation Status] Routine Resus Stat 07/27/20 11:58 Ordered Medication Orders Acetaminophen (Acetaminophen 325 Mg Tab) 650 mg PO Q4H PRN PRN Reason: PAIN/FEVER Acetaminophen (Acetaminophen 650 Mg Supp) 650 mg RECTAL Q4H PRN PRN Reason: PAIN/FEVER Bisacodyl (Bisacodyl 5 Mg Tab) 10 mg PO ONETIME ONE Stop: 07/27/20 20:01 Clonazepam (Clonazepam 0.5 Mg Tab) 1 mg PO TID KERRI Fluoxetine HCl (Fluoxetine 20 Mg Cap) 40 mg PO DAILY KERRI Dextrose/Lactated Ringer's (Dextrose 5%-Lactated Ringers) 1,000 mls @ 150 mls/hr IV ASDIRECTED KERRI Last Admin: 07/27/20 12:10 Dose: 150 mls/hr Documented by: ROBERTH Lactated Ringer's (Ringers, Lactated) 750 mls @ 749.168 mls/hr IV BOLUS ONE Stop: 07/27/20 15:58 Ipratropium [place] (Ipratropium 0.03% Nasal [place] 30 Ml Bot) 0 ml LAURO TID PRN PRN Reason: Rhinitis Meclizine HCl (Meclizine 25 Mg Tab) 25 mg PO TID PRN PRN Reason: Dizziness Non-Formulary Medication (Diclofenac/Hyaluronate/Niacin [Diclofen 3%-Hyaluron 2%-Niac4%]) 1 applic TP TID KERRI Pantoprazole Sodium (Pantoprazole 40 Mg Vial) 40 mg IV Q12H KERRI Last Admin: 07/27/20 12:13 Dose: 40 mg Documented by: ROBERTH Polyethylene Glycol (Polyethylene Glycol 3350 Powder 238 Gm Bot) 238 gm PO ONETIME ONE Stop: 07/27/20 17:01 Propranolol HCl (Propranolol 40 Mg Tab) 10 mg PO TID KERRI Simvastatin (Simvastatin 20 Mg Tab) 10 mg PO BEDTIME KERRI Sucralfate (Sucralfate 1 Gm Tab) 1 gm PO QIDACANDBED [facility] Assessment/Plan Comment:: Assessment: GI Bleed - bloody stool Dizzy SP Lap Distal Gastrectomy Unspecified Surgical Malabsorption Vitamin B Deficiency Vitamin D Deficiency Atrial Fibrillation CAD Degenerative Disc Disease Depression and Anxiety Llamas's Esophagus Plan: Admit to Inpatient Orders in EMR Plan of hospitalization 3 nights and 4 days. Antonia Daugherty 07/27/2020 - Mortality Measure Prognosis:: Good
[2020-07-27] MEDS: FLUoxetine 20 MG Cap PO SCH (16:49)
[2020-07-27] MEDS: ClonazePAM 0.5 MG Tab PO PRN (16:52)
[2020-07-27] MEDS ORDERED: Polyethylene Glycol 3350 Powder 238 GM Bot PO ONE (17:00)
[2020-07-27] MEDS: Sucralfate 1 GM Tab PO SCH ×2 (17:02→20:38)
[2020-07-27] MEDS: Simvastatin 20 MG Tab PO SCH (20:39)
[2020-07-27] MEDS: Propranolol 40 MG Tab PO SCH (20:39)
[2020-07-27] MEDS ORDERED: Non-Formulary Medication 1 Each (Simvastatin [Simvastatin] 10 MG Tablet) PO SCH (21:00)
[2020-07-28] MEDS: Pantoprazole 40 MG Vial IV SCH ×2 (00:05→12:28)
[2020-07-28] MEDS: Dextrose 5%-Lactated Ringers 1,000 ML IV SCH ×2 (04:27→18:30)
[2020-07-28 06:51] LABS: HEMOGLOBIN A1C 6.3 % (4.5-6.2)
[2020-07-28] MEDS: Sucralfate 1 GM Tab PO SCH ×4 (07:14→20:38)
[2020-07-28] MEDS: FLUoxetine 20 MG Cap PO SCH ×2 (08:32→12:38)
[2020-07-28] MEDS: Potassium Phos in 0.9 % NaCl 15 MMOL in Premix Bag 1 BAG IV SCH ×8 (08:41→18:33)
[2020-07-28] MEDS: Propranolol 40 MG Tab PO SCH ×3 (09:14→20:38)
--- NOTE | 2020-07-28 10:25 | PN ---
DATE OF SERVICE: 07/28/2020 SUBJECTIVE: Nolan has had a total of 3 bloody stools since admission. He has received 2 units of packed red blood cells and fresh frozen plasma this morning. He states he is feeling better. His hemoglobin is 11.1 and BNP is 1126. Blood sugars have been borderline high, so hemoglobin A1c was obtained and it was 6.3. Phosphorus is 2.1. He denies any pain. States he is feeling better. There is no headache, dizziness. Continues to have some pressure in his abdomen, but he denies pain. Dizziness is a little bit improved, but not much. All 12 systems were reviewed and negative for any other pertinent positives and negatives. OBJECTIVE: GENERAL: Nolan Renee is a 70-year-old male. His color has improved since admission. VITAL SIGNS: TPR is 96,6, 103, 16, blood pressure 102/65. HEENT: Negative. NECK: Supple. HEART: Regular rate and rhythm. LUNGS: Clear. ABDOMEN: Soft, nontender. EXTREMITIES: Without peripheral edema. ASSESSMENT: 1. Gastrointestinal bleed, source unknown. 2. Two units of packed red blood cells transfused. 3. Weakness. PLAN: 1. K-Phos 60 millimoles IV today. 2. Check CBC, CMP, mag, phos in a.m. 3. Remain n.p.o. We will have upper endoscopy. Case to follow today. 4. We will evaluate p.r.n. or in a.m. Antonia Emanuel PA-C /[id number]
[2020-07-28] MEDS ORDERED: Midazolam 1 MG/ML 2 ML SDV ONE (10:31)
[2020-07-28] MEDS ORDERED: Propofol 200 MG/20 ML SDV ONE (10:31)
[2020-07-28] MEDS ORDERED: fentaNYL 100 MCG/2 ML SDV ONE (10:31)
[2020-07-28] MEDS ORDERED: Bisacodyl 5 MG Tab PO ONE ×2 (12:45→20:00)
[2020-07-28] MEDS ORDERED: Polyethylene Glycol 3350 Powder 238 GM Bot PO ONE (17:00)
[2020-07-28] MEDS: Simvastatin 20 MG Tab PO SCH (20:39)
[2020-07-29] MEDS: Pantoprazole 40 MG Vial IV SCH ×3 (00:03→23:38)
[2020-07-29] MEDS: Sucralfate 1 GM Tab PO SCH ×4 (07:57→20:19)
[2020-07-29] MEDS: Propranolol 40 MG Tab PO SCH ×3 (08:00→20:19)
[2020-07-29] MEDS: FLUoxetine 20 MG Cap PO SCH ×2 (08:41→12:54)
[2020-07-29] MEDS: Dextrose 5%-Lactated Ringers 1,000 ML IV SCH (08:45)
[2020-07-29] MEDS ORDERED: Midazolam 1 MG/ML 2 ML SDV ONE (10:40)
[2020-07-29] MEDS ORDERED: Propofol 200 MG/20 ML SDV ONE (10:40)
[2020-07-29] MEDS ORDERED: fentaNYL 100 MCG/2 ML SDV ONE (10:40)
--- NOTE | 2020-07-29 11:47 | PN ---
DATE OF SERVICE: 07/29/2020 SUBJECTIVE: Nolan is n.p.o. He will be having a colonoscopy this morning. He had 9 BMs yesterday after the prep. They are still a wine colored. Hemoglobin 11.7. A1c was 6.2. BNP is 955. He has no questions or concerns today. All 12 systems were reviewed and negative for any pertinent positives and negatives. OBJECTIVE: GENERAL: Nolan Renee is a pleasant 70-year-old male. He is alert and orientated. VITAL SIGNS: TPR is 96, 73, and 16. Blood pressure 117/62. HEENT: Negative. NECK: Supple. HEART: Regular rate and rhythm. LUNGS: Clear. ABDOMEN: Soft, nontender. EXTREMITIES: Without peripheral edema. ASSESSMENT: Gastrointestinal bleed. PLAN: 1. Orders to be written after the colonoscopy. 2. Check CBC, CMP, mag, and phos in a.m. 3. We will evaluate p.r.n. or in a.m. Antonia Emanuel PA-C /[id number]
[2020-07-29] MEDS: Simvastatin 20 MG Tab PO SCH (20:19)
[2020-07-30 07:39] VITALS: BP 116/69; PULSE 51
[2020-07-30] MEDS: Sucralfate 1 GM Tab PO SCH (07:50)
[2020-07-30] MEDS: Propranolol 40 MG Tab PO SCH (08:28)
[2020-07-30] MEDS: ClonazePAM 0.5 MG Tab PO PRN (08:28)
[2020-07-30] MEDS: FLUoxetine 20 MG Cap PO SCH (08:28)
--- NOTE | 2020-08-01 15:01 | DISCH ---
FINAL DIAGNOSIS: Gastrointestinal bleeding. SECONDARY DIAGNOSES: 1. Hypotension secondary to bleeding, requiring transfusion. 2. Bariatric surgery status. 3. History of hyperlipidemia. 4. Anxiety. 5. History of hypertension. 6. History of atrial fibrillation. OPERATIVE PROCEDURES: On 07/28, upper GI endoscopy; and on 07/29, flexible colonoscopy. SUMMARY: This is a 70-year-old status post previous Benja-en-Y gastric bypass, presenting with substantial rectal bleeding. The bleeding was fairly dark red. On the date of admission, it progressed to a point that his blood pressure was low. He did receive 2 units of packed RBCs as well as fresh frozen plasma. Bleeding spontaneously stopped. An upper endoscopy done on 07/28 showed no pathology within the gastric bypass anatomy, 07/29 colonoscopy showed some very limited diverticulosis but no obvious blood or bleeding. At this point, it is unclear where the bleeding has been coming from. It is possible it is from the bypassed stomach or duodenum. H pylori is pending. On discharge day, his hemoglobin is 10.6. We will have him go up b.i.d. on the Protonix 40 mg until his next appointment, which will be with Antonia Emanuel at [facility] on 08/04. We will obtain a CBC and ferritin at that level, and also have the H pylori breath test which was done in the hospital checked out. This was done on 07/29/2020. Otherwise, we will be continuing his usual medications. /[id number]
[2020-08-02 18:08] LABS: H. PYLORI BREATH TEST Negative (Negative)
--- NOTE | 2020-08-09 08:15 | OR ---
DATE OF PROCEDURE: 07/28/2020 SURGEON: Ace Gardner MD PREOPERATIVE DIAGNOSIS: Gastrointestinal bleeding. POSTOPERATIVE DIAGNOSIS: Gastrointestinal bleeding with normal upper gastrointestinal endoscopic examination, status post partial gastrectomy with Benja-en-Y gastrojejunostomy. OPERATIVE PROCEDURE: Upper gastrointestinal endoscopy. ANESTHESIA: IV sedation. INDICATION FOR PROCEDURE: A 70-year-old presenting with GI bleeding significant enough to cause some hypotension. He was resuscitated overnight and appeared to be stable at this point. Plan is to proceed with an upper GI endoscopy with biopsies as indicated. Potential risks including bleeding and perforation were discussed, and the patient wishes to proceed. DETAILS OF PROCEDURE: The patient was taken to the operating room and placed in a left lateral decubitus position. IV sedation was administered, after which the upper GI endoscope was passed orally through the length of the esophagus into the gastric pouch, from there through the gastrojejunostomy roughly 20 cm into the Benja limb. Examination overall was entirely normal. There was no blood or bleeding and no areas of stricturing or inflammation present. No ulcers or other potential sites of bleeding were seen at any point during the examination extending down roughly 20 cm distal to the gastrojejunostomy. Scope was then withdrawn, the procedure then concluded. The patient had an incomplete bowel prep and therefore we will complete that prep today and plan to proceed with a colonoscopy tomorrow. Ace Gardner MD /[id number]
--- NOTE | 2020-08-09 12:28 | OR ---
DATE OF PROCEDURE: 07/29/2020 SURGEON: Ace Gardner MD PREOPERATIVE DIAGNOSIS: Recent gastrointestinal bleeding. POSTOPERATIVE DIAGNOSES: Recent gastrointestinal bleeding associated with limited left colonic diverticulosis (no blood or bleeding identified on today's report). OPERATIVE PROCEDURE: Colonoscopy. ANESTHESIA: IV sedation. INDICATIONS FOR PROCEDURE: The patient is a 70-year-old presenting with some significant GI bleeding status post previous proximal gastrectomy with Benja-en-Y reconstruction. An upper endoscopy done yesterday showed no significant likely bleeding sites, and the patient at that point had an inadequate colon prep. Given this, he was adequately prepped with a more complete colon prep completed at this point a colonoscopy. Potential risks of the procedure including bleeding and perforation were discussed, and the patient wishes to proceed. DETAILS OF PROCEDURE: The patient was taken to the operating room and placed in a left lateral decubitus position. IV sedation was administered after which the initial digital rectal exam was performed and was unremarkable. Colonoscope was then passed into the rectum with retroflexion revealing uncomplicated hemorrhoidal columns. Scope was eventually passed to the level of the cecum. The prep at this point was quite good. During the course of the exam, no blood or bleeding was seen at any point. Only pathology seen was that of some limited left colonic diverticulosis, which was otherwise uncomplicated. There were no areas of colitis. No polyps or other signs of neoplasia. The scope was then withdrawn and the above findings reconfirmed. At this point, the potential sites of bleeding could have been the diverticular disease but also possibly within the small bowel or within the bypassed stomach or duodenum. CT scan was obtained today to try to rule out any pathology in the small bowel or bypassed stomach and duodenum, and otherwise, the patient was taken to the recovery room in satisfactory condition. Ace Gardner MD /[id number]
== END 2020-07-30 09:00 | disposition home or self-care (01) | DRG 394 ==
LOC: JP.MS 10:58
PROVIDERS: ADMIT Physician Assistant Medical; ATTEND Physician Assistant Medical
PROC: 30233K1 Transfusion of Nonautologous Frozen Plasma into Peripheral Vein, Percutaneous Approach (ICD-10-PCS; principal; 2020-07-27)
PROC: 30233N1 Transfusion of Nonautologous Red Blood Cells into Peripheral Vein, Percutaneous Approach (ICD-10-PCS; 2020-07-27)
PROC: 0DJ08ZZ Inspection of Upper Intestinal Tract, Via Natural or Artificial Opening Endoscopic (ICD-10-PCS; 2020-07-28)
PROC: 0DJD8ZZ Inspection of Lower Intestinal Tract, Via Natural or Artificial Opening Endoscopic (ICD-10-PCS; 2020-07-29)
DX: K95.89 Other complications of other bariatric procedure (principal); K92.2 Gastrointestinal hemorrhage, unspecified; K91.2 Postsurgical malabsorption, not elsewhere classified; I95.9 Hypotension, unspecified; E78.5 Hyperlipidemia, unspecified; F41.9 Anxiety disorder, unspecified; I10 Essential (primary) hypertension; I48.91 Unspecified atrial fibrillation; H54.7 Unspecified visual loss; H91.90 Unspecified hearing loss, unspecified ear; I25.10 Atherosclerotic heart disease of native coronary artery without angina pectoris; E78.00 Pure hypercholesterolemia, unspecified; G47.30 Sleep apnea, unspecified; K21.9 Gastro-esophageal reflux disease without esophagitis; K44.9 Diaphragmatic hernia without obstruction or gangrene; G89.29 Other chronic pain; M54.9 Dorsalgia, unspecified; G43.909 Migraine, unspecified, not intractable, without status migrainosus; F32.9 Major depressive disorder, single episode, unspecified; D64.9 Anemia, unspecified; G62.9 Polyneuropathy, unspecified; E53.9 Vitamin B deficiency, unspecified; E55.9 Vitamin D deficiency, unspecified; K22.70 Barrett's esophagus without dysplasia; Z87.891 Personal history of nicotine dependence; Z98.84 Bariatric surgery status; Z88.8 Allergy status to other drugs, medicaments and biological substances; Z91.048 Other nonmedicinal substance allergy status; Z79.82 Long term (current) use of aspirin; Z79.899 Other long term (current) drug therapy
CPT/HCPCS: 36415; 36430; 80053; 82728; 83013; 83036; 83735; 83880; 84100; 85018; 85025; 85027; 86850; 86900; 86901; 86920; 86922; A9270-GY; C9113; J2250; J2704; J3010; J7120; J7121; P9016; P9017

== ENCOUNTER 2020-10-31 08:14 | Inpatient (IN) | payer MEDICARE, MEDICAID ==
[~2020-10-31 08:14] MED LIST changes: +Bupivacaine 0.5% 50 ML MDV ONE; -Bupivacaine 0.5%/EPINEPHrine 1:200,000 50 ML MDV ONE; +Dexamethasone 4 MG/ML SDV ONE; +Glycopyrrolate 0.2 MG/ML 5 ML MDV ONE; +Lidocaine 1% with EPINEPHrine 1:100,000 50 ML MDV ONE; +Meropenem 500 MG SDV ONE; +Neostigmine Methylsulfate 1 MG/ML 5 ML Syringe ONE; +Ondansetron 4 MG/2 ML SDV ONE; +Propofol 200 MG/20 ML SDV ONE; +Rocuronium 50 MG/5 ML Vial ONE; +Succinylcholine 200 MG/10 ML MDV ONE; +fentaNYL 250 MCG/5 ML SDV ONE
[2020-10-31] MEDS ORDERED: Propranolol 40 MG Tab PO ONE (08:45)
[2020-10-31] MEDS ORDERED: Celecoxib 200 MG Cap PO ONE (08:45)
[2020-10-31] MEDS ORDERED: Acetaminophen 500 MG Tab PO ONE (08:45)
[2020-10-31] MEDS ORDERED: Dextrose 5%-Lactated Ringers 1,000 ML IV SCH (09:00)
[2020-10-31] MEDS ORDERED: ceFAZolin 2 GM in Premix Bag 1 BAG IV ONE (09:30)
[2020-10-31] MEDS ORDERED: Ketamine 50 MG in Sodium Chloride 0.9% 49.5 ML IV SCH (09:30)
[2020-10-31] MEDS ORDERED: Ropivacaine 40 ML, dexAMETHasone 8 MG, EPINEPHrine 0.4 MG, Sodium Chloride 0.9% 37.6 ML NERVRT SCH ×4 (09:30)
[2020-10-31] MEDS ORDERED: Ketamine 500 MG/5 ML MDV IV SCH (09:30)
[2020-10-31] MEDS ORDERED: ePHEDrine 50 MG/ML SDV ONE (11:34)
[2020-10-31] MEDS ORDERED: Sodium Chloride 0.9% 10 ML ONE (11:34)
[2020-10-31] MEDS ORDERED: Atropine 0.4 MG/ML SDV ONE (11:40)
[2020-10-31] MEDS ORDERED: Naloxone 0.4 MG/ML SDV IVPUSH PRN (11:54)
[2020-10-31] MEDS ORDERED: fentaNYL 250 MCG/5 ML SDV ONE (12:12)
[2020-10-31] MEDS ORDERED: Lactated Ringers 1,000 ML ONE (13:13)
[2020-10-31] MEDS: HYDROmorphone/Normal Saline 15 MG/30 ML PCA IV PRN (13:55)
[2020-10-31] MEDS ORDERED: Cyclobenzaprine 10 MG Tab PO PRN (14:21)
[2020-10-31] MEDS ORDERED: Naloxone 0.4 MG/ML SDV IV PRN (15:00)
[2020-10-31] MEDS ORDERED: Acetaminophen 500 MG Tab PO PRN (15:00)
[2020-10-31] MEDS ORDERED: diphenhydrAMINE 50 MG/ML SDV IVPUSH PRN (15:00)
[2020-10-31] MEDS ORDERED: Metoclopramide 10 MG/2 ML SDV IVPUSH PRN (15:00)
[2020-10-31] MEDS ORDERED: Labetalol 20 MG/4 ML Syringe IVPUSH PRN (15:00)
[2020-10-31] MEDS ORDERED: hydrOXYzine HCL 100 MG/2 ML SDV IM PRN (15:00)
[2020-10-31] MEDS ORDERED: Ondansetron 4 MG/2 ML SDV IVPUSH PRN (15:00)
[2020-10-31] MEDS ORDERED: Pantoprazole 40 MG Vial IVPUSH SCH (16:00)
[2020-10-31] MEDS: Propranolol 40 MG Tab PO SCH ×2 (16:25→21:44)
[2020-10-31] MEDS: Acetaminophen 500 MG Tab PO SCH (16:25)
[2020-10-31] MEDS: Sucralfate Suspension 1 GM/10 ML Cup PO SCH ×2 (16:25→21:45)
[2020-10-31] MEDS: MVI, Adult with Vitamin K 10 ML, Thiamine 200 MG, Zinc/Copper/Manganese/Selenium 1 ML i... IV SCH ×4 (16:26)
[2020-10-31] MEDS: cefOXitin 2 GM in Sodium Chloride 0.9% 50 ML IV SCH (17:17)
[2020-10-31] MEDS ORDERED: Lactated Ringers 500 ML IV SCH (17:30)
[2020-10-31] MEDS ORDERED: Lactated Ringers 500 ML IV ONE ×2 (19:00→21:00)
[2020-10-31] MEDS: ClonazePAM 0.5 MG Tab PO SCH (21:44)
[2020-11-01] MEDS: cefOXitin 2 GM in Sodium Chloride 0.9% 50 ML IV SCH ×4 (00:18→17:59)
[2020-11-01] MEDS: Acetaminophen 500 MG Tab PO SCH (00:30)
[2020-11-01] MEDS: Dextrose 5%-Lactated Ringers 1,000 ML IV SCH ×2 (01:42→09:20)
[2020-11-01] MEDS ORDERED: Iopamidol 612 MG/ML 50 ML SDV PO STA (03:52)
[2020-11-01] MEDS: Sucralfate Suspension 1 GM/10 ML Cup PO SCH ×4 (07:13→21:20)
--- NOTE | 2020-11-01 09:01 | CR ---
UGI Limited HISTORY: Postbariatric surgery FINDINGS: Patient swallowed water-soluble contrast. Upright views of the abdomen show no evidence of extravasation or obstruction. There is postoperative peritoneal air and fluid. There is postop ileus IMPRESSION: Status post bariatric surgery with revision No extravasation or obstruction seen Postop ileus
[2020-11-01] MEDS: Docusate Sodium 100 MG Cap PO SCH ×2 (09:22→21:20)
[2020-11-01] MEDS: Propranolol 40 MG Tab PO SCH ×3 (09:22→21:20)
[2020-11-01] MEDS: FLUoxetine 20 MG Cap PO SCH (09:22)
[2020-11-01] MEDS: Bisacodyl 5 MG Tab PO SCH ×2 (09:22→21:20)
[2020-11-01] MEDS: Celecoxib 200 MG Cap PO SCH ×2 (09:22→21:20)
[2020-11-01] MEDS: Aspirin 81 MG Tab.EC PO SCH (09:23)
[2020-11-01] MEDS: ClonazePAM 0.5 MG Tab PO SCH ×2 (09:25→21:20)
[2020-11-01] MEDS ORDERED: Dextrose 5%-Lactated Ringers 1,000 ML IV SCH (12:00)
--- NOTE | 2020-11-01 12:42 | PN ---
DATE OF SERVICE: 11/01/2020 SUBJECTIVE: Nolan reports his pain is controlled today. He is itching he states from head to toe. I am not sure what that is. He did have 3 boluses of lactated Ringer's during the night for dehydration. His oral intake was 1500. Urine output via Cortez catheter was 1465. Vital signs otherwise have been stable. Remainder of review of systems negative for any pertinent positives or negatives. OBJECTIVE: GENERAL: Nolan Renee is a 70-year-old male. He is alert, orientated, quite talkative. HEENT: Negative. NECK: Supple. HEART: Regular rate and rhythm. LUNGS: Clear. ABDOMEN: Dressings dry and intact. Abdominal binder is on. EXTREMITIES: Without peripheral edema. ASSESSMENT: 1. Laparotomy, incisional hernia repair with mesh. Date of procedure 10/31/2020. Surgeon: Ace Gardner MD. 2. Low urinary output. 3. Elevated liver function tests. PLAN: 1. Discontinue Tylenol due to liver function tests. 2. Check CBC, CMP, mag, phos in a.m. 3. Dressing off, may shower. 4. Abdominal flat and upright in a.m. 5. Bariatric step 1 gastric bypass diet. 6. Decrease IV to 100 mL per hour at noon. 7. Leave Cortez catheter in for accurate intake and output, and check abdominal flat and upright x-ray in a.m. 11/02/2020 at 0400. 8. Bowel stimulation ordered per patient's request. Colace 100 mg p.o. b.i.d., Dulcolax tablets 2 b.i.d. by mouth. 9. We will evaluate p.r.n. or in a.m. Antonia Emanuel PA-C /[id number]
[2020-11-01] MEDS: MVI, Adult with Vitamin K 10 ML, Thiamine 200 MG, Zinc/Copper/Manganese/Selenium 1 ML i... IV SCH ×4 (16:44)
[2020-11-01] MEDS: Pantoprazole 40 MG Delayed-Release Granules 1 Packet PO SCH (16:52)
[2020-11-01] MEDS: HYDROmorphone/Normal Saline 15 MG/30 ML PCA IV PRN (18:48)
--- NOTE | 2020-11-02 05:18 | CRLCR ---
For Patients: As a result of the Century Cures Act, medical imaging exams and procedure reports are released immediately into your electronic medical record. You may view this report before your referring provider. If you have questions, please contact your health care provider. Indication: Postoperative ileus Technique: Upright and supine views of the abdomen and pelvis Comparison: Upper GI abdomen radiograph 11/01/2020 Findings/Impression: Persistent diffuse small bowel and colonic distention, without significant change. Interval transit of oral contrast to the distal small bowel and proximal colon. Surgical changes again demonstrated. Dictated by Chapito Mcpherson MD @ 11/02/2020 5:17:[address] Chapito Mcpherson @ Nov 02 2020 5:17AM
[2020-11-02] MEDS: Sucralfate Suspension 1 GM/10 ML Cup PO SCH ×4 (05:43→21:50)
[2020-11-02] MEDS ORDERED: Dextrose 5%-Lactated Ringers 1,000 ML IV SCH (07:32)
[2020-11-02] MEDS ORDERED: Tamsulosin 0.4 MG Cap.ER PO ONE (09:00)
[2020-11-02] MEDS ORDERED: Cyanocobalamin (Vitamin B12) 1,000 MCG/ML SDV IM ONE (09:00)
[2020-11-02] MEDS ORDERED: Polyethylene Glycol 3350 Powder 119 GM Bottle PO ONE (09:00)
[2020-11-02] MEDS: Aspirin 81 MG Tab.EC PO SCH (09:14)
[2020-11-02] MEDS: FLUoxetine 20 MG Cap PO SCH (09:14)
[2020-11-02] MEDS: Docusate Sodium 100 MG Cap PO SCH ×2 (09:15→20:29)
[2020-11-02] MEDS: Bisacodyl 5 MG Tab PO SCH ×2 (09:15→20:29)
[2020-11-02] MEDS: Propranolol 40 MG Tab PO SCH ×3 (09:15→20:29)
[2020-11-02] MEDS: Celecoxib 200 MG Cap PO SCH ×2 (09:15→20:29)
--- NOTE | 2020-11-02 09:17 | PN ---
DATE OF SERVICE: 11/02/2020 SUBJECTIVE: Nolan is postop day #2. He is reporting an increased amount of bloating. He is passing some gas. He has been up ambulating. Pain has been controlled. REVIEW OF SYSTEMS: Remainder of review of systems negative for any pertinent positives and negatives. OBJECTIVE: GENERAL: Nolan is a pleasant 70-year-old male. He is alert and orientated. VITAL SIGNS: TPR 96.9, 67, 18, blood pressure 143/65. HEENT: Negative. NECK: Supple. HEART: Regular rate and rhythm. LUNGS: Clear. ABDOMEN: Aquacel dressings on. EXTREMITIES: Without peripheral edema. ASSESSMENT: Exploratory laparotomy with: 1. Repair of incarcerated incisional hernia with mesh. 2. Small-bowel resection. 3. Small bowel strictureplasty. 4. Placement of Vicryl mesh. POSTOPERATIVE DIAGNOSES: 1. Incarcerated incisional hernia. 2. Adhesion of segment of small bowel to abdominal wall. 3. Date of procedure: 10/31/2020. Surgeon: Ace Gardner MD. PLAN: 1. Give Flomax 0.4 mg p.o. now. 2. Discontinue Cortez catheter 4 hours after Flomax was given. 3. Flomax 0.4 mg at bedtime. 4. MiraLax 119 g in 32 ounces of liquid of choice, anything sugar-free. 5. Decrease IV to 75 mL per hour. 6. Zithromax 125 mg every 12 hours IV. 7. Check abdominal flat and upright in a.m. 8. We will evaluate p.r.n. or in a.m. Antonia Emanuel PA-C /[id number]
[2020-11-02] MEDS: ClonazePAM 0.5 MG Tab PO SCH ×2 (09:23→20:30)
[2020-11-02] MEDS: Azithromycin 125 MG in Sodium Chloride 0.9% 150 ML IV SCH ×2 (11:05→21:50)
[2020-11-02] MEDS: Pantoprazole 40 MG Delayed-Release Granules 1 Packet PO SCH (16:35)
[2020-11-02] MEDS: Tamsulosin 0.4 MG Cap.ER PO SCH (20:29)
[2020-11-03] MEDS: Sucralfate Suspension 1 GM/10 ML Cup PO SCH ×4 (05:10→21:00)
[2020-11-03] MEDS: HYDROmorphone 2 MG Tab PO PRN ×3 (07:56→23:29)
--- NOTE | 2020-11-03 08:53 | PN ---
DATE OF SERVICE: 11/03/2020 SUBJECTIVE: Nolan did have a bowel movement. After his catheter was taken out, he did not void for about 12 hours, and now has been voiding without any problems. Telemetry was placed because pulse oximetry was not recording his irregular heart beat. He did have some PVCs and PACs after his heart monitor was placed, completely asymptomatic. Pain has been controlled with the CIGARETTE MAKING MACHINE CATCHER. Up ambulating, afebrile. Oral intake 1150, urine output 900, and 1 bowel movement. OBJECTIVE: GENERAL: Nolan is a 70-year-old male. VITAL SIGNS: TPR is 98.1, 70, 16. Blood pressure 134/65. HEENT: Negative. NECK: Supple. HEART: Regular rate and rhythm. LUNGS: Clear. ABDOMEN: Dressing is dry and intact. He has not been wearing his abdominal binder because he has refused. EXTREMITIES: Without peripheral edema. ASSESSMENT: Exploratory laparotomy with: 1. Repair of incarcerated incisional hernia with mesh. 2. Small-bowel resection. 3. Small-bowel strictureplasty. 4. Placement of Vicryl mesh. POSTOPERATIVE DIAGNOSES: 1. Incarcerated incisional hernia. 2. Adhesion of segment of small-bowel to abdominal wall. Date of procedure 10/31/2020. Surgeon: Ace Gardner MD. PLAN: 1. Discontinue CIGARETTE MAKING MACHINE CATCHER. Continue his pulse ox. 2. Dilaudid 2 to 4 mg q.4 hours p.r.n. pain. 3. Step 3 gastric bypass diet. 4. Check CBC, CMP, mag, phos in a.m. 5. Check abdominal x-ray in a.m. at 0400. 6. Encouraged to wear abdominal binder with Kerlix over former hernia site to avoid recurrence of hernia. 7. We will evaluate p.r.n. or in a.m. Antonia Emanuel PA-C /[id number]
[2020-11-03] MEDS: FLUoxetine 20 MG Cap PO SCH (09:05)
[2020-11-03] MEDS: Aspirin 81 MG Tab.EC PO SCH (09:05)
[2020-11-03] MEDS: Celecoxib 200 MG Cap PO SCH ×2 (09:05→20:51)
[2020-11-03] MEDS: Propranolol 40 MG Tab PO SCH ×3 (09:06→20:53)
[2020-11-03] MEDS: Docusate Sodium 100 MG Cap PO SCH ×2 (09:06→20:52)
[2020-11-03] MEDS: Bisacodyl 5 MG Tab PO SCH ×2 (09:08→20:52)
[2020-11-03] MEDS: ClonazePAM 0.5 MG Tab PO SCH ×2 (10:12→20:55)
[2020-11-03] MEDS: Azithromycin 125 MG in Sodium Chloride 0.9% 150 ML IV SCH ×2 (10:12→10:38)
--- NOTE | 2020-11-03 10:19 | CR ---
Abdomen 2V AP Flat Upright CLINICAL HISTORY: Postop ileus FINDINGS: There is persistent gaseous distention of small bowel. There is dilute contrast in the colon from prior upper GI 11/01/2020. There is some mildly distended loops of small bowel. This is similar to prior study IMPRESSION: Persistent bowel distention. Previous oral contrast from upper GI on is now seen throughout the colon
[2020-11-03] MEDS ORDERED: Azithromycin 250 MG Tab PO SCH (11:00)
[2020-11-03] MEDS: Azithromycin 250 MG Tab PO SCH ×2 (11:32→21:00)
[2020-11-03] MEDS: Pantoprazole 40 MG Delayed-Release Granules 1 Packet PO SCH (15:59)
[2020-11-03] MEDS: Tamsulosin 0.4 MG Cap.ER PO SCH (20:52)
[2020-11-04] MEDS: HYDROmorphone 2 MG Tab PO PRN (03:48)
[2020-11-04] MEDS: Sucralfate Suspension 1 GM/10 ML Cup PO SCH ×2 (07:09→09:36)
[2020-11-04 07:33] VITALS: BP 118/67; PULSE 70
--- NOTE | 2020-11-04 09:07 | CR ---
Abdomen 2V AP Flat Upright CLINICAL HISTORY: Postoperative ileus FINDINGS: There is gaseous distention of small bowel loops and colon which has progressed since prior study. There is previous upper GI contrast in the colon. There is colonic interposition under the right hemidiaphragm IMPRESSION: Slight increase in gaseous distention most likely postoperative ileus
[2020-11-04] MEDS: Aspirin 81 MG Tab.EC PO SCH (09:34)
[2020-11-04] MEDS: Propranolol 40 MG Tab PO SCH (09:34)
[2020-11-04] MEDS: FLUoxetine 20 MG Cap PO SCH (09:36)
[2020-11-04] MEDS: ClonazePAM 0.5 MG Tab PO SCH (09:44)
--- NOTE | 2020-11-04 12:15 | DISCH ---
ADMISSION DIAGNOSES: Incarcerated incisional hernia, status post Benja-en-Y gastric bypass surgery, unspecified surgical malabsorption, B12 deficiency, iron deficiency anemia, degenerative disk disease, general anxiety disorder, mild coronary artery disease, obstructive sleep apnea. DISCHARGE DIAGNOSES: Exploratory laparotomy with: 1. Repair of incarcerated incisional hernia with mesh. 2. Small bowel resection. 3. Small bowel strictureplasty. 4. Placement of Vicryl mesh. POSTOPERATIVE DIAGNOSES: 1. Incarcerated incisional hernia. 2. Adhesion of segment of small bowel to abdominal wall. Date of procedure 10/31/2020. Surgeon: Ace Gardner MD. HISTORY: Nolan Renee is a 70-year-old male with an incisional hernia. After preoperative evaluation and discussion of possible risks and possible complications, he wished to proceed with surgical procedure. HOSPITAL COURSE: Nolan had his surgery on 10/31/2020. He had no operative complications. On postoperative day 1, his IV was decreased to 100 mL per hour. He did have some low urine output, so the Cortez was left in for accurate intake and output. He requested bowel stimulation. On postoperative day 2, he was given Flomax prior to his Cortez catheter being discontinued and then he was started on Flomax at bedtime. MiraLAX was given and he was started on Zithromax 125 mg IV q.12 hours. X-ray showed a lot of gas in the GI tract. On postoperative day 3, EVENTS ASSISTANT was discontinued. Vital signs were checked and he started having bowel movements. Diet was advanced. On postoperative day 4, Nolan's vital signs were stable. Activity good. Oral intake and output adequate. He was having no difficulty with voiding. He did have multiple BMs, pain was controlled, and he was able to be discharged to home. PHYSICAL EXAMINATION: GENERAL: Nolan is a 70-year-old male. VITAL SIGNS: Height is 6 feet. Weight 173 pounds. TPR is 98.3, 71, 18. Blood pressure 128/60. HEENT: Negative. NECK: Supple. HEART: Regular rate and rhythm. LUNGS: Clear. ABDOMEN: Stapled midline incision. Abdominal incision looks good. Aric intact, healing well. Abdominal binder has been on. EXTREMITIES: Without peripheral edema. DISPOSITION: Discharged to home. CONDITION: Stable and improving. FOLLOWUP: Appointment with Antonia Emanuel PA-C, 11/11/2020 at 10 a.m. He is to have a CBC and CMP prior to that appointment. HOME MEDICATIONS: Dilaudid 2 to 4 mg p.o. q.4 hours p.r.n. pain, #12. He is to resume his home medications. Klonopin 0.5 mg b.i.d., sucralfate (Carafate) 1 g q.i.d. and at bedtime, simvastatin 10 mg at bedtime, propranolol 10 mg p.o. t.i.d., Protonix 40 mg p.o. daily, multivitamin chewable b.i.d., Antivert 25 mg p.o. t.i.d. p.r.n. dizziness, ferrous sulfate 325 mg p.o. daily, Prozac 40 mg p.o. daily, vitamin D3 1000 International Units daily, lidocaine viscous 2% p.o. 1 time and p.r.n., diclofenac-hyaluronate-?niacin 1 applicator topical t.i.d. p.r.n., vitamin B complex 1 p.o. daily, vitamin B12 1000 mcg sublingual daily, Calcium Citrate Plus 1 b.i.d., aspirin 81 mg p.o. daily. DIET: Step 4 gastric bypass diet. Drink 8 to 10 glasses of water a day. ACTIVITY: No lifting greater than 10 pounds for 6 weeks. OTHER ACTIVITY: Walk 6 times daily inside your home. Driving: Do not drive for 1 week. Shower/bathing: May shower. Keep operative site clean and dry. Wear abdominal binder for 6 weeks and then as needed. Notify provider if any fever, increased pain, swelling, redness, drainage, nausea or vomiting. SPECIAL INSTRUCTION: Use incentive spirometer 10 times every hour while awake for 1 week. /[id number]
--- NOTE | 2020-11-04 12:43 | OR ---
DATE OF PROCEDURE: 10/31/2020 SURGEON: Ace Gardner MD PREOPERATIVE DIAGNOSIS: Incisional hernia. POSTOPERATIVE DIAGNOSES: 1. Incarcerated incisional hernia. 2. Dense adhesions between segments of small bowel and the abdominal wall including hernia sac. PROCEDURES PERFORMED: Exploratory laparotomy with: 1. Repair of incarcerated incisional hernia with mesh (96004, 54700). 2. Small bowel resection (74023). 3. Small bowel stricturoplasty (50557). 4. Placement of Vicryl mesh to limit recurrent adhesion formation between pelvic and abdominal wall and underlying viscera (14622). ANESTHESIA: General. SAFETY AND HEALTH CONSULTANT: Antonia Emanuel PA-C INDICATIONS FOR PROCEDURE: This is a 70-year-old presenting with large recurrent incisional hernia located in the epigastric incision site. Plan is to proceed with open repair of this with mesh technique. Potential risks of the procedure including bleeding, infection, injury to underlying viscera, problems with mesh becoming infected or the hernia recurring, possible need for bowel resection making it subsequently infectious was somewhat higher were all reviewed, and the patient wishes to proceed. DETAILS OF PROCEDURE: The patient was taken to the operating room, and after general endotracheal anesthesia was induced, a Cortez catheter was inserted and the abdomen prepped and draped. The previous upper midline incision was then reused and carried down through the skin and subcutaneous tissue. This was carried down onto the hernia sac which occupied much of the epigastric midline incision, and the hernia sac was dissected down to the level of fascia circumferentially. It was then opened. The patient was noted to have some adhesions between the omentum, small bowel, and the hernia sac. These were gradually dissected free and the hernia sac excised. The patient was noted to have 2 areas of very dense adhesions to the abdominal wall including the hernia sac. Once of these resulted in a significant amount of deserosalization. There was no gross spill of any bowel content during the course of the procedure. A second area was quite narrowed after takedown of adhesions. At that point, the decision was made to proceed with small bowel resection along with a separate stricturoplasty. To this point, no openings had been made in the small bowel and, we elected to pat the edges of the wound with meropenem and Zyvox-containing saline solution soaked sponges, and at that point, then the area of concern that was deserosalized in the small bowel was resected with proximal and distal revision of the bowel with the AIDA stapler as was the underlying mesentery. The small bowel continuity was then reestablished with internal firing of the 60 mm followed by 30 mm AIDA stapler. Common opening was closed transversely with the purple load. The angles anastomosed and mesenteric defect approximated with some 3-0 Vicryl stitch. The stricturoplasty was then accomplished with opening of the anterior mesenteric border at the point of the stricture, flipping the bowel over on itself, and then the same sequence of anuradha were used for the stricturoplasty as was for the bowel resection. In this case, there was no mesenteric defect. The angles were anastomosed and reinforced with 3-0 Vicryl stitch. Areas were once again irrigated with the antibiotic-containing saline solution. Fibrin sealant was placed over the 2 sites of bowel anastomosis, and these were then placed back into the peritoneal cavity well away from the abdominal wall and the antibiotic-soaked gauze from the edges was then removed and new gowns and gloves used. The instruments used for the bowel resection had also been segregated and not used for the remainder of the procedure. At this point, the hernia site was mapped out, and a ventral hernia patch measuring 19.6 x 24.6 cm was selected. This was positioned such that there was a transverse orientation with regard to the long axis of the mesh. The patient had a previous left subcostal incision as well which was was quite thinned out, and this mesh will cover that nicely at 5 cm intervals around the mesh, then 2-0 Vicryl sutures were placed on the polypropylene side of the mesh, and at the premarked location, small stab wounds were made where the mesh sutures would be pulled up, thus fixing the mesh well away from the fascial edges. The mesh was then soaked in antibiotic-containing saline solution once again and placed in an intraperitoneal location. The sutures to the left of the midline were then pulled up, and these were then pulled up, snugly fixing the mesh up against the abdominal wall to limit recurrent adhesion formation. Then, Vicryl mesh measuring 12 cm2 was then placed underneath the mesh and down toward the pelvic wall as well. The remainder of the sutures were then placed through the stab wounds, and the mesh was then at that point confirmed to have a good margin away from the fascial defects in all areas. The underlying shelf of the mesh was then reinforced with some titanium tacking screws as well, and prior to closure, bilateral transversus abdominis plane blocks were placed. The midline fascia was then approximated with a #2 Vicryl stitch, the subcutaneous tissue approximated with layers of 3- 0 and 4-0 Vicryl stitch deep, and the skin with anuradha. A dressing was applied. The patient was taken to the recovery room in satisfactory condition. Physician merchandising assistant, Antonia Emanuel, played an essential role in assisting in this case, helping to position the patient, retract structures as needed, as well as suturing and cutting sutures when indicated. Her presence improved the patient's safety and decreased the operative time. Ace Gardner MD /[id number]
== END 2020-11-04 10:15 | disposition home or self-care (01) | DRG 330 ==
LOC: JP.SDS 08:14 → JP.SDSSCHI 08:14 → EDSTATUS 09:45 → JP.MS 13:15 → JP.SDSSCHI 11-02 16:31 → JP.MS 11-02 16:35
PROVIDERS: ADMIT Surgery; ATTEND Surgery
PROC: 0WUF0JZ Supplement Abdominal Wall with Synthetic Substitute, Open Approach (ICD-10-PCS; principal; 2020-10-31)
PROC: 0DT80ZZ Resection of Small Intestine, Open Approach (ICD-10-PCS; 2020-10-31)
DX: K43.0 Incisional hernia with obstruction, without gangrene (principal); K90.9 Intestinal malabsorption, unspecified; K66.0 Peritoneal adhesions (postprocedural) (postinfection); D64.9 Anemia, unspecified; I48.91 Unspecified atrial fibrillation; Z79.01 Long term (current) use of anticoagulants; I25.10 Atherosclerotic heart disease of native coronary artery without angina pectoris; Z86.010 Personal history of colon polyps; F32.9 Major depressive disorder, single episode, unspecified; K21.9 Gastro-esophageal reflux disease without esophagitis; F41.1 Generalized anxiety disorder; Z90.81 Acquired absence of spleen; Z98.890 Other specified postprocedural states; Z90.49 Acquired absence of other specified parts of digestive tract; E53.8 Deficiency of other specified B group vitamins; D50.9 Iron deficiency anemia, unspecified; G47.33 Obstructive sleep apnea (adult) (pediatric)
CPT/HCPCS: 36415; 74019; 74019-26; 74240; 74240-26; 80053; 83735; 83880; 84100; 85027; 88307; 94762; A9270-GY; C1713; C1781; C9113; J0171; J0330; J0456; J0461; J0690; J0694; J1100; J1170; J1200; J2020; J2185; J2405; J2704; J2710; J2795; J3010; J3411; J3420; J3490; J7120; J7121; Q9967

== ENCOUNTER 2020-11-07 05:19 | Emergency (ER) | payer MEDICARE, MEDICAID ==
[2020-11-07 05:31] VITALS: BP 156/95; PULSE 94
[2020-11-07] MEDS ORDERED: LORazepam 2 MG/ML SDV IVPUSH ONE (05:59)
--- NOTE | 2020-11-07 05:59 | EDM.PDOC ---
ED HPI GENERAL MEDICAL PROBLEM - General Chief Complaint: Abdominal Pain Stated Complaint: POST OP PAIN Time Seen by Provider: 11/07/20 05:45 Source of Information: Reports: Patient History Limitations: Reports: No Limitations - History of Present Illness INITIAL COMMENTS - FREE TEXT/NARRATIVE: 70-year-old male underwent ventral hernia repair 1 week ago, discharged 3 days ago and is back today because he feels his abdomen is bloated, he is concerned he may have a problem with a stitch or staple in the upper abdomen, and this also localized pain in the upper abdomen. He is extremely anxious. No fevers or chills, he claims his bowels are moving and he is able to take fluids and eat food. No fevers or chills. He was told by the pharmacist to reduce his anxiety medication if he is taking pain medication. He only took 1 clonazepam yesterday. Onset: Unknown/Unsure Location: Reports: Abdomen Associated Symptoms: Reports: Malaise. Denies: Chest Pain, Fever/Chills, Headaches, Nausea/Vomiting, Shortness of Breath Abdomen Pain Score (Numeric/FACES): 8 - Related Data Allergies Allergy/AdvReac Type Severity Reaction Status Date / Time [id number] Reductase Allergy Cannot Verified 11/07/20 05:32 Inhibitor Remember atorvastatin AdvReac Muscle Verified 11/07/20 05:32 Weakness bupropion HCl AdvReac Seizure Verified 11/07/20 05:32 [From Wellbutrin] citalopram hydrobromide AdvReac Hallucinati Verified 11/07/20 05:32 [From Celexa] ons gabapentin AdvReac Shaking Verified 11/07/20 05:32 mirtazapine [From Remeron] AdvReac Hallucinati Verified 11/07/20 05:32 ons pravastatin AdvReac Leg Cramps Verified 11/07/20 05:32 paper tape Allergy Blisters Uncoded 11/07/20 05:32 Home Meds: Home Meds Multivitamin with Minerals [Multiple Vitamin] 1 tab PO BID 03/25/13 [History] Simvastatin 10 mg PO BEDTIME 10/29/18 [History] Ipratropium [Atrovent 0.03% Nasal [place]] 2 sprays LAURO TID PRN 02/13/19 [History] Meclizine [Antivert] 25 mg PO TID PRN 02/13/19 [History] Cyanocobalamin (Vitamin B-12) [Vitamin B-12] 1,000 mcg SL DAILY 02/17/19 [History] Vitamin B Complex [B Complex] 1 each PO DAILY 02/17/19 [History] Aspirin 81 mg PO DAILY 06/25/20 [History] FLUoxetine HCl [Prozac] 40 mg PO DAILY 06/25/20 [History] Calcium Cit/Mgox/Vit D3/B6/Min [Calcium Citrate Plus Tablet] 1 each PO BID 06/28/20 [History] Propranolol [Inderal] 10 mg PO TID 06/28/20 [History] Sucralfate [Carafate] 1 gm PO QIDACANDBED 06/28/20 [History] clonazePAM [Klonopin] 0.5 mg PO BID 06/28/20 [History] Pantoprazole Sodium [Protonix] 40 mg PO DAILY #30 tablet. 07/30/20 [Rx] Diclofenac/Hyaluronate/Niacin [Diclofen 3%-Hyaluron 2%-Niac4%] 1 applic TOP TID PRN 10/27/20 [History] Ergocalciferol (Vitamin D2) [Ergocalciferol] 3,000 units PO DAILY 10/27/20 [History] Ferrous Sulfate 325 mg PO DAILY 10/27/20 [History] Lidocaine 2% [Xylocaine 2% Viscous] 1 applic PO ONETIME PRN 10/27/20 [History] HYDROmorphone [Dilaudid] 2 - 4 mg PO Q4H PRN #12 tablet 11/04/20 [Rx] Past Medical History HEENT History: Reports: Hard of Hearing, Impaired Vision Cardiovascular History: Reports: Afib, Arrhythmia, CAD, Heart Murmur, High Cholesterol, SOB on Exertion Respiratory History: Reports: Sleep Apnea Other Respiratory History: not wearing cpap currently Gastrointestinal History: Reports: Cholelithiasis, Colon Polyp, GERD, Hiatal Hernia Genitourinary History: Reports: Other (See Below) Other Genitourinary History: surgery on testicle Musculoskeletal History: Reports: Back Pain, Chronic, Fracture, Other (See Below) Other Musculoskeletal History: possible neuropathy Neurological History: Reports: Migraines, Neuropathy, Peripheral, Other (See Below) Other Neuro History: tremors from meds. tinnitis Psychiatric History: Reports: Anxiety, Depression Hematologic History: Reports: Anemia, Blood Transfusion(s) - Infectious Disease History Infectious Disease History: Reports: Chicken Pox, Measles, Mumps - Past Surgical History Head Surgeries/Procedures: Reports: None HEENT Surgical History: Reports: Other (See Below) Other HEENT Surgeries/Procedures: removed metal from eye Cardiovascular Surgical History: Reports: Other (See Below) Other Cardiovascular Surgeries/Procedures: angiogram Respiratory Surgical History: Reports: None GI Surgical History: Reports: Colonoscopy, EGD, Hernia Repair/Other, Shanthi Fundoplication, Polypectomy, Other (See Below) Other GI Surgeries/Procedures: splenectomy 2006 abdomenal surgery in October bariatric procedure Neurological Surgical History: Reports: None Musculoskeletal Surgical History: Reports: None Dermatological Surgical History: Reports: None Social & Family History - Family History Family Medical History: No Pertinent Family History HEENT: Reports: Hearing Impairment GI: Reports: Hiatal Hernia Oncologic: Reports: Bone - Tobacco Use Tobacco Use Status *Q: Former Tobacco User Used Tobacco, but Quit: Yes Month/Year Tobacco Last Used: 11/1986 - Caffeine Use Caffeine Use: Reports: Coffee Other Caffeine Use: 2-3 c. daily Caffeine Use Comment: 20 oz a day - Recreational Drug Use Recreational Drug Use: No ED ROS GENERAL - Review of Systems Review Of Systems: See Below Constitutional: Reports: Malaise. Denies: Fever, Chills HEENT: Reports: No Symptoms Respiratory: Denies: Shortness of Breath Cardiovascular: Denies: Chest Pain GI/Abdominal: Reports: Abdominal Pain, Decreased Appetite, Other (Tends to hurt when eating). Denies: Constipation, Diarrhea : Reports: No Symptoms Skin: Reports: Bruising (Bruising on the abdomen from his recent surgery) Psychiatric: Reports: Anxiety ED EXAM, GI/ABD - Physical Exam Exam: See Below Exam Limited By: No Limitations General Appearance: Alert, Anxious Eyes: Bilateral: Normal Appearance Head: Atraumatic Respiratory/Chest: No Respiratory Distress, Lungs Clear Cardiovascular: Regular Rate, Rhythm. No: Tachycardia, Extra Beats GI/Abdominal Exam: Soft, Tender (There is diffuse tenderness to palpation, abdomen does feel mildly distended), Abnormal Bowel Sounds (Fairly high-pitched, diffuse and mildly hypoactive) (Male) Exam: Other (Patient has developed some fairly significant ecchymosis around the perineal area and shaft of the penis which he is concerned about) Extremities: No: Pedal Edema Neurological: Alert, Oriented Psychiatric: Anxious Course - Vital Signs Last Recorded V/S: Last Vital Signs Temp 93.7 F L 11/07/20 05:29 Pulse 94 11/07/20 05:29 Resp 18 11/07/20 05:29 BP 156/95 H 11/07/20 05:29 Pulse Ox 97 11/07/20 05:29 - Orders/Labs/Meds Labs: Laboratory Tests 11/07/20 11/07/20 Range/Units 06:00 06:00 WBC 9.5 (4.5-11.0) K/uL RBC 4.25 L (4.30-5.90) M/uL Hgb 12.7 (12.0-15.0) g/dL Hct 39.0 L (40.0-54.0) % MCV 92 (80-98) fL MCH 30 (27-31) pg MCHC 33 (32-36) % Plt Count 329 (150-400) K/uL Neut % (Auto) 61.2 (36-66) % Lymph % (Auto) 18.1 L (24-44) % Keith % (Auto) 12.6 H (2-6) % Eos % (Auto) 7.7 H (2-4) % Baso % (Auto) 0.4 (0-1) % Sodium 141 (140-148) mmol/L Potassium 3.6 (3.6-5.2) mmol/L Chloride 101 (100-108) mmol/L Carbon Dioxide 25 (21-32) mmol/L Anion Gap 14.7 H (5.0-14.0) mmol/L BUN 19 H (7-18) mg/dL Creatinine 1.0 (0.8-1.3) mg/dL Est Cr Clr Drug Dosing 77.09 mL/min Estimated GFR (MDRD) > 60 (>60) Glucose 88 (74-106) mg/dL Calcium 8.7 (8.5-10.1) mg/dL Meds: Medications Discontinued Medications Generic Name Dose Route Start Last Admin Trade Name Freq PRN Reason Stop Dose Admin Sodium Chloride 1,000 mls @ 999 mls/hr 11/07/20 06:00 11/07/20 05:59 Normal Saline IV 999 mls/hr ASDIRECTED KERRI Administration Lorazepam 0.5 mg 11/07/20 05:59 11/07/20 06:06 Lorazepam 2 Mg/Ml Sdv IVPUSH 11/07/20 06:00 0.5 mg ONETIME ONE Administration - Re-Assessments/Exams Free Text/Narrative Re-Assessment/Exam: 11/07/20 05:[address] Gardner, apparently this patient has a chronic hypomotility syndrome with gas retention. The patient is concerned about the anuradha but they look fine. He recommended hydration. CBC and BMP were obtained. He may need a CT of the abdomen to rule out obstructive pattern if he does not improve after hydration. I am also going to give him 1/2 mg of Ativan IV to help with his anxiety. 11/07/20 06:32 White count and hemoglobin are normal, electrolytes basically normal. 11/07/20 06:39 I tried to reassure the patient that he is following a fairly normal postoperative course. I asked him to try to stop the pain medications and restart his anxiety medications, and recheck with Antonia Emanuel on Saturday as scheduled. He can return sooner if he thinks he is worsening, especially if he develops increased abdominal distention or pain, fevers, or vomiting. Departure - Departure Time of Disposition: 07:07 Disposition: Home, Self-Care 01 Clinical Impression: TANVIR (generalized anxiety disorder) Abdominal pain Qualifiers: Abdominal location: generalized Qualified Code(s): R10.84 - Generalized abdominal pain - Discharge Information Instructions: Abdominal Pain, Adult, [id number] Referrals: Robin Mata NP [Primary Care Provider] - Forms: ED Department Discharge Care Plan Goals: Try to hold your pain medicines today and restart your anxiety medications as directed. Increase activity as tolerated and continue with fluids. Increase diet as tolerated. Recheck with the surgical department on Saturday as scheduled, or return sooner if worsening such as fever or increased pain. Sepsis Event Note (ED) - Evaluation Sepsis Screening Result: No Definite Risk
[2020-11-07] MEDS ORDERED: Sodium Chloride 0.9% 1,000 ML IV SCH (06:00)
== END 2020-11-07 07:07 | disposition home or self-care (01) ==
LOC: JP.ED 05:19
DX: R10.84 Generalized abdominal pain (principal); F41.1 Generalized anxiety disorder; I48.91 Unspecified atrial fibrillation; I25.10 Atherosclerotic heart disease of native coronary artery without angina pectoris; E78.00 Pure hypercholesterolemia, unspecified; K21.9 Gastro-esophageal reflux disease without esophagitis; G62.9 Polyneuropathy, unspecified; Z88.8 Allergy status to other drugs, medicaments and biological substances; Z91.048 Other nonmedicinal substance allergy status; Z79.82 Long term (current) use of aspirin; Z79.899 Other long term (current) drug therapy; Z87.891 Personal history of nicotine dependence
CPT/HCPCS: 36415; 80048; 85025; 96374; 99284; J2060; J7030; 99283

== ENCOUNTER 2020-11-08 19:34 | Inpatient (IN) | payer MEDICARE, MEDICAID ==
[2020-11-08] MEDS ORDERED: Ondansetron 4 MG/2 ML SDV IVPUSH ONE (21:58)
[2020-11-08] MEDS ORDERED: HYDROmorphone 0.5 MG/0.5 ML Syringe IVPUSH ONE (21:59)
[2020-11-08] MEDS ORDERED: Sodium Chloride 0.9% 1,000 ML IV SCH ×2 (22:00→23:45)
--- NOTE | 2020-11-08 22:03 | EDM.PDOC ---
ED HPI GENERAL MEDICAL PROBLEM - General Chief Complaint: Abdominal Pain Stated Complaint: POST SURGERY NAUSEA AND DEHYDRATION Time Seen by Provider: 11/08/20 22:01 Source of Information: Reports: Patient History Limitations: Reports: No Limitations - History of Present Illness INITIAL COMMENTS - FREE TEXT/NARRATIVE: pt was discharged from the hosp on saturday after having surgery for a incarcerated hernia. He is now vomiting. He is having very dark stools. He is having increased pain,. Onset: Gradual Duration: Day(s): Location: Reports: Abdomen Associated Symptoms: Reports: Nausea/Vomiting Middle Abdomen Pain Score (Numeric/FACES): 4 - Related Data Allergies Allergy/AdvReac Type Severity Reaction Status Date / Time Fmowlhm-Kil-Vrz Reductase Allergy Cannot Verified 11/08/20 20:30 Inhibitor Remember atorvastatin AdvReac Muscle Verified 11/08/20 20:30 Weakness bupropion HCl AdvReac Seizure Verified 11/08/20 20:30 [From Wellbutrin] citalopram hydrobromide AdvReac Hallucinati Verified 11/08/20 20:30 [From Celexa] ons gabapentin AdvReac Shaking Verified 11/08/20 20:30 mirtazapine [From Remeron] AdvReac Hallucinati Verified 11/08/20 20:30 ons pravastatin AdvReac Leg Cramps Verified 11/08/20 20:30 paper tape Allergy Blisters Uncoded 11/08/20 20:30 Home Meds: Home Meds Multivitamin with Minerals [Multiple Vitamin] 1 tab PO BID 03/25/13 [History] Simvastatin 10 mg PO BEDTIME 10/29/18 [History] Ipratropium [Atrovent 0.03% Nasal [place]] 2 sprays LAURO TID PRN 02/13/19 [History] Meclizine [Antivert] 25 mg PO TID PRN 02/13/19 [History] Cyanocobalamin (Vitamin B-12) [Vitamin B-12] 1,000 mcg SL DAILY 02/17/19 [History] Vitamin B Complex [B Complex] 1 each PO DAILY 02/17/19 [History] Aspirin 81 mg PO DAILY 06/25/20 [History] FLUoxetine HCl [Prozac] 40 mg PO DAILY 06/25/20 [History] Calcium Cit/Mgox/Vit D3/B6/Min [Calcium Citrate Plus Tablet] 1 each PO BID 06/28/20 [History] Propranolol [Inderal] 10 mg PO TID 06/28/20 [History] Sucralfate [Carafate] 1 gm PO QIDACANDBED 06/28/20 [History] clonazePAM [Klonopin] 0.5 mg PO BID 06/28/20 [History] Pantoprazole Sodium [Protonix] 40 mg PO DAILY #30 tablet. 07/30/20 [Rx] Diclofenac/Hyaluronate/Niacin [Diclofen 3%-Hyaluron 2%-Niac4%] 1 applic TOP TID PRN 10/27/20 [History] Ergocalciferol (Vitamin D2) [Ergocalciferol] 3,000 units PO DAILY 10/27/20 [History] Ferrous Sulfate 325 mg PO DAILY 10/27/20 [History] Lidocaine 2% [Xylocaine 2% Viscous] 1 applic PO ONETIME PRN 10/27/20 [History] HYDROmorphone [Dilaudid] 2 - 4 mg PO Q4H PRN #12 tablet 11/04/20 [Rx] Azithromycin [Zithromax] 125 mg PO DAILY #30 tablet 11/12/20 [Rx] polyethylene glycoL 3350 [Miralax] 119 gm PO ASDIRECTED PRN #1 powder 11/12/20 [Rx] Past Medical History HEENT History: Reports: Hard of Hearing, Impaired Vision Cardiovascular History: Reports: Afib, Arrhythmia, CAD, Heart Murmur, High Cholesterol, SOB on Exertion Respiratory History: Reports: Sleep Apnea Other Respiratory History: not wearing cpap currently Gastrointestinal History: Reports: Cholelithiasis, Colon Polyp, GERD, Hiatal Hernia Genitourinary History: Reports: Other (See Below) Other Genitourinary History: surgery on testicle Musculoskeletal History: Reports: Back Pain, Chronic, Fracture, Other (See Below) Other Musculoskeletal History: possible neuropathy Neurological History: Reports: Migraines, Neuropathy, Peripheral, Other (See Below) Other Neuro History: tremors from meds. tinnitis Psychiatric History: Reports: Anxiety, Depression Hematologic History: Reports: Anemia, Blood Transfusion(s) - Infectious Disease History Infectious Disease History: Reports: Chicken Pox, Measles, Mumps, Novel Coronavirus - Past Surgical History Head Surgeries/Procedures: Reports: None HEENT Surgical History: Reports: Other (See Below) Other HEENT Surgeries/Procedures: removed metal from eye Cardiovascular Surgical History: Reports: Other (See Below) Other Cardiovascular Surgeries/Procedures: angiogram Respiratory Surgical History: Reports: None GI Surgical History: Reports: Colonoscopy, EGD, Hernia Repair/Other, Shanthi Fundoplication, Polypectomy, Other (See Below) Other GI Surgeries/Procedures: splenectomy 2006 abdomenal surgery in October like bariatric procedure Neurological Surgical History: Reports: None Musculoskeletal Surgical History: Reports: None Dermatological Surgical History: Reports: None Social & Family History - Family History Family Medical History: No Pertinent Family History HEENT: Reports: Hearing Impairment GI: Reports: Hiatal Hernia Oncologic: Reports: Bone - Tobacco Use Tobacco Use Status *Q: Never Tobacco User - Caffeine Use Caffeine Use: Reports: Coffee Other Caffeine Use: 2-3 c. daily Caffeine Use Comment: couple cups per day - Recreational Drug Use Recreational Drug Use: No ED ROS GENERAL - Review of Systems Review Of Systems: See Below Constitutional: Reports: Malaise, Weakness, Diaphoresis, Decreased Appetite, Other (pt is not holding down anything at this point. ) HEENT: Reports: No Symptoms Respiratory: Reports: No Symptoms Cardiovascular: Reports: No Symptoms Endocrine: Reports: No Symptoms GI/Abdominal: Reports: Abdominal Pain, Bloody Stool, Decreased Appetite : Reports: No Symptoms Musculoskeletal: Reports: No Symptoms Skin: Reports: No Symptoms Neurological: Reports: No Symptoms ED EXAM, GI/ABD - Physical Exam Exam: See Below Text/Narrative:: pt arrived with increased pain, black tarry stools, and he has been vomiting all day today. He was discharged from the hosp on Saturday after the repair of a incarcerated hernia. Exam Limited By: No Limitations General Appearance: Alert, Anxious, Moderate Distress Ears: Normal TMs Nose: Normal Inspection Throat/Mouth: Normal Inspection Head: Atraumatic Neck: Normal Inspection Respiratory/Chest: No Respiratory Distress Cardiovascular: Regular Rate, Rhythm, Tachycardia GI/Abdominal Exam: Tender, Other (pt is very tender in the lower abdoman with pain radiating into his testicles. ) (Male) Exam: Deferred Rectal (Males) Exam: Black Stool, Other ( no masses present. ) Back Exam: Normal Inspection Extremities: Normal Inspection Neurological: Alert, Oriented, Normal Cognition Psychiatric: Anxious, Other (pt was very uncomfortable. ) Course - Vital Signs Last Recorded V/S: Last Vital Signs Temp 36.3 C 06/26/21 07:46 Pulse 62 11/12/20 07:46 Resp 16 11/12/20 07:46 BP 125/75 11/12/20 07:46 Pulse Ox 96 11/12/20 07:46 - Orders/Labs/Meds Labs: Laboratory Tests 11/08/20 11/08/20 11/08/20 Range/Units 22:17 22:17 22:17 WBC 11.6 H (4.5-11.0) K/uL RBC 4.24 L (4.30-5.90) M/uL Hgb 12.8 (12.0-15.0) g/dL Hct 38.3 L (40.0-54.0) % MCV 90 (80-98) fL MCH 30 (27-31) pg MCHC 33 (32-36) % Plt Count 412 H (150-400) K/uL Neut % (Auto) 82.9 H (36-66) % Lymph % (Auto) 9.8 L (24-44) % [place] % (Auto) 6.6 H (2-6) % Eos % (Auto) 0.4 L (2-4) % Baso % (Auto) 0.3 (0-1) % Sodium 138 L (140-148) mmol/L Potassium 4.0 (3.6-5.2) mmol/L Chloride 100 (100-108) mmol/L Carbon Dioxide 25 (21-32) mmol/L Anion Gap 17.0 H (5.0-14.0) mmol/L BUN 12 (7-18) mg/dL Creatinine 0.8 (0.8-1.3) mg/dL Est Cr Clr Drug Dosing 95.65 mL/min Estimated GFR (MDRD) > 60 (>60) Glucose 107 H (74-106) mg/dL Calcium 8.3 L (8.5-10.1) mg/dL Total Bilirubin 1.0 (0.2-1.0) mg/dL AST 21 (15-37) U/L ALT 56 (12-78) U/L Alkaline Phosphatase 103 (46-116) U/L C-Reactive Protein 3.76 H (0.0-0.3) mg/dL Total Protein 5.7 L (6.4-8.2) g/dL Albumin 2.6 L (3.4-5.0) g/dL Globulin 3.1 (2.3-3.5) g/dL Albumin/Globulin Ratio 0.8 L (1.2-2.2) Meds: Medications Discontinued Medications Generic Name Dose Route Start Last Admin Trade Name Freq PRN Reason Stop Dose Admin Acetaminophen 650 mg 11/09/20 02:41 11/11/20 20:26 Acetaminophen 325 Mg Tab PO 650 mg Q4H PRN Administration Pain Bisacodyl 10 mg 11/10/20 09:00 11/12/20 09:35 Bisacodyl 5 Mg Tab PO Not Given BID KERRI Clonazepam 0.5 mg 11/09/20 09:00 11/12/20 09:44 Clonazepam 1 Mg Tab PO 0.5 mg BID KERRI Administration Docusate Sodium 100 mg 11/10/20 09:00 11/12/20 09:35 Docusate Sodium 100 Mg Cap PO Not Given BID KERRI Fluoxetine HCl 40 mg 11/09/20 09:00 11/12/20 09:37 Fluoxetine 20 Mg Cap PO 40 mg DAILY KERRI Administration Hydromorphone HCl 0.5 mg 11/08/20 21:59 11/08/20 22:34 Hydromorphone 0.5 Mg/0.5 Ml Syringe IVPUSH 11/08/20 22:00 0.5 mg ONETIME ONE Administration Hydromorphone HCl 2 mg 11/09/20 02:44 Hydromorphone 2 Mg Tab PO Q4H PRN Pain Sodium Chloride 1,000 mls @ 999 mls/hr 11/08/20 22:00 11/08/20 22:32 Normal Saline IV 999 mls/hr ASDIRECTED KERRI Administration Sodium Chloride 80 mls @ 3.3 mls/sec 11/08/20 23:20 11/08/20 23:30 Normal Saline IV 11/08/20 23:21 3.3 mls/sec ASDIRECTED STA Administration Sodium Chloride 1,000 mls @ 500 mls/hr 11/08/20 23:45 11/09/20 00:04 Normal Saline IV 500 mls/hr ASDIRECTED KERRI Administration Sodium Chloride 1,000 mls @ 150 mls/hr 11/09/20 03:15 11/09/20 10:57 Normal Saline IV 150 mls/hr ASDIRECTED KERRI Administration Azithromycin 125 mg/ Sodium 150 mls @ 150 mls/hr 11/09/20 08:00 Chloride IV Q12H KERRI Azithromycin 125 mg/ Sodium 150 mls @ 150 mls/hr 11/09/20 09:00 11/12/20 09:50 Chloride IV Not Given Q12H KERRI Dextrose/Lactated Ringer's 1,000 mls @ 100 mls/hr 11/09/20 16:45 11/11/20 03:55 Dextrose 5%-Lactated Ringers IV 100 mls/hr ASDIRECTED KERRI Administration Potassium Phosphate 15 mmol/ 250 mls @ 125 mls/hr 11/10/20 09:00 11/10/20 17:33 Premix IV 11/10/20 16:59 125 mls/hr Q2H KERRI Administration Dextrose/Lactated Ringer's 1,000 mls @ 60 mls/hr 11/11/20 06:51 Dextrose 5%-Lactated Ringers IV ASDIRECTED KERRI Magnesium Sulfate 2 gm in 50 mls @ 25 mls/hr 11/11/20 08:00 11/12/20 07:31 Magnesium Sulfate In Water 2 Gm/50 Ml IV 11/13/20 03:59 25 mls/hr Q6H KERRI Administration Potassium Phosphate 15 mmol/ 250 mls @ 85 mls/hr 11/11/20 08:00 11/11/20 14:53 Premix IV 11/11/20 16:57 85 mls/hr Q3H KERRI Administration Iopamidol 100 ml 11/08/20 23:19 11/08/20 23:30 Iopamidol 612 Mg/Ml 100 Ml Bottle IV 11/08/20 23:20 100 ml . DIRECTED STA Administration Iopamidol 100 ml 11/10/20 09:41 11/10/20 10:39 Iopamidol 612 Mg/Ml 100 Ml Bottle .XX 11/11/20 09:42 100 ml . DIRECTED PRN Administration RADIOLOGY EXAM Ipratropium [place] 0 ml 11/09/20 06:17 Ipratropium 0.03% Nasal [place] 30 Ml Bot LAURO TID PRN Rhinitis Meclizine HCl 25 mg 11/09/20 06:17 Meclizine 25 Mg Tab PO TID PRN Dizziness Ondansetron HCl 4 mg 11/08/20 21:58 11/08/20 22:32 Ondansetron 4 Mg/2 Ml Sdv IVPUSH 11/08/20 21:59 4 mg ONETIME ONE Administration Ondansetron HCl 4 mg 11/09/20 02:41 Ondansetron 4 Mg/2 Ml Sdv IVPUSH Q4H PRN Nausea/Vomiting Pantoprazole Sodium 40 mg 11/08/20 22:41 11/08/20 22:48 Pantoprazole 40 Mg Vial IVPUSH 11/08/20 22:42 40 mg ONETIME ONE Administration Pantoprazole Sodium 40 mg 11/09/20 02:45 11/09/20 03:27 Pantoprazole 40 Mg Vial IVPUSH 40 mg Q12H KERRI Administration Pantoprazole Sodium 40 mg 11/09/20 16:00 11/12/20 04:51 Pantoprazole 40 Mg Vial IVPUSH 40 mg Q12H KERRI Administration Propranolol HCl 10 mg 11/09/20 09:00 11/12/20 09:35 Propranolol 40 Mg Tab PO 10 mg TID KERRI Administration Sucralfate 1 gm 11/09/20 07:00 11/12/20 07:29 Sucralfate 1 Gm Tab PO 1 gm QIDACANDBED KERRI Administration - Re-Assessments/Exams Free Text/Narrative Re-Assessment/Exam: 11/09/20 01:41 stool was currant jelly color and positive for blood,. He was given protonix 40 mg iv. He has had 2 liters of fluid. A cat scan of the abdoman did show dilated loops of small bowel. He has been vomiting all day. Departure - Departure Time of Disposition: 01:43 Disposition: Admitted As Inpatient 67 Condition: Fair Clinical Impression: GI bleeding, Small bowel obstruction, Hx of inguinal hernia surgery - Discharge Information Sepsis Event Note (ED) - Evaluation Sepsis Screening Result: No Definite Risk
[2020-11-08] MEDS ORDERED: Pantoprazole 40 MG Vial IVPUSH ONE (22:41)
[2020-11-08] MEDS ORDERED: Iopamidol 612 MG/ML 100 ML Bottle IV STA (23:19)
[2020-11-08] MEDS ORDERED: Sodium Chloride 0.9% 80 ML IV STA (23:20)
--- NOTE | 2020-11-09 01:12 | CRLCT ---
INDICATION: Abdominal pain recent hernia repair and bowel resection surgery 2 weeks ago TECHNIQUE: CT Abdomen and pelvis with i.v. contrast. Coronal and sagittal reformats were obtained. CONTRAST: 100 mL Isovue 300 COMPARISON: 06/25/2020 FINDINGS: Lower chest: Unremarkable. Liver: Unremarkable. Spleen: Previous splenectomy noted with no significant intraabdominal splenosis seen. Pancreas: Unremarkable. Gallbladder: Previous cholecystectomy noted with mild intrahepatic and extrahepatic biliary ductal dilatation seen. The common bile duct measures 10 mm and is similar in appearance to prior exam. Kidney: Unremarkable. No kidney or ureteral stones or obstruction seen. Adrenal: Unremarkable. Bowel: Multiple loops of dilated small bowel are noted in the upper abdomen measuring up to 5.6 cm in diameter and decompressed small bowel loops are seen within the right flank. The colon is collapsed and difficult to evaluate. The patient is status post partial gastrectomy and gastrojejunostomy. Mild enlargement of the appendix is noted measuring 9 mm, with no secondary inflammatory changes seen. The appendix was air filled measuring 6 mm on prior examination and is now filled with hyperdense material which may be due to retained oral contrast. Vascular: Unremarkable. Lymph: Unremarkable. Peritoneum: Unremarkable. No pneumoperitoneum is seen. A small amount of abdominal and pelvic ascites is present. Pelvis: Soft tissue gas is seen along the anterior left abdominal wall and tracks into the left inguinal canal and are most likely related to recent surgery. Soft tissue: See above. Bone: Unremarkable for age. IMPRESSIONS: 1. Mild enlargement of the appendix is noted measuring 9 mm, with no secondary inflammatory changes seen. Clinical correlation and followup recommended to distinguish between a normal ectatic variant or early stage appendicitis. 2. Multiple loops of dilated small bowel are noted in the upper abdomen measuring up to 5.6 cm in diameter and decompressed small bowel loops are seen within the right flank. Findings are suspicious for small bowel obstruction. Dictated by Db Dacosta MD @ 11/09/2020 1:11:20 AM Please note that all CT scans at this facility use dose modulation, iterative reconstruction, and/or weight-based dosing when appropriate to reduce radiation dose to as low as reasonably achievable. Dictated by: Db Dacosta MD @ 11/09/2020 01:11:36 (Electronically Signed)
[2020-11-09] MEDS ORDERED: Ondansetron 4 MG/2 ML SDV IVPUSH PRN (02:41)
[2020-11-09] MEDS ORDERED: HYDROmorphone 2 MG Tab PO PRN (02:44)
[2020-11-09] MEDS ORDERED: Pantoprazole 40 MG Vial IVPUSH SCH (02:45)
[2020-11-09] MEDS: Sodium Chloride 0.9% 1,000 ML IV SCH ×2 (03:27→10:57)
--- NOTE | 2020-11-09 05:46 | HP ---
IDENTIFYING DATA: Mr. Nolan Renee is a 70-year-old single male from [facility]. CHIEF COMPLAINT: Abdominal pain and bloody stools. HISTORY OF PRESENT ILLNESS: Elderly male has a remote history of bariatric surgical procedure 10 years ago. He was developing a resultant anterior ventral hernia and underwent a herniorrhaphy for reasons of incarcerated ventral hernia approximately 6 days ago. He was discharged home in stable condition. However, noted increasing abdominal discomfort, anorexia, and emesis as well as development of melenic stools prompting return to the emergency room today. For the last 24 hours he reports he has had a little nutritional intake, taking only water as sustenance. He has had no fevers or chills. Surgical incision is intact. Does note generalized bruising across the anterior abdomen. 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 He has had bilateral cataract extraction, and previous appendectomy. Additionally, he has a noted history of atrial fibrillation and reported coronary artery disease, as well as hyperlipidemia, and anxiety disorder with depression. HABITS: Remote history of tobacco use, discontinuing its use in 1984. Caffeine intake averages two cups of coffee daily. Rarely uses alcohol. Does not receive influenza vaccines nor COVID vaccine. He had active COVID-19 infection in July of 2020 with subsequent recovery. ALLERGIES: REPORTED TO STATINS, BUPROPION, CITALOPRAM, GABAPENTIN, MIRTAZAPINE, AND PAPER TAPE. CURRENT MEDICATIONS: Include multivitamins with minerals; simvastatin 10 mg at bedtime; Atrovent nasal spray t.i.d. p.r.n. congestion; meclizine 25 mg t.i.d. p.r.n. dizziness; vitamin B12 1000 mcg sublingually daily; vitamin B complex 1 daily; aspirin 81 mg daily; fluoxetine 40 mg daily; calcium with magnesium and vitamin D3 one tablet b.i.d.; propranolol 10 mg t.i.d. for chronic tremor; sucralfate 1 g q.i.d.; clonazepam 0.5 mg b.i.d.; pantoprazole 40 mg daily; diclofenac-hyaluronate-?niacin applied topically t.i.d. p.r.n. for right hand arthralgias; vitamin D2 3000 units daily; ferrous sulfate 325 mg daily; lidocaine 2% viscous applied p.r.n.; hydromorphone 2 to 4 mg q.4 hours p.r.n. provided for short-term use following recent ventral hernia repair. SOCIAL HISTORY: He is retired, residing [facility] [place] [facility], generally performs ADLs independently. He is able to maintain his apartment, prepare meals, and drive without difficulty. He does report hearing loss, so he has elected to forego use of his hearing aids feeling they are not greatly beneficial. Additionally, he has corrective lenses which he wears sporadically. FAMILY HISTORY: Two sisters living in the general geographic area. No children. REVIEW OF SYSTEMS: NEUROLOGIC: History of depression and generalized anxiety with pharmacologic therapies. No history of strokes. 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 No glaucoma or retinal disease. CARDIAC: As above. Noted history of coronary artery disease and hyperlipidemia. Denies hypertension. No history of diabetes. RESPIRATORY: No current shortness of breath, cough, sputum production, or hemoptysis. History of COVID disease in July of 2020. GASTROINTESTINAL: As above. GENITOURINARY: Rises 2 to 3 times nightly to void. No history of urinary incontinence. Some age-related slowing of his urinary stream. MUSCULOSKELETAL: Records indicate a history of intermittent low back pain. He does have arthralgias and stiffness of the right hand and minor aching of the large joints. PHYSICAL EXAMINATION: GENERAL: Appearance is that of a mildly anxious adult male, noting generalized abdominal tenderness. VITAL SIGNS: On admission, temperature 37.3, pulse 79, respiratory rate 18, blood pressure 133/67, O2 sats 96% on room air. HEENT: Hearing is diminished. Pupils are sluggish following cataract surgery. Sclerae anicteric. No nasal congestion. Dry oral mucosa is evident. NECK: Brisk carotid pulses. No bruits or JVD. No nuchal rigidity or stridor. LUNGS: Symmetrical, clear, non-tachypneic. No wheezes or rales. HEART: Regular. Controlled rate. No murmurs or gallops noted. ABDOMEN: Recent open surgical laparotomy with vertical midline incision in the upper abdomen, clean. Surgical anuradha remain in place. Postoperative ecchymosis is noted about the anterior abdomen. Active bowel sounds are noted. Generalized tenderness without guarding or rebound is evident. Good femoral pulses. No abdominal bruits. No CVA pain. EXTREMITIES: Warm and pink. No pitting edema. Good arterial pulses. SKIN: Intact. LABORATORY DATA: On admission; WBC 11.6, hemoglobin 12.8, platelet count 412,000. Sodium 138, potassium 4, BUN 12, creatinine 0.8, GFR greater than 60. Glucose 107 in a nonfasting state. Liver functions within normal range. C-reactive protein 3.76. CT scan of the abdomen suggested dilated loops of small bowel without definitive obstructive process. IMPRESSIONS: 1. Melenic stools with guaiac-positive testing, suggest probable upper gastrointestinal bleed. 2. Recent ventral hernia repair. 3. Remote history of bariatric surgery. 4. Coronary artery disease, chronic, stable. 5. Chronic mild arthralgias, intermittent use of nonsteroidal agents, no recent use. 6. Generalized anxiety and depressive symptoms with use of fluoxetine and clonazepam. PLAN: The patient is admitted to the medical floor for ongoing monitoring. IV fluids, small amounts of ice chips are provided to moisten his mouth. We will maintain n.p.o. status. Follow up CBC is requested. A.m. labs will include CBC, with surgical consult requested. May require upper endoscopy for further evaluation of his presenting melena. His surgeon in attendance has been notified and will assume care in the morning. Full code status is to be maintained with standby assistance provided by nursing staff. Does have orders for analgesic and antiemetic therapy if required. Ramiro Kirby MD /[id number]
[2020-11-09] MEDS ORDERED: Ipratropium 0.03% Nasal Spray 30 ML Bot NAS PRN (06:17)
[2020-11-09] MEDS ORDERED: Meclizine 25 MG Tab PO PRN (06:17)
--- NOTE | 2020-11-09 06:35 | PCM.CONS ---
H&P History of Present Illness - General Date of Service: 11/09/20 Admit Problem/Dx: Admission Diagnosis/Problem Admission Diagnosis/Problem Small bowel obstruction Source of Information: Patient History Limitations: Reports: No Limitations - History of Present Illness Initial Comments - Free Text/Narative: Nolan was discharged from the hospital after an open repair of Incisional Hernia on 11/04/2020 and he states he did ok until the next day when he felt nauseated and had a black stool. He went to the ED and was sent home. Last night he presented to the ED with nausea, increase in black stools and felt weak. He was admitted with a partial small bowel obstruction. Onset of Symptoms: Reports: Gradual Symptom Onset Date: 11/05/20 Duration of Symptoms: Reports: Waxing/Waning Location: Reports: Abdomen Quality: Reports: Dull, Pressure Severity: Mild Improves with: Reports: Medication, Rest Worsens with: Reports: Eating, Movement Associated Symptoms: Reports: Loss of Appetite, Nausea/Vomiting, Weakness Middle Abdomen Pain Score (Numeric/FACES): 2 - Related Data Allergies/Adverse Reactions: Allergies Allergy/AdvReac Type Severity Reaction Status Date / Time Itlwzbv-Uoa-Tuh Reductase Allergy Cannot Verified 11/08/20 20:30 Inhibitor Remember atorvastatin AdvReac Muscle Verified 11/08/20 20:30 Weakness bupropion HCl AdvReac Seizure Verified 11/08/20 20:30 [From Wellbutrin] citalopram hydrobromide AdvReac Hallucinati Verified 11/08/20 20:30 [From Celexa] ons gabapentin AdvReac Shaking Verified 11/08/20 20:30 mirtazapine [From Remeron] AdvReac Hallucinati Verified 11/08/20 20:30 ons pravastatin AdvReac Leg Cramps Verified 11/08/20 20:30 paper tape Allergy Blisters Uncoded 11/08/20 20:30 Home Medications: Home Meds Multivitamin with Minerals [Multiple Vitamin] 1 tab PO BID 03/25/13 [History] Simvastatin 10 mg PO BEDTIME 10/29/18 [History] Ipratropium [Atrovent 0.03% Nasal Irene] 2 sprays LAURO TID PRN 02/13/19 [History] Meclizine [Antivert] 25 mg PO TID PRN 02/13/19 [History] Cyanocobalamin (Vitamin B-12) [Vitamin B-12] 1,000 mcg SL DAILY 02/17/19 [History] Vitamin B Complex [B Complex] 1 each PO DAILY 02/17/19 [History] Aspirin 81 mg PO DAILY 06/25/20 [History] FLUoxetine HCl [Prozac] 40 mg PO DAILY 06/25/20 [History] Calcium Cit/Mgox/Vit D3/B6/Min [Calcium Citrate Plus Tablet] 1 each PO BID 06/28/20 [History] Propranolol [Inderal] 10 mg PO TID 06/28/20 [History] Sucralfate [Carafate] 1 gm PO QIDACANDBED 06/28/20 [History] clonazePAM [Klonopin] 0.5 mg PO BID 06/28/20 [History] Pantoprazole Sodium [Protonix] 40 mg PO DAILY #30 tablet. 07/30/20 [Rx] Diclofenac/Hyaluronate/Niacin [Diclofen 3%-Hyaluron 2%-Niac4%] 1 applic TOP TID PRN 10/27/20 [History] Ergocalciferol (Vitamin D2) [Ergocalciferol] 3,000 units PO DAILY 10/27/20 [History] Ferrous Sulfate 325 mg PO DAILY 10/27/20 [History] Lidocaine 2% [Xylocaine 2% Viscous] 1 applic PO ONETIME PRN 10/27/20 [History] HYDROmorphone [Dilaudid] 2 - 4 mg PO Q4H PRN #12 tablet 11/04/20 [Rx] Past Medical History HEENT History: Reports: Hard of Hearing, Impaired Vision Cardiovascular History: Reports: Afib, Arrhythmia, CAD, Heart Murmur, High Cho lesterol, SOB on Exertion Respiratory History: Reports: Sleep Apnea Other Respiratory History: not wearing cpap currently Gastrointestinal History: Reports: Cholelithiasis, Colon Polyp, GERD, Hiatal Hernia Genitourinary History: Reports: Other (See Below) Other Genitourinary History: surgery on testicle Musculoskeletal History: Reports: Back Pain, Chronic, Fracture, Other (See Below) Other Musculoskeletal History: possible neuropathy Neurological History: Reports: Migraines, Neuropathy, Peripheral, Other (See Below) Other Neuro History: tremors from meds. tinnitis Psychiatric History: Reports: Anxiety, Depression Hematologic History: Reports: Anemia, Blood Transfusion(s) - Infectious Disease History Infectious Disease History: Reports: Chicken Pox, Measles, Mumps, Novel Cor onavirus - Past Surgical History Head Surgeries/Procedures: Reports: None HEENT Surgical History: Reports: Other (See Below) Other HEENT Surgeries/Procedures: removed metal from eye Cardiovascular Surgical History: Reports: Other (See Below) Other Cardiovascular Surgeries/Procedures: angiogram Respiratory Surgical History: Reports: None GI Surgical History: Reports: Colonoscopy, EGD, Hernia Repair/Other, Shanthi Fundoplication, Polypectomy, Other (See Below) Other GI Surgeries/Procedures: splenectomy 2006 abdomenal surgery in October like bariatric procedure Neurological Surgical History: Reports: None Musculoskeletal Surgical History: Reports: None Dermatological Surgical History: Reports: None Social & Family History - Family History Family Medical History: No Pertinent Family History HEENT: Reports: Hearing Impairment GI: Reports: Hiatal Hernia Oncologic: Reports: Bone - Tobacco Use Tobacco Use Status *Q: Never Tobacco User Second Hand Smoke Exposure: No - Caffeine Use Caffeine Use: Reports: Coffee Other Caffeine Use: 2-3 c. daily Caffeine Use Comment: couple cups per day - Recreational Drug Use Recreational Drug Use: No H&P Review of Systems - Review of Systems: Review Of Systems: See Below General: Reports: Malaise, Weakness, Fatigue, Decreased Appetite HEENT: Reports: No Symptoms Pulmonary: Reports: No Symptoms Cardiovascular: Reports: No Symptoms Gastrointestinal: Reports: Black Stool, Diarrhea, Decreased Appetite, Flatus, Nausea Genitourinary: Reports: No Symptoms Musculoskeletal: Reports: No Symptoms Skin: Reports: No Symptoms Psychiatric: Reports: Anxiety Neurological: Reports: Weakness Hematologic/Lymphatic: Reports: No Symptoms Immunologic: Reports: No Symptoms Exam - Exam Exam: See Below - Vital Signs Vital Signs: Last Vital Signs Temp 98.5 F 11/09/20 02:06 Pulse 79 11/09/20 02:06 Resp 16 11/09/20 02:06 BP 134/69 11/09/20 02:06 Pulse Ox 97 11/09/20 02:06 Weight: 177 lb 9.6 oz - Exam Quality Assessment: DVT Prophylaxis General: Alert, Oriented, Cooperative, Mild Distress HEENT: PERRLA, Conjunctiva Clear Neck: Supple, Trachea Midline Lungs: Clear to Auscultation, Normal Respiratory Effort Cardiovascular: Regular Rate, Regular Rhythm GI/Abdominal Exam: Soft, Non-Tender, No Distention (Male) Exam: Deferred Rectal (Males) Exam: Deferred Back Exam: Normal Inspection, Full Range of Motion Extremities: Normal Inspection, No Pedal Edema Skin: Warm, Dry, Intact Neurological: Cranial Nerves Intact, Reflexes Equal Bilateral Neuro Extensive - Mental Status: Alert, Normal Mood/Affect Neuro Extensive - Motor, Sensory, Reflexes: CN II-XII Intact, Normal Reflexes Psychiatric: Anxious - Patient Data Lab Results Last 24 hrs: Laboratory Results - last 24 hr 11/08/20 11/08/20 11/08/20 Range/Units 22:17 22:17 22:17 WBC 11.6 H (4.5-11.0) K/uL RBC 4.24 L (4.30-5.90) M/uL Hgb 12.8 (12.0-15.0) g/dL Hct 38.3 L (40.0-54.0) % MCV 90 (80-98) fL MCH 30 (27-31) pg MCHC 33 (32-36) % Plt Count 412 H (150-400) K/uL Neut % (Auto) 82.9 H (36-66) % Lymph % (Auto) 9.8 L (24-44) % [place] % (Auto) 6.6 H (2-6) % Eos % (Auto) 0.4 L (2-4) % Baso % (Auto) 0.3 (0-1) % Sodium 138 L (140-148) mmol/L Potassium 4.0 (3.6-5.2) mmol/L Chloride 100 (100-108) mmol/L Carbon Dioxide 25 (21-32) mmol/L Anion Gap 17.0 H (5.0-14.0) mmol/L BUN 12 (7-18) mg/dL Creatinine 0.8 (0.8-1.3) mg/dL Est Cr Clr Drug Dosing 95.65 mL/min Estimated GFR (MDRD) > 60 (>60) Glucose 107 H (74-106) mg/dL Calcium 8.3 L (8.5-10.1) mg/dL Total Bilirubin 1.0 (0.2-1.0) mg/dL AST 21 (15-37) U/L ALT 56 (12-78) U/L Alkaline Phosphatase 103 (46-116) U/L C-Reactive Protein 3.76 H (0.0-0.3) mg/dL Total Protein 5.7 L (6.4-8.2) g/dL Albumin 2.6 L (3.4-5.0) g/dL Globulin 3.1 (2.3-3.5) g/dL Albumin/Globulin Ratio 0.8 L (1.2-2.2) Urine Color (YELLOW) Urine Appearance (CLEAR) Urine pH (5.0-8.0) Ur Specific [place] (1.008-1.030) Urine Protein (NEGATIVE) mg/dL Urine Glucose (UA) (NEGATIVE) mg/dL Urine Ketones (NEGATIVE) mg/dL Urine Occult Blood (NEGATIVE) Urine Nitrite (NEGATIVE) Urine Bilirubin (NEGATIVE) Urine Urobilinogen (0.2-1.0) EU/dL Ur Leukocyte Esterase (NEGATIVE) Urine RBC (0-5) Urine WBC (0-5) Ur Epithelial Cells Amorphous Sediment Urine Bacteria Urine Mucus 11/09/20 11/09/20 Range/Units 01:50 04:20 WBC 10.2 (4.5-11.0) K/uL RBC 3.69 L (4.30-5.90) M/uL Hgb 11.2 L (12.0-15.0) g/dL Hct 33.5 L (40.0-54.0) % MCV 91 (80-98) fL MCH 30 (27-31) pg MCHC 33 (32-36) % Plt Count 376 (150-400) K/uL Neut % (Auto) (36-66) % Lymph % (Auto) (24-44) % [place] % (Auto) (2-6) % Eos % (Auto) (2-4) % Baso % (Auto) (0-1) % Sodium (140-148) mmol/L Potassium (3.6-5.2) mmol/L Chloride (100-108) mmol/L Carbon Dioxide (21-32) mmol/L Anion Gap (5.0-14.0) mmol/L BUN (7-18) mg/dL Creatinine (0.8-1.3) mg/dL Est Cr Clr Drug Dosing mL/min Estimated GFR (MDRD) (>60) Glucose (74-106) mg/dL Calcium (8.5-10.1) mg/dL Total Bilirubin (0.2-1.0) mg/dL AST (15-37) U/L ALT (12-78) U/L Alkaline Phosphatase (46-116) U/L C-Reactive Protein (0.0-0.3) mg/dL Total Protein (6.4-8.2) g/dL Albumin (3.4-5.0) g/dL Globulin (2.3-3.5) g/dL Albumin/Globulin Ratio (1.2-2.2) Urine Color Yellow (YELLOW) Urine Appearance Clear (CLEAR) Urine pH 5.5 (5.0-8.0) Ur Specific [place] 1.025 (1.008-1.030) Urine Protein Negative (NEGATIVE) mg/dL Urine Glucose (UA) Negative (NEGATIVE) mg/dL Urine Ketones >=160 H (NEGATIVE) mg/dL Urine Occult Blood Negative (NEGATIVE) Urine Nitrite Negative (NEGATIVE) Urine Bilirubin Negative (NEGATIVE) Urine Urobilinogen 0.2 (0.2-1.0) EU/dL Ur Leukocyte Esterase Negative (NEGATIVE) Urine RBC 0-5 (0-5) Urine WBC 0-5 (0-5) Ur Epithelial Cells Rare Amorphous Sediment Not seen Urine Bacteria Few Urine Mucus Not seen Result Diagrams: 11/09/20 04:20 11/08/20 22:17 Andrew Results Last 24 hrs: Microbiology 11/08/20 22:04 Stool Occult Blood (ANDREW) - Final Stool / Feces Sepsis Event Note - Evaluation Sepsis Screening Result: No Definite Risk - Focused Exam Vital Signs: Vital Signs Temp Temp Pulse Resp BP Pulse Ox 11/09/20 02:06 98.5 F 79 16 134/69 97 11/08/20 23:47 99.1 F 79 18 133/67 96 11/08/20 22:33 83 156/86 H 97 11/08/20 21:20 72 143/77 H 96 11/08/20 20:31 97.2 F 71 16 152/84 H 96 11/08/20 20:14 97.2 F 71 16 152/84 H 96 Consult PN Assessment/Plan Procedures: Procedures AIRWAY INHALATION TREATMENT (10/28/18) ASSAY ALKALINE PHOSPHATASE (02/17/19) ASSAY OF ETHANOL (06/30/13) ASSAY OF FERRITIN (07/27/20) ASSAY OF LACTIC ACID (06/28/20) ASSAY OF LIPASE (06/25/20) ASSAY OF MAGNESIUM (10/31/20) ASSAY OF NATRIURETIC PEPTIDE (10/31/20) ASSAY OF PHOSPHORUS (10/31/20) ASSAY OF TROPONIN QUANT (08/02/20) ASSAY THYROID STIM HORMONE (10/28/18) BILIRUBIN TOTAL (02/17/19) BLOOD TRANSFUSION SERVICE (07/27/20) BLOOD TYPING SEROLOGIC ABO (07/27/20) BLOOD TYPING SEROLOGIC RH(D) (07/27/20) C-REACTIVE PROTEIN (10/28/18) CO/MEMBANE DIFFUSE CAPACITY (12/02/13) COLONOSCOPY AND BIOPSY (10/08/13) COMPATIBILITY TEST ANTIGLOB (07/27/20) COMPATIBILITY TEST SPIN (07/27/20) COMPLETE CBC AUTOMATED (10/31/20) COMPLETE CBC W/AUTO DIFF WBC (07/27/20) COMPREHEN METABOLIC PANEL (10/31/20) CT ABD & PELV W/CONTRAST (06/25/20) CT HEAD/BRAIN W/O DYE (05/04/15) CULTURE SCREEN ONLY (04/21/19) EGD BIOPSY SINGLE/MULTIPLE (04/21/19) ELECTROCARDIOGRAM REPORT (03/25/13) ELECTROCARDIOGRAM TRACING (02/23/19) EMERGENCY DEPT VISIT (06/25/20) EMERGENCY DEPT VISIT (06/25/20) EMERGENCY DEPT VISIT (04/21/19) EMERGENCY DEPT VISIT (01/18/19) EMERGENCY DEPT VISIT (12/06/18) EMERGENCY DEPT VISIT (10/28/18) EMERGENCY DEPT VISIT (10/19/18) EMERGENCY DEPT VISIT (05/31/17) EMERGENCY DEPT VISIT (05/01/17) EMERGENCY DEPT VISIT (04/14/17) EMERGENCY DEPT VISIT (02/23/17) EMERGENCY DEPT VISIT (10/15/16) EMERGENCY DEPT VISIT (04/07/16) EMERGENCY DEPT VISIT (01/28/16) EMERGENCY DEPT VISIT (12/31/15) EMERGENCY DEPT VISIT (11/04/15) EMERGENCY DEPT VISIT (06/30/13) EMERGENCY DEPT VISIT (03/25/13) EMERGENCY DEPT VISIT (03/25/13) EVALUATION OF WHEEZING (12/02/13) GLYCOSYLATED HEMOGLOBIN TEST (07/27/20) H PYLORI (C-13) BREATH (07/27/20) HEMOGLOBIN (07/27/20) HYDRATE IV INFUSION ADD-ON (04/21/19) HYDRATION IV INFUSION INIT (05/31/17) IIV NO PRSV INCREASED AG IM (02/17/19) INSERT TEMP BLADDER CATH (10/28/18) LAP INC ALIN REPAIR COMP (02/17/19) LAPAROSCOPIC CHOLECYSTECTOMY (02/17/19) MANUAL THERAPY 1/> REGIONS (05/17/17) MEASURE BLOOD OXYGEN LEVEL (10/31/20) METABOLIC PANEL TOTAL CA (02/23/19) MRI BRAIN STEM W/O DYE (01/05/15) MRI LUMBAR SPINE W/O DYE (06/25/14) ORTHOTIC MGMT&TRAING 1ST ENC (09/13/14) POLYSOM 6/>YRS CPAP 4/> PARM (08/08/15) PROTHROMBIN TIME (02/23/19) PT EVAL LOW COMPLEX 20 MIN (05/17/17) PT EVALUATION (11/01/15) RBC ANTIBODY SCREEN (07/27/20) ROUTINE VENIPUNCTURE (10/31/20) RPR UMBIL ALIN REDUC > 5 YR (12/09/15) STREP A AG IA (04/14/15) THER/PROPH/DIAG INJ IV PUSH (10/28/18) THER/PROPH/DIAG INJ SC/IM (04/20/17) THER/PROPH/DIAG IV INF ADDON (04/21/19) THER/PROPH/DIAG IV INF INIT (04/21/19) THERAPEUTIC EXERCISES (05/17/17) THROMBOPLASTIN TIME PARTIAL (02/23/19) TISSUE EXAM BY PATHOLOGIST (10/31/20) TISSUE EXAM BY PATHOLOGIST (02/17/19) TISSUE EXAM BY PATHOLOGIST (10/28/18) TISSUE EXAM BY PATHOLOGIST (10/08/13) TTE W/DOPPLER COMPLETE (10/28/18) TX/PRO/DX INJ NEW DRUG ADDON (04/21/19) TX/PRO/DX INJ SAME DRUG ESTATE AGENT (04/21/19) URINALYSIS AUTO W/SCOPE (04/21/19) US EXAM SCROTUM (05/12/17) US URINE CAPACITY MEASURE (05/31/17) VASCULAR STUDY (05/12/17) X-RAY EXAM ABDOMEN 2 VIEWS (10/31/20) X-RAY EXAM L-2 SPINE 4/>VWS (11/18/14) X-RAY EXAM L-S SPINE 2/3 VWS (07/15/15) X-RAY EXAM THORAC SPINE 3VWS (04/07/16) X-RAY EYE FOR FOREIGN BODY (06/25/14) X-RAY XM UPR GI TRC 1CNTRST (10/31/20) Problem List Initiated/Reviewed/Updated: Yes My Orders Last 24 Hours: My Active Orders 11/09/20 06:17 Ipratropium [Atrovent 0.03% Nasal Irene] DOSE ml LAURO TID PRN Meclizine [Antivert] 25 mg PO TID PRN 11/09/20 07:00 Sucralfate [Carafate] 1 gm PO QIDACANDBED 11/09/20 08:00 Azithromycin [Zithromax] 125 mg Sodium Chloride 0.9% [Normal Saline] 150 ml IV Q12H 11/09/20 09:00 ClonazePAM [KlonoPIN] 0.5 mg PO BID FLUoxetine [PROzac] 40 mg PO DAILY Propranolol [Inderal] 10 mg PO TID 11/10/20 04:00 Abdomen 2V AP Flat Upright [CR] Timed CBC W/O DIFF,HEMOGRAM [HEME] Timed COMPREHENSIVE METABOLIC PN,CMP [CHEM] Timed MAGNESIUM [CHEM] Timed PHOSPHORUS [CHEM] Timed Assessment: Partial Small Bowel Obstruction SP Laparotomy Incisional Hernia Repair with Mesh Plan: Remain NPO with Ice chips and sips of water with medications Rx Zithromax 125 mg bid IV Abdominal Flat and Upright X Ray at 0400 - 11/10/20 Home meds were restarted Check labs in AM Plan of hospitalization - 3 nights and 4 days Antonia Daugherty 11/09/2020
[2020-11-09] MEDS ORDERED: Azithromycin 125 MG in Sodium Chloride 0.9% 150 ML IV SCH (08:00)
[2020-11-09] MEDS: Propranolol 40 MG Tab PO SCH ×3 (08:44→20:16)
[2020-11-09] MEDS: Sucralfate 1 GM Tab PO SCH ×4 (08:44→20:16)
[2020-11-09] MEDS: FLUoxetine 20 MG Cap PO SCH (08:45)
[2020-11-09] MEDS: ClonazePAM 1 MG Tab PO SCH ×2 (08:52→20:16)
[2020-11-09] MEDS: Azithromycin 125 MG in Sodium Chloride 0.9% 150 ML IV SCH ×2 (09:14→20:17)
[2020-11-09] MEDS: Acetaminophen 325 MG Tab PO PRN ×3 (09:36→23:48)
[2020-11-09] MEDS: Pantoprazole 40 MG Vial IVPUSH SCH (16:50)
[2020-11-09] MEDS: Dextrose 5%-Lactated Ringers 1,000 ML IV SCH (21:52)
[2020-11-10] MEDS: Pantoprazole 40 MG Vial IVPUSH SCH ×2 (03:28→15:13)
[2020-11-10] MEDS: Acetaminophen 325 MG Tab PO PRN ×2 (03:53→10:38)
[2020-11-10] MEDS ORDERED: Potassium Phosphates 30 MMOLE in Sodium Chloride 0.9% 250 ML IV SCH (07:00)
[2020-11-10] MEDS: Sucralfate 1 GM Tab PO SCH ×4 (07:36→19:24)
[2020-11-10] MEDS: Dextrose 5%-Lactated Ringers 1,000 ML IV SCH (07:38)
[2020-11-10] MEDS: Azithromycin 125 MG in Sodium Chloride 0.9% 150 ML IV SCH ×2 (08:37→21:59)
[2020-11-10] MEDS: ClonazePAM 1 MG Tab PO SCH ×2 (08:37→22:09)
[2020-11-10] MEDS: Propranolol 40 MG Tab PO SCH ×3 (08:38→22:04)
[2020-11-10] MEDS: Bisacodyl 5 MG Tab PO SCH ×2 (08:38→21:58)
[2020-11-10] MEDS: Docusate Sodium 100 MG Cap PO SCH ×2 (08:38→21:58)
[2020-11-10] MEDS: FLUoxetine 20 MG Cap PO SCH (08:38)
--- NOTE | 2020-11-10 09:04 | CR ---
Abdomen 2V AP Flat Upright CLINICAL HISTORY: Small bowel obstruction FINDINGS: No free air is seen There is persistent diffuse gaseous distention of small bowel similar to prior study. There may be some mild improvement. There is some gas in the transverse colon. IMPRESSION: Persistent moderate small bowel distention. There may be some minimal improvement when compared to 11/04/2020
--- NOTE | 2020-11-10 09:13 | PN ---
DATE OF SERVICE: 11/10/2020 SUBJECTIVE: His abdominal flat and upright film showed an increased amount of air throughout the colon with air in the rectum showing improvement. Vital signs have been stable. Denies any pain. Oral intake on sips of liquids and ice chips was 480, urine output 2900. He states he is passing flatus. REVIEW OF SYSTEMS: Remainder of review of systems negative for any pertinent positives or negatives. OBJECTIVE: GENERAL: Nolan Renee is a pleasant 70-year-old male, alert and orientated. VITAL SIGNS: TPR 97.6, 51, 16, blood pressure 134/63. HEENT: Negative. NECK: Supple. HEART: Regular rate and rhythm. LUNGS: Clear. ABDOMEN: Soft, nontender, nondistended. EXTREMITIES: Without peripheral edema. ASSESSMENT: Partial small bowel obstruction. PLAN: 1. Check upper GI using water soluble contrast with small bowel follow-through. Call Ace Gardner MD, with results. 2. Abdomen flat and upright in a.m. 3. Check CBC, CMP, mag, and phos in a.m. 4. We will evaluate p.r.n. or in a.m. Antonia Emanuel PA-C /[id number]
[2020-11-10] MEDS ORDERED: Iopamidol 612 MG/ML 100 ML Bottle PRN (09:41)
[2020-11-10] MEDS: Potassium Phos in 0.9 % NaCl 15 MMOL in Premix Bag 1 BAG IV SCH ×8 (10:34→17:33)
--- NOTE | 2020-11-10 12:00 | CR ---
UGI w Small Bowel wo Air CLINICAL HISTORY: Recent abdominal surgery, small bowel distention FINDINGS: Patient drank water-soluble contrast without significant difficulty. Esophagus had a normal contour. There was some gastroesophageal reflux. Patient is status post gastric bypass. There is no evidence of extravasation. There is contrast in the proximal small bowel without significant delay. There is filling of a dilated jejunum. SMALL BOWEL FOLLOW-THROUGH: Sequential supine abdominal images show contrast slowly traversing the small bowel which is dilated. On the 65 minute film there was progression but also some dilution of water-soluble contrast and some further mild dilatation of more distal small bowel loops. At 2 hours and 20 minutes abdominal image showed contrast through the small bowel and throughout the entire colon to the rectum. IMPRESSION: STATUS post gastric surgery with revision Slow transit through dilated small bowel is likely related to some postoperative ileus Contrast completely transits the small bowel and colon on delayed image
[2020-11-11] MEDS: Dextrose 5%-Lactated Ringers 1,000 ML IV SCH (03:55)
[2020-11-11] MEDS: Pantoprazole 40 MG Vial IVPUSH SCH ×2 (03:55→17:17)
[2020-11-11] MEDS ORDERED: Dextrose 5%-Lactated Ringers 1,000 ML IV SCH (06:51)
[2020-11-11] MEDS ORDERED: Potassium Phosphates 45 MMOLE in Sodium Chloride 0.9% 250 ML IV SCH (07:00)
[2020-11-11] MEDS: Sucralfate 1 GM Tab PO SCH ×4 (08:01→20:27)
[2020-11-11] MEDS: Potassium Phos in 0.9 % NaCl 15 MMOL in Premix Bag 1 BAG IV SCH ×6 (08:46→14:53)
[2020-11-11] MEDS: Magnesium Sulfate/Water 2 GM/50 ML BAG IV SCH ×3 (08:49→20:29)
[2020-11-11] MEDS: Propranolol 40 MG Tab PO SCH ×3 (08:54→20:28)
[2020-11-11] MEDS: Bisacodyl 5 MG Tab PO SCH ×2 (08:54→20:28)
[2020-11-11] MEDS: Docusate Sodium 100 MG Cap PO SCH ×2 (08:54→20:28)
[2020-11-11] MEDS: FLUoxetine 20 MG Cap PO SCH (08:55)
[2020-11-11] MEDS: Azithromycin 125 MG in Sodium Chloride 0.9% 150 ML IV SCH ×2 (08:58→22:30)
[2020-11-11] MEDS: ClonazePAM 1 MG Tab PO SCH ×2 (08:58→20:37)
--- NOTE | 2020-11-11 09:01 | PN ---
DATE OF SERVICE: 11/11/2020 SUBJECTIVE: Nolan reports no pain. Vital signs have been stable. Oral intake of 1100 on a step 3 gastric bypass diet. Urine output 1999. He has had 3 bowel movements. Upper GI with small bowel follow through yesterday showed slow transit through dilated small bowel related to postoperative ileus. REVIEW OF SYSTEMS: Remainder of review of systems negative for any pertinent positives and negatives. OBJECTIVE: GENERAL: Nolan is a pleasant 70-year-old male. He is alert and oriented. VITAL SIGNS: TPR 97.8, 54, 18, blood pressure 114/61. HEENT: Negative. NECK: Supple. HEART: Regular rate and rhythm. LUNGS: Clear. ABDOMEN: Soft, nontender. Anuradha are intact. EXTREMITIES: Without peripheral edema. ASSESSMENT: Partial small bowel obstruction. PLAN: 1. Remove anuradha. Apply tincture, benzoin, and Steri-Strips after anuradha are removed. 2. Decrease IV to 60 mL per hour. 3. K-Phos 45 mmol. 4. Magnesium 2 g IV q.6 hours x48 hours. 5. Check CBC, CMP, and phos in a.m. 6. We will evaluate p.r.n. or in a.m. Antonia Emanuel PA-C /[id number]
--- NOTE | 2020-11-11 09:09 | CR ---
Abdomen 2V AP Flat Upright CLINICAL HISTORY: Partial SBO FINDINGS: There are scattered air-filled loops of small bowel. Distention has diminished somewhat since prior study. There is gas throughout the colon. Water-soluble contrast from previous upper GI has passed through the colon. IMPRESSION: Improvement in gaseous distention
[2020-11-11] MEDS: Acetaminophen 325 MG Tab PO PRN (20:26)
[2020-11-12] MEDS: Magnesium Sulfate/Water 2 GM/50 ML BAG IV SCH ×2 (02:43→07:31)
[2020-11-12] MEDS: Pantoprazole 40 MG Vial IVPUSH SCH (04:51)
[2020-11-12] MEDS: Sucralfate 1 GM Tab PO SCH (07:29)
[2020-11-12 07:48] VITALS: BP 125/75; PULSE 62
[2020-11-12] MEDS: Propranolol 40 MG Tab PO SCH (09:35)
[2020-11-12] MEDS: Bisacodyl 5 MG Tab PO SCH (09:35)
[2020-11-12] MEDS: Docusate Sodium 100 MG Cap PO SCH (09:35)
[2020-11-12] MEDS: FLUoxetine 20 MG Cap PO SCH (09:37)
[2020-11-12] MEDS: ClonazePAM 1 MG Tab PO SCH (09:44)
[2020-11-12] MEDS: Azithromycin 125 MG in Sodium Chloride 0.9% 150 ML IV SCH (09:50)
--- NOTE | 2020-11-13 11:27 | DISCH ---
FINAL DIAGNOSES: 1. Postoperative ileus. 2. Bariatric surgery status. 3. Status post recent incisional hernia repair with small bowel resection. 4. History of atrial fibrillation. 5. History of hyperlipidemia. 6. History of anxiety and depression. OPERATIVE PROCEDURES: None. SUMMARY: This is a 70-year-old male presenting with some nausea and vomiting and does have history of some melenic stools. He is recently status post small bowel resection along with incisional hernia repair with the patient previously undergoing a Benja-en-Y gastric bypass. Initial CT scan was suggestive of a postoperative ileus. He is known to have relatively poor GI tract motility. The patient was admitted initially with bowel rest and then gradually advanced now up to step-3 diet. He had been on Zithromax 125 mg IV b.i.d. and he is moving his bowels frequently. Plan will be to send him home with Zithromax 125 mg daily and MiraLAX on a p.r.n. basis. Followup will be with Dr. Gardner at [facility] on 11/23/2020. Otherwise, he will be continuing his usual medications. /[id number]
--- NOTE | 2020-11-14 14:20 | CR ---
Abdomen 2V AP Flat Upright CLINICAL HISTORY: SBO FINDINGS: There is persistent small bowel distention similar to prior study. There is gas and feces throughout the colon. There is few air-fluid levels on the right. No free air is identified IMPRESSION: Persistent gaseous small bowel distention with a few air-fluid levels in the right. Appearance is similar to prior study Previous ventral hernia repair Previous bariatric surgery
== END 2020-11-12 10:30 | disposition home or self-care (01) | DRG 390 ==
LOC: JP.ED 19:34 → JP.MS 11-09 01:30
PROVIDERS: ADMIT Surgery; ATTEND Surgery
DX: K91.30 Postprocedural intestinal obstruction, unspecified as to partial versus complete (principal); K92.2 Gastrointestinal hemorrhage, unspecified; H54.7 Unspecified visual loss; H91.90 Unspecified hearing loss, unspecified ear; K56.690 Other partial intestinal obstruction; E78.5 Hyperlipidemia, unspecified; E78.00 Pure hypercholesterolemia, unspecified; G47.30 Sleep apnea, unspecified; I48.91 Unspecified atrial fibrillation; K44.9 Diaphragmatic hernia without obstruction or gangrene; G89.29 Other chronic pain; M54.9 Dorsalgia, unspecified; G62.9 Polyneuropathy, unspecified; Z79.01 Long term (current) use of anticoagulants; F41.9 Anxiety disorder, unspecified; Z98.84 Bariatric surgery status; F32.9 Major depressive disorder, single episode, unspecified; Z91.048 Other nonmedicinal substance allergy status; Z79.82 Long term (current) use of aspirin; Z79.899 Other long term (current) drug therapy; I25.10 Atherosclerotic heart disease of native coronary artery without angina pectoris; K21.9 Gastro-esophageal reflux disease without esophagitis; Z86.010 Personal history of colon polyps; D64.9 Anemia, unspecified; Z90.81 Acquired absence of spleen; Z98.890 Other specified postprocedural states; Z98.42 Cataract extraction status, left eye; Z98.41 Cataract extraction status, right eye; Z90.49 Acquired absence of other specified parts of digestive tract; Z86.16 Personal history of COVID-19; Z88.8 Allergy status to other drugs, medicaments and biological substances; F41.1 Generalized anxiety disorder
CPT/HCPCS: 36415; 74019; 74019-26; 74177; 74240; 74240-26; 74248; 80053; 81001; 82272; 83735; 84100; 85025; 85027; 86140; 99285; A9270-GY; C9113; J0456; J1170; J2405; J3475; J7030; J7121; Q9967

== ENCOUNTER 2022-01-11 14:59 | Emergency (ER) | payer MEDICARE, MEDICAID ==
[2022-01-11] MEDS ORDERED: Sodium Chloride 0.9% 1,000 ML IV SCH ×2 (16:15→20:15)
[2022-01-11] MEDS ORDERED: HYDROmorphone 0.5 MG/0.5 ML Syringe IVPUSH ONE (16:48)
[2022-01-11 16:56] LABS: ESTIMATED GFR 81 mL/min (>60)
[2022-01-11] MEDS ORDERED: Iopamidol 612 MG/ML 100 ML Bottle IV SCH (18:00)
[2022-01-11] MEDS ORDERED: Sodium Chloride 0.9% 75 ML IV SCH (18:00)
[2022-01-11] MEDS ORDERED: Pantoprazole 40 MG Vial IVPUSH SCH (18:45)
[2022-01-11] MEDS ORDERED: Sucralfate Suspension 1 GM/10 ML Cup PO SCH (19:15)
[2022-01-11] MEDS ORDERED: Pantoprazole 80 MG in Sodium Chloride 0.9% 100 ML IV SCH (19:17)
[2022-01-11] MEDS ORDERED: Ondansetron 4 MG/2 ML SDV IVPUSH ONE (20:03)
[2022-01-11] MEDS ORDERED: diphenhydrAMINE 50 MG/ML SDV IVPUSH ONE (20:03)
[2022-01-11] MEDS ORDERED: methylPREDNISolone Sodium Succinate 125 MG/2 ML SDV IVPUSH ONE (20:04)
[2022-01-11 20:59] VITALS: BP 130/77; PULSE 82
== END 2022-01-11 21:02 ==
LOC: JP.ED 14:59
DX: T80.92XA Unspecified transfusion reaction, initial encounter (principal); E86.1 Hypovolemia; K92.2 Gastrointestinal hemorrhage, unspecified; I95.1 Orthostatic hypotension; I48.91 Unspecified atrial fibrillation; I25.10 Atherosclerotic heart disease of native coronary artery without angina pectoris; E78.00 Pure hypercholesterolemia, unspecified; K21.9 Gastro-esophageal reflux disease without esophagitis; Z88.8 Allergy status to other drugs, medicaments and biological substances; Z91.048 Other nonmedicinal substance allergy status; Z79.899 Other long term (current) drug therapy; Z79.82 Long term (current) use of aspirin; Z86.16 Personal history of COVID-19; Z20.822 Contact with and (suspected) exposure to COVID-19; Z98.84 Bariatric surgery status
CPT/HCPCS: 36415; 36430; 74177; 80053; 82947; 85025; 86140; 86850; 86900; 86901; 86920; 86922; 96361; 96365; 96375; 96376; 99285; A9270; C9113; J1170; J1200; J2405; J2930; J3490; J7030; P9016; Q9967; U0002

== ENCOUNTER 2022-07-23 16:07 | Emergency (ER) | payer MEDICARE, MEDICAID ==
[2022-07-23 18:14] VITALS: BP 134/83; PULSE 108
== END 2022-07-23 17:46 | disposition home or self-care (01) ==
LOC: JP.ED 16:07
DX: R06.02 Shortness of breath (principal); I25.10 Atherosclerotic heart disease of native coronary artery without angina pectoris; E78.00 Pure hypercholesterolemia, unspecified; K21.9 Gastro-esophageal reflux disease without esophagitis; Z88.8 Allergy status to other drugs, medicaments and biological substances; Z88.1 Allergy status to other antibiotic agents; Z91.048 Other nonmedicinal substance allergy status; Z79.01 Long term (current) use of anticoagulants; Z79.82 Long term (current) use of aspirin; Z79.899 Other long term (current) drug therapy
CPT/HCPCS: 71046; 71046-26; 99284; 99285

== ENCOUNTER 2022-08-21 12:35 | Emergency (ER) | payer MEDICARE, MEDICAID ==
[2022-08-21] MEDS ORDERED: Aspirin 81 MG Tab.Chew PO ONE (13:06)
[2022-08-21] MEDS ORDERED: Sodium Chloride 0.9% 10 ML Syringe FLUSH PRN (13:06)
[2022-08-21 13:19] VITALS: BP 103/70; PULSE 117
[2022-08-21 13:24] LABS: TROPONIN I HIGH SENSITIVITY 7.9 pg/mL (<=60.3)
== END 2022-08-21 13:59 | disposition home or self-care (01) ==
LOC: JP.ED 12:35
DX: R42 Dizziness and giddiness (principal); I48.91 Unspecified atrial fibrillation; I25.10 Atherosclerotic heart disease of native coronary artery without angina pectoris; E78.00 Pure hypercholesterolemia, unspecified; Z88.8 Allergy status to other drugs, medicaments and biological substances; Z86.16 Personal history of COVID-19; Z79.899 Other long term (current) drug therapy; Z79.82 Long term (current) use of aspirin; Z87.891 Personal history of nicotine dependence
CPT/HCPCS: 36415; 80048; 84484; 85025; 93005; 99284; A9270

== ENCOUNTER 2022-09-18 13:53 | Emergency (ER) | payer MEDICARE, MEDICAID ==
[2022-09-18] MEDS ORDERED: Morphine 4 MG/ML Syringe IVPUSH PRN (14:14)
[2022-09-18] MEDS ORDERED: Nitroglycerin 0.4 MG Tab.SL SL PRN (14:14)
[2022-09-18 14:54] LABS: TROPONIN I HIGH SENSITIVITY 9.2 pg/mL (<=60.3)
[2022-09-18] MEDS ORDERED: Ketorolac 30 MG/ML SDV IVPUSH ONE (16:19)
[2022-09-18] MEDS ORDERED: Sodium Chloride 0.9% 1,000 ML IV SCH (16:45)
[2022-09-18] MEDS ORDERED: Sodium Chloride 0.9% 50 ML IV ONE (16:57)
[2022-09-18] MEDS ORDERED: Sodium Chloride 0.9% 10 ML Syringe FLUSH ONE (16:57)
[2022-09-18] MEDS ORDERED: Iopamidol 612 MG/ML 100 ML Bottle IV ONE (16:57)
[2022-09-18 17:36] VITALS: BP 91/67; PULSE 111
== END 2022-09-18 18:25 | disposition home or self-care (01) ==
LOC: JP.ED 13:53
DX: I26.99 Other pulmonary embolism without acute cor pulmonale (principal); I48.91 Unspecified atrial fibrillation; I25.10 Atherosclerotic heart disease of native coronary artery without angina pectoris; E78.00 Pure hypercholesterolemia, unspecified; Z87.891 Personal history of nicotine dependence; Z86.16 Personal history of COVID-19; Z88.8 Allergy status to other drugs, medicaments and biological substances; Z79.82 Long term (current) use of aspirin; Z79.899 Other long term (current) drug therapy; Z79.02 Long term (current) use of antithrombotics/antiplatelets
CPT/HCPCS: 36415; 71045; 71260; 80048; 84484; 85025; 93005; 96361; 96374; 99285; J1885; J3490; J7030; Q9967

== ENCOUNTER 2022-12-10 08:24 | Observation (INO) | payer MEDICARE, MEDICAID ==
[2022-12-10] MEDS ORDERED: Ondansetron 4 MG/2 ML SDV IVPUSH ONE (09:14)
[2022-12-10] MEDS ORDERED: Pantoprazole 40 MG Vial IVPUSH ONE (09:15)
[2022-12-10] MEDS ORDERED: Calcium Carbonate 500 MG Tab.Chew PO ONE (09:16)
[2022-12-10 09:29] LABS: BASOPHILS ABSOLUTE AUTO 0.03 K/uL (0.00-0.10); BASOPHILS PERCENT AUTO 0.3 % (0.1-1.3); EOSINOPHILS PERCENT AUTO 0.2 % (0.0-5.4); HEMATOCRIT 50.8 % (38.4-49.7); HEMOGLOBIN 16.7 g/dL (12.9-16.9); IMMATURE GRAN ABSOLUTE AUTO 0.03 K/uL (0.00-0.23); IMMATURE GRAN PERCENT AUTO 0.3 % (0.0-0.7); LYMPHOCYTES ABSOLUTE AUTO 1.41 K/uL (0.8-3.3); MEAN CORPUSCULAR HEMOGLOBIN 31.3 pg (31.6-35.5); MEAN CORPUSCULAR HGB CONC 32.9 g/dL (31.6-35.5); MEAN CORPUSCULAR VOLUME 95.1 fL (81.4-99.0); NEUTROPHILS ABSOLUTE AUTO 7.97 K/uL (1.0-7.6); NEUTROPHILS PERCENT AUTO 79.2 % (40.0-78.1); PLATELET COUNT,PLT 318 K/uL (130-375); RED BLOOD CELL COUNT 5.34 M/uL (4.14-5.76); WHITE BLOOD CELL COUNT,WBC 10.1 K/uL (3.2-11.0)
[2022-12-10 09:30] LABS: EOSINOPHILS ABSOLUTE AUTO 0.02 K/uL (0.00-0.40)
[2022-12-10] MEDS: Sodium Chloride 0.9% 10 ML Syringe FLUSH PRN ×3 (09:36→12:23)
[2022-12-10 10:12] LABS: A/G RATIO 1.1 (1.2-2.2); ALANINE AMINOTRANSFERASE,ALT 35 U/L (12-78); ALBUMIN 3.8 g/dL (3.4-5.0); ALKALINE PHOSPHATASE 95 U/L (46-116); ANION GAP 6.8 mmol/L (5.0-14.0); ASPARTATE AMNIOTRANSFERASE,AST 23 U/L (15-37); BILIRUBIN TOTAL 1.2 mg/dL (0.2-1.0); BLOOD UREA NITROGEN,BUN 17 mg/dL (7-18); CALCIUM 9.1 mg/dL (8.5-10.1); CARBON DIOXIDE,CO2 29 mmol/L (21-32); CHLORIDE,CL 104 mmol/L (100-108); CREATININE 1.2 mg/dL (0.8-1.3); EST CRCL DRUG DOSING (CG) 61.97 mL/min; ESTIMATED GFR 65 mL/min (>60); GLUCOSE RANDOM 131 mg/dL (74-106); POTASSIUM,K 4.4 mmol/L (3.6-5.2); PROTEIN TOTAL,TP 7.2 g/dL (6.4-8.2); SODIUM,NA 140 mmol/L (140-148)
[2022-12-10] MEDS ORDERED: Naloxone 0.4 MG/ML SDV IVPUSH PRN ×3 (10:39→13:58)
[2022-12-10] MEDS ORDERED: HYDROmorphone 0.5 MG/0.5 ML Syringe IVPUSH ONE ×2 (10:39→11:52)
[2022-12-10] MEDS ORDERED: Sodium Chloride 0.9% 1,000 ML IV ONE (10:50)
[2022-12-10] MEDS ORDERED: Metoprolol Tartrate 5 MG/5 ML SDV IVPUSH ONE ×2 (11:05→13:15)
[2022-12-10 11:12] LABS: TROPONIN I HIGH SENSITIVITY 10.1 pg/mL (<=60.3); TSH ULTRASENSITIVE 1.93 uIU/mL (0.358-3.740)
[2022-12-10] MEDS ORDERED: Metoprolol Tartrate 25 MG Tab PO ONE (11:46)
[2022-12-10] MEDS ORDERED: Iopamidol 612 MG/ML 100 ML Bottle IV PRN (12:00)
[2022-12-10] MEDS ORDERED: Sodium Chloride 0.9% 100 ML IV SCH (12:00)
[2022-12-10] MEDS ORDERED: Sodium Chloride 0.9% 10 ML SDV FLUSH ONE (12:00)
[2022-12-10] MEDS ORDERED: Metoprolol Tartrate 5 MG in Sodium Chloride 0.9% 50 ML IV ONE (12:58)
[2022-12-10] MEDS: Sodium Chloride 0.9% 1,000 ML IV SCH ×2 (13:18→21:55)
[2022-12-10] MEDS ORDERED: Sennosides/Docusate Sodium 50-8.6 MG Tab PO PRN (13:58)
[2022-12-10] MEDS ORDERED: Ondansetron 4 MG Tab.DIS PO PRN (13:58)
[2022-12-10] MEDS ORDERED: HYDROmorphone 1 MG/ML Syringe IVPUSH PRN (13:58)
[2022-12-10] MEDS ORDERED: LORazepam 2 MG/ML SDV IVPUSH PRN (13:58)
[2022-12-10] MEDS ORDERED: Acetaminophen 650 MG Supp RECTAL PRN (13:58)
[2022-12-10] MEDS ORDERED: Magnesium Hydroxide 400 MG/5 ML Susp 30 ML Cup PO PRN (13:58)
[2022-12-10] MEDS ORDERED: HYDROmorphone 0.5 MG/0.5 ML Syringe IVPUSH PRN (14:02)
[2022-12-10] MEDS: Metoprolol Tartrate 5 MG/5 ML SDV IVPUSH SCH ×2 (17:48→22:49)
[2022-12-10] MEDS: Ondansetron 4 MG/2 ML SDV IV PRN (19:20)
[2022-12-11] MEDS: Ondansetron 4 MG/2 ML SDV IV PRN ×2 (00:06→14:16)
[2022-12-11] MEDS: Metoprolol Tartrate 5 MG/5 ML SDV IVPUSH SCH ×6 (02:31→21:33)
[2022-12-11 06:09] LABS: ANION GAP 6.9 mmol/L (5.0-14.0); CALCIUM 8.4 mg/dL (8.5-10.1); EST CRCL DRUG DOSING (CG) 74.37 mL/min; POTASSIUM,K 4.5 mmol/L (3.6-5.2)
[2022-12-11] MEDS: Sodium Chloride 0.9% 1,000 ML IV SCH ×3 (06:26→18:56)
[2022-12-11] MEDS ORDERED: Propofol 200 MG/20 ML SDV ONE (07:55)
[2022-12-11] MEDS ORDERED: fentaNYL 100 MCG/2 ML SDV ONE (07:55)
[2022-12-12] MEDS: Metoprolol Tartrate 5 MG/5 ML SDV IVPUSH SCH ×2 (02:07→05:45)
[2022-12-12] MEDS: Sodium Chloride 0.9% 1,000 ML IV SCH ×2 (03:02→08:02)
[2022-12-12 04:35] LABS: BASOPHILS ABSOLUTE AUTO 0.05 K/uL (0.00-0.10); BASOPHILS PERCENT AUTO 0.5 % (0.1-1.3); EOSINOPHILS ABSOLUTE AUTO 0.08 K/uL (0.00-0.40); EOSINOPHILS PERCENT AUTO 0.8 % (0.0-5.4); HEMATOCRIT 42.9 % (38.4-49.7); HEMOGLOBIN 14.1 g/dL (12.9-16.9); IMMATURE GRAN PERCENT AUTO 0.2 % (0.0-0.7); LYMPHOCYTES ABSOLUTE AUTO 2.78 K/uL (0.8-3.3); LYMPHOCYTES PERCENT AUTO 28.3 % (11.4-47.7); MEAN CORPUSCULAR HEMOGLOBIN 31.9 pg (31.6-35.5); MEAN CORPUSCULAR HGB CONC 32.9 g/dL (31.6-35.5); MEAN CORPUSCULAR VOLUME 97.1 fL (81.4-99.0); MONOCYTES ABSOLUTE AUTO 1.02 K/uL (0.20-0.90); MONOCYTES PERCENT AUTO 10.4 % (3.3-12.6); NEUTROPHILS ABSOLUTE AUTO 5.86 K/uL (1.0-7.6); NEUTROPHILS PERCENT AUTO 59.8 % (40.0-78.1); PLATELET COUNT,PLT 251 K/uL (130-375); RED BLOOD CELL COUNT 4.42 M/uL (4.14-5.76); WHITE BLOOD CELL COUNT,WBC 9.8 K/uL (3.2-11.0)
[2022-12-12 04:48] LABS: IMMATURE GRAN ABSOLUTE AUTO 0.02 K/uL (0.00-0.23)
[2022-12-12 05:04] LABS: ALANINE AMINOTRANSFERASE,ALT 118 U/L (12-78); ALBUMIN 2.6 g/dL (3.4-5.0); ALKALINE PHOSPHATASE 108 U/L (46-116); ANION GAP 8.7 mmol/L (5.0-14.0); ASPARTATE AMNIOTRANSFERASE,AST 69 U/L (15-37); BILIRUBIN TOTAL 1.7 mg/dL (0.2-1.0); BLOOD UREA NITROGEN,BUN 14 mg/dL (7-18); CALCIUM 7.9 mg/dL (8.5-10.1); CARBON DIOXIDE,CO2 25 mmol/L (21-32); CHLORIDE,CL 108 mmol/L (100-108); EST CRCL DRUG DOSING (CG) 74.47 mL/min; ESTIMATED GFR 80 mL/min (>60); GLUCOSE RANDOM 86 mg/dL (74-106); PHOSPHORUS 1.6 mg/dL (2.5-4.9); PRO B-TYPE NATRIUR PEPT,BNPPRO 4699 pg/mL (5-125); PROTEIN TOTAL,TP 5.3 g/dL (6.4-8.2); SODIUM,NA 142 mmol/L (140-148)
[2022-12-12] MEDS ORDERED: Sodium Chloride 0.9% 250 ML IV ONE (05:45)
[2022-12-12] MEDS ORDERED: Rocuronium 50 MG/5 ML Vial ONE (06:48)
[2022-12-12] MEDS ORDERED: Succinylcholine 200 MG/10 ML MDV ONE (06:48)
[2022-12-12] MEDS ORDERED: Propofol 200 MG/20 ML SDV ONE (06:48)
[2022-12-12] MEDS ORDERED: Dexamethasone 4 MG/ML SDV ONE (06:48)
[2022-12-12] MEDS ORDERED: Ondansetron 4 MG/2 ML SDV ONE (06:48)
[2022-12-12] MEDS ORDERED: fentaNYL 100 MCG/2 ML SDV ONE (06:50)
[2022-12-12] MEDS ORDERED: FLUoxetine 20 MG Cap PO SCH (09:00)
[2022-12-12] MEDS ORDERED: ClonazePAM 0.5 MG Tab PO SCH (09:00)
[2022-12-12] MEDS ORDERED: Lisinopril 10 MG Tab PO SCH (09:00)
[2022-12-12] MEDS: Propranolol 40 MG Tab PO SCH ×2 (09:07→14:22)
[2022-12-12 14:25] VITALS: BP 98/65; PULSE 86
[2022-12-12] MEDS ORDERED: Rivaroxaban 10 MG Tab PO SCH (17:00)
== END 2022-12-12 14:55 | disposition home or self-care (01) ==
LOC: JP.ED 08:24 → JP.ICU 13:30
PROVIDERS: ADMIT Internal Medicine; ATTEND Internal Medicine
DX: K91.89 Other postprocedural complications and disorders of digestive system (principal); T18.128A Food in esophagus causing other injury, initial encounter; K31.89 Other diseases of stomach and duodenum; K22.2 Esophageal obstruction; K22.70 Barrett's esophagus without dysplasia; I48.91 Unspecified atrial fibrillation; F41.1 Generalized anxiety disorder; I25.10 Atherosclerotic heart disease of native coronary artery without angina pectoris; E78.00 Pure hypercholesterolemia, unspecified; G47.30 Sleep apnea, unspecified; K21.9 Gastro-esophageal reflux disease without esophagitis; F41.9 Anxiety disorder, unspecified; F32.A Depression, unspecified; G43.909 Migraine, unspecified, not intractable, without status migrainosus; G62.9 Polyneuropathy, unspecified; Z79.82 Long term (current) use of aspirin; Z79.899 Other long term (current) drug therapy; Z79.01 Long term (current) use of anticoagulants; Z88.8 Allergy status to other drugs, medicaments and biological substances; Z20.822 Contact with and (suspected) exposure to COVID-19; Z90.81 Acquired absence of spleen; Z98.84 Bariatric surgery status
CPT/HCPCS: 36415; 43235; 43245; 74019; 74177; 76000; 80048; 80053; 83605; 83735; 83880; 84100; 84443; 84484; 85025; 86140; 93005; 96361; 96374; 96375; 96376; 99222; 99232; 99238; 99285; A9270; C1726; C9113; J0330; J1100; J1170; J2405; J2704; J3010; J3490; J7030; J7050; Q9967; U0002; G0378

== ENCOUNTER 2023-03-10 22:26 | Emergency (ER) | payer MEDICARE, MEDICAID ==
[2023-03-10 22:36] VITALS: PULSE 69
[2023-03-10 22:43] VITALS: BP 141/87
[2023-03-10] MEDS ORDERED: Albuterol/Ipratropium 3.0-0.5 MG/3 ML Neb Soln NEB ONE (22:48)
[2023-03-10 23:17] LABS: BASOPHILS ABSOLUTE AUTO 0.05 K/uL (0.00-0.10); BASOPHILS PERCENT AUTO 0.5 % (0.1-1.3); EOSINOPHILS ABSOLUTE AUTO 0.14 K/uL (0.00-0.40); EOSINOPHILS PERCENT AUTO 1.4 % (0.0-5.4); HEMATOCRIT 42.9 % (38.4-49.7); IMMATURE GRAN ABSOLUTE AUTO 0.03 K/uL (0.00-0.23); IMMATURE GRAN PERCENT AUTO 0.3 % (0.0-0.7); LYMPHOCYTES ABSOLUTE AUTO 2.53 K/uL (0.8-3.3); LYMPHOCYTES PERCENT AUTO 25.9 % (11.4-47.7); MEAN CORPUSCULAR HEMOGLOBIN 31.3 pg (31.6-35.5); MEAN CORPUSCULAR HGB CONC 32.6 g/dL (31.6-35.5); MEAN CORPUSCULAR VOLUME 95.8 fL (81.4-99.0); MONOCYTES ABSOLUTE AUTO 0.91 K/uL (0.20-0.90); MONOCYTES PERCENT AUTO 9.3 % (3.3-12.6); NEUTROPHILS ABSOLUTE AUTO 6.09 K/uL (1.0-7.6); NEUTROPHILS PERCENT AUTO 62.6 % (40.0-78.1); PLATELET COUNT,PLT 283 K/uL (130-375); RED BLOOD CELL COUNT 4.48 M/uL (4.14-5.76); WHITE BLOOD CELL COUNT,WBC 9.8 K/uL (3.2-11.0)
[2023-03-10 23:35] LABS: ALANINE AMINOTRANSFERASE,ALT 30 U/L (12-78); ALBUMIN 3.4 g/dL (3.4-5.0); ALKALINE PHOSPHATASE 112 U/L (46-116); ASPARTATE AMNIOTRANSFERASE,AST 26 U/L (15-37); BILIRUBIN TOTAL 0.8 mg/dL (0.2-1.0); BLOOD UREA NITROGEN,BUN 18 mg/dL (7-18); CALCIUM 8.4 mg/dL (8.5-10.1); CARBON DIOXIDE,CO2 27 mmol/L (21-32); CHLORIDE,CL 103 mmol/L (100-108); CREATININE 1.3 mg/dL (0.8-1.3); EST CRCL DRUG DOSING (CG) 56.38 mL/min; ESTIMATED GFR 58 mL/min (>60); GLUCOSE RANDOM 105 mg/dL (74-106); POTASSIUM,K 4.5 mmol/L (3.6-5.2); PROTEIN TOTAL,TP 6.7 g/dL (6.4-8.2); SODIUM,NA 138 mmol/L (140-148)
[2023-03-10 23:36] LABS: ANION GAP 12.5 mmol/L (5.0-14.0)
== END 2023-03-11 00:14 | disposition home or self-care (01) ==
LOC: JP.ED 22:26
DX: J40 Bronchitis, not specified as acute or chronic (principal)
CPT/HCPCS: 36415; 71046; 71046-26; 80053; 83605; 84145; 85025; 94640; 99285; J7620

== ENCOUNTER 2023-05-10 11:10 | Emergency (ER) | payer MEDICARE, MEDICAID ==
[2023-05-10] MEDS ORDERED: Aspirin 81 MG Tab.Chew PO ONE (11:42)
[2023-05-10] MEDS ORDERED: Morphine 4 MG/ML Syringe IVPUSH PRN (11:42)
[2023-05-10 11:49] LABS: BASOPHILS ABSOLUTE AUTO 0.05 K/uL (0.00-0.10); BASOPHILS PERCENT AUTO 0.6 % (0.1-1.3); EOSINOPHILS ABSOLUTE AUTO 0.21 K/uL (0.00-0.40); EOSINOPHILS PERCENT AUTO 2.3 % (0.0-5.4); HEMATOCRIT 48.8 % (38.4-49.7); HEMOGLOBIN 15.9 g/dL (12.9-16.9); IMMATURE GRAN PERCENT AUTO 0.2 % (0.0-0.7); LYMPHOCYTES ABSOLUTE AUTO 3.63 K/uL (0.8-3.3); LYMPHOCYTES PERCENT AUTO 40.6 % (11.4-47.7); MEAN CORPUSCULAR HEMOGLOBIN 31.1 pg (31.6-35.5); MEAN CORPUSCULAR HGB CONC 32.6 g/dL (31.6-35.5); MEAN CORPUSCULAR VOLUME 95.5 fL (81.4-99.0); MONOCYTES ABSOLUTE AUTO 0.71 K/uL (0.20-0.90); MONOCYTES PERCENT AUTO 7.9 % (3.3-12.6); NEUTROPHILS ABSOLUTE AUTO 4.33 K/uL (1.0-7.6); NEUTROPHILS PERCENT AUTO 48.4 % (40.0-78.1); PLATELET COUNT,PLT 283 K/uL (130-375); RED BLOOD CELL COUNT 5.11 M/uL (4.14-5.76)
[2023-05-10 11:50] LABS: IMMATURE GRAN ABSOLUTE AUTO 0.02 K/uL (0.00-0.23)
[2023-05-10 12:03] LABS: ANION GAP 9.7 mmol/L (5.0-14.0); CALCIUM 8.8 mg/dL (8.5-10.1); CREATININE 1.2 mg/dL (0.8-1.3); EST CRCL DRUG DOSING (CG) 61.07 mL/min; POTASSIUM,K 3.7 mmol/L (3.6-5.2); TROPONIN I HIGH SENSITIVITY 10.9 pg/mL (<=60.3)
[2023-05-10 14:23] VITALS: BP 122/72; PULSE 54
== END 2023-05-10 15:50 | disposition home or self-care (01) ==
LOC: JP.ED 11:10
DX: R07.89 Other chest pain (principal); I25.10 Atherosclerotic heart disease of native coronary artery without angina pectoris; E78.00 Pure hypercholesterolemia, unspecified; K21.9 Gastro-esophageal reflux disease without esophagitis; Z86.16 Personal history of COVID-19; Z79.899 Other long term (current) drug therapy; I48.91 Unspecified atrial fibrillation; Z79.01 Long term (current) use of anticoagulants; Z88.8 Allergy status to other drugs, medicaments and biological substances; Z88.3 Allergy status to other anti-infective agents
CPT/HCPCS: 36415; 80048; 84484; 85025; 93005; 99285; A9270

== ENCOUNTER 2023-11-24 14:10 | Emergency (ER) | payer OTHER, MEDICARE, MEDICAID ==
[2023-11-24 15:16] LABS: BASOPHILS ABSOLUTE AUTO 0.05 K/uL (0.00-0.10); BASOPHILS PERCENT AUTO 0.8 % (0.1-1.3); EOSINOPHILS ABSOLUTE AUTO 0.09 K/uL (0.00-0.40); EOSINOPHILS PERCENT AUTO 1.4 % (0.0-5.4); HEMATOCRIT 39.5 % (38.4-49.7); HEMOGLOBIN 13.5 g/dL (12.9-16.9); IMMATURE GRAN PERCENT AUTO 0.2 % (0.0-0.7); LYMPHOCYTES ABSOLUTE AUTO 2.35 K/uL (0.8-3.3); LYMPHOCYTES PERCENT AUTO 37.4 % (11.4-47.7); MEAN CORPUSCULAR HEMOGLOBIN 31.7 pg (31.6-35.5); MEAN CORPUSCULAR HGB CONC 34.2 g/dL (31.6-35.5); MEAN CORPUSCULAR VOLUME 92.7 fL (81.4-99.0); MONOCYTES ABSOLUTE AUTO 0.61 K/uL (0.20-0.90); MONOCYTES PERCENT AUTO 9.7 % (3.3-12.6); NEUTROPHILS ABSOLUTE AUTO 3.18 K/uL (1.0-7.6); NEUTROPHILS PERCENT AUTO 50.5 % (40.0-78.1); PLATELET COUNT,PLT 264 K/uL (130-375); RED BLOOD CELL COUNT 4.26 M/uL (4.14-5.76); WHITE BLOOD CELL COUNT,WBC 6.3 K/uL (3.2-11.0)
[2023-11-24 15:17] LABS: IMMATURE GRAN ABSOLUTE AUTO 0.01 K/uL (0.00-0.23)
[2023-11-24 15:23] LABS: BICARBONATE,VENOUS 23.7 mmol/L; CARBOXYHEMOGLOBIN 2.5 % (0.0-1.6); O2 SATURATION VENOUS 72.7; OXYHEMOGLOBIN 70.2 %; PCO2 VENOUS 42.9 mm/Hg; PH,VENOUS 7.361 (7.350-7.450); PO2 VENOUS 39.7 mm/Hg
[2023-11-24 15:33] LABS: INR 1.1; PROTHROMBIN TIME 11.5 sec (9.2-10.6)
[2023-11-24 15:34] LABS: BASE EXCESS VENOUS -1.3 mm/L
[2023-11-24 15:39] LABS: A/G RATIO 1.1 (1.2-2.2); ALANINE AMINOTRANSFERASE,ALT 26 U/L (12-78); ALBUMIN 3.5 g/dL (3.4-5.0); ALKALINE PHOSPHATASE 111 U/L (46-116); ANION GAP 8.1 mmol/L (5.0-14.0); ASPARTATE AMNIOTRANSFERASE,AST 18 U/L (15-37); BILIRUBIN TOTAL 0.7 mg/dL (0.2-1.0); BLOOD UREA NITROGEN,BUN 24 mg/dL (7-18); CALCIUM 8.6 mg/dL (8.5-10.1); CARBON DIOXIDE,CO2 25 mmol/L (21-32); CHLORIDE,CL 108 mmol/L (100-108); CREATININE 1.4 mg/dL (0.8-1.3); EST CRCL DRUG DOSING (CG) 52.35 mL/min; ESTIMATED GFR 53 mL/min (>60); GLUCOSE RANDOM 97 mg/dL (74-106); POTASSIUM,K 4.2 mmol/L (3.6-5.2); PROTEIN TOTAL,TP 6.7 g/dL (6.4-8.2); SODIUM,NA 141 mmol/L (140-148); TROPONIN I HIGH SENSITIVITY 7.7 pg/mL (<=60.3)
[2023-11-24 16:14] VITALS: BP 129/71; PULSE 48
[2023-11-24 16:41] LABS: CORONAVIRUS COVID-19 NAA NEGATIVE (NEGATIVE); INFLUENZA A NAA NEGATIVE (NEGATIVE); INFLUENZA B NAA NEGATIVE (NEGATIVE); RESPIRATORY SYNCYTIAL VIR NAA NEGATIVE (NEGATIVE)
== END 2023-11-24 17:00 | disposition home or self-care (01) ==
LOC: JP.ED 14:10
DX: R07.9 Chest pain, unspecified (principal); E78.00 Pure hypercholesterolemia, unspecified; I25.10 Atherosclerotic heart disease of native coronary artery without angina pectoris; K21.9 Gastro-esophageal reflux disease without esophagitis; Z90.49 Acquired absence of other specified parts of digestive tract; Z86.16 Personal history of COVID-19; Z79.899 Other long term (current) drug therapy; Z88.8 Allergy status to other drugs, medicaments and biological substances
CPT/HCPCS: 0241U; 36415; 71045; 80053; 82803; 83605; 84484; 85025; 85379; 85610; 99285

== ENCOUNTER 2024-01-09 14:14 | Emergency (ER) | payer OTHER, MEDICARE, MEDICAID ==
[2024-01-09 15:46] VITALS: BP 139/78; PULSE 50
[2024-01-09 17:02] LABS: BASOPHILS ABSOLUTE AUTO 0.05 K/uL (0.00-0.10); BASOPHILS PERCENT AUTO 0.6 % (0.1-1.3); EOSINOPHILS ABSOLUTE AUTO 0.07 K/uL (0.00-0.40); EOSINOPHILS PERCENT AUTO 0.8 % (0.0-5.4); HEMATOCRIT 39.3 % (38.4-49.7); HEMOGLOBIN 13.7 g/dL (12.9-16.9); IMMATURE GRAN PERCENT AUTO 0.2 % (0.0-0.7); LYMPHOCYTES ABSOLUTE AUTO 2.84 K/uL (0.8-3.3); LYMPHOCYTES PERCENT AUTO 34.1 % (11.4-47.7); MEAN CORPUSCULAR HGB CONC 34.9 g/dL (31.6-35.5); MEAN CORPUSCULAR VOLUME 91.8 fL (81.4-99.0); MONOCYTES ABSOLUTE AUTO 0.66 K/uL (0.20-0.90); MONOCYTES PERCENT AUTO 7.9 % (3.3-12.6); NEUTROPHILS ABSOLUTE AUTO 4.68 K/uL (1.0-7.6); NEUTROPHILS PERCENT AUTO 56.4 % (40.0-78.1); PLATELET COUNT,PLT 243 K/uL (130-375); RED BLOOD CELL COUNT 4.28 M/uL (4.14-5.76); WHITE BLOOD CELL COUNT,WBC 8.3 K/uL (3.2-11.0)
[2024-01-09 17:03] LABS: IMMATURE GRAN ABSOLUTE AUTO 0.02 K/uL (0.00-0.23)
[2024-01-09 17:17] LABS: ANION GAP 11.2 mmol/L (5.0-14.0); CALCIUM 8.6 mg/dL (8.5-10.1); CREATININE 1.2 mg/dL (0.8-1.3); EST CRCL DRUG DOSING (CG) 61.07 mL/min; POTASSIUM,K 4.2 mmol/L (3.6-5.2)
== END 2024-01-09 17:37 | disposition home or self-care (01) ==
LOC: JP.ED 14:14
DX: K92.1 Melena (principal); I25.10 Atherosclerotic heart disease of native coronary artery without angina pectoris; I48.91 Unspecified atrial fibrillation; E78.00 Pure hypercholesterolemia, unspecified; K21.9 Gastro-esophageal reflux disease without esophagitis; Z87.891 Personal history of nicotine dependence; Z86.16 Personal history of COVID-19; Z79.02 Long term (current) use of antithrombotics/antiplatelets; Z79.899 Other long term (current) drug therapy; Z88.8 Allergy status to other drugs, medicaments and biological substances
CPT/HCPCS: 36415; 80048; 85025; 99283; 99284

== ENCOUNTER 2024-01-21 15:01 | Emergency (ER) | payer MEDICARE, MEDICAID ==
[2024-01-21 16:05] LABS: BASOPHILS ABSOLUTE AUTO 0.04 K/uL (0.00-0.10); BASOPHILS PERCENT AUTO 0.5 % (0.1-1.3); EOSINOPHILS ABSOLUTE AUTO 0.04 K/uL (0.00-0.40); EOSINOPHILS PERCENT AUTO 0.5 % (0.0-5.4); HEMATOCRIT 39.4 % (38.4-49.7); HEMOGLOBIN 13.8 g/dL (12.9-16.9); IMMATURE GRAN ABSOLUTE AUTO 0.02 K/uL (0.00-0.23); IMMATURE GRAN PERCENT AUTO 0.3 % (0.0-0.7); LYMPHOCYTES ABSOLUTE AUTO 1.76 K/uL (0.8-3.3); LYMPHOCYTES PERCENT AUTO 22.6 % (11.4-47.7); MEAN CORPUSCULAR HEMOGLOBIN 32.3 pg (31.6-35.5); MEAN CORPUSCULAR VOLUME 92.3 fL (81.4-99.0); MONOCYTES ABSOLUTE AUTO 0.56 K/uL (0.20-0.90); MONOCYTES PERCENT AUTO 7.2 % (3.3-12.6); NEUTROPHILS ABSOLUTE AUTO 5.36 K/uL (1.0-7.6); NEUTROPHILS PERCENT AUTO 68.9 % (40.0-78.1); PLATELET COUNT,PLT 248 K/uL (130-375); RED BLOOD CELL COUNT 4.27 M/uL (4.14-5.76); WHITE BLOOD CELL COUNT,WBC 7.8 K/uL (3.2-11.0)
[2024-01-21 16:35] LABS: CALCIUM 9.4 mg/dL (8.5-10.1); CREATININE 1.3 mg/dL (0.8-1.3); EST CRCL DRUG DOSING (CG) 56.38 mL/min; POTASSIUM,K 4.2 mmol/L (3.6-5.2)
[2024-01-21 16:43] LABS: ANION GAP 12.2 mmol/L (5.0-14.0)
[2024-01-21 17:06] VITALS: BP 114/60; PULSE 56
== END 2024-01-21 17:15 | disposition home or self-care (01) ==
LOC: JP.ED 15:01
DX: R55 Syncope and collapse (principal); I48.91 Unspecified atrial fibrillation; I25.10 Atherosclerotic heart disease of native coronary artery without angina pectoris; K21.9 Gastro-esophageal reflux disease without esophagitis; Z87.891 Personal history of nicotine dependence; Z79.899 Other long term (current) drug therapy; Z79.01 Long term (current) use of anticoagulants; Z88.8 Allergy status to other drugs, medicaments and biological substances
CPT/HCPCS: 36415; 80048; 85025; 99283; 99284